=== PATIENT | male | born 1935 | race African-American/Black ===

== ENCOUNTER 2018-07-02 15:05 | Inpatient (IN) | payer OTHER ==
[2018-07-02 15:34] LABS: Absolute Lymphocytes (CBC) 0.9 K/uL (0.7-4.9); Absolute Monocytes 0.6 K/uL (0.1-1.3); Absolute Neutrophil 3.6 K/uL (1.8-8.0); Basophils % 1.1 % (0-1.3); Eosinophils % 3.8 % (0-4.4); Lymphocytes % 17.4 % (15.3-44.8); MPV 7.9 fL (7.6-11.3); Monocytes % 11.6 % (3.3-12.3); RBC Red Blood Cell Count 4.53 M/uL (4.33-5.43)
[2018-07-02 15:40] LABS: Protime INR 1.03
[2018-07-02 16:28] LABS: Potassium 4.8 mmol/L (3.5-5.1)
[2018-07-02 17:38] LABS: Urine Blood 1+ (NEG); Urine Glucose NEGATIVE (NEG); Urine Protein 2+ (NEG); Urine Specific Gravity 1.015 (1.005-1.030); Urine pH 5.5 (5.0-7.0)
--- NOTE | 2018-07-02 17:39 | ER ---
Nurse's Notes [facility] Name: Donal Ramirez Age: 82 yrs Sex: Male : 1935 Arrival Date: 07/02/2018 Time: 15:07 Bed 30 Private MD: Diagnosis: Fracture of unspecified part of neck of right femur Presentation: 07/02 15:14 Presenting complaint: Patient states: I slipped 3 weeks ago and injured my right knee. mg2 seen by Dr nam and advised to do xray of the right knee and right hip today. Now, xray done with right hip fracture. Care prior to arrival: None. Mechanism of Injury: Fall from standing position. Trauma event details: Injury occurred: at home. Injury occurred: June 12, 2018. 15:14 Acuity: ERICH 3 mg2 15:14 Method Of Arrival: Stretcher [facility] [place] 16:20 Transition of care: patient was not received from another setting of care. Onset of mg2 symptoms was June 12, 2018. Risk Assessment: Do you want to hurt yourself or someone else? Patient reports no desire to harm self or others. Initial Sepsis Screen: Does the patient meet any 2 criteria? No. Patient's initial sepsis screen is negative. Does the patient have a suspected source of infection? No. Patient's initial sepsis screen is negative. Historical: - Allergies: 15:19 No Known Allergies; mg2 - Home Meds: 15:19 aspirin 81 mg Oral TbEC once daily [Active]; carvedilol 6.25 mg Oral tab 2 times per mg2 day [Active]; clonidine HCl 0.2 mg Oral tab 3 times per day [Active]; folic acid 1 mg Oral tab once daily [Active]; hydralazine 50 mg Oral tab 1 tab 2 times per day [Active]; simvastatin 40 mg Oral tab once daily [Active]; tamsulosin 0.4 mg Oral cp24 once daily [Active]; - PMHx: 15:19 CVA; Hypertension; mg2 - PSHx: 15:19 None; mg2 - Immunization history:: Flu vaccine is not up to date. - Social history:: Smoking status: Patient/guardian denies using tobacco, Patient/guardian denies using alcohol, street drugs, IV drugs. - Ebola Screening: : No symptoms or risks identified at this time. - Family history:: not pertinent. - Hospitalizations: : No recent hospitalization is reported. Screenin:19 Abuse screen: Denies threats or abuse. Denies injuries from another. Nutritional mg2 screening: No deficits noted. Tuberculosis screening: No symptoms or risk factors identified. Fall Risk Fall in past 12 months (25 points). IV access (20 points). Gait- Weak (10 pts.). Assessment: 16:17 General: Appears in no apparent distress. comfortable, Behavior is calm, cooperative. mg2 Pain: Complains of pain in rigght upper leg Pain does not radiate. Pain currently is 2 out of 10 on a pain scale. Quality of pain is described as aching, Pain began gradually, Is intermittent, Aggravated by increased activity, repositioning, weight bearing. Neuro: Level of Consciousness is awake, alert, obeys commands, Oriented to person, place, time, situation. Cardiovascular: Capillary refill < 3 seconds Patient's skin is warm and dry. Respiratory: Airway is patent Respiratory effort is even, unlabored, Respiratory pattern is regular, symmetrical. GI: No signs and/or symptoms were reported involving the gastrointestinal system. : No signs and/or symptoms were reported regarding the genitourinary system. EENT: No signs and/or symptoms were reported regarding the EENT system. Derm: Skin is intact, is healthy with good turgor, Skin is pink, warm \T\ dry. normal. Musculoskeletal: Reports pain in right leg since 3 weeks only when he moves. 16:18 Injury Description: fractured right hip. mg2 18:17 Reassessment: patient has a room already and nurse Saleem will call back to receive the mg2 report. Vital Signs: 15:19 BP 184 / 114; Pulse 81; Resp 18; Temp 97.6; Pulse Ox 100% on R/A; Weight 78.47 kg; mg2 Height 5 ft. 11 in. (180.34 cm); Pain 0/10; 16:59 BP 183 / 94; Pulse 82; Resp 18; Pulse Ox 100% on R/A; Pain 0/10; mg2 17:45 BP 192 / 95; Pulse 84; Resp 18; Pulse Ox 99% on R/A; Pain 2/10; mg2 18:05 BP 169 / 92; Pulse 86; Resp 18; Temp 98; Pulse Ox 100% on R/A; Pain 0/10; mg2 18:38 BP 112 / 75; Pulse 85; Resp 18; Temp 98(O); Pulse Ox 100% on R/A; Pain 0/10; mg2 19:22 BP 150 / 90; Pulse 82; Resp 18; Pulse Ox 100% on R/A; Pain 0/10; mg2 15:19 Body Mass Index 24.13 (78.47 kg, 180.34 cm) mg2 ED Course: 15:07 Patient arrived in ED. iw 15:07 Hernan Razo MD is Attending Physician. rn 15:13 Dick Moulton, LASHONDA is Primary Nurse. mg2 15:17 Triage completed. mg2 15:20 Arm band placed on. mg2 15:30 Placed in gown. Bed in low position. Call light in reach. Side rails up X 1. Side rails jp3 up X2. Warm blanket given. Pillow given. 15:30 quality assurance monitor final on. Pulse ox on. NIBP on. jp3 15:40 EKG done, by instrumentation and controls technician. reviewed by Hernan Razo MD. 3 16:05 Lab(s) recollected, by me, sent to lab. jp3 16:12 Basic Metabolic Panel Sent. jp3 16:19 No provider procedures requiring assistance completed. Inserted saline lock: 20 gauge mg2 in right antecubital area, using aseptic technique. Blood collected. 17:38 Monalisa Byrne MD is Hospitalizing Provider. rn 17:59 Cleaned of incontinence. mg2 18:05 Patient admitted, IV remains in place. mg2 Administered Medications: 17:53 Drug: cloNIDine 0.2 mg Route: PO; mg2 18:39 Follow up: Response: No adverse reaction; Blood pressure is lowered mg2 Outcome: 17:38 Decision to Hospitalize by Provider. rn 19:25 Admitted to Med/surg accompanied by tech, via stretcher, room 206, with chart, Report mg2 called to LASHONDA Moralez 19:25 Condition: stable 19:25 Instructed on the need for admit, Demonstrated understanding of instructions. 19:56 Patient left the ED. mg2 Signatures: Luanne Loyd RN RN Hernan Razo MD MD rn Gardose, Michele, RN RN mg2 Kandy Khoury 3 Luisito Bosch jp3 Corrections: (The following items were deleted from the chart) 16:19 16:17 Musculoskeletal: No signs and/or symptoms reported regarding the musculoskeletal mg2 system. mg2
--- NOTE | 2018-07-02 17:39 | EDPHYS ---
Physician Documentation [facility] Name: Donal Ramirez Age: 82 yrs Sex: Male : 1935 Arrival Date: 07/02/2018 Time: 15:07 Bed 30 Private MD: ED Physician Hernan Razo HPI: 07/02 16:19 This 82 yrs old Black Male presents to ER via Stretcher with complaints of Hip Injury. rn 16:19 The patient or guardian reports an injury, pain. The complaints affect the right hip. rn Onset: The symptoms/episode began/occurred 3 week(s) ago. Severity of symptoms: At their worst the symptoms were mild, in the emergency department the symptoms are unchanged. The patient has not experienced similar symptoms in the past. Caregiver reports last known fall approx 3 weeks ago, has not been wanting to walk on right leg, touches and able to stand but not for long, doesn't want to walk. Sent here for outpt xrays, sent to ER after hip fracture identified. . Historical: - Allergies: 15:19 No Known Allergies; mg2 - Home Meds: 15:19 aspirin 81 mg Oral TbEC once daily [Active]; carvedilol 6.25 mg Oral tab 2 times per mg2 day [Active]; clonidine HCl 0.2 mg Oral tab 3 times per day [Active]; folic acid 1 mg Oral tab once daily [Active]; hydralazine 50 mg Oral tab 1 tab 2 times per day [Active]; simvastatin 40 mg Oral tab once daily [Active]; tamsulosin 0.4 mg Oral cp24 once daily [Active]; - PMHx: 15:19 CVA; Hypertension; mg2 - PSHx: 15:19 None; mg2 - Immunization history:: Flu vaccine is not up to date. - Social history:: Smoking status: Patient/guardian denies using tobacco, Patient/guardian denies using alcohol, street drugs, IV drugs. - Ebola Screening: : No symptoms or risks identified at this time. - Family history:: not pertinent. - Hospitalizations: : No recent hospitalization is reported. ROS: 16:19 Constitutional: Negative for fever, chills, and weight loss, Eyes: Negative for injury, rn pain, redness, and discharge, Neck: Negative for injury, pain, and swelling, Cardiovascular: Negative for chest pain, palpitations, and edema, Respiratory: Negative for shortness of breath, cough, wheezing, and pleuritic chest pain, Abdomen/GI: Negative for abdominal pain, nausea, vomiting, diarrhea, and constipation, MS/Extremity: + right leg pain Neuro: Negative for headache, weakness, numbness, tingling, and seizure. Exam: 16:19 Constitutional: Thin male, no acute distress Head/Face: Normocephalic, atraumatic. rn Neck: Trachea midline, no thyromegaly or masses palpated, and no cervical lymphadenopathy. Supple, full range of motion without nuchal rigidity, or vertebral point tenderness. No Meningismus. Cardiovascular: Regular rate and rhythm, No pulse deficits. Respiratory: Lungs have equal breath sounds bilaterally, clear to auscultation Abdomen/GI: soft, non-tender Back: no spinal tenderness MS/ Extremity: painful ROM right leg, locates pain to mid thigh, no swelling/ecchymosis Neuro: Awake and alert, mild slurred speech but moves all extremities with limited ROM RLE due to pain Vital Signs: 15:19 BP 184 / 114; Pulse 81; Resp 18; Temp 97.6; Pulse Ox 100% on R/A; Weight 78.47 kg; mg2 Height 5 ft. 11 in. (180.34 cm); Pain 0/10; 16:59 BP 183 / 94; Pulse 82; Resp 18; Pulse Ox 100% on R/A; Pain 0/10; mg2 17:45 BP 192 / 95; Pulse 84; Resp 18; Pulse Ox 99% on R/A; Pain 2/10; mg2 18:05 BP 169 / 92; Pulse 86; Resp 18; Temp 98; Pulse Ox 100% on R/A; Pain 0/10; mg2 18:38 BP 112 / 75; Pulse 85; Resp 18; Temp 98(O); Pulse Ox 100% on R/A; Pain 0/10; mg2 19:22 BP 150 / 90; Pulse 82; Resp 18; Pulse Ox 100% on R/A; Pain 0/10; mg2 15:19 Body Mass Index 24.13 (78.47 kg, 180.34 cm) mg2 MDM: 15:07 Patient medically screened. rn 17:04 Differential diagnosis: hip fracture, femoral neck fracture. Data reviewed: vital rn signs, nurses notes. ED course: Consulted with Dr. Garcia who recommends admission with surgical correction, but is out of town, waiting on daughter because son is under the impression she will not want surgery. Discussed with family and caregiver that if doesn't get surgery to correct, possibly wont be able to walk again, especially given that patient was ambulatory and independent prior to fall. Told again to wait until sister/daughter arrive.. 17:37 Counseling: I had a detailed discussion with the patient and/or guardian regarding: the rn historical points, exam findings, and any diagnostic results supporting the discharge/admit diagnosis, lab results, radiology results, the need for further work-up and treatment in the hospital. Response to treatment: the patient's symptoms have mildly improved after treatment, and as a result, I will admit patient. Admission orders: after a detailed discussion of the patient's condition and case, the admit orders are written by me. ED course: Daughter here, ok with admission for surgical correction, notified Dr Byrne, will admit with Dr. Hannon consult, non-emergent, given 3 week old fracture, and needs surgical clearance.. 07/02 15:14 Order name: CBC with Diff; Complete Time: 16:13 rn 07/02 15:14 Order name: Basic Metabolic Panel; Complete Time: 16:42 rn 07/02 15:14 Order name: PT-INR; Complete Time: 16:13 rn 07/02 15:14 Order name: Ptt, Activated; Complete Time: 16:13 rn 07/02 17:25 Order name: Urine Dipstick--Ancillary (enter results); Complete Time: 17:48 em1 07/02 15:14 Order name: IV Start; Complete Time: 16:12 rn 07/02 15:14 Order name: EKG; Complete Time: 15:15 rn 07/02 15:14 Order name: EKG - Nurse/Tech; Complete Time: 16:16 rn 07/02 17:25 Order name: Urine Dipstick-Ancillary (obtain specimen); Complete Time: 17:26 em1 Administered Medications: 17:53 Drug: cloNIDine 0.2 mg Route: PO; mg2 18:39 Follow up: Response: No adverse reaction; Blood pressure is lowered mg2 Disposition: 07/02/18 17:38 Hospitalization ordered by Monalisa Byrne for Inpatient Admission. Preliminary diagnosis is Fracture of unspecified part of neck of right femur. - Bed requested for Telemetry/MedSurg (Inpatient). - Status is Inpatient Admission. mg2 - Condition is Stable. - Problem is an ongoing problem. - Symptoms have improved. UTI on Admission? No Signatures: Dispatcher [employer] EDMS Hernan Razo MD MD rn Nhan Ramsey em1 Jane Sapp RN RN df Dick Moulton RN RN mg2 Corrections: (The following items were deleted from the chart) 18:01 17:38 Hospitalization Ordered by A Chavez BASILIO for Inpatient Admission. Preliminary df diagnosis is Fracture of unspecified part of neck of right femur. Bed requested for Telemetry/MedSurg (Inpatient). Status is Inpatient Admission. Condition is Stable. Problem is an ongoing problem. Symptoms have improved. UTI on Admission? No. rn 19:56 18:01 07/02/2018 17:38 Hospitalization Ordered by A Chavez BASILIO for Inpatient Admission. mg2 Preliminary diagnosis is Fracture of unspecified part of neck of right femur. Bed requested for Telemetry/MedSurg (Inpatient). Status is Inpatient Admission. Condition is Stable. Problem is an ongoing problem. Symptoms have improved. UTI on Admission? No. df
[2018-07-02] MEDS ORDERED: cloNIDine HCl 0.1 MG TAB ONE (17:58)
--- NOTE | 2018-07-02 19:46 | EKG ---
Test Date: 2018-07-02 Test Time: 15:25:52 Poultry Breeder: AG/S MEASUREMENT RESULTS: Intervals: Rate: 74 KS: 216 QRSD: 74 QT: 392 QTc: 435 [place]: P: 71 KS: 216 QRS: 19 T: 76 INTERPRETIVE STATEMENTS: Sinus rhythm with marked sinus arrhythmia with 1st degree AV block Minimal voltage criteria for LVH, may be normal variant Borderline ECG Compared to ECG 02/07/2016 12:58:23 First degree AV block now present Electronically Signed On 07-02-18 19:45:27 AUTOMOTIVE DETAILER by Mendel Noble
[2018-07-02 20:05] VITALS: BMI 21.4
[2018-07-02] MEDS ORDERED: NA CHLORIDE 0.9% 1,000 ML IV SCH (20:05)
[2018-07-02] MEDS ORDERED: ONDANSETRON 4 MG/2 ML VIAL IV PRN ×2 (20:05→21:50)
[2018-07-02] MEDS ORDERED: MORPHINE 2 MG/ML SYR IV PRN (21:50)
[2018-07-02] MEDS ORDERED: D5 0.9 NS 1,000 ML IV SCH (22:00)
[2018-07-02] MEDS ORDERED: CARVEDILOL 6.25 MG TAB PO SCH (22:30)
[2018-07-02] MEDS ORDERED: cloNIDine HCl 0.1 MG TAB PO SCH (22:30)
[2018-07-02] MEDS ORDERED: HYDRALAZINE HCL 25 MG TABLET PO SCH (22:30)
[2018-07-02] MEDS ORDERED: AMLODIPINE 5 MG TAB PO SCH (22:30)
--- NOTE | 2018-07-03 06:08 | HP ---
Date of Admission: 07/02/2018 Chief Complaint: Right knee pain. History Of Present Illness: This is an 82-year-old very pleasant male patient who came in to see me at my office on June 12, 2018, and at that time, he had complaints of some rectal bleeding problem. This was thought to be due to hemorrhoid problem and we prescribed him Anusol rectal suppository. Few days after his office visit, the patient's family member informed me that as he was getting out o f my office after the last visit, in the parking lot, he lost balance and fell down and was complaini ng of pain in his right knee, so we did order right knee x-ray, which came back negative for any frac ture. After that, he continued to have pain in his right knee, so it was decided to refer him to [facility] surgeon, and the patient had appointment to see Dr. Garcia today and he evaluated the omari ent and he requested for the patient to go get another repeat knee x-ray and he also ordered hip x-ra y. Hip x-ray showed evidence of fracture of the right hip, so [facility] and after he was evaluated, he was admitted to the hospital. When I saw him in emergency room, his family was with him at bedside. During this whole time ever since he fell down, he only c omplained of right knee pain, never had right hip pain, and his complaint of right knee pain was only with weightbearing, otherwise, never had any pain, but once again, never had right hip area pain. D enies any pain anywhere else. Allergies: NO KNOWN ALLERGIES. Medications: Amlodipine 5 mg 2 times a day, aspirin 81 mg daily, carvedilol 12.5 mg takes half a tab let 2 times a day, Claritin 10 mg daily as needed for allergy, clonidine 0.2 mg 3 times a day, Dulcol ax 5 mg once a week, tamsulosin 0.4 mg p.o. daily, fluticasone nasal spray 2 times a day, folic acid 1 mg daily, hydralazine 50 mg p.o. 2 times a day, Metamucil 2 capsules daily, minoxidil 2.5 mg 2 time s a day, simvastatin 40 mg p.o. daily in evening, and Kayexalate 60 mL p.o. 2 times a week, which is on Saturday and Saturday. Review of Systems: Musculoskeletal: As mentioned above. All other systems reviewed and negative. Past Surgical History: Negative. Past Medical History: Significant for stroke many years ago, hypertension, hyperkalemia, hyperlipide doug, anemia due to chronic kidney disease, pancreatic mass for which he has declined any further inte rvention, allergic rhinitis, chronic kidney disease stage 4, benign prostatic hypertrophy. Family History: Significant for hypertension and myocardial infarction. Social History: Negative for smoking and alcohol use. Physical Examination: Vital Signs: When he first came into emergency room, temperature 97.6, pulse 81, respiratory rate 18 , blood pressure 184/114, oxygen saturation 100%. Height 5 feet 11 inches, weight 154 pounds. General: Awake, alert, oriented, not in distress. HEENT: Head atraumatic, normocephalic. Conjunctivae nonerythematous. Sclerae white. Mouth, no thr ush or edema noted. Ears/Nose, no mass, lesion, discharge noted. Neck: Supple. No JVD, lymph nodes, bruit, thyromegaly noted. Lungs: Bilateral good equal air entry. Clear to auscultation. No rhonchi. No rales. Heart: Normal heart sounds, no murmur or gallop. Abdomen: Soft, bowel sounds normal. No guarding, rigidity, tenderness, mass, hepatosplenomegaly, di stention, or bruit noted. Extremities: No leg edema. No calf tenderness. Skin: No rash, ulcer, cellulitis. Lymphatics: No lymph node enlargement in neck, supraclavicular, infraclavicular region. Neuro: No focal neurological deficit. Chest: Unremarkable. External Genitalia: Deferred. Rectal: Deferred. Laboratory Data: White count 5.4, hemoglobin 11.6, platelets 305. Sodium 138, potassium 4.8, chlori de 107, bicarb 26, BUN 49, creatinine 2.80, glucose 90. INR 1.03. Urinalysis: 1+ blood, 2+ protein , otherwise negative. His hip x-ray done today on outpatient basis shows subcapital markedly displac ed fracture involving proximal right femur. CAT scan of the knee was negative for any fracture. Kne e x-ray was negative for fracture. EKG, sinus rhythm with sinus arrhythmia, first-degree AV block. Impression: 1.Right hip subcapital fracture. 2.Chronic kidney disease stage 4. 3.Anemia due to chronic kidney disease. 4.Hypertension. 5.Hyperlipidemia. 6.Benign prostatic hypertrophy. 7.Allergic rhinitis. 8.Pancreatic mass. Plan: We will go ahead and admit the patient to hospital for further evaluation and management of th is problem. The patient is appropriate for inpatient and [facility] Home medications will be continued per order. We will consult orthopedic surgeon on-call, Dr. Aroldo thurman, as well as we will consult Dr. Noble from Cardiology for preop cardiac clearance. The patien t is at acceptable risk from hip surgery. We will go ahead and keep him n.p.o. IV fluid will be giv en. Start him on pain medications per order. Tomorrow, we will get echocardiogram with Doppler. I did call and talk to test desk operator regarding details. He will evaluate the patient for cardiac cleara nce in the morning, and we will get the echocardiogram result from test desk operator tomorrow as well. De tails and plan of treatment discussed with the patient's family member that his daughter, son, and so n-in-law and all of their questions were answered. BRADY/PETEY Voice ID: [id number]
[2018-07-03 06:12] LABS: Absolute Lymphocytes (CBC) 0.9 K/uL (0.7-4.9); Absolute Monocytes 0.6 K/uL (0.1-1.3); Absolute Neutrophil 3.8 K/uL (1.8-8.0); Basophils % 0.6 % (0-1.3); Eosinophils % 4.6 % (0-4.4); Lymphocytes % 16.2 % (15.3-44.8); MPV 7.5 fL (7.6-11.3); Monocytes % 10.7 % (3.3-12.3); RBC Red Blood Cell Count 3.75 M/uL (4.33-5.43)
[2018-07-03 06:25] LABS: Potassium 4.8 mmol/L (3.5-5.1)
[2018-07-03] MEDS ORDERED: PNEUMOCOCCAL VACCINE 0.5 ML IMVAC ONE (08:00)
[2018-07-03] MEDS ORDERED: INFLUENZA VACCINE (for 3y+) 0.5 ML DOSE IMVAC ONE (08:00)
[2018-07-03] MEDS ORDERED: MORPHINE 4 MG/ML SYR IV PRN (08:34)
[2018-07-03] MEDS: D5 0.9 NS 1,000 ML IV SCH ×2 (08:57→17:41)
[2018-07-03] MEDS: cloNIDine HCl 0.1 MG TAB PO SCH ×3 (09:00→21:22)
[2018-07-03] MEDS ORDERED: MINOXIDIL 2.5 MG TAB PO SCH (09:00)
[2018-07-03] MEDS: CARVEDILOL 6.25 MG TAB PO SCH ×2 (09:00→21:23)
[2018-07-03] MEDS: AMLODIPINE 5 MG TAB PO SCH ×2 (09:00→21:22)
[2018-07-03] MEDS: HYDRALAZINE HCL 25 MG TABLET PO SCH ×2 (09:00→21:21)
[2018-07-03] MEDS: MINOXIDIL 2.5 MG TAB PO SCH ×2 (09:00→21:22)
[2018-07-03] MEDS: TAMSULOSIN 0.4 MG SR CAP PO SCH (09:00)
--- NOTE | 2018-07-03 11:34 | ECHO ---
HEIGHT: 5 ft 11 in WEIGHT: 154 lb 0 oz DATE OF STUDY: 07/03/[address]: Monster Byrne MD 2-DIMENSIONAL: YES M.MODE: YES DOPPLER: YES COLOR FLOW: YES TDS: NO PORTABLE: NO DEFINITY: NO BUBBLE STUDY: NO DIAGNOSIS: HYPERTENSION, PREOP CLEARANCE CARDIAC HISTORY: CATHERIZATION: NO SURGERY: NO PROSTHETIC VALVE: NO PACEMAKER: NO MEASUREMENTS (cm) DIASTOLIC (NORMALS) SYSTOLIC (NORMALS) IVSd 0.8 (0.6-1.2) LA Diam 2.8 (1.9-4.0) LVEF 83% LVIDd 4.8 (3.5-5.7) LVIDs 2.3 (2.0-3.5) %FS 52% LVPWd 1.0 (0.6-1.2) Ao Diam 3.2 (2.0-3.7) 2 DIMENSIONAL ASSESSMENT: RIGHT ATRIUM: NORMAL LEFT ATRIUM: NORMAL RIGHT VENTRICLE: NORMAL LEFT VENTRICLE: NORMAL TRICUSPID VALVE: NORMAL MITRAL VALVE: NORMAL PULMONIC VALVE: NORMAL AORTIC VALVE: NORMAL PERICARDIAL EFFUSION: NONE AORTIC ROOT: NORMAL LEFT VENTRICULAR WALL MOTION: NORMAL DOPPLER/COLOR FLOW: MILD TRICUSPID REGURGITATION. COMMENTS: MILD TRICUSPID REGURGITATION. AORTIC SCLEROSIS. NORMAL LEFT SIZE AND FUNCTION. TECHNOLOGIST: Mannie ALMANZA
[2018-07-03 14:10] LABS: Hematocrit 31.9 % (39.6-49.0)
[2018-07-03] MEDS ORDERED: TRANEXAMIC ACID 1,000 MG in NA CHLORIDE 0.9% 50 ML IV ONE (17:00)
--- NOTE | 2018-07-03 21:07 | CON ---
Date of Consultation: 07/03/2018 Reason For Consultation: Regarding right hip fracture. History Of Present Illness: This 82-year-old male had a fall in the first week of June, in which he tripped in a parking lot and had impact and was complaining of knee pain. The initial knee films were negative. The patient was referred for Orthopedic consultation and saw Dr. Oswald Garcia who asked for a repeat x-ray of the knee and the hip film. The hip films showed evidence of a displaced femoral neck fracture of the right hip and the patient was admitted to the hospital on 07/02/2018. The patient has been at bedrest and is awaiting surgery for his right hip fracture. Allergies: THERE ARE NO KNOWN ALLERGIES. Past Medical History: The patient has had no prior surgeries. His history is positive for stroke ma ny years ago. He is also treated for hypertension, hyperkalemia, hyperlipidemia, anemia due to chron ic kidney disease, pancreatic mass for which he declined any further intervention, allergic rhinitis, chronic kidney disease stage 4, and benign prostatic hypertrophy. Family History: Significant for hypertension and myocardial infarction. Social History: His history is negative for alcohol and tobacco use. Vital Signs: Stable with blood pressure 131/66, respiratory rate 19, pulse rate 16, temperature 98.3 , pain level is 0 while at bed rest. Laboratory Data: Laboratory has shown white blood cell count of 5.6 with normal differential except for slight elevation of the eosinophils. The hemoglobin upon admission was 11.6 and on the afternoon of 07/03/2018 is 10.2. Coagulation studies show pro-time of 12.2 and an INR of 1.03. Blood water chemist radha show chronic renal disease with BUN of 51, creatinine of 2.99 and estimated GFR 24. Urine shows 1+ blood and 2+ total protein as abnormalities. The patient has had electrocardiogram indicating si nus rhythm with arrhythmia and a first degree AV block, borderline ECG, followed up by echocardiogram showing mild tricuspid regurgitation, aortic sclerosis, normal left size and function. The patient has been cleared for surgery. Physical Examination: General: This is a well-nourished, well-developed 82-year-old black male, in no distress. He indica rossy he wants to proceed with whatever his family decides regarding the surgery. HEENT: Within normal limits. Neck: Supple. Lungs: Clear to auscultation with normal respiratory movements. Heart: Has a normal rate. Abdomen: Soft and nontender without distention. Genitalia: Deferred. Rectal: Deferred. Musculoskeletal: Exam reveals good action of dorsiflexion, plantar flexion of an kle and normal toe movements of flexion and extension. Sensation is intact. Capillary filling is br isk in the nail beds. Plan: X-ray has shown a closed displaced subcapital fracture of the right hip. Medical clearance villarreal s been given by doctors, Dr. Byrne and Dr. Noble. We have discussed risks and benefits with the pat porfirio and his son both in the room, and the patient's daughter who was on phone conference. All quest ions were answered and the family and the patient have elected to proceed with insertion of prostheti c right hip in treatment of a displaced right femoral neck fracture. SHIRA/PETEY Voice ID: [id number] Report ID: [id number]
[2018-07-03] MEDS: ATORVASTATIN 20 MG TAB PO SCH (21:22)
--- NOTE | 2018-07-04 00:37 | PN ---
Date of Progress Note: 07/03/2018 Subjective: The patient was seen this morning for followup. Denied any complaints this morning. Objective: Vital Signs: Reviewed. HEENT: Unremarkable. Lungs: Clear to auscultation. Heart: Sounds normal. Abdomen: Soft. Bowel sounds normal. No guarding, rigidity, tenderness, or distention. Extremities: No leg edema. Laboratory Data: White count 5.6, hemoglobin 9.7, platelets 236. Sodium 139, potassium 4.8, chlorid e 110, bicarb 24, BUN 51, creatinine 2.99, glucose 107. Impression: 1.Right hip fracture. 2.Chronic kidney disease stage 4. 3.Hypertension. 4.Anemia due to chronic kidney disease. Plan: We will continue IV fluid, rate was increased to 100 cc/hour. We will monitor patient's blood work including renal function, electrolytes. Continue to follow with orthopedic surgeon, Dr. Hannon , and I did talk to Dr. Noble from Cardiology. He evaluated the patient and informed me that echoc ardiogram was unremarkable with normal ejection fraction, and from cardiac point of view, he has diana red him for surgery. Medically, patient is at acceptable risk from planned surgery, and Dr. Hannon w ill decide when he is planning to do surgery, whether tomorrow or day after tomorrow as I understand. Order was written to hold antihypertensive medication with some holding parameter depending on the bl ood pressure readings. BRADY/MODL Voice ID: [id number] Report ID: [id number]
[2018-07-04] MEDS: D5 0.9 NS 1,000 ML IV SCH ×4 (02:48→21:46)
[2018-07-04 06:13] LABS: Absolute Lymphocytes (CBC) 0.8 K/uL (0.7-4.9); Absolute Monocytes 0.5 K/uL (0.1-1.3); Absolute Neutrophil 3.3 K/uL (1.8-8.0); Basophils % 0.7 % (0-1.3); Eosinophils % 6.2 % (0-4.4); Hematocrit 31.8 % (39.6-49.0); Lymphocytes % 16.9 % (15.3-44.8); MPV 7.5 fL (7.6-11.3); Monocytes % 9.8 % (3.3-12.3); RBC Red Blood Cell Count 3.98 M/uL (4.33-5.43)
[2018-07-04 06:27] LABS: Potassium 4.5 mmol/L (3.5-5.1)
[2018-07-04] MEDS ORDERED: PROPOFOL 200 MG/20 ML VIAL IV ONE (06:56)
[2018-07-04] MEDS ORDERED: FENTANYL CITR 250 MCG/5 ML ONE (06:57)
[2018-07-04] MEDS ORDERED: LIDOCAINE 2% MPF 5 ML VIAL ONE (06:57)
[2018-07-04] MEDS ORDERED: ROCURONIUM 50 MG/5 ML VIAL IV ONE (06:58)
[2018-07-04] MEDS ORDERED: ONDANSETRON 4 MG/2 ML VIAL ONE (06:59)
[2018-07-04] MEDS ORDERED: NEOSTIGMINE 1 MG/ML -5 ML SYRINGE ONE (06:59)
[2018-07-04] MEDS ORDERED: GLYCOPYRROLATE 0.2 MG/ML SYR ONE (06:59)
--- NOTE | 2018-07-04 07:06 | CON ---
Date of Consultation: 07/03/[address] Byrne's service on 07/02/2018. I saw the patient on 07/03/2018. Reason For Consultation: Cardiac clearance for right hip surgery. History Of Present Illness: Mr. Ramirez is an 82-year-old black male, has had a history of CVA in the p ast that has resolved. Has a history of hypertension, dyslipidemia, benign prostatic hypertrophy. H as not had any previous cardiac history. He had sustained a fall and was found to have a right hip f racture. Denies any chest pain, shortness of breath, PND, orthopnea, palpitations, or syncope. Past Medical History: As stated above. Allergies: NONE. Review of Systems: Negative. Social History: Negative. Family History: Noncontributory. Medications: At home include aspirin, Zocor, hydralazine, Coreg, clonidine, minoxidil, Flomax. Physical Examination: Vital Signs: Stable. He was afebrile. He was in sinus rhythm. HEENT: Negative. Neck: Supple. No bruit. Chest: Clear to auscultation and percussion. Cardiac: Revealed a regular rhythm and rate with an S4 gallops. No murmurs or rubs. Abdomen: Benign. Extremities: Revealed no clubbing, cyanosis, or edema. Diagnostic Data: His EKG showed left ventricular hypertrophy. Creatinine is 2.80. An echocardiogra m that was done before I saw him showed normal ejection fraction, no wall motion abnormalities and no effusion. Impression And Plan: Mr. Ramirez is a patient who has a history of cerebrovascular accident, hypertensi on, dyslipidemia, benign prostatic hypertrophy. No previous cardiac history. EKG showed LVH. Echoc ardiogram is normal. Mr. Ramirez's main risk factor is really his age and his renal insufficiency. I t hink he is at acceptable risk for surgery. I will follow him along with Dr. Byrne and Dr. Hannon. KAVITA/PETEY Voice ID: [id number] Report ID: [id number]
[2018-07-04] MEDS ORDERED: CEFAZOLIN 1GM (PREMIX IV) 1 GM/50 ML BAG ONE (07:08)
[2018-07-04] MEDS ORDERED: Ringers Lactate 1,000 ML IV ONE ×2 (07:18→10:58)
[2018-07-04] MEDS ORDERED: TRANEXAMIC ACID 1,000 MG in NA CHLORIDE 0.9% 50 ML IV ONE ×4 (07:30)
[2018-07-04] MEDS ORDERED: CEFAZOLIN 1GM (PREMIX IV) 1 GM/50 ML BAG IVPB SCH (07:30)
[2018-07-04] MEDS ORDERED: EPHEDRINE SULF 50 MG/ML VIAL ONE (08:08)
[2018-07-04] MEDS: BUPIVACA 0.25%/EPI 0.0005% MDV 50 ML VIAL ONE ×2 (08:57→11:10)
[2018-07-04] MEDS: AMLODIPINE 5 MG TAB PO SCH ×2 (09:00→20:16)
[2018-07-04] MEDS: MINOXIDIL 2.5 MG TAB PO SCH ×2 (09:00→20:14)
[2018-07-04] MEDS: TAMSULOSIN 0.4 MG SR CAP PO SCH (09:00)
[2018-07-04] MEDS: cloNIDine HCl 0.1 MG TAB PO SCH ×3 (09:00→20:16)
[2018-07-04] MEDS: CARVEDILOL 6.25 MG TAB PO SCH ×2 (09:00→20:15)
[2018-07-04] MEDS: HYDRALAZINE HCL 25 MG TABLET PO SCH ×2 (09:00→20:15)
--- NOTE | 2018-07-04 10:36 | RAD REPORT ---
EXAM DESCRIPTION: RAD - Pelvis - 07/04/2018 10:07 am CLINICAL HISTORY: Femoral fracture FINDINGS: Intraoperative x-ray demonstrates performance of a right hip arthroplasty. Prosthesis is in good position.
--- NOTE | 2018-07-04 11:40 | P.BOP ---
Preoperative diagnosis: RIGHT HIP FEMORAL NECK FRACTURE Postoperative diagnosis: SAME Primary procedure: INSERTION OF CEMENTED UNIPOLAR HIP PROSTHESIS RIGHT FEMORAL NECK FRACTURE Plasma Center Technician: Greg Hannon Estimated blood loss: 200 mL Specimen: FEM.HEAD&SHARDS CALCAR&SOFT TISSUES DEBRIDED Findings: WORN CALCAR,SUBCAPITAL FEM. NECK FRACTURE Anesthesia: General Complications: None Implants: SUMMIT FEM.STEMsz4;GIA NECK -3;HIP BALL 52mm; SIMPLEX HV CEMENTw/ GENT Fluids & blood products: INJ 30 ml 0.25%MARCAINE w/EPI Transferred to: Recovery Room Condition: Good
[2018-07-04] MEDS ORDERED: MAGNESIUM HYDROXIDE 8% 30 ML PO PRN (11:58)
[2018-07-04] MEDS: MEPERIDINE HCL 50 MG/ML AMP ONE ×2 (12:14→12:19)
--- NOTE | 2018-07-04 12:32 | RAD REPORT ---
EXAM DESCRIPTION: RAD - Pelvis - 07/04/2018 12:24 pm CLINICAL HISTORY: Right femoral surgery FINDINGS: Right hip arthroplasty has been performed. The prosthesis is in good position. No fracture or dislocation is seen
[2018-07-04] MEDS: CEFAZOLIN/SWI 1gm 1 GM/10 ML SYR IV SCH ×2 (13:58→17:56)
[2018-07-04] MEDS: ATORVASTATIN 20 MG TAB PO SCH (20:15)
[2018-07-04] MEDS: ACETAMINOPHEN 500 MG TAB PO PRN (20:20)
--- NOTE | 2018-07-04 22:45 | PN ---
Date of Progress Note: 07/04/2018 Subjective: The patient was seen this afternoon for followup as this morning when I went to his room , he was taken down for surgery. After he came to room from surgery, he has not had any problem. Wh en I saw him, his daughter was present with him at bedside. No nausea, vomiting, chest pain, or shor tness of breath. Objective: Vital Signs: Reviewed. HEENT: Unremarkable. Lungs: Clear to auscultation. Heart: Sounds normal. Abdomen: Soft. Bowel sounds normal. No guarding, rigidity, tenderness, or distention. Extremities: No leg edema. Laboratory Data: White count 4.9, hemoglobin 10.3, platelets 244. Sodium 141, potassium 4.5, chlori de 110, bicarb 24, BUN 37, creatinine 2.64, glucose 106. Impression: 1.Right hip subcapital fracture. 2.Chronic kidney disease stage 4. 3.Anemia due to chronic kidney disease. 4.Hypertension. 5.Hyperlipidemia. Plan: We will go ahead and continue current pain medications, antihypertensive medications, and we w ill see him for a followup. His renal function has improved. I did talk to the patient's daughter a nd advised her that it will be best if family can stay with him 24x7, so that way they can assist him with any help that if he needs and it will help probably reduce chances of confusion and agitation a s well. DVT prophylaxis should be started starting tomorrow using Lovenox 30 mg subcutaneous injection daily. We will see him tomorrow for followup. BRADY/MODL Voice ID: [id number] Report ID: [id number]
[2018-07-05 05:20] LABS: Hematocrit 30.9 % (39.6-49.0)
[2018-07-05] MEDS: D5 0.9 NS 1,000 ML IV SCH (09:00)
[2018-07-05] MEDS: CARVEDILOL 6.25 MG TAB PO SCH ×2 (09:50→20:03)
[2018-07-05] MEDS: HYDROCODONE/APAP 5/325 MG TAB PO PRN ×2 (09:50→14:11)
[2018-07-05] MEDS: TAMSULOSIN 0.4 MG SR CAP PO SCH (09:50)
[2018-07-05] MEDS: HYDRALAZINE HCL 25 MG TABLET PO SCH ×2 (09:50→20:02)
[2018-07-05] MEDS: cloNIDine HCl 0.1 MG TAB PO SCH ×3 (09:50→20:02)
[2018-07-05] MEDS: MINOXIDIL 2.5 MG TAB PO SCH ×2 (09:51→20:06)
[2018-07-05] MEDS: AMLODIPINE 5 MG TAB PO SCH ×2 (09:51→20:07)
[2018-07-05] MEDS: ENOXAPARIN 30 MG/0.3 ML SQ SCH (09:51)
--- NOTE | 2018-07-05 16:30 | P.PN ---
Date of Service: 07/05/18 (POD#1) S: THIS PATIENT IS RESTING IN BED THIS AFTERNOON AND PROVES TO BE ALERT AND ORIENTED AND COOPERATIVE. hIS SOONER IS PRESENT AND INDICATES HE PARTICIPATED FULLY WITH PHYSICAL THERAPY WITH TENDENCY FOR FULL WEIGHTBEARING ON THE RIGHT LOWER EXTREMITY FOR THE FIRST TIME SINCE HIS FALL 3 WEEKS AGO. O: VITAL SIGNS STABLE, PATIENT IS AFEBRILE, HEMOGLOBIN IS STABLE AT 10.1, BANDAGE IS CLEAN DRY AND INTACT. A: PATIENT IS MAKING GREAT PROGRESS IN HIS FIRST POSTOPERATIVE DAY. P: ENCOURAGED CONTINUED MOBILIZATION. INSTRUCTED PATIENT IN ANKLE FLAPS AND TOE WIGGLING TO INVOLVE VENOUS COMPRESSION IN REDUCING ACCUMULATION OF ANY EDEMA IN THE RIGHT LOWER EXTREMITY.
[2018-07-05] MEDS: ATORVASTATIN 20 MG TAB PO SCH (20:03)
[2018-07-05] MEDS: ACETAMINOPHEN 500 MG TAB PO PRN (20:03)
--- NOTE | 2018-07-05 22:19 | PN ---
Date of Progress Note: 07/05/2018 Subjective: Patient was seen this morning for followup. He was sitting in chair. Family member was with him at bedside. He denies any nausea or vomiting. Has a good appetite. Objective: Vital Signs: Reviewed. HEENT: Examination unremarkable. Lungs: Clear to auscultation. No rhonchi. No rales. Heart: Sounds normal. Abdomen: Soft, bowel sounds normal. No guarding, rigidity, tenderness, or distention. Extremities: No leg edema. Impression: 1.Right hip fracture. 2.Hypertension. 3.Chronic kidney disease stage 4. 4.Anemia due to chronic kidney disease. Plan: We will go ahead and continue current medication. Continue current antihypertensive medicatio n. We will start him on Lovenox 30 mg subcutaneous injection daily for DVT prophylaxis starting toda y. His hemoglobin this morning was 10.1, yesterday it was 10.3. We will go ahead and follow up on [employer] work tomorrow. Physical therapy to continue to work with the patient. We will remove Vidmind heter today. BRADY/MODL Voice ID: [id number] Report ID: [id number]
[2018-07-06] MEDS: HYDROCODONE/APAP 5/325 MG TAB PO PRN ×5 (03:10→22:34)
[2018-07-06 05:48] LABS: Absolute Lymphocytes (CBC) 0.8 K/uL (0.7-4.9); Absolute Monocytes 0.9 K/uL (0.1-1.3); Absolute Neutrophil 6.4 K/uL (1.8-8.0); Basophils % 0.5 % (0-1.3); Eosinophils % 3.6 % (0-4.4); Hematocrit 27.8 % (39.6-49.0); MPV 7.9 fL (7.6-11.3); Monocytes % 10.3 % (3.3-12.3)
[2018-07-06 06:08] LABS: Potassium 4.6 mmol/L (3.5-5.1)
--- NOTE | 2018-07-06 07:32 | PN ---
Date of Progress Note: 07/04/2018 I had cleared Mr. Ramirez for orthopedic surgery. He had a normal echocardiogram. Has a history of hyp ertension, dyslipidemia, and history of CVA. Postoperatively he has done well. There is no arrhythm ia. No clinical evidence of congestive heart failure. He is in mild pain from his hip, but otherwis e, has a fairly good appetite. His blood pressure is normal. We will continue to follow him as need ed. KAVITA/PETEY Voice ID: [id number] Report ID: [id number]
[2018-07-06] MEDS: HYDRALAZINE HCL 25 MG TABLET PO SCH ×2 (08:23→20:45)
[2018-07-06] MEDS: CARVEDILOL 6.25 MG TAB PO SCH ×2 (08:23→20:45)
[2018-07-06] MEDS: TAMSULOSIN 0.4 MG SR CAP PO SCH (08:23)
[2018-07-06] MEDS: cloNIDine HCl 0.1 MG TAB PO SCH ×3 (08:23→20:44)
[2018-07-06] MEDS: AMLODIPINE 5 MG TAB PO SCH ×2 (08:24→20:44)
[2018-07-06] MEDS: ENOXAPARIN 30 MG/0.3 ML SQ SCH (08:24)
[2018-07-06] MEDS: MINOXIDIL 2.5 MG TAB PO SCH ×2 (08:24→20:44)
[2018-07-06] MEDS ORDERED: BISACODYL 10 MG RECTAL SUPP PR ONE (10:27)
--- NOTE | 2018-07-06 15:26 | PN ---
Date of Progress Note: 07/06/2018 Subjective: Patient was seen this morning for followup. No new complaints, problems reported by justin monroy. Lying in bed, not in distress. Family was present with him at bedside. Objective: Vital Signs: Reviewed. HEENT Examination: Unremarkable. Lungs: Clear to auscultation. No rhonchi, rales. Heart: Sounds normal. Abdomen: Soft. Bowel sounds normal. No guarding, rigidity, tenderness. Bowel sounds normoactive. Abdomen appeared slightly distended. Extremities Exam: No leg edema. Laboratory Data: White count 8.5, hemoglobin 9.1, platelets 185. Sodium 136, potassium 4.6, chlorid e 105, bicarb 23, BUN 35, creatinine 2.95, glucose 100. Impression: 1.Right hip fracture. 2.Chronic kidney disease stage 4 to stage 5. 3.Anemia due to chronic kidney disease. 4.Constipation. 5.Benign prostatic hypertrophy with urinary retention. 6.Hypertension. Plan: Patient's blood pressure readings reviewed. We will continue current antihypertensive medicat ions. Continue current DVT prophylaxis. Physical Therapy to continue to work with the patient. The patient has not had a bowel movement. Senokot will be given on a daily basis per order, and we will give 1 dose of Dulcolax rectal suppository today. He is urinating after we removed the Mayfield cathet er, but we will continue to watch him for urinary retention. Today, after I examined him, I requeste d nurse to try to get the patient to the bedside commode to see if he can urinate and then check post void residual. The patient did not void after trying for almost 20 minutes and bladder scan had show n about 168 cc of urine. We will not put any catheter at this point and continue to encourage him to void, but if necessary, we will do straight cath p.r.n. Continue Flomax per order. BRADY/MODL Voice ID: [id number] Report ID: [id number]
[2018-07-06] MEDS: ATORVASTATIN 20 MG TAB PO SCH (20:45)
[2018-07-06] MEDS ORDERED: DOCUSATE NA/SENNA CONC 1 TAB PO SCH (21:00)
--- NOTE | 2018-07-06 21:46 | P.PN ---
Date of Service: 07/06/18 (POD 2) S: THIS PATIENT IS RESTING IN BED THIS AFTERNOON AND PROVES TO BE ALERT AND ORIENTED AND COOPERATIVE. HIS SITTER AND DAUGHTER ARE PRESENT AND INDICATE HE AGAIN DID WELL WITH PHYSICAL THERAPY. O: VITAL SIGNS STABLE, PATIENT IS AFEBRILE, HEMOGLOBIN IS STABLE AT 9.1 TODAY. BANDAGE IS CLEAN DRY AND INTACT. PATIENT WENT 20 with FWW. PATIENT DORSIFLEXES TOES AND ANKLE WITH GOOD STRENGTH. SLIGHT LEG LIFT ACCOMPLISED. HE IS ENCOURAGED TO LIFT THE LEFT LEG X5, THEN TRY LIFTING THE RIGHT LEG. ABD PILLOW STRAPS LOOSENED FOR BED EXERCISES. A: PATIENT IS MAKING PROGRESS IN HIS SECOND POSTOPERATIVE DAY. P: ENCOURAGED CONTINUED MOBILIZATION.
[2018-07-06 23:54] VITALS: O2SAT 98
[2018-07-07 06:52] LABS: Potassium 4.9 mmol/L (3.5-5.1)
[2018-07-07 06:54] LABS: Hematocrit 26.1 % (39.6-49.0)
[2018-07-07] MEDS: HYDROCODONE/APAP 5/325 MG TAB PO PRN ×2 (06:58→12:01)
[2018-07-07] MEDS: ENOXAPARIN 30 MG/0.3 ML SQ SCH (08:59)
[2018-07-07] MEDS: MINOXIDIL 2.5 MG TAB PO SCH ×2 (09:00→09:01)
[2018-07-07] MEDS: cloNIDine HCl 0.1 MG TAB PO SCH ×3 (09:00→14:09)
[2018-07-07] MEDS: TAMSULOSIN 0.4 MG SR CAP PO SCH (09:00)
[2018-07-07] MEDS: AMLODIPINE 5 MG TAB PO SCH (09:00)
[2018-07-07] MEDS: CARVEDILOL 6.25 MG TAB PO SCH (09:00)
[2018-07-07] MEDS: HYDRALAZINE HCL 25 MG TABLET PO SCH (09:01)
[2018-07-07] MEDS: ACETAMINOPHEN 500 MG TAB PO PRN (09:44)
[2018-07-07 16:10] VITALS: BP 140/56
[2018-07-07 17:42] VITALS: TEMP 98
--- NOTE | 2018-07-07 18:42 | P.PN ---
Date of Service: 07/07/18 (POD#3) S: THIS PATIENT IS IN BED IN HIS ROOM ON 5TH FLOOR REHAB THIS EVENING WITH ABD. PILLOW BETWEEN LEGS. PATIENT RESPONDS APPROPRIATELY TO QUESTIONS. HIS SITTER IS PRESENT AND INDICATES HE WENT 110' WITH PHYSICAL THERAPY. O: VITAL SIGNS STABLE, PATIENT IS AFEBRILE, HEMOGLOBIN IS STABLE AT 8.5 TODAY. BANDAGE IS CLEAN DRY AND INTACT. PATIENT DORSIFLEXES TOES AND ANKLE WITH GOOD STRENGTH. SLIGHT LEG LIFT ACCOMPLISHED. PATIENT GUARDS AGAINST ANY PASSIVE MOVEMENT OF RIGHT OR LEFT LEGS. HE IS AGAIN ENCOURAGED TO LIFT THE LEFT LEG X 5 , THEN TRY LIFTING THE RIGHT LEG. ABD PILLOW STRAPS LOOSENED FOR BED EXERCISES. A: PATIENT IS MAKING PROGRESS IN HIS SECOND POSTOPERATIVE DAY. P: ENCOURAGED CONTINUED MOBILIZATION.
--- NOTE | 2018-07-08 07:25 | DS ---
Date of Discharge: 07/07/2018 Disposition: Discharged to go to rehab floor. Physical Examination: HEENT: Unremarkable. Lungs: Clear to auscultation. Heart: Sounds normal. Abdomen: Soft. Bowel sounds normal. No guarding, rigidity, tenderness, or distention. Extremities: No leg edema. Discharge Medications: See copy of transfer MAR for details. Hospital Course: An 82-year-old male patient admitted to the hospital with right knee pain. Please see dictated H and P for more information. The patient had fallen down beginning of June which is around June 12, 2018, and he started complaining of pain in his right knee. Right knee x-ray was unremarkable, but he continued to have pain in the knee. He never complained of any pain in his [facility] t hip area. He was referred to see Dr. Garcia, who sent him into hospital for repeat knee x-ray a nd also did a hip x-ray and his hip x-ray came back positive for fractures. So, the patient was admi tted to the hospital. See dictated H and P for more information. After the patient was admitted to the hospital, Orthopedic consultation was obtained from Dr. Hannon and a Cardiology consultation was obtained from Dr. Noble. Cardiac clearance was obtained. Echocardiogram was unremarkable. His ho me medications were continued and the patient had surgery done by Dr. Hannon and postoperatively he d id very well. He did not require any blood transfusion. He had some constipation problem, which was corrected with laxative. DVT prophylaxis was started using Lovenox. He started participating well with the physical therapy. He is eating well and is medically stable for discharge to go to [facility] where he was accepted today. The patient had a Mayfield catheter placement after surgery, which was removed and has had some urinary retention, requiring intermittent catheterization. We will con tinue Flomax. This morning, nurse was advised not to do any intermittent catheterization unless his urinary retention is more than 250 cc. Final Diagnoses: 1.Right hip subcapital fracture, status post surgery. 2.Hypertension. 3.Chronic kidney disease stage 4. 4.Anemia due to chronic kidney disease. 5.Hypertension. 6.Hyperlipidemia. 7.Benign prostatic hypertrophy with urinary retention. 8.Allergic rhinitis. 9.Pancreatic mass. 10.Anemia due to acute blood loss. Laboratory Data: Last hemoglobin today was 8.5. Last chemistry today sodium 132, potassium 4.9, chl oride 102, bicarb 23, BUN 35, creatinine 2.73, glucose 93. BRADY/MODL Voice ID: [id number] Report ID: [id number]
--- NOTE | 2018-07-09 02:29 | OP ---
Date of Procedure: 07/04/2018 Surgeon: Greg Hannon MD Front End Java Developer: Greg Hannon M.D. Preoperative Diagnosis: Right hip femoral neck fracture. Postoperative Diagnosis: Right hip femoral neck fracture. Primary Procedures: Insertion of cemented unipolar hip prosthesis, right femoral neck fracture. Indications: This 82-year-old male had fallen at June 10 and suffered complaints of knee pain. He was seen and evaluated with x-rays of the knee that prove negative. He continued to have intense knee pain and was referred to orthopedic evaluation. X-ray there showed a fracture of the hip. The patient was advised to go to the hospital, but held out at home for more days before presenting on , at the [facility] emergency Department. He was admitted and is taken to surgery to manage the right hip fracture with hemiarthroplasty. Technique: The patient was taken to the operating room and given a general anesthesia. The patient was placed in the left lateral position and balanced with bolsters at the lumbar area and the abdomin al area and the pubic bone anteriorly. This made the pelvis transverse line vertical to the floor. The leg was suspended and prepping was carried out from the ribcage to the toes using a DuraPrep for the ankle and foot after Betadine scrub and solution for the hip area. After draping was accomplishe d, the incision was marked and Ioban sticky drape was placed over the operative site. The incision w as made in the proximal femoral line extending upwards to towards the lesser trochanter and angling i n a curve towards the posterior superior iliac spine. The incision was carried sharply through skin and subcutaneous tissue. Bovie coagulation was done constantly to create hemostasis. The cutting Edison vie was used to open the fascia eyad, that was divided proximally with a cutting Bovie into the glute us maureen muscle, which was split with a cutting Bovie and tearing of soft tissue with the finger. The self retainers were applied to allow continued exposure as the posterior aspect of the proximal f emur was dissected carefully using the cutting Bovie to remove the external rotators. They were tagg ed and the capsule was opened and followed down to the acetabular lip using Junior scissors to cut the capsule. Tags were applied as the piriformis insertion was released and the external rotators were u sed for posterior traction. The calcar was exposed. It was broken almost at the site expected for t he seating of the stem in the intramedullary canal. The corkscrew was used to remove the femoral hea d. It was measured at 52 mm in diameter. Then, attention was paid to the proximal femur using retra ctors to bring it upwards out of the depth of the wound. The initiator was followed by the canal fin akbar and the lateralizer. Then, sequential reaming was followed by broaching. The broaching was rodarte ied out to the size 4 and the size 4 proved to be a little prominent and added too much length and th ere was a great deal of difficulty in doing a trial reduction. So, the size 3 broach was placed and seated a little deeper and the calcar reamer was used to trim down the edges of the calcar approximat brennan 4 mm and the central intramedullary plug was placed in a proper position. The cement using Simpl ex HV cement with gentamicin 2 batches were placed in a cement gun and pressure technique was used to inject the cement into the proximal femur and the Miner femoral stem size 4 was pressed into positi on. The -3 Deborah neck was assembled with the 52-mm Deborah hip ball and both were tapped onto th e conical taper with a mallet and the impactor. Reduction was accomplished and the length seemed benson te appropriate. There was no pistoning with pull and push on the knee. Range of motion was good. E stimated blood loss was 200 mL. Specimen included femoral head, shards of calcar and soft tissues de brided. The wound then was irrigated profusely and closed with first repair of the posterior capsule using #1 Vicryl. Then, #1 Vicryl was used to repair the piriformis insertion and insertion of the e xternal rotator muscles. The vastus lateralis was repaired with #1 Vicryl interrupted sutures after another irrigation was accomplished. Once the vastus lateralis and gluteus maureen fascial layer wer e repaired, then deep subcu was also done with #1 Vicryl interrupted sutures. A 2-0 Vicryl interrupt ed suture was used for the subcutaneous closure and skin karina were used for skin closure. The ban dage chosen was an Aquacel adhesive bandage. It seals around the incision. The patient was then ret urned to the hospital bed and taken to recovery having tolerated this procedure well. A 30 mL of 0.25% Marcaine with epinephrine were injected into the incision befo re the bandage was applied. HANNAH Voice ID: [id number] Report ID: [id number]
== END 2018-07-07 16:52 | DRG 470 ==
LOC: ER 15:05 → ERHOLD 17:41 → 2ND 19:29
PROVIDERS: ADMIT Internal Medicine; ATTEND Internal Medicine
PROC: 0SRR0J9 Replacement of Right Hip Joint, Femoral Surface with Synthetic Substitute, Cemented, Open Approach (ICD-10-PCS; principal; 2018-07-04 07:30)
DX: S72.011A Unspecified intracapsular fracture of right femur, initial encounter for closed fracture (principal); N18.4 Chronic kidney disease, stage 4 (severe); D62 Acute posthemorrhagic anemia; W01.0XXA Fall on same level from slipping, tripping and stumbling without subsequent striking against object, initial encounter; Y93.89 Activity, other specified; Y92.019 Unspecified place in single-family (private) house as the place of occurrence of the external cause; Z86.73 Personal history of transient ischemic attack (TIA), and cerebral infarction without residual deficits; E87.5 Hyperkalemia; E78.5 Hyperlipidemia, unspecified; D63.1 Anemia in chronic kidney disease; I12.9 Hypertensive chronic kidney disease with stage 1 through stage 4 chronic kidney disease, or unspecified chronic kidney disease; J30.9 Allergic rhinitis, unspecified; K86.9 Disease of pancreas, unspecified; K59.00 Constipation, unspecified; N40.1 Benign prostatic hyperplasia with lower urinary tract symptoms; R33.8 Other retention of urine
CPT/HCPCS: 36415; 72170; 73700; 80048; 81003; 85014; 85018; 85025; 85610; 85730; 88304; 88305; 88311; 93005; 93306; 97116; 97163; 97166; 97530; 99285; J0690; J1650; J2175; J2405; J2704; J2710; J3010; J7030

== ENCOUNTER 2018-07-07 10:33 | Inpatient (IN) | payer OTHER ==
--- NOTE | 2018-07-07 11:53 | R.PREADM ---
SCREENING DATE AND TIME 07/07/2018 10:40 (NUCLEAR UNIT OPERATOR) ANTICIPATED REHAB ADMISSION DATE 07/09/2018 REFERRING FACILITY Formerly [facility] REFERRAL DATE AND TIME 07/07/2018 10:41 (NUCLEAR UNIT OPERATOR) REFERRAL OFFICE PHONE [phone] REFERRAL ROOM# [id number] ACUTE ADMIT DATE 07/02/2018 Previous Rehabilitation(s): No. REFERRING PHYSICIAN Greg Hannon REHAB FACILITY [facility] CLINICAL LIAISON Lupe Carranza PHYSICIAN REVIEWER Dr. Trino Pineda M.D. MR# [id number] NAME DONAL RAMIREZ AD[address]ESS [id number] [address] DATE OF 1935 AGE 82 SSN# [id number] GENDER male MARITAL STATUS RACE black ADMIT FROM 02 - [facility] PRE-HOSPITAL LIVING SETTING 01 - Home (private home/apt. board/care, assisted living, long-term, transitional living) HOME TYPE AND DETAILS Type of home: mobile home # of levels in the residence: 1 # of steps within the residence: 0 # of steps to enter the residence: 1 PRE-HOSPITAL LIVING WITH Alone FAMILY SUPPORT Yes PRIMARY FAMILY CONTACT NAME Keiko Lawton PRIMARY FAMILY CONTACT PHONE PRIMARY FAMILY CONTACT RELATIONSHIP Daughter PHONE PRIMARY FAMILY CONTACT ON ADM.? no IS PRIMARY FAMILY CONTACT AUTH. REP.? no 1ST EMERGENCY CONTACT Keiko Lawton 1ST CONTACT PHONE 1ST CONTACT RELATIONSHIP Daughter PHONE 1ST CONTACT ON ADM. no IS 1ST CONTACT AUTH. REP.? no PHONE 2ND CONTACT ON ADM.? no PATIENT EMPLOYMENT STATUS Retired (for age) PATIENT EMPLOYER No Employer PAYOR INFORMATION: 1ST PAYOR NAME MEDICARE 1ST PAYOR PHONE [phone] 1ST PAYOR INJURY/ILLNESS DUE TO ACCIDENT? No ANOTHER GREEN PARTY RESPONSIBLE? No PRIMARY REHAB/ACUTE DIAGNOSIS: RIGHT FEMORAL NECK FRACTURE ONSET DATE 07/02/2018 REHAB IMPAIRMENT CATEGORY (CIELO): 07 Fracture of LE (FracLE) MEETS 60% rule AFFECTED EXTREMITIES: RLE PRIMARY DIAGNOSIS-RELATED SURGERIES: RIGHT HIP- INSERTION OF UNIPOLAR PROSTHESIS FOR CLOSED DISPLACED FEMORAL NECK FRACTURE - performed by Greg Hannon on 07/04/2018 COMORBID REHAB/ACUTE DIAGNOSES: - N/A HYPETENSION HYPERKALEMIA HYPERLIPIDEMIA ANEMIA CHRONIC KIDNEY DISEASE STAGE 4 PANCREATIC MASS ALLERGIC RHINITIS BENIGN PROSTATIC HYPERTROPHY SUMMARY OF ACUTE HOSPITALIZATION: Pt. is a 82 yo Right-handed black male. His impairment category is Orthopaedic Disorders 08 - Unilateral Hip Fracture (08.11). Pre-morbidly, Pt. was independent/mod-I in Transfers Control, Communication, Social Cognition, Self-C are, Locomotion, and Sphincter Control; and he had good Sphincter Control. Currently, he has deficits of Transfers Control, Balance, Locomotion, Endurance, Safety Awareness, an d Self-Care. Pt. is now referred to [facility] for acute in-patient rehabilitation in order to maximize patient's functional independence in activities of daily living, strength, ROM, and mobi lity. Patient has realistic goal of being discharged at assistance level 6-Ayaan to reside at Home with Fam verónica/Relatives. Donal Ramirez is an 82 year old male that lives alone in a trailer with a ramp to enter. Patient has a careg iver that stays at daytime and ambulatory with a cane with ADLs. On 07/02/2017, he was in the carport when he slipped and fell and was admitted to [facility] and treated. He is now medically stable but in need of 24-hour nursing, doctor supervision and oversite while receiving The patient is reasonably expected to participate in 3hours of therapy a day/15 hours per week and receive care with an intensive interdisciplinary approach. PAST MEDICAL HISTORY ALLERGIC RHINITIS ANEMIA BENIGN PROSTATIC HYPERTROPHY CHRONIC KIDNEY DISEASE STAGE 4 HYPERKALEMIA HYPERLIPIDEMIA HYPETENSION PANCREATIC MASS PAST SURGICAL HISTORY: N/A MEDICATION ALLERGIES: No Known Drug Allergies (NKDA) ENVIRONMENTAL ALLERGIES: None Known - Substance Allergies None Known - Other Allergies None Known CODE STATUS: Full code WEIGHT/HEIGHT/BMI: WEIGHT 154 lbs HEIGHT 5' 11" BMI 21.5 DIET: - Diet Type Regular - Diet - Solid Texture Regular - Diet - Liquid Texture Regular - Tube Feed N/A SKIN DIAGRAM: Incision on Right hip; extent - small; stage - NS(Not Stageable). Treatment - Per Physician's Orders. REVIEW OF SYSTEMS: - Gen Alert and awake Lying in bed No apparent distress Oriented to: person, time, and place - Vital Signs Temperature: 98.6 F SBP/DBP: 118/55 Pulse: 86 Resp: 18 Vital signs stable, afebrile - CVS RRR VITAL SIGNS Temperature: 98.6 F SBP/DBP: 118/55 Pulse: 86 Resp: 18 Vital signs stable, afebrile CURRENT SPHINCTER CONTROL: Pre-hospital bladder status: continent # of bladder accidents in the last 7 days prior to screenin Pre-hospital bowel status: continent # of bowel accidents in the last 7 days prior to screenin Last Bowel Movement Date: 07/06/2018 DETAILED CURRENT FUNCTIONAL STATUS: - Bladder accident frequency: Ind - No accidents in the past 7 days - Bowel accident frequency: Ind - No accidents in the past 7 days - Walking score based on distance walked: 1(<=50ft) - Wheelchair score based on distance traveled: 0(N/A) FUNCTIONAL STATUS: - Self-Care A. Eating Ind Ayaan B. Grooming Ind Ayaan C. Bathing Ind maxA D. Dressing - Upper Ind sup E. Dressing - Lower Ind maxA F. Toileting Ind maxA - Sphincter Control G: Bladder control Ind Ind H: Bowel control Ind Ind - Transfers Control I. Bed/Chair/Wheelchair Ind modA J. Toilet Ind modA K. Tub/Shower Ind ADNO - Locomotion L. Walk/Wheelchair (C) Ind modA L. Walk/Wheelchair (W) Ind modA M. Stairs Ind ADNO - Communication N. Comprehension (B) Ind Ayaan O. Expression (B) Ind Ayaan - Social Cognition P. Social Interaction Ind Ayaan Q. Problem Solving Ind Ayaan R. Memory Ind Ayaan - Endurance Fair - Balance Fair - Safety Awareness Fair CURRENT FUNC. DEFICITS: Transfers Control, Balance, Locomotion, Endurance, Safety Awareness, and Self-Care THERAPY NOTES FROM ACUTE CARE: Attached. SPECIAL NEEDS: - Safety Concerns Skin breakdown precautions needed due to skin breakdown risk PRECAUTIONS: - Posterior Hip Precaution No adduction across midline No external rotation No hip flexion >90 degrees No internal rotation No wheel chair propulsion - Weight Bearing Precaution WBAT right LE PATIENT NEEDS ACTIVE AND ONGOING THERAPEUTIC INTERVENTION OF MULTIPLE THERAPY DISCIPLINES, INCLUDING: - Occupational Therapy Evaluate and Treat. - Physical Therapy Evaluate and Treat. PATIENT NEEDS CLOSE MEDICAL SUPERVISION BY A REHABILITATION PHYSICIAN FOR: Bowel and Bladder Management Coordination of Treatment Team Medical and Co-Morbidity Management Wound Care Pain Management DVT Management PATIENT REQUIRES 24X7 REHAB NURSING FOR MEDICAL AND FUNCTIONAL MGT. OF THE FOLLOWING DEFICITS: ADL's Ambulation Bowel and Bladder Management Cognition Communication Disease Management Medication Management Patient/Family Education Providing Safe Environment Skin Integrity Transfers Pain Management PATIENT REQUIRES INTENSIVE, COORDINATED INTERDISCIPLINARY APPROACH TO REHAB: Arranging Home Equipment/Services Discharge Planning Family Intervention/Training Runway Model/Case Management PATIENT REHAB POTENTIAL: Expected level of measurable improvement will be of a practical value to patient's functional capacit y or adaptations to impairments Has a viable Discharge Plan Medically appropriate; condition is sufficiently stable to participate in intensive rehab program Patient is able and expected to receive 3 hours of individualized therapy daily on at least 5 of ever y 7 days Patient's prognosis for significant practical improvement within a reasonable period of time appears Good DISCHARGE PLAN: - Estimated Length of Stay (days) 14. - Consensus on plan Discharge plan has been discussed with primary caregiver. Patient/Family is in agreement with the joan n. Primary caregiver is in agreement with the plan. - Patient/Family Goals Return home with assistance. - Planned Living Setting Upon Discharge Home, to live with Family/Relatives. RECOMMENDED CARE LEVEL: IRF RECOMMENDATION DETAILS: Recommended Admission to Comprehensive Rehabilitation Program to Increase Functional [place] SCREENER'S COMPLETENESS CONFIRMATION: - Screening Confirmation The patient data collection on this preadmission screening form is finished PHYSICIANS REVIEW AND ADMISSION DETERMINATION Admit - Based on my review of the Pre-Admission Screening results, in my medical judgment and experie nce, I concur with the findings and recommend admission to [facility], as this patient requires an IRF level of care. SIGNATURE PANEL: Clinical Liaison - [electronically] signed by Lupe Carranza on 07/07/2018 at 11:29 (NUCLEAR UNIT OPERATOR) Physician Reviewer - [electronically] signed by Dr. Trino Pineda M.D. on 07/07/2018 at 11:52 (NUCLEAR UNIT OPERATOR )
[2018-07-07] MEDS ORDERED: ENOXAPARIN 30 MG/0.3 ML SQ SCH (18:00)
[2018-07-07] MEDS: HYDROCODONE/APAP 5/325 MG TAB PO PRN (19:13)
[2018-07-07 19:25] LABS: Urine Appearance CLEAR; Urine Bilirubin NEGATIVE (NEG); Urine Blood NEGATIVE (NEG); Urine Color YELLOW; Urine Glucose NEGATIVE (NEG); Urine Protein 1+ (NEG); Urine pH 5.5 (5.0-7.0)
[2018-07-07] MEDS: HYDRALAZINE HCL 25 MG TABLET PO SCH (19:30)
[2018-07-07] MEDS: MINOXIDIL 2.5 MG TAB PO SCH (19:30)
[2018-07-07] MEDS: cloNIDine HCl 0.1 MG TAB PO SCH (19:31)
[2018-07-07 19:34] LABS: Urine Bacteria <20 /HPF (NONE SEEN); Urine Culture Reflex Order NOT NEEDED
[2018-07-07] MEDS ORDERED: HYDRALAZINE HCL 25 MG TABLET PO SCH (20:00)
[2018-07-07] MEDS: DOCUSATE NA/SENNA CONC 1 TAB PO SCH (20:21)
[2018-07-07] MEDS: ATORVASTATIN 20 MG TAB PO SCH (20:21)
[2018-07-07] MEDS: AMLODIPINE 5 MG TAB PO SCH (20:22)
[2018-07-07] MEDS: CARVEDILOL 6.25 MG TAB PO SCH (20:22)
[2018-07-07] MEDS ORDERED: cloNIDine HCl 0.1 MG TAB PO SCH (21:00)
[2018-07-08] MEDS: HYDROCODONE/APAP 5/325 MG TAB PO PRN ×2 (00:53→08:38)
[2018-07-08 02:03] VITALS: BMI 21.4
[2018-07-08 06:41] LABS: Absolute Lymphocytes (CBC) 0.2 K/uL (0.7-4.9); Absolute Monocytes 0.8 K/uL (0.1-1.3); Absolute Neutrophil 10.6 K/uL (1.8-8.0); Basophils % 0.1 % (0-1.3); Eosinophils % 0.5 % (0-4.4); Monocytes % 7.1 % (3.3-12.3); RBC Red Blood Cell Count 3.68 M/uL (4.33-5.43)
[2018-07-08 07:26] LABS: Albumin 2.4 g/dL (3.4-5.0); Magnesium 1.8 mg/dL (1.8-2.4); Potassium 4.5 mmol/L (3.5-5.1); Prealbumin 9.9 mg/dL (20-40)
[2018-07-08] MEDS ORDERED: PSYLLIUM 1 PKT PO SCH (08:00)
[2018-07-08] MEDS: AMLODIPINE 5 MG TAB PO SCH (08:00)
[2018-07-08] MEDS: CARVEDILOL 6.25 MG TAB PO SCH ×2 (08:00→20:21)
[2018-07-08] MEDS: HYDRALAZINE HCL 25 MG TABLET PO SCH ×2 (08:00→20:00)
[2018-07-08] MEDS: ENOXAPARIN 30 MG/0.3 ML SQ SCH (08:35)
[2018-07-08] MEDS: cloNIDine HCl 0.1 MG TAB PO SCH ×3 (08:36→20:22)
[2018-07-08] MEDS: TAMSULOSIN 0.4 MG SR CAP PO SCH (08:37)
[2018-07-08] MEDS: FOLIC ACID 1 MG TABLET PO SCH (08:38)
[2018-07-08 08:43] LABS: Platelet Estimate ADEQ; Urine White Blood Cell Casts OK
[2018-07-08 08:44] LABS: Blood Morphology Comment NOTED (NOT SEEN); Burr Cells FEW
[2018-07-08] MEDS: MINOXIDIL 2.5 MG TAB PO SCH ×2 (08:50→20:21)
[2018-07-08] MEDS ORDERED: PNEUMOCOCCAL VACCINE 0.5 ML IMVAC ONE (09:00)
[2018-07-08] MEDS ORDERED: INFLUENZA VACCINE (for 3y+) 0.5 ML DOSE IMVAC ONE (09:00)
[2018-07-08] MEDS: ACETAMINOPHEN 500 MG TAB PO PRN (12:16)
--- NOTE | 2018-07-08 13:26 | FAST ---
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 Trino Pineda M.D. ADMISSION DIAGNOSIS: - Orthopaedic Disorders 08 - Unilateral Hip Fracture (08.11) RIGHT FEMORAL NECK FRACTURE. EATING: EATING - STEP 1: Does the patient require the assistance of a person or device, or need extra time when eating? Yes. EATING - STEP 2: Does the patient require the assistance of a helper? Yes. EATING - STEP 3: Does the patient perform half or more of the eating tasks? Yes. EATING - STEP 4: Does the patient need only supervision, cuing, coaxing OR help to apply an orthosis OR help to cut fo od, open containers, pour liquids, or butter bread? Yes. EATING - SCORE: 5-SUP GROOMING: Activity did not occur on this shift GROOMING - SCORE: 0-UNK BATHING: Activity did not occur on this shift BATHING - SCORE: 0-UNK DRESSING - UPPER BODY: Activity did not occur on this shift ARTICLES SCORE Total number of steps: 0 DRESSING - UPPER BODY - SCORE: 0-UNK DRESSING - LOWER BODY: Activity did not occur on this shift ARTICLES SCORE Total number of steps: 0 DRESSING - LOWER BODY - SCORE: 0-UNK TOILETING: TOILETING - STEP 1: Does the patient require the assistance of a person or device, or need extra time with toileting? Yes . TOILETING - STEP 2: Does the patient require the assistance of a helper? Yes. TOILETING - STEP 3: How much assistance does the patient require from the helper? Hands-on assistance from the helper TOILETING - STEP 4: Of the 3 tasks: 1) Adjusting clothing prior to use, 2) Cleansing of perineal area, 3) Adjusting clot ashley after use; How many tasks does the patient perform WITHOUT assistance of the helper? Two tasks TOILETING - SCORE: 3-MOD BLADDER MANAGEMENT: BLADDER MANAGEMENT - STEP 1: Does the patient control the bladder completely and intentionally without equipment or devices or med ications, and is always continent? No. BLADDER MANAGEMENT - STEP 2: Does the patient require the assistance of a helper? No, patient requires and independently uses an a ssistive device, such as a urinal, bedpan, bedside commode, catheter, absorbent pad, or collecting de vice BLADDER MANAGEMENT - SCORE: 6-OTILIO BLADDER MANAGEMENT - FREQUENCY OF ACCIDENTS: BLADDER MANAGEMENT(FA) - STEP 1: How many accidents has the patient had during the current shift? 2 BOWEL MANAGEMENT: BOWEL MANAGEMENT - STEP 1: Does the patient control bowels completely and intentionally without equipment devices or medications AND is always continent? No. BOWEL MANAGEMENT - STEP 2: Does the patient require the assistance of a helper? No, patient requires and manages independently a n assistive device such as a bedpan, bedside commode, absorbent pad, incontinent device, or collectin g device BOWEL MANAGEMENT - SCORE: 6-OTILIO TRANSFERS: BED, CHAIR, WHEELCHAIR: TRANSFERS: BED, CHAIR, WHEELCHAIR - STEP 1: Does the patient require assistance of a person or device, or need extra time with bed, chair, or whe elchair transfers? Yes. TRANSFERS: BED, CHAIR, WHEELCHAIR - STEP 2: Does the patient require the assistance of a helper? Yes. TRANSFERS: BED, CHAIR, WHEELCHAIR - STEP 3: How much assistance does the patient require from the helper? Steadying/guiding assistance TRANSFERS: BED, CHAIR, WHEELCHAIR - SCORE: 4-MIN TRANSFERS: TOILET: TRANSFERS: TOILET - STEP 1: Does the patient require the assistance of a person or device, or need extra time with toilet transfe rs? Yes. TRANSFERS: TOILET - STEP 2: Does the patient require the assistance of a helper? Yes. TRANSFERS: TOILET - STEP 3: How much assistance does the patient require from the helper? Patient performs half or more of the tr ansferring tasks TRANSFERS: TOILET - STEP 4: Does the patient need only incidental help such as contact guard or steadying during toilet transfer? Yes. TRANSFERS: TOILET - SCORE: 4-MIN TRANSFERS: SHOWER: TRANSFERS: SHOWER - STEP 1: Does the patient require the assistance of a person or device, or need extra time with shower transfe rs? Yes. TRANSFERS: SHOWER - STEP 2: Does the patient require the assistance of a helper? Yes. TRANSFERS: SHOWER - STEP 3: How much assistance does the patient require from the helper? Only incidental help such as contact gu arding or steadying during shower transfers, or help to lift one leg into the shower TRANSFERS: SHOWER - SCORE: 4-MIN TRANSFERS: TUB: Activity did not occur on this shift TRANSFERS: TUB - SCORE: 0-UNK LOCOMOTION: WALK: Activity did not occur on this shift LOCOMOTION: WALK - SCORE: 0-UNK LOCOMOTION: WHEELCHAIR: Activity did not occur on this shift LOCOMOTION: WHEELCHAIR - SCORE: 0-UNK COMPREHENSION: COMPREHENSION: TYPE: Both COMPREHENSION - STEP 1: Does the patient require help from a person or device, or need extra time to understand complex and a bstract ideas (such as current events, finances, discharge planning, medical issues, relationships, e tc)? Yes. COMPREHENSION - STEP 2: Does the patient require help to understand questions or statements about basic needs or ideas (such as hunger, thirst, sleep, safety, daily schedule, room location, or discomfort) half or more of the t reji? No. COMPREHENSION - STEP 3: How often does the patient need help to understand directions and conversation about basic needs? Les s than 10% of the time COMPREHENSION - SCORE: 5-SUP EXPRESSION EXPRESSION: TYPE: Both EXPRESSION - STEP 1: Does the patient require help from a person or device, or need extra time expressing complex and abst ract ideas (such as current events, finances, discharge planning, medical issues, relationships, etc) ? Yes. EXPRESSION - STEP 2: Does the patient require help to express basic necessities or ideas (such as hunger, thirst, sleep, s afety, daily schedule, room location, or discomfort) half or more of the time? No. EXPRESSION - STEP 3: How often does the patient need help to express directions and conversation about basic needs? Less t obando 10% of the time EXPRESSION - SCORE: 5-SUP SOCIAL INTERACTION: SOCIAL INTERACTION - STEP 1: Does the patient require a helper to interact with others in social and therapeutic situations? Yes. SOCIAL INTERACTION - STEP 2: Does the patient interact appropriately half or more of the time? Yes. SOCIAL INTERACTION - STEP 3: How often does the patient need help to interact appropriately? Less than 10% of the time SOCIAL INTERACTION - SCORE: 5-SUP PROBLEM SOLVING: PROBLEM SOLVING - STEP 1: Does the patient need help from a person or device, or need extra time to solve complex problems such as managing a checking account or confronting interpersonal problems? Yes. PROBLEM SOLVING - STEP 2: Does the patient solve basic routine problems half or more of the time? Yes. PROBLEM SOLVING - STEP 3: How often does the patient need help to solve basic routine problems? Less than 10% of the time PROBLEM SOLVING - SCORE: 5-SUP MEMORY: MEMORY - STEP 1: Does the patient need help from a person or device, or need extra time to remember frequently encount ered people, daily routines, and executing requests? Yes. MEMORY - STEP 2: How often does the patient need help to remember frequently encountered people, daily routines, and e xecuting requests? Less than 10% of the time MEMORY - SCORE: 5-SUP SIGNATURE PANEL: The following modified sections: Eating - Score, Grooming - Score, Bathing - Score, Dressing - Upper Body - Score, Dressing - Lower Body - Score, Toileting - Score, Bladder Management - Score, Bowel Man agement - Score, Transfers: Bed, Chair, Wheelchair - Score, Transfers: Toilet - Score, Transfers: Stefania wer - Score, Transfers: Tub - Score, Locomotion: Walk - Score, Locomotion: Wheelchair - Score, Compre hension - Score, Expression - Score, Social Interaction - Score, Problem Solving - Score, Memory - Sc ore were [electronically] signed by Johnathan Ladd on SatJul 08 2018 13:26:11 GMT-0600 (Central Standard Time)
[2018-07-08] MEDS: MAGNESIUM OXIDE 400 MG TAB PO SCH ×2 (15:02→20:19)
[2018-07-08] MEDS: GABAPENTIN 100 MG CAP PO SCH ×2 (15:02→20:18)
--- NOTE | 2018-07-08 15:03 | FAST ---
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 Trino Pineda M.D. ADMISSION DIAGNOSIS: - Orthopaedic Disorders 08 - Unilateral Hip Fracture (08.11) RIGHT FEMORAL NECK FRACTURE. EATING: Activity did not occur on this shift EATING - SCORE: 0-UNK GROOMING: Activity did not occur on this shift GROOMING - SCORE: 0-UNK BATHING: Activity did not occur on this shift BATHING - SCORE: 0-UNK DRESSING - UPPER BODY: Activity did not occur on this shift Patient is not dressing in public clothing ARTICLES SCORE Total number of steps: 0 DRESSING - UPPER BODY - SCORE: 0-UNK DRESSING - LOWER BODY: Activity did not occur on this shift Patient is not dressing in public clothing ARTICLES SCORE Total number of steps: 0 DRESSING - LOWER BODY - SCORE: 0-UNK TOILETING: Activity did not occur on this shift TOILETING - SCORE: 0-UNK BLADDER MANAGEMENT: Activity did not occur on this shift BLADDER MANAGEMENT - SCORE: 7-IND BOWEL MANAGEMENT: Activity did not occur on this shift BOWEL MANAGEMENT - SCORE: 7-IND TRANSFERS: BED, CHAIR, WHEELCHAIR: TRANSFERS: BED, CHAIR, WHEELCHAIR - STEP 1: Does the patient require assistance of a person or device, or need extra time with bed, chair, or whe elchair transfers? Yes. TRANSFERS: BED, CHAIR, WHEELCHAIR - STEP 2: Does the patient require the assistance of a helper? Yes. TRANSFERS: BED, CHAIR, WHEELCHAIR - STEP 3: How much assistance does the patient require from the helper? Lifting of the patient TRANSFERS: BED, CHAIR, WHEELCHAIR - STEP 4: Does the helper lift the patient ONLY up? ONLY down? Up AND Down? ONLY up. TRANSFERS: BED, CHAIR, WHEELCHAIR - SCORE: 3-MOD TRANSFERS: TOILET: Activity did not occur on this shift TRANSFERS: TOILET - SCORE: 0-UNK TRANSFERS: SHOWER: Activity did not occur on this shift TRANSFERS: SHOWER - SCORE: 0-UNK TRANSFERS: TUB: Activity did not occur on this shift TRANSFERS: TUB - SCORE: 0-UNK LOCOMOTION: WALK: LOCOMOTION: WALK - STEP 1: Does the patient need help from a person or device, or need extra time to walk 150 feet? Yes. LOCOMOTION: WALK - STEP 2: How much assistance does the patient require to walk a minimum of 150 feet? Patient walks less than 1 50 feet - but more than 50 feet - with the assistance of only one helper LOCOMOTION: WALK - SCORE: 2-MAX LOCOMOTION: WHEELCHAIR: LOCOMOTION: WHEELCHAIR - STEP 1: Does the patient need help to go 150 feet in a wheelchair? Yes. LOCOMOTION: WHEELCHAIR - STEP 2: How much assistance does the patient need from the helper? Patient goes less than 150 feet - but more than 50 feet - with the assistance of only one helper LOCOMOTION: WHEELCHAIR - SCORE: 2-MAX LOCOMOTION: STAIRS: Activity did not occur on this shift LOCOMOTION: STAIRS - SCORE: 0-UNK COMPREHENSION: COMPREHENSION - SCORE: 0-UNK EXPRESSION EXPRESSION - SCORE: 0-UNK SOCIAL INTERACTION: SOCIAL INTERACTION - SCORE: 0-UNK PROBLEM SOLVING: PROBLEM SOLVING - SCORE: 0-UNK MEMORY: MEMORY - SCORE: 0-UNK SIGNATURE PANEL: The following modified sections: Transfers: Bed, Chair, Wheelchair - Score, Transfers: Toilet - Score , Locomotion: Walk - Score, Locomotion: Wheelchair - Score, Locomotion: Stairs - Score were [electron dana] signed by Aubrey Kruse PT on SatJul 08 2018 15:02:41 GMT-0600 (Central Standard Time)
--- NOTE | 2018-07-08 15:15 | FAST ---
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 Trino Pineda M.D. ADMISSION DIAGNOSIS: - Orthopaedic Disorders 08 - Unilateral Hip Fracture (08.11) RIGHT FEMORAL NECK FRACTURE. EATING: Activity did not occur on this shift EATING - SCORE: 0-UNK GROOMING: Oral care Patient shaved Wash, rinse, and dry face Wash, rinse, and dry hands GROOMING - STEP 1: Does the patient require the assistance of a person or device, or need extra time when grooming? Yes. GROOMING - STEP 2: Does the patient require the assistance of a helper? Yes. GROOMING - STEP 3: How much assistance does the patient require from the helper? More than incidental help GROOMING - STEP 4: How many grooming tasks does the patient perform WITHOUT the assistance of the helper? Half or more o f the grooming tasks GROOMING - SCORE: 3-MOD BATHING: Abdomen Buttocks Chest Left arm Left lower leg and foot Left upper leg Perineal area Right arm Right lower leg and foot Right upper leg BATHING - STEP 1: Does the patient require the assistance of a person or device, or need extra time when bathing? Yes. BATHING - STEP 2: Does the patient require the assistance of a helper? Yes. BATHING - STEP 3: How much assistance does the patient require from the helper? More than just incidental help BATHING - STEP 4: What percent of the body parts did the patient bathe WITHOUT the helper? Less than half of the body p arts BATHING - SCORE: 2-MAX DRESSING - UPPER BODY: Sweater (four steps) T-shirt/pullover shirt (four steps) ARTICLES SCORE Total number of steps: 8 DRESSING - UPPER BODY - STEP 1: Does the patient require help from a person or device, or need extra time when dressing above the [address]? Yes. DRESSING - UPPER BODY - STEP 2: Does the patient require the assistance of a helper? Yes. DRESSING - UPPER BODY - STEP 3: Does the helper touch the patient while dressing? Yes. DRESSING - UPPER BODY - STEP 4: How many of the total steps does the patient complete on his/her own? 1 DRESSING - UPPER BODY - STEP 5: Does Patient require total assistance for dressing above the waist such as the helper holding clothin g and performing basically all the activities? No. DRESSING - UPPER BODY - SCORE: 2-MAX DRESSING - LOWER BODY: Elastic waist pants (three steps) Slip-on shoe - Left foot (one step) Slip-on shoe - Right foot (one step) Sock - Left foot (one step) Sock - Right foot (one step) Underwear (three steps) ARTICLES SCORE Total number of steps: 10 DRESSING - LOWER BODY - STEP 1: Does the patient require help from a person or device, or need extra time when dressing below the [address]? Yes. DRESSING - LOWER BODY - STEP 2: Does the patient require the assistance of a helper? Yes. DRESSING - LOWER BODY - STEP 3: Does the helper touch the patient while dressing? Yes. DRESSING - LOWER BODY - STEP 4: How many of the total steps does the patient complete on his/her own? 0 DRESSING - LOWER BODY - STEP 5: Does patient require total assistance for dressing below the waist such as the helper holding clothin g and performing basically all the activities? Yes. DRESSING - LOWER BODY - SCORE: 1-DEP TOILETING: Activity did not occur on this shift TOILETING - SCORE: 0-UNK BLADDER MANAGEMENT: Activity did not occur on this shift BLADDER MANAGEMENT - SCORE: 7-IND BOWEL MANAGEMENT: Activity did not occur on this shift BOWEL MANAGEMENT - SCORE: 7-IND TRANSFERS: BED, CHAIR, WHEELCHAIR: Activity did not occur on this shift TRANSFERS: BED, CHAIR, WHEELCHAIR - SCORE: 0-UNK TRANSFERS: TOILET: Activity did not occur on this shift TRANSFERS: TOILET - SCORE: 0-UNK TRANSFERS: SHOWER: Activity did not occur on this shift TRANSFERS: SHOWER - SCORE: 0-UNK TRANSFERS: TUB: TRANSFERS: TUB - STEP 1: Does the patient require the assistance of a person or device, or need extra time with tub transfers? Yes. TRANSFERS: TUB - STEP 2: Does the patient require the assistance of a helper? Yes. TRANSFERS: TUB - STEP 3: How much assistance does the patient require from the helper? More than incidental help TRANSFERS: TUB - STEP 4: How much more help does the patient require from the helper? [place] lifts patient up out of the wheel chair AND down onto the tub bench TRANSFERS: TUB - SCORE: 2-MAX LOCOMOTION: WALK: Activity did not occur on this shift LOCOMOTION: WALK - SCORE: 0-UNK LOCOMOTION: WHEELCHAIR: Activity did not occur on this shift LOCOMOTION: WHEELCHAIR - SCORE: 0-UNK LOCOMOTION: STAIRS: Activity did not occur on this shift LOCOMOTION: STAIRS - SCORE: 0-UNK COMPREHENSION: COMPREHENSION: TYPE: Both COMPREHENSION - STEP 1: Does the patient require help from a person or device, or need extra time to understand complex and a bstract ideas (such as current events, finances, discharge planning, medical issues, relationships, e tc)? Yes. COMPREHENSION - STEP 2: Does the patient require help to understand questions or statements about basic needs or ideas (such as hunger, thirst, sleep, safety, daily schedule, room location, or discomfort) half or more of the t reji? No. COMPREHENSION - STEP 3: How often does the patient need help to understand directions and conversation about basic needs? 25% - 49% of the time COMPREHENSION - SCORE: 3-MOD EXPRESSION EXPRESSION: TYPE: Both EXPRESSION - STEP 1: Does the patient require help from a person or device, or need extra time expressing complex and abst ract ideas (such as current events, finances, discharge planning, medical issues, relationships, etc) ? Yes. EXPRESSION - STEP 2: Does the patient require help to express basic necessities or ideas (such as hunger, thirst, sleep, s afety, daily schedule, room location, or discomfort) half or more of the time? No. EXPRESSION - STEP 3: How often does the patient need help to express directions and conversation about basic needs? 25-49% of the time EXPRESSION - SCORE: 3-MOD SOCIAL INTERACTION: SOCIAL INTERACTION - STEP 1: Does the patient require a helper to interact with others in social and therapeutic situations? Yes. SOCIAL INTERACTION - STEP 2: Does the patient interact appropriately half or more of the time? Yes. SOCIAL INTERACTION - STEP 3: How often does the patient need help to interact appropriately? Less than 10% of the time SOCIAL INTERACTION - SCORE: 5-SUP PROBLEM SOLVING: PROBLEM SOLVING - STEP 1: Does the patient need help from a person or device, or need extra time to solve complex problems such as managing a checking account or confronting interpersonal problems? Yes. PROBLEM SOLVING - STEP 2: Does the patient solve basic routine problems half or more of the time? Yes. PROBLEM SOLVING - STEP 3: How often does the patient need help to solve basic routine problems? 25%-49% of the time PROBLEM SOLVING - SCORE: 3-MOD MEMORY: MEMORY - STEP 1: Does the patient need help from a person or device, or need extra time to remember frequently encount ered people, daily routines, and executing requests? Yes. MEMORY - STEP 2: How often does the patient need help to remember frequently encountered people, daily routines, and e xecuting requests? 25% - 49% of the time MEMORY - SCORE: 3-MOD SIGNATURE PANEL: The following modified sections: Eating - Score, Grooming - Score, Bathing - Score, Dressing - Upper Body - Score, Dressing - Lower Body - Score, Transfers: Bed, Chair, Wheelchair - Score, Transfers: To ilet - Score, Transfers: Shower - Score, Transfers: Tub - Score, Comprehension - Score, Expression - Score, Social Interaction - Score, Problem Solving - Score, Memory - Score, Toileting - Score were [e lectronically] signed by Melanie Jhaveri OT on SatJul 08 2018 15:15:20 GMT-0600 (Central Standard T reji)
--- NOTE | 2018-07-08 16:33 | R.HP ---
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 board/care, assisted living, custodial, transitional living) PRE-HOSPITAL LIVING WITH Alone ENCOUNTER PHYSICIAN: Dr. Trino Pineda M.D. 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) REFERRING FACILITY [facility] [place] HOME TYPE AND DETAILS: Type of home: mobile home # of levels in the residence: 1 # of steps within the residence: 0 # of steps to enter the residence: 1 ADMISSION DIAGNOSIS: RIGHT FEMORAL NECK FRACTURE ONSET DATE: 07/02/2018 PRIMARY DIAGNOSIS-RELATED SURGERIES: RIGHT HIP- INSERTION OF UNIPOLAR PROSTHESIS FOR CLOSED DISPLACED FEMORAL NECK FRACTURE - performed by Lindsay Hannon on 07/04/2018 SECONDARY/COMORBID DIAGNOSES (TIERED): - N/A HYPETENSION HYPERKALEMIA HYPERLIPIDEMIA ANEMIA CHRONIC KIDNEY DISEASE STAGE 4 PANCREATIC MASS ALLERGIC RHINITIS BENIGN PROSTATIC HYPERTROPHY HISTORY OF PRESENT ILLNESS (HPI): Pt. is a 82 yo Right-handed black male. His impairment category is Orthopaedic Disorders 08 - Unilateral Hip Fracture (08.11). Pre-morbidly, Pt. was independent/mod-I in Transfers Control, Communication, Social Cognition, Self-C are, Locomotion, and Sphincter Control; and he had good Sphincter Control. Currently, he has deficits of Transfers Control, Balance, Locomotion, Endurance, Safety Awareness, an d Self-Care. Pt. is now referred to [facility] for acute in-patient rehabilitation in order to maximize patient's functional independence in activities of daily living, strength, ROM, and mobi lity. Patient has realistic goal of being discharged at assistance level 6-Ayaan to reside at Home with Fam verónica/Relatives. Donal Sadler is an 82 year old male that lives alone in a trailer with a ramp to enter. Patient has a careg iver that stays at daytime and ambulatory with a cane with ADLs. On 07/02/2017, he was in the carport when he slipped and fell and was admitted to [facility] and treated. He is now medically stable but in need of 24-hour nursing, doctor supervision and oversite while receiving The patient is reasonably expected to participate in 3hours of therapy a day/15 hours per week and receive care with an intensive interdisciplinary approach. MEDICATION ALLERGIES: No Known Drug Allergies (NKDA) ENVIRONMENTAL ALLERGIES: None Known - Substance Allergies None Known - Other Allergies None Known PAST MEDICAL HISTORY: ALLERGIC RHINITIS ANEMIA BENIGN PROSTATIC HYPERTROPHY CHRONIC KIDNEY DISEASE STAGE 4 HYPERKALEMIA HYPERLIPIDEMIA HYPETENSION PANCREATIC MASS PAST SURGICAL HISTORY: N/A FAMILY HISTORY: Family history is not contributory. SOCIAL HISTORY: - Home Living Alone REVIEW OF SYSTEMS: - Gen No Chills Fatigue No Fever - Eyes No Double Vision No itchiness - ENMT No Difficulty Swallowing - CVS No Chest Discomfort No Chest Pain Fatigue No Weight Gain - Resp No Cough No Shortness of Breath - GI Continent No Abdominal Pain No Constipation No Diarrhea - Continent No Kidney Pain No Painful Urination No Urinary Urgency - MSK No Joint Pain Muscle Cramps Stiffness - Skin No Itching No Rash No Suspicious Lesions - Neuro Coordination Difficulty Difficulty with Concentration Memory Loss No Seizures Weakness - Psych No Anxiety No Depression No HIV Exposure No Persistent Infections No Seasonal Allergies - Endo No Cold/Heat Intolerance No Excessive Hunger No Excessive Thirst No Excessive Urination PHYSICAL EXAM - Gen Alert and awake Lying in bed No apparent distress Oriented to: person, time, and place - Skin No breakdown No abnormalities - Eyes No abnormalities - ENMT No abnormalities - Neck No abnormalities - CVS RRR - Chest No abnormalities - Abd +bowel sounds - GI Non distended Deferred - No abnormalities - Ext Mild postoperative edema in the right lower extremity - MSK 4+/5 weakness in both lower extremities. - Neuro 4/5 strength bilaterally lower extremities. - Psych No abnormalities VITAL SIGNS Temperature: 98.6 F SBP/DBP: 126/63 Pulse: 83 Resp: 16 NURSING: - Shower allowing shower - Skin care per protocol PRECAUTIONS: - Posterior Hip Precaution No adduction across midline No external rotation No hip flexion >90 degrees No internal rotation No wheel chair propulsion - Weight Bearing Precaution WBAT right LE ACTIVITIES OOB only with supervision FUNCTIONAL STATUS: - Self-Care A. Eating Ind Ayaan B. Grooming Ind Ayaan C. Bathing Ind maxA D. Dressing - Upper Ind sup E. Dressing - Lower Ind maxA F. Toileting Ind maxA - Sphincter Control G: Bladder control Ind Ind H: Bowel control Ind Ind - Transfers Control I. Bed/Chair/Wheelchair Ind modA J. Toilet Ind modA K. Tub/Shower Ind ADNO - Locomotion L. Walk/Wheelchair (C) Ind modA L. Walk/Wheelchair (W) Ind modA M. Stairs Ind ADNO - Communication N. Comprehension (B) Ind Ayaan O. Expression (B) Ind Ayaan - Social Cognition P. Social Interaction Ind Ayaan Q. Problem Solving Ind Ayaan R. Memory Ind Ayaan - Endurance Fair - Balance Fair - Safety Awareness Fair CURRENT FUNC. DEFICITS: Transfers Control, Balance, Locomotion, Endurance, Safety Awareness, and Self-Care ASSESSMENT: Pt. is a 82 yo Right-handed black male.His impairment category is Orthopaedic Disorders 08 - Unilate ral Hip Fracture (01.18).Pre-morbidly, Pt. was independent/mod-I in Transfers Control, Communication, Social Cognition, Self-Care, Locomotion, and Sphincter Control; and he had good Sphincter Control.Cu rrently, he has deficits of Transfers Control, Balance, Locomotion, Endurance, Safety Awareness, and Self-Care.Pt. is now referred to [facility] for acute in-patient rehabilitatio n in order to maximize patient's functional independence in activities of daily living, strength, ROM , and mobility.- Rehab Goal Patient has realistic goal of being discharged at assistance level 6-Ayaan to reside at Home with Fam verónica/Relatives. Donal Sadler is an 82 year old male that lives alone in a trailer with a ramp to enter. Patient has a careg iver that stays at daytime and ambulatory with a cane with ADLs. On 07/02/2017, he was in the carport when he slipped and fell and was admitted to [facility] and treated. He is now medically stable but in need of 24-hour nursing, doctor supervision and oversite while receiving The patient is reasonably expected to participate in 3hours of therapy a day/15 hours per week and receive care with an intensive interdisciplinary approach.REHAB PLAN: - Physical Therapy Decreased range of motion - to improve, our physical therapists will perform initial evaluation of pt 's status upon admission and devise an individualized program for increasing patient's Range of Motio n. Gait dysfunction - to improve, our physical therapists will perform initial evaluation of pt's status upon admission and devise an individualized program for Gait Training, and Wheel Chair mobility Inability to transfer - to improve, our physical therapists will perform initial evaluation of pt's s tatus upon admission and devise an individualized program for Bed mobility Need for home safety evaluation - to improve, our physical therapists will perform initial evaluation of pt's status upon admission and devise an individualized program for Home Evaluation Need in caregiver upon discharge - to improve, our physical therapists will perform initial evaluatio n of pt's status upon admission and devise an individualized program for Caregiver Training New precaution - to improve, our physical therapists will perform initial evaluation of pt's status u landen admission and devise an individualized program for Patient precaution education Edema - to improve, our physical therapists will perform initial evaluation of pt's status upon admi ssion and devise an individualized program for Elevation Training, and Lymphedema Therapy Poor balance - to improve, our physical therapists will perform initial evaluation of pt's status upo n admission and devise an individualized program for Balance Training Poor endurance - to improve, our physical therapists will perform initial evaluation of pt's status u landen admission and devise an individualized program for Endurance Training Weakness - to improve, our physical therapists will perform initial evaluation of pt's status upon ad mission and devise an individualized program for Aquatic Therapy, Neuromuscular Reeducation, and Stre ngthening Achieving independence - to improve, our physical therapists will perform initial evaluation of pt's status upon admission and devise an individualized program for Community Reintegration Activities - Occupational Therapy ADL deficits - to improve, our occupation therapists will perform initial evaluation of pt's status u landen admission and devise an individualized program for Bathing, Bed mobility, Community Reintegration , Cooking, Dressing, Eating, Fine Motor Skills, Grooming, Homemaking, Kitchen Mobility, Laundry, Katarina ent Education, Safety Awareness, Splinting - Positioning, Transfers(Toilet, Tub, Shower), and Wheel C hair Management Need for critical care specialist - to improve, our occupation therapists will perform initial evaluation of pt's s tatus upon admission and devise an individualized program for Caregiver Training Weakness - to improve, our occupation therapists will perform initial evaluation of pt's status upon admission and devise an individualized program for Aquatic Therapy, Balance, Endurance, UE ROM, and U E strengthening MEDICAL PLAN: - Anterior Hip Precaution No abduction No active extension No adduction across midline No external rotation No hip flexion >90 degrees No internal rotation - Diet - Liquid Texture Start Regular - Tube Feed Start N/A - Diet Type Start Regular - Posterior Hip Precaution No adduction across midline No external rotation No hip flexion >90 degrees No internal rotation No wheel chair propulsion - Weight Bearing Precaution WBAT right LE - Skin care per protocol - Diet - Solid Texture Regular - Shower shower DISCHARGE PLAN: - Estimated Length of Stay (days) 14. - Consensus on plan Discharge plan has been discussed with primary caregiver. Patient/Family is in agreement with the joan n. Primary caregiver is in agreement with the plan. - Patient/Family Goals Return home with assistance. - Planned Living Setting Upon Discharge Home, to live with Family/Relatives. 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
--- NOTE | 2018-07-08 16:34 | PAPE ---
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 Trino Pineda M.D. ADMISSION DIAGNOSIS: RIGHT FEMORAL NECK FRACTURE ONSET DATE 07/02/2018 SECONDARY/COMORBID DIAGNOSES TIERED: - N/A HYPETENSION HYPERKALEMIA HYPERLIPIDEMIA ANEMIA CHRONIC KIDNEY DISEASE STAGE 4 PANCREATIC MASS ALLERGIC RHINITIS BENIGN PROSTATIC HYPERTROPHY POST-ADMISSION FUNCTIONAL/MEDICAL STATUS: - Bladder Same accident frequency: Ind - No accidents in the past 7 days - Bowel Same accident frequency: Ind - No accidents in the past 7 days - Walking Same score based on distance walked: 1(<=50ft) - Wheelchair Same score based on distance traveled: 0(N/A) STATUS CHANGE EVALUATION: No change in Functional or Medical Status is identified compared with Pre-Admission screening. PATIENT NEEDS CLOSE MEDICAL SUPERVISION BY A REHABILITATION PHYSICIAN FOR: Bowel and Bladder Management Coordination of Treatment Team Medical and Co-Morbidity Management Wound Care Pain Management DVT Management PATIENT REQUIRES 24X7 REHAB NURSING FOR MEDICAL AND FUNCTIONAL MGT. OF THE FOLLOWING DEFICITS: ADL's Ambulation Bowel and Bladder Management Cognition Communication Disease Management Medication Management Patient/Family Education Providing Safe Environment Skin Integrity Transfers Pain Management PATIENT REQUIRES INTENSIVE, COORDINATED INTERDISCIPLINARY APPROACH TO REHAB: Arranging Home Equipment/Services Discharge Planning Family Intervention/Training Paper Reeler/Case Management LIST OF IDENTIFIED AND POTENTIAL PROBLEMS: Alteration in leisure activities Bladder, Incontinence Bowel, Incontinence Infection, Actual or Potential Mobility Impaired Pain, Alteration in Comfort Self Care Deficit Skin Integrity, Actual or Potential Urinary Tract Infection (UTI), Actual or Potential PATIENT COULD BE AT RISK FOR COMPLICATIONS FROM ADVERSE MEDICAL CONDITIONS DUE TO HIS/HER COMORBIDITI ES AND THE RIGORS OF THE INTENSIVE REHABILLITATION PROGRAM. METHODS OR INTERVENTIONS TO AVOID COMPLIC ATIONS INCLUDE: - Deep Vein Thrombosis (DVT) Prophylaxis therapy for prevention . Sequential Compression Device (SCD). TE D Hose. - Bleeding Assess lab values and manage abnormalities. Nursing to teach precautions for anti-coagulation therapy . Wound to be assessed every shift. - Infection Clinical staff to assess and manage the signs and symptoms of infection including fever, redness, war mth, etc. - Urinary Tract Infection - Falls Patient will be evaluated for Fall Precautions and will be placed on Fall Precautions as indicated pe r protocol. - Skin Breakdown Nursing will assess skin daily using assessment tool and will place on Skin Breakdown Precautions as indicated per protocol. - Pain Clinical staff may employ non-medication methods such as massage, distraction, decrease stimulus, etc . as needed. Clinical staff will assess patient's pain level every shift per protocol to assess and e nsure pain management effectiveness. Medications will be given and the pain level re-assessed. PRELIMINARY PLAN OF CARE: - Physical Therapy Patient needs Physical Therapy for a daily minimum of 1.5 hours at least 5 out of 7 days, to improve: Mobility, Strengthening, Transfers, Stretching, ROM, Endurance, Ability to manage stairs, Gait, and Balance. - Speech Therapy Patient needs Speech Therapy for a daily minimum of 0.5 hours at least 5 out of 7 days, to improve:. - Rehabilitation Nursing Patient requires 24x7 Rehabilitation Nursing for: Pain Issues, Identifying and preventing risk factor s, Monitoring and reporting current medical conditions, Assisting with ambulation and transfer, Vero ting with all ADL-s, Teaching patients about disease process and medications, Family teaching, Provid ing safe environment, Bowel and Bladder Issues, Skin Integrity, and Medication Management. Patient needs Paper Reeler and/or Case Management for: Discharge Planning, Arranging Home Equipmen t or Services, and Family Interventions. - Dietary and Nutrition Services Patient needs Dietary and Nutrition Services for: Adequate Nutrition, Nutritional Supplements, and Nu tritional Education. - Occupational Therapy Patient needs Occupational Therapy for a daily minimum of 1.5 hours at least 5 out of 7 days, to impr ove Activities of Daily Living, including: Eating, Grooming, Bathing, Dressing, Toileting, Toilet Tra nsfers, Community Reintegration, Higher functional activities, Adaptive Equipment, Splinting, Househo ld Tasks, and Other activities as determined. POTENTIAL FUNCTIONAL GOALS FOR PATIENT TO ACHIEVE BY DISCHARGE: - Safety Precaution Patient will remain free from falls or injury at time of discharge. - Bed Mobility Patient will perform bed mobility at 4-Octavia level of assistance. - Transfers Patient will complete transfers from bed to chair at 4-Octavia level of assistance. - Mobility Patient will ambulate 150 ft with 4-Octavia level of assistance with RW. PATIENT REHAB POTENTIAL Expected level of measurable improvement will be of a practical value to patient's functional capacit y or adaptations to impairments Has a viable Discharge Plan Medically appropriate; condition is sufficiently stable to participate in intensive rehab program Patient is able and expected to receive 3 hours of individualized therapy daily on at least 5 of ever y 7 days Patient's prognosis for significant practical improvement within a reasonable period of time appears Good DISCHARGE PLAN: - Estimated Length of Stay (days) 14. - Consensus on plan Discharge plan has been discussed with primary caregiver. Patient/Family is in agreement with the joan n. Primary caregiver is in agreement with the plan. - Patient/Family Goals Return home with assistance. - Planned Living Setting Upon Discharge Home, to live with Family/Relatives. CONCLUSION ON REHABILITATION NECESSITY: I have evaluated patient's pre-admission functional status and, comparing it to the patient's post-ad mission functional status now, I conclude that the pre-admission assessment was accurate. Patient's c ondition on admission supports the medical necessity of admission to IRF. It is safe to proceed with patient's therapy program. 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
[2018-07-08] MEDS: DOCUSATE NA/SENNA CONC 1 TAB PO SCH (20:18)
[2018-07-08] MEDS: ATORVASTATIN 20 MG TAB PO SCH (20:19)
[2018-07-08] MEDS: METAMUCIL PO SCH (20:19)
[2018-07-08] MEDS: PROMOD 30 ML DOSE PO SCH (20:20)
--- NOTE | 2018-07-09 00:59 | FAST ---
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 Trino Pineda M.D. ADMISSION DIAGNOSIS: - Orthopaedic Disorders 08 - Unilateral Hip Fracture (08.11) RIGHT FEMORAL NECK FRACTURE. EATING: Activity did not occur on this shift EATING - SCORE: 0-UNK GROOMING: Activity did not occur on this shift GROOMING - SCORE: 0-UNK BATHING: Activity did not occur on this shift BATHING - SCORE: 0-UNK DRESSING - UPPER BODY: Patient is not dressing in public clothing ARTICLES SCORE Total number of steps: 0 DRESSING - UPPER BODY - SCORE: 0-UNK DRESSING - LOWER BODY: Patient is not dressing in public clothing ARTICLES SCORE Total number of steps: 0 DRESSING - LOWER BODY - SCORE: 0-UNK TOILETING: TOILETING - STEP 1: Does the patient require the assistance of a person or device, or need extra time with toileting? Yes . TOILETING - STEP 2: Does the patient require the assistance of a helper? Yes. TOILETING - STEP 3: How much assistance does the patient require from the helper? Hands-on assistance from the helper TOILETING - STEP 4: Of the 3 tasks: 1) Adjusting clothing prior to use, 2) Cleansing of perineal area, 3) Adjusting clot ashley after use; How many tasks does the patient perform WITHOUT assistance of the helper? No tasks; h elper performs all three tasks TOILETING - SCORE: 1-DEP BLADDER MANAGEMENT: [place] removes incontinent device (Depends, pull ups, etc.); cleans the patient after accident / inco ntinent episode; and, applies new incontinent device. BLADDER MANAGEMENT - SCORE: 1-DEP BLADDER MANAGEMENT - FREQUENCY OF ACCIDENTS: BLADDER MANAGEMENT(FA) - STEP 1: How many accidents has the patient had during the current shift? 1 BOWEL MANAGEMENT: Activity did not occur on this shift BOWEL MANAGEMENT - SCORE: 7-IND TRANSFERS: BED, CHAIR, WHEELCHAIR: TRANSFERS: BED, CHAIR, WHEELCHAIR - STEP 1: Does the patient require assistance of a person or device, or need extra time with bed, chair, or whe elchair transfers? Yes. TRANSFERS: BED, CHAIR, WHEELCHAIR - STEP 2: Does the patient require the assistance of a helper? Yes. TRANSFERS: BED, CHAIR, WHEELCHAIR - STEP 3: How much assistance does the patient require from the helper? Lifting of the legs TRANSFERS: BED, CHAIR, WHEELCHAIR - STEP 4: How many legs does the patient require the helper to lift? both legs TRANSFERS: BED, CHAIR, WHEELCHAIR - SCORE: 3-MOD TRANSFERS: TOILET: Activity did not occur on this shift TRANSFERS: TOILET - SCORE: 0-UNK TRANSFERS: SHOWER: Activity did not occur on this shift TRANSFERS: SHOWER - SCORE: 0-UNK TRANSFERS: TUB: Activity did not occur on this shift TRANSFERS: TUB - SCORE: 0-UNK LOCOMOTION: WALK: Activity did not occur on this shift LOCOMOTION: WALK - SCORE: 0-UNK LOCOMOTION: WHEELCHAIR: Activity did not occur on this shift LOCOMOTION: WHEELCHAIR - SCORE: 0-UNK COMPREHENSION: COMPREHENSION: TYPE: Both COMPREHENSION - STEP 1: Does the patient require help from a person or device, or need extra time to understand complex and a bstract ideas (such as current events, finances, discharge planning, medical issues, relationships, e tc)? Yes. COMPREHENSION - STEP 2: Does the patient require help to understand questions or statements about basic needs or ideas (such as hunger, thirst, sleep, safety, daily schedule, room location, or discomfort) half or more of the t reji? No. COMPREHENSION - STEP 3: How often does the patient need help to understand directions and conversation about basic needs? 25% - 49% of the time COMPREHENSION - SCORE: 3-MOD EXPRESSION EXPRESSION: TYPE: Both EXPRESSION - STEP 1: Does the patient require help from a person or device, or need extra time expressing complex and abst ract ideas (such as current events, finances, discharge planning, medical issues, relationships, etc) ? Yes. EXPRESSION - STEP 2: Does the patient require help to express basic necessities or ideas (such as hunger, thirst, sleep, s afety, daily schedule, room location, or discomfort) half or more of the time? No. EXPRESSION - STEP 3: How often does the patient need help to express directions and conversation about basic needs? 10-24% of the time EXPRESSION - SCORE: 4-MIN SOCIAL INTERACTION: SOCIAL INTERACTION - STEP 1: Does the patient require a helper to interact with others in social and therapeutic situations? No. SOCIAL INTERACTION - STEP 2: Does the patient need extra time in social situations, OR does s/he interact with staff, other patien ts, and family members ONLY in structured environments, OR does s/he require medication for social in teraction? Yes, patient needs extra time SOCIAL INTERACTION - SCORE: 6-OTILIO PROBLEM SOLVING: PROBLEM SOLVING - STEP 1: Does the patient need help from a person or device, or need extra time to solve complex problems such as managing a checking account or confronting interpersonal problems? Yes. PROBLEM SOLVING - STEP 2: Does the patient solve basic routine problems half or more of the time? Yes. PROBLEM SOLVING - STEP 3: How often does the patient need help to solve basic routine problems? 25%-49% of the time PROBLEM SOLVING - SCORE: 3-MOD MEMORY: MEMORY - STEP 1: Does the patient need help from a person or device, or need extra time to remember frequently encount ered people, daily routines, and executing requests? Yes. MEMORY - STEP 2: How often does the patient need help to remember frequently encountered people, daily routines, and e xecuting requests? 25% - 49% of the time MEMORY - SCORE: 3-MOD SIGNATURE PANEL: The following modified sections: Eating - Score, Grooming - Score, Dressing - Upper Body - Score, Prashant ssing - Lower Body - Score, Toileting - Score, Bladder Management - Score, Bowel Management - Score, Transfers: Bed, Chair, Wheelchair - Score, Transfers: Toilet - Score, Transfers: Shower - Score, Simeon sfers: Tub - Score, Locomotion: Walk - Score, Locomotion: Wheelchair - Score, Comprehension - Score, Expression - Score, Social Interaction - Score, Problem Solving - Score, Memory - Score were [electro nically] signed by Gina Preston CNA on SatJul 09 2018 00:58:56 GMT-0600 (Central Standard Time)
--- NOTE | 2018-07-09 02:05 | PN ---
Date of Progress Note: 07/08/2018 Subjective: The patient was seen this morning for followup. No new complaints or problems reported by him. Objective: General: Lying in bed. Not in any distress. Vital signs: Reviewed. HEENT: Unremarkable. Lungs: Clear to auscultation. No rhonchi. No rales. Heart: Sounds normal. Abdomen: Soft. Bowel sounds normal. No guarding, rigidity, tenderness, or distention. Extremities: No leg edema. Laboratory Data: White count 11.7, hemoglobin 9.3, platelets 210. Urinalysis; less than 20 bacteria , wbc 5-10. Impression: 1.Right hip fracture. 2.Anemia due to acute blood loss. 3.Chronic kidney disease stage 4. 4.Hypertension. 5.Anemia due to chronic kidney disease. Plan: We will continue current medications. Continue current antihypertensive medication and DVT pr ophylaxis using Lovenox. Physical therapy will be provided under guidance of Dr. Pineda. The omari ent's family reports that he is urinating very well without any difficulties. BRADY/MODL Voice ID: [id number] Report ID: [id number]
[2018-07-09 06:42] LABS: Absolute Lymphocytes (CBC) 0.7 K/uL (0.7-4.9); Absolute Monocytes 1.1 K/uL (0.1-1.3); Absolute Neutrophil 13.7 K/uL (1.8-8.0); Basophils % 0.2 % (0-1.3); Eosinophils % 1.6 % (0-4.4); Hematocrit 27.4 % (39.6-49.0); Lymphocytes % 4.7 % (15.3-44.8); MPV 7.6 fL (7.6-11.3); Monocytes % 6.9 % (3.3-12.3); RBC Red Blood Cell Count 3.45 M/uL (4.33-5.43)
[2018-07-09 06:58] LABS: Albumin 2.4 g/dL (3.4-5.0); Potassium 5.1 mmol/L (3.5-5.1); Prealbumin 9.8 mg/dL (20-40)
[2018-07-09] MEDS: PROMOD 30 ML DOSE PO SCH ×2 (08:00→20:14)
[2018-07-09] MEDS: HYDRALAZINE HCL 25 MG TABLET PO SCH ×2 (08:00→20:00)
[2018-07-09] MEDS: METAMUCIL PO SCH ×2 (08:38→20:12)
[2018-07-09] MEDS: FERROUS SULFATE 325 MG TAB PO SCH (08:39)
[2018-07-09] MEDS: ENOXAPARIN 30 MG/0.3 ML SQ SCH (08:39)
[2018-07-09] MEDS: FE SULF/FA/VIT B COMP & C TAB PO SCH (08:40)
[2018-07-09] MEDS: cloNIDine HCl 0.1 MG TAB PO SCH ×3 (08:41→20:15)
[2018-07-09] MEDS: MAGNESIUM OXIDE 400 MG TAB PO SCH ×2 (08:44→20:12)
[2018-07-09] MEDS: MINOXIDIL 2.5 MG TAB PO SCH ×2 (08:44→20:14)
[2018-07-09] MEDS: GABAPENTIN 100 MG CAP PO SCH (08:45)
[2018-07-09] MEDS: AMLODIPINE 5 MG TAB PO SCH (08:45)
[2018-07-09] MEDS: TAMSULOSIN 0.4 MG SR CAP PO SCH (08:45)
[2018-07-09] MEDS: CARVEDILOL 6.25 MG TAB PO SCH ×2 (08:46→20:12)
[2018-07-09] MEDS: TRAMADOL HCL 50 MG TAB PO PRN (08:46)
[2018-07-09] MEDS: FOLIC ACID 1 MG TABLET PO SCH (08:46)
[2018-07-09 09:06] LABS: Blood Morphology Comment NOTED (NOT SEEN); Hypochromasia 1+; Platelet Estimate ADEQ; Target Cells 1+; Urine White Blood Cell Casts OK
[2018-07-09 09:07] LABS: Burr Cells 2+
--- NOTE | 2018-07-09 09:13 | RAD REPORT ---
EXAM DESCRIPTION: RAD - Chest Single View - 07/09/2018 9:08 am CLINICAL HISTORY: leukocytosis, rule out pneumonia Chest pain. COMPARISON: Chest Single View dated 02/07/2016; CHEST SINGLE VIEW dated 02/06/2015; CHEST PA AND LAT 2 VIEW dated 06/08/2012; CHEST SINGLE VIEW dated 10/21/2011 FINDINGS: Portable technique limits examination quality. The lungs are grossly clear. The heart is normal in size. No displaced fractures. IMPRESSION: No acute intrathoracic process suspected.
--- NOTE | 2018-07-09 10:32 | FAST ---
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 Trino Pnieda M.D. ADMISSION DIAGNOSIS: - Orthopaedic Disorders 08 - Unilateral Hip Fracture (08.11) RIGHT FEMORAL NECK FRACTURE. EATING: Activity did not occur on this shift EATING - SCORE: 0-UNK GROOMING: Activity did not occur on this shift GROOMING - SCORE: 0-UNK BATHING: Activity did not occur on this shift BATHING - SCORE: 0-UNK DRESSING - UPPER BODY: Activity did not occur on this shift Patient is not dressing in public clothing ARTICLES SCORE Total number of steps: 0 DRESSING - UPPER BODY - SCORE: 0-UNK DRESSING - LOWER BODY: Activity did not occur on this shift Patient is not dressing in public clothing ARTICLES SCORE Total number of steps: 0 DRESSING - LOWER BODY - SCORE: 0-UNK TOILETING: Activity did not occur on this shift TOILETING - SCORE: 0-UNK BLADDER MANAGEMENT: Activity did not occur on this shift BLADDER MANAGEMENT - SCORE: 7-IND BOWEL MANAGEMENT: Activity did not occur on this shift BOWEL MANAGEMENT - SCORE: 7-IND TRANSFERS: BED, CHAIR, WHEELCHAIR: TRANSFERS: BED, CHAIR, WHEELCHAIR - STEP 1: Does the patient require assistance of a person or device, or need extra time with bed, chair, or whe elchair transfers? Yes. TRANSFERS: BED, CHAIR, WHEELCHAIR - STEP 2: Does the patient require the assistance of a helper? Yes. TRANSFERS: BED, CHAIR, WHEELCHAIR - STEP 3: How much assistance does the patient require from the helper? Lifting of the patient TRANSFERS: BED, CHAIR, WHEELCHAIR - STEP 4: Does the helper lift the patient ONLY up? ONLY down? Up AND Down? ONLY up. TRANSFERS: BED, CHAIR, WHEELCHAIR - SCORE: 3-MOD TRANSFERS: TOILET: Activity did not occur on this shift TRANSFERS: TOILET - SCORE: 0-UNK TRANSFERS: SHOWER: Activity did not occur on this shift TRANSFERS: SHOWER - SCORE: 0-UNK TRANSFERS: TUB: Activity did not occur on this shift TRANSFERS: TUB - SCORE: 0-UNK LOCOMOTION: WALK: LOCOMOTION: WALK - STEP 1: Does the patient need help from a person or device, or need extra time to walk 150 feet? Yes. LOCOMOTION: WALK - STEP 2: How much assistance does the patient require to walk a minimum of 150 feet? Patient walks less than 1 50 feet - but more than 50 feet - with the assistance of only one helper LOCOMOTION: WALK - SCORE: 2-MAX LOCOMOTION: WHEELCHAIR: LOCOMOTION: WHEELCHAIR - STEP 1: Does the patient need help to go 150 feet in a wheelchair? Yes. LOCOMOTION: WHEELCHAIR - STEP 2: How much assistance does the patient need from the helper? Patient goes less than 150 feet - but more than 50 feet - with the assistance of only one helper LOCOMOTION: WHEELCHAIR - SCORE: 2-MAX LOCOMOTION: STAIRS: Activity did not occur on this shift LOCOMOTION: STAIRS - SCORE: 0-UNK COMPREHENSION: COMPREHENSION - SCORE: 0-UNK EXPRESSION EXPRESSION - SCORE: 0-UNK SOCIAL INTERACTION: SOCIAL INTERACTION - SCORE: 0-UNK PROBLEM SOLVING: PROBLEM SOLVING - SCORE: 0-UNK MEMORY: MEMORY - SCORE: 0-UNK SIGNATURE PANEL: The following modified sections: Transfers: Bed, Chair, Wheelchair - Score, Transfers: Toilet - Score , Locomotion: Walk - Score, Locomotion: Wheelchair - Score, Locomotion: Stairs - Score were [electron dana] signed by Aubrey Kruse PT on SatJul 09 2018 10:31:57 GMT-0600 (Central Standard Time)
[2018-07-09] MEDS: ACETAMINOPHEN 500 MG TAB PO PRN ×2 (10:39→20:11)
[2018-07-09] MEDS ORDERED: ONDANSETRON 4 MG/2 ML VIAL IV PRN (11:56)
[2018-07-09] MEDS ORDERED: NA CHLORIDE 0.9% 1,000 ML IV SCH (12:00)
[2018-07-09] MEDS ORDERED: CEFTRIAXONE/SWI 1gm 1 GM/10 ML SYR IV SCH (12:30)
[2018-07-09] MEDS: NA CHLORIDE 0.9% 1,000 ML IV SCH (12:37)
[2018-07-09] MEDS: CEFTRIAXONE/SWI 1gm 1 GM/10 ML SYR IV SCH ×2 (12:37→20:15)
--- NOTE | 2018-07-09 14:58 | FAST ---
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 Trino Pineda M.D. ADMISSION DIAGNOSIS: - Orthopaedic Disorders 08 - Unilateral Hip Fracture (08.11) RIGHT FEMORAL NECK FRACTURE. EATING: EATING - STEP 1: Does the patient require the assistance of a person or device, or need extra time when eating? Yes. EATING - STEP 2: Does the patient require the assistance of a helper? Yes. EATING - STEP 3: Does the patient perform half or more of the eating tasks? Yes. EATING - STEP 4: Does the patient need only supervision, cuing, coaxing OR help to apply an orthosis OR help to cut fo od, open containers, pour liquids, or butter bread? Yes. EATING - SCORE: 5-SUP GROOMING: Activity did not occur on this shift GROOMING - SCORE: 0-UNK BATHING: Activity did not occur on this shift BATHING - SCORE: 0-UNK DRESSING - UPPER BODY: T-shirt/pullover shirt (four steps) ARTICLES SCORE Total number of steps: 4 DRESSING - UPPER BODY - STEP 1: Does the patient require help from a person or device, or need extra time when dressing above the [address]? Yes. DRESSING - UPPER BODY - STEP 2: Does the patient require the assistance of a helper? Yes. DRESSING - UPPER BODY - STEP 3: Does the helper touch the patient while dressing? Yes. DRESSING - UPPER BODY - STEP 4: How many of the total steps does the patient complete on his/her own? 4 DRESSING - UPPER BODY - SCORE: 4-MIN DRESSING - LOWER BODY: ARTICLES SCORE Total number of steps: 5 DRESSING - LOWER BODY - STEP 1: Does the patient require help from a person or device, or need extra time when dressing below the [address]? Yes. DRESSING - LOWER BODY - STEP 2: Does the patient require the assistance of a helper? Yes. DRESSING - LOWER BODY - STEP 3: Does the helper touch the patient while dressing? Yes. DRESSING - LOWER BODY - STEP 4: How many of the total steps does the patient complete on his/her own? 3 DRESSING - LOWER BODY - SCORE: 3-MOD TOILETING: TOILETING - STEP 1: Does the patient require the assistance of a person or device, or need extra time with toileting? Yes . TOILETING - STEP 2: Does the patient require the assistance of a helper? Yes. TOILETING - STEP 3: How much assistance does the patient require from the helper? Hands-on assistance from the helper TOILETING - STEP 4: Of the 3 tasks: 1) Adjusting clothing prior to use, 2) Cleansing of perineal area, 3) Adjusting clot ashley after use; How many tasks does the patient perform WITHOUT assistance of the helper? Two tasks TOILETING - SCORE: 3-MOD BLADDER MANAGEMENT: Violet removes incontinent device (Depends, pull ups, etc.); cleans the patient after accident / inco ntinent episode; and, applies new incontinent device. BLADDER MANAGEMENT - SCORE: 1-DEP BLADDER MANAGEMENT - FREQUENCY OF ACCIDENTS: BLADDER MANAGEMENT(FA) - STEP 1: How many accidents has the patient had during the current shift? 2 BOWEL MANAGEMENT: Activity did not occur on this shift BOWEL MANAGEMENT - SCORE: 7-IND TRANSFERS: BED, CHAIR, WHEELCHAIR: TRANSFERS: BED, CHAIR, WHEELCHAIR - STEP 1: Does the patient require assistance of a person or device, or need extra time with bed, chair, or whe elchair transfers? Yes. TRANSFERS: BED, CHAIR, WHEELCHAIR - STEP 2: Does the patient require the assistance of a helper? Yes. TRANSFERS: BED, CHAIR, WHEELCHAIR - STEP 3: How much assistance does the patient require from the helper? Steadying/guiding assistance TRANSFERS: BED, CHAIR, WHEELCHAIR - SCORE: 4-MIN TRANSFERS: TOILET: TRANSFERS: TOILET - STEP 1: Does the patient require the assistance of a person or device, or need extra time with toilet transfe rs? Yes. TRANSFERS: TOILET - STEP 2: Does the patient require the assistance of a helper? Yes. TRANSFERS: TOILET - STEP 3: How much assistance does the patient require from the helper? Patient performs half or more of the tr ansferring tasks TRANSFERS: TOILET - STEP 4: Does the patient need only incidental help such as contact guard or steadying during toilet transfer? Yes. TRANSFERS: TOILET - SCORE: 4-MIN TRANSFERS: SHOWER: Activity did not occur on this shift TRANSFERS: SHOWER - SCORE: 0-UNK TRANSFERS: TUB: Activity did not occur on this shift TRANSFERS: TUB - SCORE: 0-UNK LOCOMOTION: WALK: Activity did not occur on this shift LOCOMOTION: WALK - SCORE: 0-UNK LOCOMOTION: WHEELCHAIR: Activity did not occur on this shift LOCOMOTION: WHEELCHAIR - SCORE: 0-UNK COMPREHENSION: COMPREHENSION: TYPE: Both COMPREHENSION - STEP 1: Does the patient require help from a person or device, or need extra time to understand complex and a bstract ideas (such as current events, finances, discharge planning, medical issues, relationships, e tc)? Yes. COMPREHENSION - STEP 2: Does the patient require help to understand questions or statements about basic needs or ideas (such as hunger, thirst, sleep, safety, daily schedule, room location, or discomfort) half or more of the t reji? No. COMPREHENSION - STEP 3: How often does the patient need help to understand directions and conversation about basic needs? 25% - 49% of the time COMPREHENSION - SCORE: 3-MOD EXPRESSION EXPRESSION: TYPE: Both EXPRESSION - STEP 1: Does the patient require help from a person or device, or need extra time expressing complex and abst ract ideas (such as current events, finances, discharge planning, medical issues, relationships, etc) ? Yes. EXPRESSION - STEP 2: Does the patient require help to express basic necessities or ideas (such as hunger, thirst, sleep, s afety, daily schedule, room location, or discomfort) half or more of the time? No. EXPRESSION - STEP 3: How often does the patient need help to express directions and conversation about basic needs? 25-49% of the time EXPRESSION - SCORE: 3-MOD SOCIAL INTERACTION: SOCIAL INTERACTION - STEP 1: Does the patient require a helper to interact with others in social and therapeutic situations? Yes. SOCIAL INTERACTION - STEP 2: Does the patient interact appropriately half or more of the time? Yes. SOCIAL INTERACTION - STEP 3: How often does the patient need help to interact appropriately? Less than 10% of the time SOCIAL INTERACTION - SCORE: 5-SUP PROBLEM SOLVING: PROBLEM SOLVING - STEP 1: Does the patient need help from a person or device, or need extra time to solve complex problems such as managing a checking account or confronting interpersonal problems? Yes. PROBLEM SOLVING - STEP 2: Does the patient solve basic routine problems half or more of the time? Yes. PROBLEM SOLVING - STEP 3: How often does the patient need help to solve basic routine problems? 25%-49% of the time PROBLEM SOLVING - SCORE: 3-MOD MEMORY: MEMORY - STEP 1: Does the patient need help from a person or device, or need extra time to remember frequently encount ered people, daily routines, and executing requests? Yes. MEMORY - STEP 2: How often does the patient need help to remember frequently encountered people, daily routines, and e xecuting requests? 25% - 49% of the time MEMORY - SCORE: 3-MOD SIGNATURE PANEL: The following modified sections: Eating - Score, Grooming - Score, Bathing - Score, Dressing - Upper Body - Score, Dressing - Lower Body - Score, Toileting - Score, Bladder Management - Score, Bowel Man agement - Score, Transfers: Bed, Chair, Wheelchair - Score, Transfers: Toilet - Score, Transfers: Stefania wer - Score, Transfers: Tub - Score, Locomotion: Walk - Score, Locomotion: Wheelchair - Score, Compre hension - Score, Expression - Score, Social Interaction - Score, Problem Solving - Score, Memory - Sc ore were [electronically] signed by Johnathan Ladd on SatJul 09 2018 14:57:24 GMT-0600 (Central Standard Time)
--- NOTE | 2018-07-09 15:31 | RAD REPORT ---
EXAM DESCRIPTION: RAD - Hip Right 2 View - 07/09/2018 3:25 pm CLINICAL HISTORY: Right hip pain FINDINGS: Postsurgical changes of a right hip arthroplasty are seen. The prosthesis is in good posit ion. No fracture or dislocation seen
[2018-07-09] MEDS ORDERED: PIPER/TAZO/NS 3.375gm 3.375 GM/100 ML BAG IVPB SCH (17:00)
--- NOTE | 2018-07-09 18:52 | R.PN ---
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 Pt denied any depression. Patient is lethargic with fever. Chest x-ray is negative. Right hip x-ray shows no abnormalities. WB Cs 15.9, 90% neutrophils, procalcitonin 22.49, Creatinine 2.83. UA is negative. Patient is now on amilcar ephin. Ambulated 360' with contact guard assistance using a rolling walker. VITAL SIGNS Temperature: 102 F SBP/DBP: 149/78 Pulse: 101 Resp: 16 MEDICATION ALLERGIES: No Known Drug Allergies (NKDA) ENVIRONMENTAL ALLERGIES: None Known - Substance Allergies None Known - Other Allergies None Known NURSING: - Shower allowing shower - Skin care per protocol PRECAUTIONS: - Posterior Hip Precaution No adduction across midline No external rotation No hip flexion >90 degrees No internal rotation No wheel chair propulsion - Weight Bearing Precaution WBAT right LE ACTIVITIES OOB only with supervision THERAPIES: - Occupational Therapy Evaluate and Treat. - Physical Therapy Evaluate and Treat. PHYSICAL EXAM - Gen Alert and awake Lying in bed No apparent distress Oriented to: person, time, and place - Skin No breakdown No abnormalities - Eyes No abnormalities - ENMT No abnormalities - Neck No abnormalities - CVS RRR - Chest No abnormalities - Abd +bowel sounds - GI Non distended Deferred - No abnormalities - Ext Mild postoperative edema in the right lower extremity - MSK 4+/5 weakness in both lower extremities. - Neuro 4/5 strength bilaterally lower extremities. - Psych No abnormalities ASSESSMENT: Pt. is a 82 yo Right-handed black male.His impairment category is Orthopaedic Disorders 08 - Unilate ral Hip Fracture (01.18).Pre-morbidly, Pt. was independent/mod-I in Transfers Control, Communication, Social Cognition, Self-Care, Locomotion, and Sphincter Control; and he had good Sphincter Control.Cu rrently, he has deficits of Transfers Control, Balance, Locomotion, Endurance, Safety Awareness, and Self-Care.Pt. is now referred to [facility] for acute in-patient rehabilitatio n in order to maximize patient's functional independence in activities of daily living, strength, ROM , and mobility.- Rehab Goal Patient has realistic goal of being discharged at assistance level 6-Ayaan to reside at Home with Fam verónica/Relatives. MDM/PLAN: - Physical Therapy Decreased range of motion - to improve, our physical therapists will perform initial evaluation of p t's status upon admission and devise an individualized program for increasing patient's Range of Steven on. Gait dysfunction - to improve, our physical therapists will perform initial evaluation of pt's statu s upon admission and devise an individualized program for Gait Training, and Wheel Chair mobility Inability to transfer - to improve, our physical therapists will perform initial evaluation of pt's status upon admission and devise an individualized program for Bed mobility Need for home safety evaluation - to improve, our physical therapists will perform initial evaluatio n of pt's status upon admission and devise an individualized program for Home Evaluation Need in caregiver upon discharge - to improve, our physical therapists will perform initial evaluati on of pt's status upon admission and devise an individualized program for Caregiver Training New precaution - to improve, our physical therapists will perform initial evaluation of pt's status upon admission and devise an individualized program for Patient precaution education Edema - to improve, our physical therapists will perform initial evaluation of pt's status upon admis karen and devise an individualized program for Elevation Training, and Lymphedema Therapy Poor balance - to improve, our physical therapists will perform initial evaluation of pt's status up on admission and devise an individualized program for Balance Training Poor endurance - to improve, our physical therapists will perform initial evaluation of pt's status upon admission and devise an individualized program for Endurance Training Weakness - to improve, our physical therapists will perform initial evaluation of pt's status upon a dmission and devise an individualized program for Aquatic Therapy, Neuromuscular Reeducation, and Str engthening Achieving independence - to improve, our physical therapists will perform initial evaluation of pt's status upon admission and devise an individualized program for Community Reintegration Activities - Occupational Therapy ADL deficits - to improve, our occupation therapists will perform initial evaluation of pt's status upon admission and devise an individualized program for Bathing, Bed mobility, Community Reintegratio n, Cooking, Dressing, Eating, Fine Motor Skills, Grooming, Homemaking, Kitchen Mobility, Laundry, Pat ient Education, Safety Awareness, Splinting - Positioning, Transfers(Toilet, Tub, Shower), and Wheel Chair Management Need for ambulatory care nurse - to improve, our occupation therapists will perform initial evaluation of pt's status upon admission and devise an individualized program for Caregiver Training Weakness - to improve, our occupation therapists will perform initial evaluation of pt's status upon admission and devise an individualized program for Aquatic Therapy, Balance, Endurance, UE ROM, and UE strengthening - Anterior Hip Precaution No abduction No active extension No adduction across midline No external rotation No hip flexion >90 degrees No internal rotation - Diet - Liquid Texture Continue Regular - Tube Feed Continue N/A - Diet Type Continue Regular - Posterior Hip Precaution No adduction across midline No external rotation No hip flexion >90 degrees No internal rotation No wheel chair propulsion - Weight Bearing Precaution WBAT right LE - Skin care per protocol - Diet - Solid Texture Continue Regular - Shower allowing shower FUNCTIONAL STATUS: UPDATED AT WEEKLY TEAM CONFERENCE - Bladder Same accident frequency: 7-Ind - No accidents in the past 7 days - Bowel Same accident frequency: 7-Ind - No accidents in the past 7 days - Walking Same score based on distance walked: 1(<=50ft) - Wheelchair Same score based on distance traveled: 0(N/A) FUNCTIONAL STATUS: - Self-Care A. Eating Ayaan B. Grooming Ayaan C. Bathing maxA D. Dressing - Upper sup E. Dressing - Lower maxA F. Toileting maxA - Sphincter Control G: Bladder control Ind H: Bowel control Ind - Transfers Control I. Bed/Chair/Wheelchair modA J. Toilet modA K. Tub/Shower ADNO - Locomotion L. Walk/Wheelchair (C) modA L. Walk/Wheelchair (W) modA M. Stairs ADNO - Communication N. Comprehension (B) Ayaan O. Expression (B) Ayaan - Social Cognition P. Social Interaction Ayaan Q. Problem Solving Ayaan R. Memory Ayaan - Endurance Fair - Balance Fair - Safety Awareness Fair CURRENT FUNC. DEFICITS: Transfers Control, Balance, Locomotion, Endurance, Safety Awareness, and Self-Care SIGNATURE PANEL: (COPY CENTER ASSOCIATE)
[2018-07-09] MEDS: ATORVASTATIN 20 MG TAB PO SCH (20:12)
[2018-07-09] MEDS: DOCUSATE NA/SENNA CONC 1 TAB PO SCH (20:12)
--- NOTE | 2018-07-09 22:22 | P.PN ---
Date of Service: 07/09/18 (POD#5) S: YESTERDAY THE PATIENT HAD AN ELEVATION IN WBC COUNT TO 11.7, AND A LEFT SHIFT OF NEUTROPHILS TO 90.3%. THIS MORNING THE PATIENT HAD A WBC COUNT OF 15.9 WITH NEUTROPHILS 87%, AND TEMPERATURE ELEVATIONS STARTED AT 99.9 AND WENT TO 102 X 10 A.M. PHYSICAL THERAPY DESCRIBED THE PATIENT DEMONSTRATING KYPHOTIC POSTURE AND BEING LETHARGIC AND WITHDRAWN, BUT CONTINUING TO PARTICIPATE IN PHYSICAL THERAPY. O: PULSE ELEVATED AND RESPIRATORY RATE INCREASED WITH INCREASED TEMPERATURE. HEMOGLOBIN 8.8, PRO- CALCITONIN 22.49 SUGGESTS BACTERIAL SEPSIS. LACTIC ACID IS PENDING. CHEST X-RAY IS GROSSLY CLEAR. uRINE SHOWED 5-10 RBCs AND 5-10 WBCs AND 20 BACTERIA WITH CULTURE SHOWING 2+ GRAM-NEGATIVE RODS. THE PATIENT HAD HIS BANDAGE CHANGED LAST NIGHT AND INSPECTION REVEALED NO ERYTHEMA OR DRAINAGE, NORMAL-LOOKING INCISION. THIS MORNING THE PATIENT WENT 50 FEET 2, 80 FEET, 60 FEET 3 WITH FRONT WHEELED WALKER WITHOUT INDICATING INCREASED DISCOMFORT WITH WEIGHTBEARING. ON EXAMINATION THE PATIENT ACTIVELY MOVES HIS RIGHT LOWER EXTREMITY PUMPING THE ANKLE AND TOES AND TOLERATING PASSIVE CIRCUMDUCTION RANGE OF MOTION. THE THIGH AROUND THE AQUACEL BANDAGE IS WITHOUT ERYTHEMA OR WARMTH TO PALPATION. A: THE PATIENT HAS HAD MULTIPLE STRAIGHT CATHETER INSERTIONS DUE TO RETAINED URINE OVER THE LAST FEW DAYS. HE HAS BEEN STARTED ON ROCEPHIN 1 G EVERY 12 HOURS FOR PROBABLE UTI. P: CONTINUE MOBILIZATION TOLERATED WITH CLOSE OBSERVATION OF RESPONSE TO ANTIBIOTIC THERAPY.
--- NOTE | 2018-07-10 00:53 | PN ---
Date of Progress Note: 07/09/2018 Subjective: Patient was seen this morning for followup. He was lying in bed, not in distress. This morning when I saw him, denied any complaints. The patient's family member who was at bedside repor jorge that he had one episode of nausea and vomiting last night after he had some chicken from outside restaurant that family brought and both family member as well as patient had the same taken and they both ended up having some vomiting last night. This morning, the patient was feeling fine. Denied a ny abdominal pain. No nausea or vomiting. Objective: Vital Signs: Reviewed. HEENT Examination: Unremarkable. Lungs: Clear to auscultation. Heart: Sounds normal. Abdomen: Soft. Bowel sounds normal. No guarding, rigidity, tenderness, or distention. Extremities: No leg edema. Laboratory Data: Labs reviewed. Urine culture growing Gram-negative rods. White count is elevated at 16,000. Chest x-ray was negative for pneumonia, which was done today. Impression: 1.Urinary tract infection. 2.Right hip fracture. 3.Anemia due to acute blood loss. 4.Hypertension. 5.Anemia due to chronic kidney disease. Plan: We will go ahead and continue current antihypertensive medication. IV fluid was started today as patient started to have fever this afternoon, and antibiotic ceftriaxone was started. Urine cult ure is growing Gram-negative rods. We will follow up on the final report and make decision regarding culture specific antibiotic. I did go back and evaluate the patient this evening. He was feeling f ine. He did not have any further nausea or vomiting during later part of the day today. He did tole rate his evening meal well. His examination was unremarkable again today. Depending on how he does overnight and tomorrow morning, we will decide if we need to make any further changes in antibiotics or not. Details were discussed with family member. BRADY/MODL Voice ID: [id number] Report ID: [id number]
[2018-07-10] MEDS: NA CHLORIDE 0.9% 1,000 ML IV SCH ×2 (01:13→13:58)
--- NOTE | 2018-07-10 01:26 | FAST ---
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 Trino Pineda M.D. ADMISSION DIAGNOSIS: - Orthopaedic Disorders 08 - Unilateral Hip Fracture (08.11) RIGHT FEMORAL NECK FRACTURE. EATING: Activity did not occur on this shift EATING - SCORE: 0-UNK GROOMING: Activity did not occur on this shift GROOMING - SCORE: 0-UNK BATHING: Activity did not occur on this shift BATHING - SCORE: 0-UNK DRESSING - UPPER BODY: Patient is not dressing in public clothing ARTICLES SCORE Total number of steps: 0 DRESSING - UPPER BODY - SCORE: 0-UNK DRESSING - LOWER BODY: Patient is not dressing in public clothing ARTICLES SCORE Total number of steps: 0 DRESSING - LOWER BODY - SCORE: 0-UNK TOILETING: Activity did not occur on this shift TOILETING - SCORE: 0-UNK BLADDER MANAGEMENT: [place] removes incontinent device (Depends, pull ups, etc.); cleans the patient after accident / inco ntinent episode; and, applies new incontinent device. BLADDER MANAGEMENT - SCORE: 1-DEP BLADDER MANAGEMENT - FREQUENCY OF ACCIDENTS: BLADDER MANAGEMENT(FA) - STEP 1: How many accidents has the patient had during the current shift? 1 BOWEL MANAGEMENT: Activity did not occur on this shift BOWEL MANAGEMENT - SCORE: 7-IND TRANSFERS: BED, CHAIR, WHEELCHAIR: Activity did not occur on this shift TRANSFERS: BED, CHAIR, WHEELCHAIR - SCORE: 0-UNK TRANSFERS: TOILET: Activity did not occur on this shift TRANSFERS: TOILET - SCORE: 0-UNK TRANSFERS: SHOWER: Activity did not occur on this shift TRANSFERS: SHOWER - SCORE: 0-UNK TRANSFERS: TUB: Activity did not occur on this shift TRANSFERS: TUB - SCORE: 0-UNK LOCOMOTION: WALK: Activity did not occur on this shift LOCOMOTION: WALK - SCORE: 0-UNK LOCOMOTION: WHEELCHAIR: Activity did not occur on this shift LOCOMOTION: WHEELCHAIR - SCORE: 0-UNK COMPREHENSION: COMPREHENSION: TYPE: Both COMPREHENSION - STEP 1: Does the patient require help from a person or device, or need extra time to understand complex and a bstract ideas (such as current events, finances, discharge planning, medical issues, relationships, e tc)? Yes. COMPREHENSION - STEP 2: Does the patient require help to understand questions or statements about basic needs or ideas (such as hunger, thirst, sleep, safety, daily schedule, room location, or discomfort) half or more of the t reji? No. COMPREHENSION - STEP 3: How often does the patient need help to understand directions and conversation about basic needs? 10% - 24% of the time COMPREHENSION - SCORE: 4-MIN EXPRESSION EXPRESSION: TYPE: Both EXPRESSION - STEP 1: Does the patient require help from a person or device, or need extra time expressing complex and abst ract ideas (such as current events, finances, discharge planning, medical issues, relationships, etc) ? No. EXPRESSION - STEP 2: Does the patient need extra time, require an assistive device (such as augmentive communication syste m or a communication board), OR does s/he have mild difficulty expressing complex and abstract ideas (including mild dysarthria or mild word-find problems)? Yes. EXPRESSION - SCORE: 6-OTILIO SOCIAL INTERACTION: SOCIAL INTERACTION - STEP 1: Does the patient require a helper to interact with others in social and therapeutic situations? No. SOCIAL INTERACTION - STEP 2: Does the patient need extra time in social situations, OR does s/he interact with staff, other patien ts, and family members ONLY in structured environments, OR does s/he require medication for social in teraction? Yes, patient needs extra time SOCIAL INTERACTION - SCORE: 6-OTILIO PROBLEM SOLVING: PROBLEM SOLVING - STEP 1: Does the patient need help from a person or device, or need extra time to solve complex problems such as managing a checking account or confronting interpersonal problems? Yes. PROBLEM SOLVING - STEP 2: Does the patient solve basic routine problems half or more of the time? Yes. PROBLEM SOLVING - STEP 3: How often does the patient need help to solve basic routine problems? 25%-49% of the time PROBLEM SOLVING - SCORE: 3-MOD MEMORY: MEMORY - STEP 1: Does the patient need help from a person or device, or need extra time to remember frequently encount ered people, daily routines, and executing requests? Yes. MEMORY - STEP 2: How often does the patient need help to remember frequently encountered people, daily routines, and e xecuting requests? 25% - 49% of the time MEMORY - SCORE: 3-MOD SIGNATURE PANEL: The following modified sections: Eating - Score, Grooming - Score, Dressing - Upper Body - Score, Prashant ssing - Lower Body - Score, Toileting - Score, Bladder Management - Score, Bowel Management - Score, Transfers: Bed, Chair, Wheelchair - Score, Transfers: Toilet - Score, Transfers: Shower - Score, Simeon sfers: Tub - Score, Locomotion: Walk - Score, Locomotion: Wheelchair - Score, Comprehension - Score, Expression - Score, Social Interaction - Score, Problem Solving - Score, Memory - Score were [electro nically] signed by Gina Preston CNA on SatJul 10 2018 01:25:16 GMT-0600 (Central Standard Time)
[2018-07-10 05:15] LABS: Absolute Lymphocytes (CBC) 0.7 K/uL (0.7-4.9); Absolute Neutrophil 17.2 K/uL (1.8-8.0); Basophils % 0.1 % (0-1.3); Eosinophils % 0.7 % (0-4.4); Hematocrit 25.3 % (39.6-49.0); Lymphocytes % 3.7 % (15.3-44.8); MPV 7.7 fL (7.6-11.3); Monocytes % 5.3 % (3.3-12.3)
[2018-07-10 05:26] LABS: Albumin 2.3 g/dL (3.4-5.0); Potassium 4.5 mmol/L (3.5-5.1); Prealbumin 9.2 mg/dL (20-40)
[2018-07-10] MEDS ORDERED: CEFTAZIDIME 1 GM VIAL IV SCH (08:00)
[2018-07-10] MEDS: HYDRALAZINE HCL 25 MG TABLET PO SCH ×2 (08:00→20:00)
[2018-07-10] MEDS: ENOXAPARIN 30 MG/0.3 ML SQ SCH (08:00)
[2018-07-10] MEDS: TAMSULOSIN 0.4 MG SR CAP PO SCH (08:10)
[2018-07-10] MEDS: METAMUCIL PO SCH ×2 (08:10→20:35)
[2018-07-10] MEDS: FERROUS SULFATE 325 MG TAB PO SCH (08:11)
[2018-07-10] MEDS: FE SULF/FA/VIT B COMP & C TAB PO SCH (08:11)
[2018-07-10] MEDS: MAGNESIUM OXIDE 400 MG TAB PO SCH ×2 (08:11→20:34)
[2018-07-10] MEDS: FOLIC ACID 1 MG TABLET PO SCH (08:12)
[2018-07-10] MEDS: MINOXIDIL 2.5 MG TAB PO SCH ×2 (08:12→20:36)
[2018-07-10] MEDS: CARVEDILOL 6.25 MG TAB PO SCH ×2 (08:12→20:36)
[2018-07-10] MEDS: ACETAMINOPHEN 500 MG TAB PO PRN ×2 (08:12→13:56)
[2018-07-10] MEDS: AMLODIPINE 5 MG TAB PO SCH (08:13)
[2018-07-10] MEDS: cloNIDine HCl 0.1 MG TAB PO SCH ×3 (08:13→20:35)
[2018-07-10] MEDS: PROMOD 30 ML DOSE PO SCH ×2 (08:15→20:32)
[2018-07-10] MEDS: CEFTAZIDIME 1 GM in NA CHLORIDE 0.9% 50 ML IV SCH ×2 (08:48→20:34)
--- NOTE | 2018-07-10 09:39 | P.RH.PN ---
Estimated Length of Stay: 14 Expected Discharge Date: 07/20/18 Discharge Disposition Plan: Home Family Support: Yes Mcfp Goal: Mobility, Transfers, Self Care Vital Signs: Last Vital Signs Temp 97.8 F 07/10/18 05:06 Pulse 83 07/10/18 08:12 Resp 18 07/09/18 19:42 BP 146/70 H 07/10/18 08:12 Pulse Ox 97 07/09/18 19:42 Laboratory: Laboratory Last Values WBC 19.0 K/uL (4.3-10.9) H D 07/10/18 04:43 RBC 3.20 M/uL (4.33-5.43) L 07/10/18 04:43 Hgb 8.1 g/dL (13.6-17.9) L 07/10/18 04:43 Hct 25.3 % (39.6-49.0) L 07/10/18 04:43 MCV 79.1 fL (80-100) L 07/10/18 04:43 MCH 25.3 pg (27.0-35.0) L 07/10/18 04:43 MCHC 31.9 g/dL (32.0-36.0) L 07/10/18 04:43 RDW 15.1 % (12.1-15.2) 07/10/18 04:43 Plt Count 196 K/uL (152-406) 07/10/18 04:43 MPV 7.7 fL (7.6-11.3) 07/10/18 04:43 Neutrophils % 90.2 % (41.7-73.7) H 07/10/18 04:43 Lymphocytes % 3.7 % (15.3-44.8) L 07/10/18 04:43 Monocytes % 5.3 % (3.3-12.3) 07/10/18 04:43 Eosinophils % 0.7 % (0-4.4) 07/10/18 04:43 Basophils % 0.1 % (0-1.3) 07/10/18 04:43 Absolute Neutrophils 17.2 K/uL (1.8-8.0) H 07/10/18 04:43 Absolute Lymphocytes 0.7 K/uL (0.7-4.9) 07/10/18 04:43 Absolute Monocytes 1.0 K/uL (0.1-1.3) 07/10/18 04:43 Absolute Eosinophils 0.1 K/uL (0-0.5) 07/10/18 04:43 Absolute Basophils 0.0 K/uL (0-0.5) 07/10/18 04:43 Hypochromasia 1+ 07/09/18 06:00 Microcytosis 1+ 07/09/18 06:00 Target Cells 1+ 07/09/18 06:00 [place] Cells 2+ 07/09/18 06:00 Schistocytes 1+ 07/09/18 06:00 Morphology Comment Noted (NOT SEEN) 07/09/18 06:00 Sodium 134 mmol/L (136-145) L 07/10/18 04:43 Potassium 4.5 mmol/L (3.5-5.1) 07/10/18 04:43 Chloride 101 mmol/L (98-107) 07/10/18 04:43 Carbon Dioxide 25 mmol/L (21-32) 07/10/18 04:43 BUN 44 mg/dL (7-18) H 07/10/18 04:43 Creatinine 2.73 mg/dL (0.55-1.3) H 07/10/18 04:43 Estimated GFR 27 mL/min (=/>90) L 07/10/18 04:43 Glucose 99 mg/dL (74-106) 07/10/18 04:43 Lactic Acid 0.9 mmol/L (0.4-2.0) 07/09/18 12:20 Calcium 7.9 mg/dL (8.5-10.1) L 07/10/18 04:43 Magnesium 1.8 mg/dL (1.8-2.4) 07/08/18 06:16 Lactate Dehydrogenase 214 U/L (87-241) 07/09/18 09:44 Albumin 2.3 g/dL (3.4-5.0) L 07/10/18 04:43 Prealbumin 9.2 mg/dL (20-40) L 07/10/18 04:43 Procalcitonin 19.49 ng/mL (<0.50) H 07/10/18 04:43 Urine Color Yellow 07/07/18 18:21 Urine Appearance Clear 07/07/18 18:21 Urine pH 5.5 (5.0-7.0) 07/07/18 18:21 Ur Specific [place] 1.010 (1.005-1.030) 07/07/18 18:21 Urine Ketones Negative (NEG) 07/07/18 18:21 Urine Blood Negative (NEG) 07/07/18 18:21 Urine Nitrite Negative (NEG) 07/07/18 18:21 Urine Bilirubin Negative (NEG) 07/07/18 18:21 Urine Urobilinogen 1.0 mg/dL (0.2-1.0) 07/07/18 18:21 Ur Leukocyte Esterase Negative (NEG) 07/07/18 18:21 Urine RBC 5-10 /HPF (NONE SEEN) H 07/07/18 18:21 Urine WBC 5-10 /HPF (<5) H 07/07/18 18:21 Ur Squamous Epith Cells <5 /HPF (NONE SEEN) 07/07/18 18:21 Urine Bacteria <20 /HPF (NONE SEEN) 07/07/18 18:21 Urine Culture Reflexed Not needed 07/07/18 18:21 Urine Glucose Negative (NEG) 07/07/18 18:21 Urine Total Protein 1+ (NEG) H 07/07/18 18:21 Weight: 154 lb Wound Present: No Closed Surgical Incision Present: Yes Negative Pressure Wound Therapy Present: No Physician Update: He has very elevated procalcitonin now 19 improved from 22. His WBCs increased to 19. Urine cultures showed pansensitive pseudomonas. He received rocephin and iv fluids. He did better with cogntion today while working with speech therapy. 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 He is doing ok overall with occupational therapy. He has difficulty retaining information. He walked 90' with contact guard assistance. He requires verbal ques for hand placement. Medical Issues: DVT Prophylaxis - Lovenox 30mg Daily SQ Pain Issues: Tramadol 50mg Q4H PRN PO Functional Improvement: pt is willing to participate in therapy; however, at this time, he is limited due to sepsis. 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 Please see the Rehabilitation Signature page for all necessary signatures.
--- NOTE | 2018-07-10 14:28 | FAST ---
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 Trino Pineda M.D. ADMISSION DIAGNOSIS: - Orthopaedic Disorders 08 - Unilateral Hip Fracture (08.11) RIGHT FEMORAL NECK FRACTURE. EATING: EATING - STEP 1: Does the patient require the assistance of a person or device, or need extra time when eating? Yes. EATING - STEP 2: Does the patient require the assistance of a helper? Yes. EATING - STEP 3: Does the patient perform half or more of the eating tasks? Yes. EATING - STEP 4: Does the patient need only supervision, cuing, coaxing OR help to apply an orthosis OR help to cut fo od, open containers, pour liquids, or butter bread? Yes. EATING - SCORE: 5-SUP GROOMING: Activity did not occur on this shift Comb/brush hair Oral care GROOMING - SCORE: 0-UNK BATHING: Activity did not occur on this shift BATHING - SCORE: 0-UNK DRESSING - UPPER BODY: Activity did not occur on this shift ARTICLES SCORE Total number of steps: 0 DRESSING - UPPER BODY - SCORE: 0-UNK DRESSING - LOWER BODY: Activity did not occur on this shift ARTICLES SCORE Total number of steps: 0 DRESSING - LOWER BODY - SCORE: 0-UNK TOILETING: TOILETING - STEP 1: Does the patient require the assistance of a person or device, or need extra time with toileting? Yes . TOILETING - STEP 2: Does the patient require the assistance of a helper? Yes. TOILETING - STEP 3: How much assistance does the patient require from the helper? Hands-on assistance from the helper TOILETING - STEP 4: Of the 3 tasks: 1) Adjusting clothing prior to use, 2) Cleansing of perineal area, 3) Adjusting clot ashley after use; How many tasks does the patient perform WITHOUT assistance of the helper? Two tasks TOILETING - SCORE: 3-MOD BLADDER MANAGEMENT: [place] removes incontinent device (Depends, pull ups, etc.); cleans the patient after accident / inco ntinent episode; and, applies new incontinent device. BLADDER MANAGEMENT - SCORE: 1-DEP BLADDER MANAGEMENT - FREQUENCY OF ACCIDENTS: BLADDER MANAGEMENT(FA) - STEP 1: How many accidents has the patient had during the current shift? 2 BOWEL MANAGEMENT: Activity did not occur on this shift BOWEL MANAGEMENT - SCORE: 7-IND TRANSFERS: BED, CHAIR, WHEELCHAIR: TRANSFERS: BED, CHAIR, WHEELCHAIR - STEP 1: Does the patient require assistance of a person or device, or need extra time with bed, chair, or whe elchair transfers? Yes. TRANSFERS: BED, CHAIR, WHEELCHAIR - STEP 2: Does the patient require the assistance of a helper? Yes. TRANSFERS: BED, CHAIR, WHEELCHAIR - STEP 3: How much assistance does the patient require from the helper? Steadying/guiding assistance TRANSFERS: BED, CHAIR, WHEELCHAIR - SCORE: 4-MIN TRANSFERS: TOILET: TRANSFERS: TOILET - STEP 1: Does the patient require the assistance of a person or device, or need extra time with toilet transfe rs? Yes. TRANSFERS: TOILET - STEP 2: Does the patient require the assistance of a helper? Yes. TRANSFERS: TOILET - STEP 3: How much assistance does the patient require from the helper? Patient performs half or more of the tr ansferring tasks TRANSFERS: TOILET - STEP 4: Does the patient need only incidental help such as contact guard or steadying during toilet transfer? Yes. TRANSFERS: TOILET - SCORE: 4-MIN TRANSFERS: SHOWER: Activity did not occur on this shift TRANSFERS: SHOWER - SCORE: 0-UNK TRANSFERS: TUB: Activity did not occur on this shift TRANSFERS: TUB - SCORE: 0-UNK LOCOMOTION: WALK: Activity did not occur on this shift LOCOMOTION: WALK - SCORE: 0-UNK LOCOMOTION: WHEELCHAIR: Activity did not occur on this shift LOCOMOTION: WHEELCHAIR - SCORE: 0-UNK COMPREHENSION: COMPREHENSION: TYPE: Both COMPREHENSION - STEP 1: Does the patient require help from a person or device, or need extra time to understand complex and a bstract ideas (such as current events, finances, discharge planning, medical issues, relationships, e tc)? Yes. COMPREHENSION - STEP 2: Does the patient require help to understand questions or statements about basic needs or ideas (such as hunger, thirst, sleep, safety, daily schedule, room location, or discomfort) half or more of the t reji? No. COMPREHENSION - STEP 3: How often does the patient need help to understand directions and conversation about basic needs? 10% - 24% of the time COMPREHENSION - SCORE: 4-MIN EXPRESSION EXPRESSION: TYPE: Both EXPRESSION - STEP 1: Does the patient require help from a person or device, or need extra time expressing complex and abst ract ideas (such as current events, finances, discharge planning, medical issues, relationships, etc) ? Yes. EXPRESSION - STEP 2: Does the patient require help to express basic necessities or ideas (such as hunger, thirst, sleep, s afety, daily schedule, room location, or discomfort) half or more of the time? No. EXPRESSION - STEP 3: How often does the patient need help to express directions and conversation about basic needs? Less t obando 10% of the time EXPRESSION - SCORE: 5-SUP SOCIAL INTERACTION: SOCIAL INTERACTION - STEP 1: Does the patient require a helper to interact with others in social and therapeutic situations? Yes. SOCIAL INTERACTION - STEP 2: Does the patient interact appropriately half or more of the time? Yes. SOCIAL INTERACTION - STEP 3: How often does the patient need help to interact appropriately? Less than 10% of the time SOCIAL INTERACTION - SCORE: 5-SUP PROBLEM SOLVING: PROBLEM SOLVING - STEP 1: Does the patient need help from a person or device, or need extra time to solve complex problems such as managing a checking account or confronting interpersonal problems? Yes. PROBLEM SOLVING - STEP 2: Does the patient solve basic routine problems half or more of the time? Yes. PROBLEM SOLVING - STEP 3: How often does the patient need help to solve basic routine problems? Less than 10% of the time PROBLEM SOLVING - SCORE: 5-SUP MEMORY: MEMORY - STEP 1: Does the patient need help from a person or device, or need extra time to remember frequently encount ered people, daily routines, and executing requests? Yes. MEMORY - STEP 2: How often does the patient need help to remember frequently encountered people, daily routines, and e xecuting requests? Less than 10% of the time MEMORY - SCORE: 5-SUP SIGNATURE PANEL: The following modified sections: Eating - Score, Grooming - Score, Bathing - Score, Dressing - Upper Body - Score, Dressing - Lower Body - Score, Toileting - Score, Bladder Management - Score, Bowel Man agement - Score, Transfers: Bed, Chair, Wheelchair - Score, Transfers: Toilet - Score, Transfers: Stefania wer - Score, Transfers: Tub - Score, Locomotion: Walk - Score, Locomotion: Wheelchair - Score, Compre hension - Score, Expression - Score, Social Interaction - Score, Problem Solving - Score, Memory - Sc ore were [electronically] signed by Johnathan Ladd on SatJul 10 2018 14:27:55 GMT-0600 (Central Standard Time)
--- NOTE | 2018-07-10 15:55 | FAST ---
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 Trino Pineda M.D. ADMISSION DIAGNOSIS: - Orthopaedic Disorders 08 - Unilateral Hip Fracture (08.11) RIGHT FEMORAL NECK FRACTURE. EATING: Activity did not occur on this shift EATING - SCORE: 0-UNK GROOMING: Activity did not occur on this shift GROOMING - SCORE: 0-UNK BATHING: Activity did not occur on this shift BATHING - SCORE: 0-UNK DRESSING - UPPER BODY: Activity did not occur on this shift Patient is not dressing in public clothing ARTICLES SCORE Total number of steps: 0 DRESSING - UPPER BODY - SCORE: 0-UNK DRESSING - LOWER BODY: Activity did not occur on this shift Patient is not dressing in public clothing ARTICLES SCORE Total number of steps: 0 DRESSING - LOWER BODY - SCORE: 0-UNK TOILETING: Activity did not occur on this shift TOILETING - SCORE: 0-UNK BLADDER MANAGEMENT: Activity did not occur on this shift BLADDER MANAGEMENT - SCORE: 7-IND BOWEL MANAGEMENT: Activity did not occur on this shift BOWEL MANAGEMENT - SCORE: 7-IND TRANSFERS: BED, CHAIR, WHEELCHAIR: TRANSFERS: BED, CHAIR, WHEELCHAIR - STEP 1: Does the patient require assistance of a person or device, or need extra time with bed, chair, or whe elchair transfers? Yes. TRANSFERS: BED, CHAIR, WHEELCHAIR - STEP 2: Does the patient require the assistance of a helper? Yes. TRANSFERS: BED, CHAIR, WHEELCHAIR - STEP 3: How much assistance does the patient require from the helper? Steadying/guiding assistance TRANSFERS: BED, CHAIR, WHEELCHAIR - SCORE: 4-MIN TRANSFERS: TOILET: Activity did not occur on this shift TRANSFERS: TOILET - SCORE: 0-UNK TRANSFERS: SHOWER: Activity did not occur on this shift TRANSFERS: SHOWER - SCORE: 0-UNK TRANSFERS: TUB: Activity did not occur on this shift TRANSFERS: TUB - SCORE: 0-UNK LOCOMOTION: WALK: LOCOMOTION: WALK - STEP 1: Does the patient need help from a person or device, or need extra time to walk 150 feet? Yes. LOCOMOTION: WALK - STEP 2: How much assistance does the patient require to walk a minimum of 150 feet? Only supervision, cuing, or coaxing LOCOMOTION: WALK - SCORE: 5-SUP LOCOMOTION: WHEELCHAIR: LOCOMOTION: WHEELCHAIR - STEP 1: Does the patient need help to go 150 feet in a wheelchair? Yes. LOCOMOTION: WHEELCHAIR - STEP 2: How much assistance does the patient need from the helper? Only supervision, cuing, or coaxing LOCOMOTION: WHEELCHAIR - SCORE: 5-SUP LOCOMOTION: STAIRS: Activity did not occur on this shift LOCOMOTION: STAIRS - SCORE: 0-UNK COMPREHENSION: COMPREHENSION - SCORE: 0-UNK EXPRESSION EXPRESSION - SCORE: 0-UNK SOCIAL INTERACTION: SOCIAL INTERACTION - SCORE: 0-UNK PROBLEM SOLVING: PROBLEM SOLVING - SCORE: 0-UNK MEMORY: MEMORY - SCORE: 0-UNK SIGNATURE PANEL: The following modified sections: Transfers: Bed, Chair, Wheelchair - Score, Transfers: Toilet - Score , Locomotion: Walk - Score, Locomotion: Wheelchair - Score, Locomotion: Stairs - Score were [dameon cortez] signed by Ezra Hurley PTA on SatJul 10 2018 15:54:49 GMT-0600 (Central Standard Time)
--- NOTE | 2018-07-10 18:17 | P.PN ---
Date of Service: 07/10/18 (POD#6) S: BESIDES THE BED FOR THE FIRST TIME APPEARING MORE ALERT AND RESPONSIVE THAN WITH PRIOR VISITS. HE INDICATES HE'S HAD A GOOD AFTERNOON WITH PHYSICAL THERAPY PARTICIPATION. O: THIS PATIENT HAS BEEN AFEBRILE SINCE MIDNIGHT TAKING ROCEPHIN FOR ESCHERICHIA COLI UTI. VITAL SIGNS ARE STABLE; HEMOGLOBIN 8.1, PROCALCITONIN 19.49 DOWN FROM 22.49. LACTIC ACID 0.9. THIS AFTERNOON THE PATIENT WILL 160 FEET AND 250 FEET WITH A ROLLING WALKER AND DID 250 FEET TWICE WITH THE WHEELCHAIR SELF PROPULSION. ON EXAMINATION THE PATIENT ACTIVELY MOVES HIS RIGHT LOWER EXTREMITY PUMPING THE ANKLE AND TOES AND TOLERATING PASSIVE CIRCUMDUCTION RANGE OF MOTION. THE PATIENT EXTENDS THE KNEE DEMONSTRATING RIGHT QUAD STRENGTH A: THE PATIENT CONTINUES ON ROCEPHIN 1 G EVERY 12 HOURS WITH ELIMINATION OF FEVER A POSITIVE RESPONSE. P: CONTINUE MOBILIZATION TOLERATED WITH CLOSE OBSERVATION OF RESPONSE TO ANTIBIOTIC THERAPY.
[2018-07-10] MEDS: ATORVASTATIN 20 MG TAB PO SCH (20:36)
[2018-07-10] MEDS: DOCUSATE NA/SENNA CONC 1 TAB PO SCH (20:36)
[2018-07-10] MEDS: CODEINE 30MG/APAP 300MG TAB PO PRN (23:13)
--- NOTE | 2018-07-11 01:10 | PN ---
Date of Progress Note: 07/10/2018 Subjective: The patient was seen this morning for followup. The patient was lying in bed, not in di stress. Family was at bedside. Slept very well last night. No more nausea, vomiting. Has a good a ppetite and feels a lot better today compared to yesterday as he reported. Objective: Vital Signs: Reviewed. HEENT: Examination unremarkable. Lungs: Clear to auscultation. No rhonchi or rales. Heart: Sounds normal. Abdomen: Soft. Bowel sounds normal. No guarding, rigidity, tenderness, or distention. Extremities: No leg edema. Laboratory Data: White count has gone up to 19,000 today, hemoglobin 8.1, platelets 196. Sodium 134 , potassium 4.5, chloride 101, bicarb 25, BUN 44, creatinine 2.73, glucose 99. Urine culture growing Pseudomonas. Impression: 1.Urinary tract infection. 2.Right hip fracture, status post surgery. 3.Anemia due to chronic kidney disease. 4.Acute blood loss anemia. 5.Hypertension. Plan: We will go ahead and discontinue ceftriaxone which was started yesterday, and we will start hi m on ceftazidime as per urine culture result. Continue IV fluid, and we will repeat blood work tomor row. The patient feels better today compared to yesterday, and I am hoping that once we start him on ceftazidime, he should continue to show improvement. BRADY/MODL Voice ID: [id number] Report ID: [id number]
--- NOTE | 2018-07-11 01:30 | FAST ---
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 Trino Pineda M.D. ADMISSION DIAGNOSIS: - Orthopaedic Disorders 08 - Unilateral Hip Fracture (08.11) RIGHT FEMORAL NECK FRACTURE. EATING: Activity did not occur on this shift EATING - SCORE: 0-UNK GROOMING: Activity did not occur on this shift GROOMING - SCORE: 0-UNK BATHING: Activity did not occur on this shift BATHING - SCORE: 0-UNK DRESSING - UPPER BODY: Patient is not dressing in public clothing ARTICLES SCORE Total number of steps: 0 DRESSING - UPPER BODY - SCORE: 0-UNK DRESSING - LOWER BODY: Patient is not dressing in public clothing ARTICLES SCORE Total number of steps: 0 DRESSING - LOWER BODY - SCORE: 0-UNK TOILETING: TOILETING - STEP 1: Does the patient require the assistance of a person or device, or need extra time with toileting? Yes . TOILETING - STEP 2: Does the patient require the assistance of a helper? Yes. TOILETING - STEP 3: How much assistance does the patient require from the helper? Hands-on assistance from the helper TOILETING - STEP 4: Of the 3 tasks: 1) Adjusting clothing prior to use, 2) Cleansing of perineal area, 3) Adjusting clot ashley after use; How many tasks does the patient perform WITHOUT assistance of the helper? No tasks; h elper performs all three tasks TOILETING - SCORE: 1-DEP BLADDER MANAGEMENT: [place] removes incontinent device (Depends, pull ups, etc.); cleans the patient after accident / inco ntinent episode; and, applies new incontinent device. BLADDER MANAGEMENT - SCORE: 1-DEP BLADDER MANAGEMENT - FREQUENCY OF ACCIDENTS: BLADDER MANAGEMENT(FA) - STEP 1: How many accidents has the patient had during the current shift? 1 BOWEL MANAGEMENT: Activity did not occur on this shift BOWEL MANAGEMENT - SCORE: 7-IND TRANSFERS: BED, CHAIR, WHEELCHAIR: TRANSFERS: BED, CHAIR, WHEELCHAIR - STEP 1: Does the patient require assistance of a person or device, or need extra time with bed, chair, or whe elchair transfers? Yes. TRANSFERS: BED, CHAIR, WHEELCHAIR - STEP 2: Does the patient require the assistance of a helper? Yes. TRANSFERS: BED, CHAIR, WHEELCHAIR - STEP 3: How much assistance does the patient require from the helper? Lifting of the legs TRANSFERS: BED, CHAIR, WHEELCHAIR - STEP 4: How many legs does the patient require the helper to lift? both legs TRANSFERS: BED, CHAIR, WHEELCHAIR - SCORE: 3-MOD TRANSFERS: TOILET: TRANSFERS: TOILET - STEP 1: Does the patient require the assistance of a person or device, or need extra time with toilet transfe rs? Yes. TRANSFERS: TOILET - STEP 2: Does the patient require the assistance of a helper? Yes. TRANSFERS: TOILET - STEP 3: How much assistance does the patient require from the helper? Patient performs half or more of the tr ansferring tasks TRANSFERS: TOILET - STEP 4: Does the patient need only incidental help such as contact guard or steadying during toilet transfer? No. Patient needs more than incidental help TRANSFERS: TOILET - SCORE: 3-MOD TRANSFERS: SHOWER: Activity did not occur on this shift TRANSFERS: SHOWER - SCORE: 0-UNK TRANSFERS: TUB: Activity did not occur on this shift TRANSFERS: TUB - SCORE: 0-UNK LOCOMOTION: WALK: Activity did not occur on this shift LOCOMOTION: WALK - SCORE: 0-UNK LOCOMOTION: WHEELCHAIR: Activity did not occur on this shift LOCOMOTION: WHEELCHAIR - SCORE: 0-UNK COMPREHENSION: COMPREHENSION: TYPE: Both COMPREHENSION - STEP 1: Does the patient require help from a person or device, or need extra time to understand complex and a bstract ideas (such as current events, finances, discharge planning, medical issues, relationships, e tc)? Yes. COMPREHENSION - STEP 2: Does the patient require help to understand questions or statements about basic needs or ideas (such as hunger, thirst, sleep, safety, daily schedule, room location, or discomfort) half or more of the t reji? No. COMPREHENSION - STEP 3: How often does the patient need help to understand directions and conversation about basic needs? 10% - 24% of the time COMPREHENSION - SCORE: 4-MIN EXPRESSION EXPRESSION: TYPE: Both EXPRESSION - STEP 1: Does the patient require help from a person or device, or need extra time expressing complex and abst ract ideas (such as current events, finances, discharge planning, medical issues, relationships, etc) ? No. EXPRESSION - STEP 2: Does the patient need extra time, require an assistive device (such as augmentive communication syste m or a communication board), OR does s/he have mild difficulty expressing complex and abstract ideas (including mild dysarthria or mild word-find problems)? Yes. EXPRESSION - SCORE: 6-OTILIO SOCIAL INTERACTION: SOCIAL INTERACTION - STEP 1: Does the patient require a helper to interact with others in social and therapeutic situations? No. SOCIAL INTERACTION - STEP 2: Does the patient need extra time in social situations, OR does s/he interact with staff, other patien ts, and family members ONLY in structured environments, OR does s/he require medication for social in teraction? Yes, patient needs extra time SOCIAL INTERACTION - SCORE: 6-OTILIO PROBLEM SOLVING: PROBLEM SOLVING - STEP 1: Does the patient need help from a person or device, or need extra time to solve complex problems such as managing a checking account or confronting interpersonal problems? Yes. PROBLEM SOLVING - STEP 2: Does the patient solve basic routine problems half or more of the time? Yes. PROBLEM SOLVING - STEP 3: How often does the patient need help to solve basic routine problems? 25%-49% of the time PROBLEM SOLVING - SCORE: 3-MOD MEMORY: MEMORY - STEP 1: Does the patient need help from a person or device, or need extra time to remember frequently encount ered people, daily routines, and executing requests? Yes. MEMORY - STEP 2: How often does the patient need help to remember frequently encountered people, daily routines, and e xecuting requests? 25% - 49% of the time MEMORY - SCORE: 3-MOD SIGNATURE PANEL: The following modified sections: Eating - Score, Grooming - Score, Dressing - Upper Body - Score, Prashant ssing - Lower Body - Score, Toileting - Score, Bladder Management - Score, Bowel Management - Score, Transfers: Bed, Chair, Wheelchair - Score, Transfers: Toilet - Score, Transfers: Shower - Score, Simeon sfers: Tub - Score, Locomotion: Walk - Score, Locomotion: Wheelchair - Score, Comprehension - Score, Expression - Score, Social Interaction - Score, Problem Solving - Score, Memory - Score were [electro nically] signed by Gina Preston CNA on SatJul 11 2018 01:30:25 GMT-0600 (Central Standard Time)
[2018-07-11] MEDS: NA CHLORIDE 0.9% 1,000 ML IV SCH ×2 (03:55→17:29)
[2018-07-11] MEDS: ENOXAPARIN 30 MG/0.3 ML SQ SCH (06:56)
[2018-07-11] MEDS: CEFTAZIDIME 1 GM in NA CHLORIDE 0.9% 50 ML IV SCH ×2 (06:56→19:54)
[2018-07-11] MEDS: HYDRALAZINE HCL 25 MG TABLET PO SCH ×2 (08:00→20:00)
[2018-07-11] MEDS: cloNIDine HCl 0.1 MG TAB PO SCH ×3 (08:22→20:14)
[2018-07-11] MEDS: CARVEDILOL 6.25 MG TAB PO SCH ×2 (08:22→19:54)
[2018-07-11] MEDS: FOLIC ACID 1 MG TABLET PO SCH (08:23)
[2018-07-11] MEDS: FERROUS SULFATE 325 MG TAB PO SCH (08:23)
[2018-07-11] MEDS: FE SULF/FA/VIT B COMP & C TAB PO SCH (08:23)
[2018-07-11] MEDS: MAGNESIUM OXIDE 400 MG TAB PO SCH ×2 (08:23→19:55)
[2018-07-11] MEDS: ACETAMINOPHEN 500 MG TAB PO PRN (08:28)
[2018-07-11] MEDS: METAMUCIL PO SCH ×2 (08:28→19:56)
[2018-07-11] MEDS: TAMSULOSIN 0.4 MG SR CAP PO SCH (08:28)
[2018-07-11 08:52] LABS: Absolute Monocytes 0.8 K/uL (0.1-1.3); Absolute Neutrophil 15.4 K/uL (1.8-8.0); Basophils % 0.4 % (0-1.3); Eosinophils % 1.7 % (0-4.4); Hematocrit 26.9 % (39.6-49.0); Lymphocytes % 5.8 % (15.3-44.8); MPV 7.8 fL (7.6-11.3); Monocytes % 4.7 % (3.3-12.3); RBC Red Blood Cell Count 3.38 M/uL (4.33-5.43)
[2018-07-11 09:10] LABS: Albumin 2.5 g/dL (3.4-5.0); Bilirubin Total 0.3 mg/dL (0.2-1.0); Potassium 4.6 mmol/L (3.5-5.1); Protein, Total 6.9 g/dL (6.4-8.2)
[2018-07-11 09:27] LABS: Blood Morphology Comment NOT SEEN (NOT SEEN); Hypersegmented Neutrophils 2+; Platelet Estimate ADEQ; Urine White Blood Cell Casts OK
[2018-07-11] MEDS: CODEINE 30MG/APAP 300MG TAB PO PRN ×3 (10:11→19:55)
--- NOTE | 2018-07-11 10:52 | FAST ---
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 Trino Pineda M.D. ADMISSION DIAGNOSIS: - Orthopaedic Disorders 08 - Unilateral Hip Fracture (08.11) RIGHT FEMORAL NECK FRACTURE. EATING: Activity did not occur on this shift EATING - SCORE: 0-UNK GROOMING: Activity did not occur on this shift GROOMING - SCORE: 0-UNK BATHING: Activity did not occur on this shift BATHING - SCORE: 0-UNK DRESSING - UPPER BODY: Activity did not occur on this shift Patient is not dressing in public clothing ARTICLES SCORE Total number of steps: 0 DRESSING - UPPER BODY - SCORE: 0-UNK DRESSING - LOWER BODY: Activity did not occur on this shift Patient is not dressing in public clothing ARTICLES SCORE Total number of steps: 0 DRESSING - LOWER BODY - SCORE: 0-UNK TOILETING: Activity did not occur on this shift TOILETING - SCORE: 0-UNK BLADDER MANAGEMENT: Activity did not occur on this shift BLADDER MANAGEMENT - SCORE: 7-IND BOWEL MANAGEMENT: Activity did not occur on this shift BOWEL MANAGEMENT - SCORE: 7-IND TRANSFERS: BED, CHAIR, WHEELCHAIR: TRANSFERS: BED, CHAIR, WHEELCHAIR - STEP 1: Does the patient require assistance of a person or device, or need extra time with bed, chair, or whe elchair transfers? Yes. TRANSFERS: BED, CHAIR, WHEELCHAIR - STEP 2: Does the patient require the assistance of a helper? Yes. TRANSFERS: BED, CHAIR, WHEELCHAIR - STEP 3: How much assistance does the patient require from the helper? Steadying/guiding assistance TRANSFERS: BED, CHAIR, WHEELCHAIR - SCORE: 4-MIN TRANSFERS: TOILET: Activity did not occur on this shift TRANSFERS: TOILET - SCORE: 0-UNK TRANSFERS: SHOWER: Activity did not occur on this shift TRANSFERS: SHOWER - SCORE: 0-UNK TRANSFERS: TUB: Activity did not occur on this shift TRANSFERS: TUB - SCORE: 0-UNK LOCOMOTION: WALK: LOCOMOTION: WALK - STEP 1: Does the patient need help from a person or device, or need extra time to walk 150 feet? Yes. LOCOMOTION: WALK - STEP 2: How much assistance does the patient require to walk a minimum of 150 feet? Only incidental help such as contact guarding or steadying LOCOMOTION: WALK - SCORE: 4-MIN LOCOMOTION: WHEELCHAIR: LOCOMOTION: WHEELCHAIR - STEP 1: Does the patient need help to go 150 feet in a wheelchair? Yes. LOCOMOTION: WHEELCHAIR - STEP 2: How much assistance does the patient need from the helper? Only supervision, cuing, or coaxing LOCOMOTION: WHEELCHAIR - SCORE: 5-SUP LOCOMOTION: STAIRS: Activity did not occur on this shift LOCOMOTION: STAIRS - SCORE: 0-UNK COMPREHENSION: COMPREHENSION - SCORE: 0-UNK EXPRESSION EXPRESSION - SCORE: 0-UNK SOCIAL INTERACTION: SOCIAL INTERACTION - SCORE: 0-UNK PROBLEM SOLVING: PROBLEM SOLVING - SCORE: 0-UNK MEMORY: MEMORY - SCORE: 0-UNK SIGNATURE PANEL: The following modified sections: Transfers: Bed, Chair, Wheelchair - Score, Transfers: Toilet - Score , Locomotion: Walk - Score, Locomotion: Wheelchair - Score, Locomotion: Stairs - Score were [dameon cortez] signed by Aubrey Kruse PT on SatJul 11 2018 10:51:50 GMT-0600 (Central Standard Time)
[2018-07-11] MEDS: PROMOD 30 ML DOSE PO SCH ×2 (12:22→19:56)
[2018-07-11] MEDS: AMLODIPINE 5 MG TAB PO SCH (12:22)
[2018-07-11] MEDS: MINOXIDIL 2.5 MG TAB PO SCH ×2 (12:22→20:00)
--- NOTE | 2018-07-11 14:45 | FAST ---
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 Trino Pineda M.D. ADMISSION DIAGNOSIS: - Orthopaedic Disorders 08 - Unilateral Hip Fracture (08.11) RIGHT FEMORAL NECK FRACTURE. EATING: Activity did not occur on this shift EATING - SCORE: 0-UNK GROOMING: Patient shaved Wash, rinse, and dry face Wash, rinse, and dry hands GROOMING - STEP 1: Does the patient require the assistance of a person or device, or need extra time when grooming? Yes. GROOMING - STEP 2: Does the patient require the assistance of a helper? Yes. GROOMING - STEP 3: How much assistance does the patient require from the helper? Incidental touching assistance from the helper while grooming GROOMING - SCORE: 4-MIN BATHING: Abdomen Buttocks Chest Left arm Left lower leg and foot Left upper leg Perineal area Right arm Right lower leg and foot Right upper leg BATHING - STEP 1: Does the patient require the assistance of a person or device, or need extra time when bathing? Yes. BATHING - STEP 2: Does the patient require the assistance of a helper? Yes. BATHING - STEP 3: How much assistance does the patient require from the helper? Only incidental help such as placement of a wash cloth in his/her hand a few times as s/he bathes OR help to bathe just one or two areas of the body BATHING - SCORE: 4-MIN DRESSING - UPPER BODY: T-shirt/pullover shirt (four steps) ARTICLES SCORE Total number of steps: 4 DRESSING - UPPER BODY - STEP 1: Does the patient require help from a person or device, or need extra time when dressing above the [address]? Yes. DRESSING - UPPER BODY - STEP 2: Does the patient require the assistance of a helper? Yes. DRESSING - UPPER BODY - STEP 3: Does the helper touch the patient while dressing? No. DRESSING - UPPER BODY - SCORE: 5-SUP DRESSING - LOWER BODY: Elastic waist pants (three steps) Slip-on shoe - Left foot (one step) Slip-on shoe - Right foot (one step) Sock - Left foot (one step) Sock - Right foot (one step) Underwear (three steps) ARTICLES SCORE Total number of steps: 10 DRESSING - LOWER BODY - STEP 1: Does the patient require help from a person or device, or need extra time when dressing below the [address]? Yes. DRESSING - LOWER BODY - STEP 2: Does the patient require the assistance of a helper? Yes. DRESSING - LOWER BODY - STEP 3: Does the helper touch the patient while dressing? Yes. DRESSING - LOWER BODY - STEP 4: How many of the total steps does the patient complete on his/her own? 2 DRESSING - LOWER BODY - STEP 5: Does patient require total assistance for dressing below the waist such as the helper holding clothin g and performing basically all the activities? No. DRESSING - LOWER BODY - SCORE: 2-MAX TOILETING: Activity did not occur on this shift TOILETING - SCORE: 0-UNK BLADDER MANAGEMENT: Activity did not occur on this shift BLADDER MANAGEMENT - SCORE: 7-IND BOWEL MANAGEMENT: Activity did not occur on this shift BOWEL MANAGEMENT - SCORE: 7-IND TRANSFERS: BED, CHAIR, WHEELCHAIR: Activity did not occur on this shift TRANSFERS: BED, CHAIR, WHEELCHAIR - SCORE: 0-UNK TRANSFERS: TOILET: Activity did not occur on this shift TRANSFERS: TOILET - SCORE: 0-UNK TRANSFERS: SHOWER: Activity did not occur on this shift TRANSFERS: SHOWER - SCORE: 0-UNK TRANSFERS: TUB: TRANSFERS: TUB - STEP 1: Does the patient require the assistance of a person or device, or need extra time with tub transfers? Yes. TRANSFERS: TUB - STEP 2: Does the patient require the assistance of a helper? Yes. TRANSFERS: TUB - STEP 3: How much assistance does the patient require from the helper? More than incidental help TRANSFERS: TUB - STEP 4: How much more help does the patient require from the helper? [place] lifts patient up out of the wheel chair AND down onto the tub bench TRANSFERS: TUB - SCORE: 2-MAX LOCOMOTION: WALK: Activity did not occur on this shift LOCOMOTION: WALK - SCORE: 0-UNK LOCOMOTION: WHEELCHAIR: Activity did not occur on this shift LOCOMOTION: WHEELCHAIR - SCORE: 0-UNK LOCOMOTION: STAIRS: Activity did not occur on this shift LOCOMOTION: STAIRS - SCORE: 0-UNK COMPREHENSION: COMPREHENSION - SCORE: 0-UNK EXPRESSION EXPRESSION - SCORE: 0-UNK SOCIAL INTERACTION: SOCIAL INTERACTION - SCORE: 0-UNK PROBLEM SOLVING: PROBLEM SOLVING - SCORE: 0-UNK MEMORY: MEMORY - SCORE: 0-UNK SIGNATURE PANEL: The following modified sections: Eating - Score, Grooming - Score, Bathing - Score, Dressing - Upper Body - Score, Dressing - Lower Body - Score, Toileting - Score, Transfers: Bed, Chair, Wheelchair - S core, Transfers: Toilet - Score, Transfers: Shower - Score, Transfers: Tub - Score, Comprehension - S core, Expression - Score, Social Interaction - Score, Problem Solving - Score, Memory - Score were [e lectronically] signed by JUDI Smith on SatJul 11 2018 14:43:55 T-0600 ([place] Time)
--- NOTE | 2018-07-11 16:43 | PN ---
Date of Progress Note: 07/11/2018 Subjective: The patient was seen this morning for followup. He was sitting in the wheelchair in din ing room. No new complaints or problems reported. No nausea. No vomiting. Has a good appetite. N o fever. Objective: Vital Signs: Reviewed. HEENT: Unremarkable. Lungs: Clear to auscultation. Heart: Sounds normal. Abdomen: Soft. Bowel sounds normal. No guarding, rigidity, tenderness, distention. Extremities: No leg edema. Laboratory Data: White count is better today at 17.7, hemoglobin 8.6, platelets 247. Procalcitonin level better today at 12.5. Sodium 136, potassium 3.6, BUN 45, creatinine 2.63. Impression: 1.Urinary tract infection, organism Pseudomonas. 2.Right hip fracture. 3.Chronic kidney disease stage 4. 4.Anemia due to chronic kidney disease. 5.Anemia due to acute blood loss. 6.Hypertension. Plan: We will continue current medications. Continue current IV antibiotics. The patient is respon ding very well to this antibiotic and we will continue to monitor his blood test. He is participatin g well with physical therapy and we will continue current antihypertensive medication and DVT prophylaxis. I will see him tomorrow for followup. BRADY/MODL Voice ID: [id number] Report ID: [id number]
--- NOTE | 2018-07-11 17:51 | FAST ---
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 Trino Pineda M.D. ADMISSION DIAGNOSIS: - Orthopaedic Disorders 08 - Unilateral Hip Fracture (08.11) RIGHT FEMORAL NECK FRACTURE. EATING: EATING - STEP 1: Does the patient require the assistance of a person or device, or need extra time when eating? Yes. EATING - STEP 2: Does the patient require the assistance of a helper? Yes. EATING - STEP 3: Does the patient perform half or more of the eating tasks? Yes. EATING - STEP 4: Does the patient need only supervision, cuing, coaxing OR help to apply an orthosis OR help to cut fo od, open containers, pour liquids, or butter bread? Yes. EATING - SCORE: 5-SUP GROOMING: Activity did not occur on this shift GROOMING - SCORE: 0-UNK BATHING: Activity did not occur on this shift BATHING - SCORE: 0-UNK DRESSING - UPPER BODY: Activity did not occur on this shift ARTICLES SCORE Total number of steps: 0 DRESSING - UPPER BODY - SCORE: 0-UNK DRESSING - LOWER BODY: Elastic waist pants (three steps) Underwear (three steps) ARTICLES SCORE Total number of steps: 6 DRESSING - LOWER BODY - STEP 1: Does the patient require help from a person or device, or need extra time when dressing below the [address]? Yes. DRESSING - LOWER BODY - STEP 2: Does the patient require the assistance of a helper? Yes. DRESSING - LOWER BODY - STEP 3: Does the helper touch the patient while dressing? Yes. DRESSING - LOWER BODY - STEP 4: How many of the total steps does the patient complete on his/her own? 2 DRESSING - LOWER BODY - STEP 5: Does patient require total assistance for dressing below the waist such as the helper holding clothin g and performing basically all the activities? Yes. DRESSING - LOWER BODY - SCORE: 1-DEP TOILETING: TOILETING - STEP 1: Does the patient require the assistance of a person or device, or need extra time with toileting? Yes . TOILETING - STEP 2: Does the patient require the assistance of a helper? Yes. TOILETING - STEP 3: How much assistance does the patient require from the helper? Hands-on assistance from the helper TOILETING - STEP 4: Of the 3 tasks: 1) Adjusting clothing prior to use, 2) Cleansing of perineal area, 3) Adjusting clot ashley after use; How many tasks does the patient perform WITHOUT assistance of the helper? No tasks; h elper performs all three tasks TOILETING - SCORE: 1-DEP BLADDER MANAGEMENT: [place] removes incontinent device (Depends, pull ups, etc.); cleans the patient after accident / inco ntinent episode; and, applies new incontinent device. BLADDER MANAGEMENT - SCORE: 1-DEP BLADDER MANAGEMENT - FREQUENCY OF ACCIDENTS: BLADDER MANAGEMENT(FA) - STEP 1: How many accidents has the patient had during the current shift? 2 BOWEL MANAGEMENT: BOWEL MANAGEMENT - STEP 1: Does the patient control bowels completely and intentionally without equipment devices or medications AND is always continent? Yes. BOWEL MANAGEMENT - SCORE: 7-IND BOWEL MANAGEMENT - FREQUENCY OF ACCIDENTS: BOWEL MANAGEMENT(FA) - STEP 1: How many accidents has the patient had during the current shift? 0 TRANSFERS: BED, CHAIR, WHEELCHAIR: TRANSFERS: BED, CHAIR, WHEELCHAIR - STEP 1: Does the patient require assistance of a person or device, or need extra time with bed, chair, or whe elchair transfers? Yes. TRANSFERS: BED, CHAIR, WHEELCHAIR - STEP 2: Does the patient require the assistance of a helper? Yes. TRANSFERS: BED, CHAIR, WHEELCHAIR - STEP 3: How much assistance does the patient require from the helper? Lifting of the patient TRANSFERS: BED, CHAIR, WHEELCHAIR - STEP 4: Does the helper lift the patient ONLY up? ONLY down? Up AND Down? ONLY up. TRANSFERS: BED, CHAIR, WHEELCHAIR - SCORE: 3-MOD TRANSFERS: TOILET: TRANSFERS: TOILET - STEP 1: Does the patient require the assistance of a person or device, or need extra time with toilet transfe rs? Yes. TRANSFERS: TOILET - STEP 2: Does the patient require the assistance of a helper? Yes. TRANSFERS: TOILET - STEP 3: How much assistance does the patient require from the helper? Patient performs half or more of the tr ansferring tasks TRANSFERS: TOILET - STEP 4: Does the patient need only incidental help such as contact guard or steadying during toilet transfer? No. Patient needs more than incidental help TRANSFERS: TOILET - SCORE: 3-MOD TRANSFERS: SHOWER: Activity did not occur on this shift TRANSFERS: SHOWER - SCORE: 0-UNK TRANSFERS: TUB: Activity did not occur on this shift TRANSFERS: TUB - SCORE: 0-UNK LOCOMOTION: WALK: Activity did not occur on this shift LOCOMOTION: WALK - SCORE: 0-UNK LOCOMOTION: WHEELCHAIR: Activity did not occur on this shift LOCOMOTION: WHEELCHAIR - SCORE: 0-UNK COMPREHENSION: COMPREHENSION - SCORE: 0-UNK EXPRESSION EXPRESSION - SCORE: 0-UNK SOCIAL INTERACTION: SOCIAL INTERACTION - SCORE: 0-UNK PROBLEM SOLVING: PROBLEM SOLVING - SCORE: 0-UNK MEMORY: MEMORY - SCORE: 0-UNK SIGNATURE PANEL: The following modified sections: Eating - Score, Grooming - Score, Bathing - Score, Dressing - Upper Body - Score, Dressing - Lower Body - Score, Toileting - Score, Bladder Management - Score, Bowel Man agement - Score, Transfers: Bed, Chair, Wheelchair - Score, Transfers: Toilet - Score, Transfers: Stefania wer - Score, Transfers: Tub - Score, Locomotion: Walk - Score, Locomotion: Wheelchair - Score, Compre hension - Score, Expression - Score, Social Interaction - Score, Problem Solving - Score, Memory - Sc ore were [electronically] signed by Jamila Gaston CNA on SatJul 11 2018 17:50:37 GMT-0600 ([facility] Time)
[2018-07-11] MEDS: DOCUSATE NA/SENNA CONC 1 TAB PO SCH (19:55)
[2018-07-11] MEDS: ATORVASTATIN 20 MG TAB PO SCH (20:13)
[2018-07-12] MEDS: CODEINE 30MG/APAP 300MG TAB PO PRN ×3 (02:45→12:58)
[2018-07-12] MEDS: NA CHLORIDE 0.9% 1,000 ML IV SCH (06:40)
[2018-07-12] MEDS: MINOXIDIL 2.5 MG TAB PO SCH ×2 (06:54→20:09)
[2018-07-12] MEDS: CARVEDILOL 6.25 MG TAB PO SCH ×2 (06:54→20:09)
[2018-07-12] MEDS: AMLODIPINE 5 MG TAB PO SCH ×2 (07:07→20:00)
[2018-07-12] MEDS: cloNIDine HCl 0.1 MG TAB PO SCH ×3 (07:58→20:12)
[2018-07-12] MEDS: FE SULF/FA/VIT B COMP & C TAB PO SCH (07:58)
[2018-07-12] MEDS: TAMSULOSIN 0.4 MG SR CAP PO SCH (07:59)
[2018-07-12] MEDS: MAGNESIUM OXIDE 400 MG TAB PO SCH ×2 (07:59→20:09)
[2018-07-12] MEDS: FOLIC ACID 1 MG TABLET PO SCH (07:59)
[2018-07-12] MEDS: FERROUS SULFATE 325 MG TAB PO SCH (07:59)
[2018-07-12] MEDS: METAMUCIL PO SCH ×2 (08:00→20:11)
[2018-07-12] MEDS: HYDRALAZINE HCL 25 MG TABLET PO SCH ×2 (08:00→20:00)
[2018-07-12] MEDS: ENOXAPARIN 30 MG/0.3 ML SQ SCH (08:02)
[2018-07-12] MEDS: CEFTAZIDIME 1 GM in NA CHLORIDE 0.9% 50 ML IV SCH ×2 (08:03→20:11)
[2018-07-12] MEDS: PROMOD 30 ML DOSE PO SCH ×2 (08:05→20:12)
--- NOTE | 2018-07-12 11:10 | FAST ---
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 Trino Pineda M.D. ADMISSION DIAGNOSIS: - Orthopaedic Disorders 08 - Unilateral Hip Fracture (08.11) RIGHT FEMORAL NECK FRACTURE. EATING: Activity did not occur on this shift EATING - SCORE: 0-UNK GROOMING: Wash, rinse, and dry hands GROOMING - STEP 1: Does the patient require the assistance of a person or device, or need extra time when grooming? Yes. GROOMING - STEP 2: Does the patient require the assistance of a helper? Yes. GROOMING - STEP 3: How much assistance does the patient require from the helper? Cuing, coaxing, instructions, or encour agement for completion of grooming GROOMING - SCORE: 5-SUP BATHING: Activity did not occur on this shift BATHING - SCORE: 0-UNK DRESSING - UPPER BODY: Activity did not occur on this shift ARTICLES SCORE Total number of steps: 0 DRESSING - UPPER BODY - SCORE: 0-UNK DRESSING - LOWER BODY: Slip-on shoe - Left foot (one step) Slip-on shoe - Right foot (one step) Sock - Left foot (one step) Sock - Right foot (one step) ARTICLES SCORE Total number of steps: 4 DRESSING - LOWER BODY - STEP 1: Does the patient require help from a person or device, or need extra time when dressing below the [address]? Yes. DRESSING - LOWER BODY - STEP 2: Does the patient require the assistance of a helper? Yes. DRESSING - LOWER BODY - STEP 3: Does the helper touch the patient while dressing? Yes. DRESSING - LOWER BODY - STEP 4: How many of the total steps does the patient complete on his/her own? 0 DRESSING - LOWER BODY - STEP 5: Does patient require total assistance for dressing below the waist such as the helper holding clothin g and performing basically all the activities? No. DRESSING - LOWER BODY - SCORE: 2-MAX TOILETING: TOILETING - STEP 1: Does the patient require the assistance of a person or device, or need extra time with toileting? Yes . TOILETING - STEP 2: Does the patient require the assistance of a helper? Yes. TOILETING - STEP 3: How much assistance does the patient require from the helper? Hands-on assistance from the helper TOILETING - STEP 4: Of the 3 tasks: 1) Adjusting clothing prior to use, 2) Cleansing of perineal area, 3) Adjusting clot ashley after use; How many tasks does the patient perform WITHOUT assistance of the helper? One task TOILETING - SCORE: 2-MAX BLADDER MANAGEMENT: Activity did not occur on this shift BLADDER MANAGEMENT - SCORE: 7-IND BOWEL MANAGEMENT: Activity did not occur on this shift BOWEL MANAGEMENT - SCORE: 7-IND TRANSFERS: BED, CHAIR, WHEELCHAIR: Activity did not occur on this shift TRANSFERS: BED, CHAIR, WHEELCHAIR - SCORE: 0-UNK TRANSFERS: TOILET: TRANSFERS: TOILET - STEP 1: Does the patient require the assistance of a person or device, or need extra time with toilet transfe rs? Yes. TRANSFERS: TOILET - STEP 2: Does the patient require the assistance of a helper? Yes. TRANSFERS: TOILET - STEP 3: How much assistance does the patient require from the helper? Patient performs less than half of the transferring tasks TRANSFERS: TOILET - STEP 4: Does the patient require total assistance for the toilet transfer such as the helper doing basically all the lifting? No. TRANSFERS: TOILET - SCORE: 2-MAX TRANSFERS: SHOWER: Activity did not occur on this shift TRANSFERS: SHOWER - SCORE: 0-UNK TRANSFERS: TUB: Activity did not occur on this shift TRANSFERS: TUB - SCORE: 0-UNK LOCOMOTION: WALK: Activity did not occur on this shift LOCOMOTION: WALK - SCORE: 0-UNK LOCOMOTION: WHEELCHAIR: Activity did not occur on this shift LOCOMOTION: WHEELCHAIR - SCORE: 0-UNK LOCOMOTION: STAIRS: Activity did not occur on this shift LOCOMOTION: STAIRS - SCORE: 0-UNK COMPREHENSION: COMPREHENSION: TYPE: Both COMPREHENSION - STEP 1: Does the patient require help from a person or device, or need extra time to understand complex and a bstract ideas (such as current events, finances, discharge planning, medical issues, relationships, e tc)? Yes. COMPREHENSION - STEP 2: Does the patient require help to understand questions or statements about basic needs or ideas (such as hunger, thirst, sleep, safety, daily schedule, room location, or discomfort) half or more of the t reji? No. COMPREHENSION - STEP 3: How often does the patient need help to understand directions and conversation about basic needs? 25% - 49% of the time COMPREHENSION - SCORE: 3-MOD EXPRESSION EXPRESSION: TYPE: Vocal EXPRESSION - STEP 1: Does the patient require help from a person or device, or need extra time expressing complex and abst ract ideas (such as current events, finances, discharge planning, medical issues, relationships, etc) ? Yes. EXPRESSION - STEP 2: Does the patient require help to express basic necessities or ideas (such as hunger, thirst, sleep, s afety, daily schedule, room location, or discomfort) half or more of the time? No. EXPRESSION - STEP 3: How often does the patient need help to express directions and conversation about basic needs? 25-49% of the time EXPRESSION - SCORE: 3-MOD SOCIAL INTERACTION: SOCIAL INTERACTION - STEP 1: Does the patient require a helper to interact with others in social and therapeutic situations? No. SOCIAL INTERACTION - STEP 2: Does the patient need extra time in social situations, OR does s/he interact with staff, other patien ts, and family members ONLY in structured environments, OR does s/he require medication for social in teraction? Yes, patient needs extra time SOCIAL INTERACTION - SCORE: 6-OTILIO PROBLEM SOLVING: PROBLEM SOLVING - STEP 1: Does the patient need help from a person or device, or need extra time to solve complex problems such as managing a checking account or confronting interpersonal problems? Yes. PROBLEM SOLVING - STEP 2: Does the patient solve basic routine problems half or more of the time? Yes. PROBLEM SOLVING - STEP 3: How often does the patient need help to solve basic routine problems? 25%-49% of the time PROBLEM SOLVING - SCORE: 3-MOD MEMORY: MEMORY - STEP 1: Does the patient need help from a person or device, or need extra time to remember frequently encount ered people, daily routines, and executing requests? Yes. MEMORY - STEP 2: How often does the patient need help to remember frequently encountered people, daily routines, and e xecuting requests? 25% - 49% of the time MEMORY - SCORE: 3-MOD SIGNATURE PANEL: The following modified sections: Eating - Score, Grooming - Score, Bathing - Score, Dressing - Upper Body - Score, Dressing - Lower Body - Score, Toileting - Score, Transfers: Bed, Chair, Wheelchair - S core, Transfers: Toilet - Score, Transfers: Shower - Score, Transfers: Tub - Score, Comprehension - S core, Expression - Score, Social Interaction - Score, Problem Solving - Score, Memory - Score were [e lectronically] signed by Fifi Franklin OT on Sat Jul 12 2018 11:09:38 GMT-0600 (Central Standard [place])
[2018-07-12] MEDS: MAGNESIUM HYDROXIDE 8% 30 ML PO PRN (12:58)
--- NOTE | 2018-07-12 14:36 | FAST ---
SHIFT START DATE/TIME: 07/12/2018 07:00 (EVENT ORGANIZER) SHIFT END DATE/TIME: 07/12/2018 19:00 (EVENT ORGANIZER) NAME MARIIA SADLER DATE OF : 1935 DATE OF ADMISSION: 07/07/2018 17:08 (EVENT ORGANIZER) PHONE: AGE: 82 N# [id number] GENDER: Male ENCOUNTER PHYSICIAN: Dr. Trino Pineda M.D. ADMISSION DIAGNOSIS: - Orthopaedic Disorders 08 - Unilateral Hip Fracture (08.11) RIGHT FEMORAL NECK FRACTURE. EATING: EATING - STEP 1: Does the patient require the assistance of a person or device, or need extra time when eating? Yes. EATING - STEP 2: Does the patient require the assistance of a helper? Yes. EATING - STEP 3: Does the patient perform half or more of the eating tasks? Yes. EATING - STEP 4: Does the patient need only supervision, cuing, coaxing OR help to apply an orthosis OR help to cut fo od, open containers, pour liquids, or butter bread? Yes. EATING - SCORE: 5-SUP GROOMING: Oral care Wash, rinse, and dry face Wash, rinse, and dry hands GROOMING - STEP 1: Does the patient require the assistance of a person or device, or need extra time when grooming? Yes. GROOMING - STEP 2: Does the patient require the assistance of a helper? Yes. GROOMING - STEP 3: How much assistance does the patient require from the helper? Only prior equipment preparation/set up from the helper GROOMING - SCORE: 5-SUP GROOMING - COMMENTS: [place] provides warm wash cloth to clean face and hands- helper provides pt dentures- pt places dentu res in his mouth BATHING: Activity did not occur on this shift BATHING - SCORE: 0-UNK DRESSING - UPPER BODY: T-shirt/pullover shirt (four steps) ARTICLES SCORE Total number of steps: 4 DRESSING - UPPER BODY - STEP 1: Does the patient require help from a person or device, or need extra time when dressing above the [address]? Yes. DRESSING - UPPER BODY - STEP 2: Does the patient require the assistance of a helper? Yes. DRESSING - UPPER BODY - STEP 3: Does the helper touch the patient while dressing? Yes. DRESSING - UPPER BODY - STEP 4: How many of the total steps does the patient complete on his/her own? 1 DRESSING - UPPER BODY - STEP 5: Does Patient require total assistance for dressing above the waist such as the helper holding clothin g and performing basically all the activities? Yes. DRESSING - UPPER BODY - SCORE: 1-DEP DRESSING - UPPER BODY - COMMENTS: [place] holds shirt and helps pt thread his hand with IV into shirt- pt threads left hand into shirt-h elper helps pt pull shirt up over his head and down his trunk DRESSING - LOWER BODY: Elastic waist pants (three steps) Slip-on shoe - Left foot (one step) Slip-on shoe - Right foot (one step) Sock - Left foot (one step) Sock - Right foot (one step) Underwear (three steps) ARTICLES SCORE Total number of steps: 10 DRESSING - LOWER BODY - STEP 1: Does the patient require help from a person or device, or need extra time when dressing below the [address]? Yes. DRESSING - LOWER BODY - STEP 2: Does the patient require the assistance of a helper? Yes. DRESSING - LOWER BODY - STEP 3: Does the helper touch the patient while dressing? Yes. DRESSING - LOWER BODY - STEP 4: How many of the total steps does the patient complete on his/her own? 4 DRESSING - LOWER BODY - STEP 5: Does patient require total assistance for dressing below the waist such as the helper holding clothin g and performing basically all the activities? Yes. DRESSING - LOWER BODY - SCORE: 1-DEP DRESSING - LOWER BODY - COMMENTS: [place] holds garment and pt threads his feet into his underware and his pants- helper pulls clothes u p over pt hips TOILETING: TOILETING - STEP 1: Does the patient require the assistance of a person or device, or need extra time with toileting? Yes . TOILETING - STEP 2: Does the patient require the assistance of a helper? Yes. TOILETING - STEP 3: How much assistance does the patient require from the helper? Hands-on assistance from the helper TOILETING - STEP 4: Of the 3 tasks: 1) Adjusting clothing prior to use, 2) Cleansing of perineal area, 3) Adjusting clot ashley after use; How many tasks does the patient perform WITHOUT assistance of the helper? No tasks; h elper performs all three tasks TOILETING - SCORE: 1-DEP BLADDER MANAGEMENT: [place] removes incontinent device (Depends, pull ups, etc.); cleans the patient after accident / inco ntinent episode; and, applies new incontinent device. BLADDER MANAGEMENT - SCORE: 1-DEP BLADDER MANAGEMENT - FREQUENCY OF ACCIDENTS: BLADDER MANAGEMENT(FA) - STEP 1: How many accidents has the patient had during the current shift? 5 BOWEL MANAGEMENT: Activity did not occur on this shift BOWEL MANAGEMENT - SCORE: 7-IND BOWEL MANAGEMENT - FREQUENCY OF ACCIDENTS: BOWEL MANAGEMENT(FA) - STEP 1: How many accidents has the patient had during the current shift? 0 TRANSFERS: BED, CHAIR, WHEELCHAIR: TRANSFERS: BED, CHAIR, WHEELCHAIR - STEP 1: Does the patient require assistance of a person or device, or need extra time with bed, chair, or whe elchair transfers? Yes. TRANSFERS: BED, CHAIR, WHEELCHAIR - STEP 2: Does the patient require the assistance of a helper? Yes. TRANSFERS: BED, CHAIR, WHEELCHAIR - STEP 3: How much assistance does the patient require from the helper? Lifting of the legs TRANSFERS: BED, CHAIR, WHEELCHAIR - STEP 4: How many legs does the patient require the helper to lift? one leg TRANSFERS: BED, CHAIR, WHEELCHAIR - SCORE: 4-MIN TRANSFERS: TOILET: TRANSFERS: TOILET - STEP 1: Does the patient require the assistance of a person or device, or need extra time with toilet transfe rs? Yes. TRANSFERS: TOILET - STEP 2: Does the patient require the assistance of a helper? Yes. TRANSFERS: TOILET - STEP 3: How much assistance does the patient require from the helper? Patient performs half or more of the tr ansferring tasks TRANSFERS: TOILET - STEP 4: Does the patient need only incidental help such as contact guard or steadying during toilet transfer? No. Patient needs more than incidental help TRANSFERS: TOILET - SCORE: 3-MOD TRANSFERS: SHOWER: Activity did not occur on this shift TRANSFERS: SHOWER - SCORE: 0-UNK TRANSFERS: TUB: Activity did not occur on this shift TRANSFERS: TUB - SCORE: 0-UNK LOCOMOTION: WALK: Activity did not occur on this shift LOCOMOTION: WALK - SCORE: 0-UNK LOCOMOTION: WHEELCHAIR: Activity did not occur on this shift LOCOMOTION: WHEELCHAIR - SCORE: 0-UNK COMPREHENSION: COMPREHENSION: TYPE: Both COMPREHENSION - STEP 1: Does the patient require help from a person or device, or need extra time to understand complex and a bstract ideas (such as current events, finances, discharge planning, medical issues, relationships, e tc)? Yes. COMPREHENSION - STEP 2: Does the patient require help to understand questions or statements about basic needs or ideas (such as hunger, thirst, sleep, safety, daily schedule, room location, or discomfort) half or more of the t reji? No. COMPREHENSION - STEP 3: How often does the patient need help to understand directions and conversation about basic needs? 10% - 24% of the time COMPREHENSION - SCORE: 4-MIN EXPRESSION EXPRESSION: TYPE: Both EXPRESSION - STEP 1: Does the patient require help from a person or device, or need extra time expressing complex and abst ract ideas (such as current events, finances, discharge planning, medical issues, relationships, etc) ? Yes. EXPRESSION - STEP 2: Does the patient require help to express basic necessities or ideas (such as hunger, thirst, sleep, s afety, daily schedule, room location, or discomfort) half or more of the time? No. EXPRESSION - STEP 3: How often does the patient need help to express directions and conversation about basic needs? 10-24% of the time EXPRESSION - SCORE: 4-MIN SOCIAL INTERACTION: SOCIAL INTERACTION - STEP 1: Does the patient require a helper to interact with others in social and therapeutic situations? No. SOCIAL INTERACTION - STEP 2: Does the patient need extra time in social situations, OR does s/he interact with staff, other patien ts, and family members ONLY in structured environments, OR does s/he require medication for social in teraction? Yes, patient needs extra time SOCIAL INTERACTION - SCORE: 6-OTILIO PROBLEM SOLVING: PROBLEM SOLVING - STEP 1: Does the patient need help from a person or device, or need extra time to solve complex problems such as managing a checking account or confronting interpersonal problems? Yes. PROBLEM SOLVING - STEP 2: Does the patient solve basic routine problems half or more of the time? Yes. PROBLEM SOLVING - STEP 3: How often does the patient need help to solve basic routine problems? Less than 10% of the time PROBLEM SOLVING - SCORE: 5-SUP MEMORY: MEMORY - STEP 1: Does the patient need help from a person or device, or need extra time to remember frequently encount ered people, daily routines, and executing requests? Yes. MEMORY - STEP 2: How often does the patient need help to remember frequently encountered people, daily routines, and e xecuting requests? Less than 10% of the time MEMORY - SCORE: 5-SUP SIGNATURE PANEL: The following modified sections: Eating - Score, Grooming - Score, Grooming - Comments:, Bathing - Sc ore, Dressing - Upper Body - Score, Dressing - Upper Body - Comments:, Dressing - Lower Body - Score, Dressing - Lower Body - Comments:, Toileting - Score, Bladder Management - Score, Bowel Management - Score, Transfers: Bed, Chair, Wheelchair - Score, Transfers: Toilet - Score, Transfers: Shower - Sco re, Transfers: Tub - Score, Locomotion: Walk - Score, Locomotion: Wheelchair - Score, Comprehension - Score, Expression - Score, Social Interaction - Score, Problem Solving - Score, Memory - Score were [electronically] signed by Geeta Hill C.N.A. on Sat Jul 12 2018 14:36:07 T-0600 ([facility])
[2018-07-12] MEDS: DOCUSATE NA/SENNA CONC 1 TAB PO SCH (20:09)
[2018-07-12] MEDS: ATORVASTATIN 20 MG TAB PO SCH (20:09)
--- NOTE | 2018-07-13 02:13 | FAST ---
SHIFT START DATE/TIME: 07/12/2018 19:00 (SHAMPOOER) SHIFT END DATE/TIME: 07/13/2018 07:00 (SHAMPOOER) NAME MARIIA SADLER DATE OF : 1935 DATE OF ADMISSION: 07/07/2018 17:08 (SHAMPOOER) PHONE: AGE: 82 SSN# [id number] GENDER: Male ENCOUNTER PHYSICIAN: Dr. Trino Pineda M.D. ADMISSION DIAGNOSIS: - Orthopaedic Disorders 08 - Unilateral Hip Fracture (08.11) RIGHT FEMORAL NECK FRACTURE. EATING: Activity did not occur on this shift EATING - SCORE: 0-UNK GROOMING: Activity did not occur on this shift GROOMING - SCORE: 0-UNK BATHING: Activity did not occur on this shift BATHING - SCORE: 0-UNK DRESSING - UPPER BODY: Activity did not occur on this shift ARTICLES SCORE Total number of steps: 0 DRESSING - UPPER BODY - SCORE: 0-UNK DRESSING - LOWER BODY: Activity did not occur on this shift ARTICLES SCORE Total number of steps: 0 DRESSING - LOWER BODY - SCORE: 0-UNK TOILETING: Activity did not occur on this shift TOILETING - SCORE: 0-UNK BLADDER MANAGEMENT: [place] removes incontinent device (Depends, pull ups, etc.); cleans the patient after accident / inco ntinent episode; and, applies new incontinent device. BLADDER MANAGEMENT - SCORE: 1-DEP BOWEL MANAGEMENT: Activity did not occur on this shift BOWEL MANAGEMENT - SCORE: 7-IND TRANSFERS: BED, CHAIR, WHEELCHAIR: Activity did not occur on this shift TRANSFERS: BED, CHAIR, WHEELCHAIR - SCORE: 0-UNK TRANSFERS: TOILET: Activity did not occur on this shift TRANSFERS: TOILET - SCORE: 0-UNK TRANSFERS: SHOWER: Activity did not occur on this shift TRANSFERS: SHOWER - SCORE: 0-UNK TRANSFERS: TUB: Activity did not occur on this shift TRANSFERS: TUB - SCORE: 0-UNK LOCOMOTION: WALK: Activity did not occur on this shift LOCOMOTION: WALK - SCORE: 0-UNK LOCOMOTION: WHEELCHAIR: Activity did not occur on this shift LOCOMOTION: WHEELCHAIR - SCORE: 0-UNK COMPREHENSION: COMPREHENSION: TYPE: Both COMPREHENSION - STEP 1: Does the patient require help from a person or device, or need extra time to understand complex and a bstract ideas (such as current events, finances, discharge planning, medical issues, relationships, e tc)? Yes. COMPREHENSION - STEP 2: Does the patient require help to understand questions or statements about basic needs or ideas (such as hunger, thirst, sleep, safety, daily schedule, room location, or discomfort) half or more of the t reji? Yes. COMPREHENSION - STEP 3: Is the patient basically able to understand and respond appropriately and consistently? Yes. COMPREHENSION - SCORE: 2-MAX EXPRESSION EXPRESSION: TYPE: Both EXPRESSION - STEP 1: Does the patient require help from a person or device, or need extra time expressing complex and abst ract ideas (such as current events, finances, discharge planning, medical issues, relationships, etc) ? Yes. EXPRESSION - STEP 2: Does the patient require help to express basic necessities or ideas (such as hunger, thirst, sleep, s afety, daily schedule, room location, or discomfort) half or more of the time? Yes. EXPRESSION - STEP 3: Is the patient basically unable to express or does s/he express inappropriately or inconsistently melany pite prompting? No. EXPRESSION - SCORE: 2-MAX SOCIAL INTERACTION: SOCIAL INTERACTION - STEP 1: Does the patient require a helper to interact with others in social and therapeutic situations? No. SOCIAL INTERACTION - STEP 2: Does the patient need extra time in social situations, OR does s/he interact with staff, other patien ts, and family members ONLY in structured environments, OR does s/he require medication for social in teraction? Yes, patient needs extra time SOCIAL INTERACTION - SCORE: 6-OTILIO PROBLEM SOLVING: PROBLEM SOLVING - STEP 1: Does the patient need help from a person or device, or need extra time to solve complex problems such as managing a checking account or confronting interpersonal problems? Yes. PROBLEM SOLVING - STEP 2: Does the patient solve basic routine problems half or more of the time? No. PROBLEM SOLVING - STEP 3: Does the patient need help to solve problems all the time or is s/he unable to solve problems? Yes. P atient needs help to solve problems all the time or is unable to solve problems PROBLEM SOLVING - SCORE: 1-DEP MEMORY: MEMORY - STEP 1: Does the patient need help from a person or device, or need extra time to remember frequently encount ered people, daily routines, and executing requests? Yes. MEMORY - STEP 2: How often does the patient need help to remember frequently encountered people, daily routines, and e xecuting requests? 10% - 24% of the time MEMORY - SCORE: 4-MIN SIGNATURE PANEL: The following modified sections: Eating - Score, Grooming - Score, Bathing - Score, Dressing - Upper Body - Score, Dressing - Lower Body - Score, Toileting - Score, Bladder Management - Score, Bowel Man agement - Score, Transfers: Bed, Chair, Wheelchair - Score, Transfers: Toilet - Score, Transfers: Stefania wer - Score, Transfers: Tub - Score, Locomotion: Walk - Score, Locomotion: Wheelchair - Score, Compre hension - Score, Expression - Score, Social Interaction - Score, Problem Solving - Score, Memory - Sc ore were [electronically] signed by Rocío Angulo CNA on SatJul 13 2018 02:12:55 T-0600 ([facility])
[2018-07-13] MEDS: BISACODYL 10 MG RECTAL SUPP PR PRN (05:22)
[2018-07-13 06:49] LABS: Absolute Lymphocytes (CBC) 0.8 K/uL (0.7-4.9); Absolute Monocytes 0.8 K/uL (0.1-1.3); Absolute Neutrophil 5.9 K/uL (1.8-8.0); Basophils % 0.7 % (0-1.3); Eosinophils % 2.8 % (0-4.4); Hematocrit 22.4 % (39.6-49.0); Lymphocytes % 10.7 % (15.3-44.8); MPV 7.1 fL (7.6-11.3); Monocytes % 9.9 % (3.3-12.3); RBC Red Blood Cell Count 2.84 M/uL (4.33-5.43)
[2018-07-13 06:59] LABS: Magnesium 2.2 mg/dL (1.8-2.4); Potassium 4.7 mmol/L (3.5-5.1)
[2018-07-13] MEDS: ENOXAPARIN 30 MG/0.3 ML SQ SCH (07:03)
[2018-07-13] MEDS: CEFTAZIDIME 1 GM in NA CHLORIDE 0.9% 50 ML IV SCH ×2 (07:05→19:14)
[2018-07-13] MEDS: HYDRALAZINE HCL 25 MG TABLET PO SCH ×2 (08:00→19:16)
[2018-07-13] MEDS: MAGNESIUM OXIDE 400 MG TAB PO SCH ×2 (08:20→19:15)
[2018-07-13] MEDS: CARVEDILOL 6.25 MG TAB PO SCH ×2 (08:20→19:15)
[2018-07-13] MEDS: FE SULF/FA/VIT B COMP & C TAB PO SCH (08:20)
[2018-07-13] MEDS: FERROUS SULFATE 325 MG TAB PO SCH (08:20)
[2018-07-13] MEDS: TAMSULOSIN 0.4 MG SR CAP PO SCH (08:20)
[2018-07-13] MEDS: FOLIC ACID 1 MG TABLET PO SCH (08:21)
[2018-07-13] MEDS: MINOXIDIL 2.5 MG TAB PO SCH ×2 (08:21→19:15)
[2018-07-13] MEDS: METAMUCIL PO SCH ×2 (08:21→19:15)
[2018-07-13] MEDS: PROMOD 30 ML DOSE PO SCH ×2 (08:25→19:16)
[2018-07-13] MEDS: CODEINE 30MG/APAP 300MG TAB PO PRN ×2 (10:07→20:09)
[2018-07-13] MEDS: cloNIDine HCl 0.1 MG TAB PO SCH ×4 (10:08→20:15)
[2018-07-13] MEDS ORDERED: NA CHLORIDE 0.9% 250 ML IV SCH (11:00)
[2018-07-13] MEDS: MAGNESIUM HYDROXIDE 8% 30 ML PO PRN (11:32)
[2018-07-13] MEDS: AMLODIPINE 5 MG TAB PO SCH ×2 (11:34→19:16)
[2018-07-13] MEDS: FLEET ENEMA ADULT PR PRN (16:48)
--- NOTE | 2018-07-13 17:11 | PN ---
Date of Progress Note: 07/13/2018 Subjective: The patient was seen this morning for followup. No new complaints or problems reported by patient except complaining of some pain in his left hand , middle finger, that he keeps it flexed. No obvious injury reported. Objective: Vital Signs: Reviewed. HEENT: Unremarkable. Lungs: Clear to auscultation. Heart: Sounds normal. Abdomen: Soft. Bowel sounds normal. No guarding, rigidity, tenderness, distention. Extremities: No leg edema. Laboratory Data: White count 7.8, hemoglobin 7.3, platelets 258. Procalcitonin 4.59. Sodium 138, potassium 4.7, chloride 107, bicarb 27, BUN 39 , creatinine 2.37, glucose 95, and his procalcitonin on July 10 was 19.49. Impression: 1. Urinary tract infection, organism Pseudomonas. 2. Anemia due to acute blood loss. 3. 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 4. Hypertension. 5. Osteoarthritis, multiple sites. Plan: We will go ahead and continue current antibiotics. The patient is responding very well to this current antibiotics. Continue current antihypertensive medication. Transfuse one unit of PRBC today for anemia. We will get x-ray of the left hand and I will see him tomorrow for followup. BRADY/MODL Voice ID: [id number] Report ID: [id number] SILVIA
[2018-07-13 18:39] LABS: Hematocrit 25.7 % (39.6-49.0)
[2018-07-13] MEDS: ATORVASTATIN 20 MG TAB PO SCH (20:06)
[2018-07-13] MEDS: DOCUSATE NA/SENNA CONC 1 TAB PO SCH (20:06)
[2018-07-13] MEDS: TRAMADOL HCL 50 MG TAB PO PRN (22:02)
--- NOTE | 2018-07-14 01:15 | FAST ---
SHIFT START DATE/TIME: 07/13/2018 19:00 (FLOWER CUTTER) SHIFT END DATE/TIME: 07/14/2018 07:00 (FLOWER CUTTER) NAME MARIIA SADLER DATE OF : 1935 DATE OF ADMISSION: 07/07/2018 17:08 (FLOWER CUTTER) PHONE: AGE: 82 SSN# [id number] GENDER: Male ENCOUNTER PHYSICIAN: Dr. Trino Pineda M.D. ADMISSION DIAGNOSIS: - Orthopaedic Disorders 08 - Unilateral Hip Fracture (08.11) RIGHT FEMORAL NECK FRACTURE. EATING: Activity did not occur on this shift EATING - SCORE: 0-UNK GROOMING: Activity did not occur on this shift GROOMING - SCORE: 0-UNK BATHING: Activity did not occur on this shift BATHING - SCORE: 0-UNK DRESSING - UPPER BODY: Patient is not dressing in public clothing ARTICLES SCORE Total number of steps: 0 DRESSING - UPPER BODY - SCORE: 0-UNK DRESSING - LOWER BODY: Patient is not dressing in public clothing ARTICLES SCORE Total number of steps: 0 DRESSING - LOWER BODY - SCORE: 0-UNK TOILETING: Activity did not occur on this shift TOILETING - SCORE: 0-UNK BLADDER MANAGEMENT: [place] removes incontinent device (Depends, pull ups, etc.); cleans the patient after accident / inco ntinent episode; and, applies new incontinent device. BLADDER MANAGEMENT - SCORE: 1-DEP BOWEL MANAGEMENT: Activity did not occur on this shift BOWEL MANAGEMENT - SCORE: 7-IND TRANSFERS: BED, CHAIR, WHEELCHAIR: Activity did not occur on this shift TRANSFERS: BED, CHAIR, WHEELCHAIR - SCORE: 0-UNK TRANSFERS: TOILET: Activity did not occur on this shift TRANSFERS: TOILET - SCORE: 0-UNK TRANSFERS: SHOWER: Activity did not occur on this shift TRANSFERS: SHOWER - SCORE: 0-UNK TRANSFERS: TUB: Activity did not occur on this shift TRANSFERS: TUB - SCORE: 0-UNK LOCOMOTION: WALK: Activity did not occur on this shift LOCOMOTION: WALK - SCORE: 0-UNK LOCOMOTION: WHEELCHAIR: Activity did not occur on this shift LOCOMOTION: WHEELCHAIR - SCORE: 0-UNK COMPREHENSION: COMPREHENSION: TYPE: Both COMPREHENSION - STEP 1: Does the patient require help from a person or device, or need extra time to understand complex and a bstract ideas (such as current events, finances, discharge planning, medical issues, relationships, e tc)? Yes. COMPREHENSION - STEP 2: Does the patient require help to understand questions or statements about basic needs or ideas (such as hunger, thirst, sleep, safety, daily schedule, room location, or discomfort) half or more of the t reji? No. COMPREHENSION - STEP 3: How often does the patient need help to understand directions and conversation about basic needs? 25% - 49% of the time COMPREHENSION - SCORE: 3-MOD EXPRESSION EXPRESSION: TYPE: Both EXPRESSION - STEP 1: Does the patient require help from a person or device, or need extra time expressing complex and abst ract ideas (such as current events, finances, discharge planning, medical issues, relationships, etc) ? Yes. EXPRESSION - STEP 2: Does the patient require help to express basic necessities or ideas (such as hunger, thirst, sleep, s afety, daily schedule, room location, or discomfort) half or more of the time? No. EXPRESSION - STEP 3: How often does the patient need help to express directions and conversation about basic needs? 10-24% of the time EXPRESSION - SCORE: 4-MIN SOCIAL INTERACTION: SOCIAL INTERACTION - STEP 1: Does the patient require a helper to interact with others in social and therapeutic situations? No. SOCIAL INTERACTION - STEP 2: Does the patient need extra time in social situations, OR does s/he interact with staff, other patien ts, and family members ONLY in structured environments, OR does s/he require medication for social in teraction? Yes, patient needs extra time SOCIAL INTERACTION - SCORE: 6-OTILIO PROBLEM SOLVING: PROBLEM SOLVING - STEP 1: Does the patient need help from a person or device, or need extra time to solve complex problems such as managing a checking account or confronting interpersonal problems? Yes. PROBLEM SOLVING - STEP 2: Does the patient solve basic routine problems half or more of the time? Yes. PROBLEM SOLVING - STEP 3: How often does the patient need help to solve basic routine problems? 10%-24% of the time PROBLEM SOLVING - SCORE: 4-MIN MEMORY: MEMORY - STEP 1: Does the patient need help from a person or device, or need extra time to remember frequently encount ered people, daily routines, and executing requests? Yes. MEMORY - STEP 2: How often does the patient need help to remember frequently encountered people, daily routines, and e xecuting requests? 25% - 49% of the time MEMORY - SCORE: 3-MOD SIGNATURE PANEL: The following modified sections: Eating - Score, Grooming - Score, Dressing - Upper Body - Score, Prashant ssing - Lower Body - Score, Toileting - Score, Bladder Management - Score, Bowel Management - Score, Transfers: Bed, Chair, Wheelchair - Score, Transfers: Toilet - Score, Transfers: Shower - Score, Simeon sfers: Tub - Score, Locomotion: Walk - Score, Locomotion: Wheelchair - Score, Comprehension - Score, Expression - Score, Social Interaction - Score, Problem Solving - Score, Memory - Score were [electro nically] signed by Gina Preston CNA on SatJul 14 2018 01:15:08 GMT-0600 (Central Standard Time)
[2018-07-14] MEDS: MINOXIDIL 2.5 MG TAB PO SCH ×2 (07:57→19:06)
[2018-07-14] MEDS: ENOXAPARIN 30 MG/0.3 ML SQ SCH (07:57)
[2018-07-14] MEDS: METAMUCIL PO SCH ×2 (07:57→19:14)
[2018-07-14] MEDS: FE SULF/FA/VIT B COMP & C TAB PO SCH (07:58)
[2018-07-14] MEDS: CARVEDILOL 6.25 MG TAB PO SCH ×2 (07:58→19:15)
[2018-07-14] MEDS: FERROUS SULFATE 325 MG TAB PO SCH (07:58)
[2018-07-14] MEDS: cloNIDine HCl 0.1 MG TAB PO SCH ×3 (07:58→20:36)
[2018-07-14] MEDS: HYDRALAZINE HCL 25 MG TABLET PO SCH ×2 (07:58→19:06)
[2018-07-14] MEDS: TAMSULOSIN 0.4 MG SR CAP PO SCH (07:58)
[2018-07-14] MEDS: FOLIC ACID 1 MG TABLET PO SCH (07:58)
[2018-07-14] MEDS: AMLODIPINE 5 MG TAB PO SCH ×2 (07:59→19:16)
[2018-07-14] MEDS: MAGNESIUM OXIDE 400 MG TAB PO SCH ×2 (07:59→19:15)
[2018-07-14] MEDS: PROMOD 30 ML DOSE PO SCH ×2 (07:59→19:14)
[2018-07-14] MEDS: CEFTAZIDIME 1 GM in NA CHLORIDE 0.9% 50 ML IV SCH ×2 (08:00→19:14)
[2018-07-14] MEDS: CODEINE 30MG/APAP 300MG TAB PO PRN ×2 (08:02→14:15)
[2018-07-14 08:07] LABS: Hematocrit 26.6 % (39.6-49.0)
--- NOTE | 2018-07-14 10:19 | RAD REPORT ---
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 Bones are osteoporotic. No gross fracture or dislocation seen
--- NOTE | 2018-07-14 10:39 | FAST ---
ENCOUNTER DATE AND TIME: 07/14/2018 08:00 (BEADER) NAME MARIIA SADLER DATE OF : 1935 DATE OF ADMISSION: 07/07/2018 17:08 (BEADER) PHONE: AGE: 82 SSN# [id number] GENDER: Male ENCOUNTER PHYSICIAN: Dr. Trino Pineda M.D. ADMISSION DIAGNOSIS: - Orthopaedic Disorders 08 - Unilateral Hip Fracture (08.11) RIGHT FEMORAL NECK FRACTURE. EATING: Activity did not occur on this shift EATING - SCORE: 0-UNK GROOMING: Activity did not occur on this shift GROOMING - SCORE: 0-UNK BATHING: Activity did not occur on this shift BATHING - SCORE: 0-UNK DRESSING - UPPER BODY: Activity did not occur on this shift Patient is not dressing in public clothing ARTICLES SCORE Total number of steps: 0 DRESSING - UPPER BODY - SCORE: 0-UNK DRESSING - LOWER BODY: Activity did not occur on this shift Patient is not dressing in public clothing ARTICLES SCORE Total number of steps: 0 DRESSING - LOWER BODY - SCORE: 0-UNK TOILETING: Activity did not occur on this shift TOILETING - SCORE: 0-UNK BLADDER MANAGEMENT: Activity did not occur on this shift BLADDER MANAGEMENT - SCORE: 7-IND BOWEL MANAGEMENT: Activity did not occur on this shift BOWEL MANAGEMENT - SCORE: 7-IND TRANSFERS: BED, CHAIR, WHEELCHAIR: TRANSFERS: BED, CHAIR, WHEELCHAIR - STEP 1: Does the patient require assistance of a person or device, or need extra time with bed, chair, or whe elchair transfers? Yes. TRANSFERS: BED, CHAIR, WHEELCHAIR - STEP 2: Does the patient require the assistance of a helper? Yes. TRANSFERS: BED, CHAIR, WHEELCHAIR - STEP 3: How much assistance does the patient require from the helper? Steadying/guiding assistance TRANSFERS: BED, CHAIR, WHEELCHAIR - SCORE: 4-MIN TRANSFERS: TOILET: Activity did not occur on this shift TRANSFERS: TOILET - SCORE: 0-UNK TRANSFERS: SHOWER: Activity did not occur on this shift TRANSFERS: SHOWER - SCORE: 0-UNK TRANSFERS: TUB: Activity did not occur on this shift TRANSFERS: TUB - SCORE: 0-UNK LOCOMOTION: WALK: LOCOMOTION: WALK - STEP 1: Does the patient need help from a person or device, or need extra time to walk 150 feet? Yes. LOCOMOTION: WALK - STEP 2: How much assistance does the patient require to walk a minimum of 150 feet? Only incidental help such as contact guarding or steadying LOCOMOTION: WALK - SCORE: 4-MIN LOCOMOTION: WHEELCHAIR: LOCOMOTION: WHEELCHAIR - STEP 1: Does the patient need help to go 150 feet in a wheelchair? Yes. LOCOMOTION: WHEELCHAIR - STEP 2: How much assistance does the patient need from the helper? Only supervision, cuing, or coaxing LOCOMOTION: WHEELCHAIR - SCORE: 5-SUP LOCOMOTION: STAIRS: LOCOMOTION: STAIRS - STEP 1: Does the patient need help to go up and down 12 to 14 stairs? Yes. LOCOMOTION: STAIRS - STEP 2: How much assistance does the patient need from the helper to go a minimum of 12 to 14 stairs? The pat ient goes less than 12 stairs, but at least 4 stairs LOCOMOTION: STAIRS - SCORE: 2-MAX COMPREHENSION: COMPREHENSION - SCORE: 0-UNK EXPRESSION EXPRESSION - SCORE: 0-UNK SOCIAL INTERACTION: SOCIAL INTERACTION - SCORE: 0-UNK PROBLEM SOLVING: PROBLEM SOLVING - SCORE: 0-UNK MEMORY: MEMORY - SCORE: 0-UNK SIGNATURE PANEL: The following modified sections: Transfers: Bed, Chair, Wheelchair - Score, Transfers: Toilet - Score , Locomotion: Walk - Score, Locomotion: Wheelchair - Score, Locomotion: Stairs - Score were [dameon cortez] signed by Ezra Hurley PTA on SatJul 14 2018 10:37:56 GMT-0600 (Central Standard Time)
--- NOTE | 2018-07-14 11:34 | FAST ---
ENCOUNTER DATE AND TIME: 07/14/2018 08:00 (CRYSTAL FLAT GRINDER) NAME MARIIA SADLER DATE OF : 1935 DATE OF ADMISSION: 07/07/2018 17:08 (CRYSTAL FLAT GRINDER) PHONE: AGE: 82 N# [id number] GENDER: Male ENCOUNTER PHYSICIAN: Dr. Trino Pineda M.D. ADMISSION DIAGNOSIS: - Orthopaedic Disorders 08 - Unilateral Hip Fracture (08.11) RIGHT FEMORAL NECK FRACTURE. EATING: Activity did not occur on this shift EATING - SCORE: 0-UNK GROOMING: Wash, rinse, and dry face Wash, rinse, and dry hands GROOMING - STEP 1: Does the patient require the assistance of a person or device, or need extra time when grooming? Yes. GROOMING - STEP 2: Does the patient require the assistance of a helper? Yes. GROOMING - STEP 3: How much assistance does the patient require from the helper? Cuing, coaxing, instructions, or encour agement for completion of grooming GROOMING - SCORE: 5-SUP BATHING: Abdomen Buttocks Chest Left arm Left lower leg and foot Left upper leg Perineal area Right arm Right lower leg and foot Right upper leg BATHING - STEP 1: Does the patient require the assistance of a person or device, or need extra time when bathing? Yes. BATHING - STEP 2: Does the patient require the assistance of a helper? Yes. BATHING - STEP 3: How much assistance does the patient require from the helper? More than just incidental help BATHING - STEP 4: What percent of the body parts did the patient bathe WITHOUT the helper? Half or more of the body par ts BATHING - SCORE: 3-MOD DRESSING - UPPER BODY: Sweater (four steps) T-shirt/pullover shirt (four steps) ARTICLES SCORE Total number of steps: 8 DRESSING - UPPER BODY - STEP 1: Does the patient require help from a person or device, or need extra time when dressing above the [address]? Yes. DRESSING - UPPER BODY - STEP 2: Does the patient require the assistance of a helper? Yes. DRESSING - UPPER BODY - STEP 3: Does the helper touch the patient while dressing? Yes. DRESSING - UPPER BODY - STEP 4: How many of the total steps does the patient complete on his/her own? 7 DRESSING - UPPER BODY - SCORE: 4-MIN DRESSING - LOWER BODY: Elastic waist pants (three steps) Slip-on shoe - Left foot (one step) Slip-on shoe - Right foot (one step) Sock - Left foot (one step) Sock - Right foot (one step) Underwear (three steps) ARTICLES SCORE Total number of steps: 10 DRESSING - LOWER BODY - STEP 1: Does the patient require help from a person or device, or need extra time when dressing below the [address]? Yes. DRESSING - LOWER BODY - STEP 2: Does the patient require the assistance of a helper? Yes. DRESSING - LOWER BODY - STEP 3: Does the helper touch the patient while dressing? Yes. DRESSING - LOWER BODY - STEP 4: How many of the total steps does the patient complete on his/her own? 2 DRESSING - LOWER BODY - STEP 5: Does patient require total assistance for dressing below the waist such as the helper holding clothin g and performing basically all the activities? No. DRESSING - LOWER BODY - SCORE: 2-MAX TOILETING: Activity did not occur on this shift TOILETING - SCORE: 0-UNK BLADDER MANAGEMENT: Activity did not occur on this shift BLADDER MANAGEMENT - SCORE: 7-IND BOWEL MANAGEMENT: Activity did not occur on this shift BOWEL MANAGEMENT - SCORE: 7-IND TRANSFERS: BED, CHAIR, WHEELCHAIR: Activity did not occur on this shift TRANSFERS: BED, CHAIR, WHEELCHAIR - SCORE: 0-UNK TRANSFERS: TOILET: Activity did not occur on this shift TRANSFERS: TOILET - SCORE: 0-UNK TRANSFERS: SHOWER: Activity did not occur on this shift TRANSFERS: SHOWER - SCORE: 0-UNK TRANSFERS: TUB: TRANSFERS: TUB - STEP 1: Does the patient require the assistance of a person or device, or need extra time with tub transfers? Yes. TRANSFERS: TUB - STEP 2: Does the patient require the assistance of a helper? Yes. TRANSFERS: TUB - STEP 3: How much assistance does the patient require from the helper? More than incidental help TRANSFERS: TUB - STEP 4: How much more help does the patient require from the helper? [place] lifts BOTH legs into or out of th e tub TRANSFERS: TUB - SCORE: 3-MOD LOCOMOTION: WALK: Activity did not occur on this shift LOCOMOTION: WALK - SCORE: 0-UNK LOCOMOTION: WHEELCHAIR: Activity did not occur on this shift LOCOMOTION: WHEELCHAIR - SCORE: 0-UNK LOCOMOTION: STAIRS: Activity did not occur on this shift LOCOMOTION: STAIRS - SCORE: 0-UNK COMPREHENSION: COMPREHENSION - SCORE: 0-UNK EXPRESSION EXPRESSION - SCORE: 0-UNK SOCIAL INTERACTION: SOCIAL INTERACTION - SCORE: 0-UNK PROBLEM SOLVING: PROBLEM SOLVING - SCORE: 0-UNK MEMORY: MEMORY - SCORE: 0-UNK SIGNATURE PANEL: The following modified sections: Eating - Score, Grooming - Score, Bathing - Score, Dressing - Upper Body - Score, Dressing - Lower Body - Score, Toileting - Score, Transfers: Bed, Chair, Wheelchair - S core, Transfers: Toilet - Score, Transfers: Shower - Score, Transfers: Tub - Score, Comprehension - S core, Expression - Score, Social Interaction - Score, Problem Solving - Score, Memory - Score were [e lectronically] signed by JUDI Smith on SatJul 14 2018 11:33:11 T-0600 ([place] Time)
--- NOTE | 2018-07-14 16:56 | FAST ---
SHIFT START DATE/TIME: 07/14/2018 07:00 (FIELD AGENT) SHIFT END DATE/TIME: 07/14/2018 19:00 (FIELD AGENT) NAME MARIIA SADLRE DATE OF : 1935 DATE OF ADMISSION: 07/07/2018 17:08 (FIELD AGENT) PHONE: AGE: 82 N# [id number] GENDER: Male ENCOUNTER PHYSICIAN: Dr. Trino Pineda M.D. ADMISSION DIAGNOSIS: - Orthopaedic Disorders 08 - Unilateral Hip Fracture (08.11) RIGHT FEMORAL NECK FRACTURE. EATING: EATING - STEP 1: Does the patient require the assistance of a person or device, or need extra time when eating? Yes. EATING - STEP 2: Does the patient require the assistance of a helper? Yes. EATING - STEP 3: Does the patient perform half or more of the eating tasks? Yes. EATING - STEP 4: Does the patient need only supervision, cuing, coaxing OR help to apply an orthosis OR help to cut fo od, open containers, pour liquids, or butter bread? Yes. EATING - SCORE: 5-SUP GROOMING: Comb/brush hair Oral care Wash, rinse, and dry hands GROOMING - STEP 1: Does the patient require the assistance of a person or device, or need extra time when grooming? Yes. GROOMING - STEP 2: Does the patient require the assistance of a helper? Yes. GROOMING - STEP 3: How much assistance does the patient require from the helper? Only prior equipment preparation/set up from the helper GROOMING - SCORE: 5-SUP GROOMING - COMMENTS: Patient BATHING: Activity did not occur on this shift BATHING - SCORE: 0-UNK DRESSING - UPPER BODY: Activity did not occur on this shift ARTICLES SCORE Total number of steps: 0 DRESSING - UPPER BODY - SCORE: 0-UNK DRESSING - LOWER BODY: Activity did not occur on this shift ARTICLES SCORE Total number of steps: 0 DRESSING - LOWER BODY - SCORE: 0-UNK TOILETING: TOILETING - STEP 1: Does the patient require the assistance of a person or device, or need extra time with toileting? Yes . TOILETING - STEP 2: Does the patient require the assistance of a helper? Yes. TOILETING - STEP 3: How much assistance does the patient require from the helper? Hands-on assistance from the helper TOILETING - STEP 4: Of the 3 tasks: 1) Adjusting clothing prior to use, 2) Cleansing of perineal area, 3) Adjusting clot ashley after use; How many tasks does the patient perform WITHOUT assistance of the helper? No tasks; h elper performs all three tasks TOILETING - SCORE: 1-DEP BLADDER MANAGEMENT: [place] removes incontinent device (Depends, pull ups, etc.); cleans the patient after accident / inco ntinent episode; and, applies new incontinent device. BLADDER MANAGEMENT - SCORE: 1-DEP BLADDER MANAGEMENT - FREQUENCY OF ACCIDENTS: BLADDER MANAGEMENT(FA) - STEP 1: How many accidents has the patient had during the current shift? 2 BOWEL MANAGEMENT: Activity did not occur on this shift BOWEL MANAGEMENT - SCORE: 7-IND BOWEL MANAGEMENT - FREQUENCY OF ACCIDENTS: BOWEL MANAGEMENT(FA) - STEP 1: How many accidents has the patient had during the current shift? 0 TRANSFERS: BED, CHAIR, WHEELCHAIR: TRANSFERS: BED, CHAIR, WHEELCHAIR - STEP 1: Does the patient require assistance of a person or device, or need extra time with bed, chair, or whe elchair transfers? Yes. TRANSFERS: BED, CHAIR, WHEELCHAIR - STEP 2: Does the patient require the assistance of a helper? Yes. TRANSFERS: BED, CHAIR, WHEELCHAIR - STEP 3: How much assistance does the patient require from the helper? Lifting of the legs TRANSFERS: BED, CHAIR, WHEELCHAIR - STEP 4: How many legs does the patient require the helper to lift? both legs TRANSFERS: BED, CHAIR, WHEELCHAIR - SCORE: 3-MOD TRANSFERS: TOILET: TRANSFERS: TOILET - STEP 1: Does the patient require the assistance of a person or device, or need extra time with toilet transfe rs? Yes. TRANSFERS: TOILET - STEP 2: Does the patient require the assistance of a helper? Yes. TRANSFERS: TOILET - STEP 3: How much assistance does the patient require from the helper? Patient performs half or more of the tr ansferring tasks TRANSFERS: TOILET - STEP 4: Does the patient need only incidental help such as contact guard or steadying during toilet transfer? Yes. TRANSFERS: TOILET - SCORE: 4-MIN TRANSFERS: SHOWER: Activity did not occur on this shift TRANSFERS: SHOWER - SCORE: 0-UNK TRANSFERS: TUB: Activity did not occur on this shift TRANSFERS: TUB - SCORE: 0-UNK LOCOMOTION: WALK: LOCOMOTION: WALK - STEP 1: Does the patient need help from a person or device, or need extra time to walk 150 feet? Yes. LOCOMOTION: WALK - STEP 2: How much assistance does the patient require to walk a minimum of 150 feet? Only incidental help such as contact guarding or steadying LOCOMOTION: WALK - SCORE: 4-MIN LOCOMOTION: WHEELCHAIR: LOCOMOTION: WHEELCHAIR - STEP 1: Does the patient need help to go 150 feet in a wheelchair? Yes. LOCOMOTION: WHEELCHAIR - STEP 2: How much assistance does the patient need from the helper? Only incidental help such as around corner s or over thresholds LOCOMOTION: WHEELCHAIR - SCORE: 4-MIN COMPREHENSION: COMPREHENSION: TYPE: Both COMPREHENSION - STEP 1: Does the patient require help from a person or device, or need extra time to understand complex and a bstract ideas (such as current events, finances, discharge planning, medical issues, relationships, e tc)? Yes. COMPREHENSION - STEP 2: Does the patient require help to understand questions or statements about basic needs or ideas (such as hunger, thirst, sleep, safety, daily schedule, room location, or discomfort) half or more of the t reji? No. COMPREHENSION - STEP 3: How often does the patient need help to understand directions and conversation about basic needs? 25% - 49% of the time COMPREHENSION - SCORE: 3-MOD EXPRESSION EXPRESSION: TYPE: Both EXPRESSION - STEP 1: Does the patient require help from a person or device, or need extra time expressing complex and abst ract ideas (such as current events, finances, discharge planning, medical issues, relationships, etc) ? Yes. EXPRESSION - STEP 2: Does the patient require help to express basic necessities or ideas (such as hunger, thirst, sleep, s afety, daily schedule, room location, or discomfort) half or more of the time? Yes. EXPRESSION - STEP 3: Is the patient basically unable to express or does s/he express inappropriately or inconsistently melany pite prompting? No. EXPRESSION - SCORE: 2-MAX SOCIAL INTERACTION: SOCIAL INTERACTION - STEP 1: Does the patient require a helper to interact with others in social and therapeutic situations? Yes. SOCIAL INTERACTION - STEP 2: Does the patient interact appropriately half or more of the time? No. SOCIAL INTERACTION - STEP 3: How often does the patient interact appropriately? More than 25% of the time SOCIAL INTERACTION - SCORE: 2-MAX PROBLEM SOLVING: PROBLEM SOLVING - STEP 1: Does the patient need help from a person or device, or need extra time to solve complex problems such as managing a checking account or confronting interpersonal problems? Yes. PROBLEM SOLVING - STEP 2: Does the patient solve basic routine problems half or more of the time? No. PROBLEM SOLVING - STEP 3: Does the patient need help to solve problems all the time or is s/he unable to solve problems? No. Deep yates can sometimes solve problems PROBLEM SOLVING - SCORE: 2-MAX MEMORY: MEMORY - STEP 1: Does the patient need help from a person or device, or need extra time to remember frequently encount ered people, daily routines, and executing requests? Yes. MEMORY - STEP 2: How often does the patient need help to remember frequently encountered people, daily routines, and e xecuting requests? 25% - 49% of the time MEMORY - SCORE: 3-MOD SIGNATURE PANEL: The following modified sections: Eating - Score, Grooming - Score, Grooming - Comments:, Bathing - Sc ore, Dressing - Upper Body - Score, Dressing - Lower Body - Score, Dressing - Upper Body - Comments:, Dressing - Lower Body - Comments:, Toileting - Score, Bladder Management - Score, Bowel Management - Score, Transfers: Bed, Chair, Wheelchair - Score, Transfers: Toilet - Score, Transfers: Shower - Sco re, Transfers: Tub - Score, Locomotion: Walk - Score, Locomotion: Wheelchair - Score, Comprehension - Score, Expression - Score, Social Interaction - Score, Problem Solving - Score, Memory - Score were [electronically] signed by Lupe Carranza on SatJul 14 2018 16:55:03 GMT-0600 (Central Standard Time )
--- NOTE | 2018-07-14 17:27 | R.PN ---
ENCOUNTER DATE AND TIME: 07/14/2018 17:11 (AIR LIAISON AND SPECIAL STAFF) NAME MARIIA SADLER DATE OF : 1935 DATE OF ADMISSION: 07/07/2018 17:08 (AIR LIAISON AND SPECIAL STAFF) RIGHT FEMORAL NECK FRACTURECHIEF COMPLAINT: Right hip fracture SUBJECTIVE: Pt denied any Shortness of Breath. Pt denied any depression. Patient is lethargic with fever. Chest x-ray is negative. Right hip x-ray shows no abnormalities. WB Cs 7.3, 75.9% neutrophils, Hgb 8.8, procalcitonin down to 4.59 from 22.49, Creatinine 2.37. UA is neg ative. Patient finished rocephin. Ambulated 340' with contact guard assistance using a rolling walker. Self-propelled wheelchair 250' w ith standby assistance. Up and down 5 steps with bilateral hand rails and standby assistance. Require s maximum assistance for speech expression. VITAL SIGNS Temperature: 79.4 F SBP/DBP: 141/79 Pulse: 61 Resp: 16 MEDICATION ALLERGIES: No Known Drug Allergies (NKDA) ENVIRONMENTAL ALLERGIES: None Known - Substance Allergies None Known - Other Allergies None Known NURSING: - Shower allowing shower - Skin care per protocol PRECAUTIONS: - Posterior Hip Precaution No adduction across midline No external rotation No hip flexion >90 degrees No internal rotation No wheel chair propulsion - Weight Bearing Precaution WBAT right LE ACTIVITIES OOB only with supervision THERAPIES: - Occupational Therapy Evaluate and Treat. - Physical Therapy Evaluate and Treat. PHYSICAL EXAM - Gen Alert and awake Lying in bed No apparent distress Oriented to: person, time, and place - Skin No breakdown No abnormalities - Eyes No abnormalities - ENMT No abnormalities - Neck No abnormalities - CVS RRR - Chest No abnormalities - Abd +bowel sounds - GI Non distended Deferred - No abnormalities - Ext Mild postoperative edema in the right lower extremity - MSK 4+/5 weakness in both lower extremities. - Neuro 4/5 strength bilaterally lower extremities. - Psych No abnormalities ASSESSMENT: Pt. is a 82 yo Right-handed black male.His impairment category is Orthopaedic Disorders 08 - Unilate ral Hip Fracture (01.18).Pre-morbidly, Pt. was independent/mod-I in Transfers Control, Communication, Social Cognition, Self-Care, Locomotion, and Sphincter Control; and he had good Sphincter Control.Cu rrently, he has deficits of Transfers Control, Balance, Locomotion, Endurance, Safety Awareness, and Self-Care.Pt. is now referred to [facility] for acute in-patient rehabilitatio n in order to maximize patient's functional independence in activities of daily living, strength, ROM , and mobility.- Rehab Goal Patient has realistic goal of being discharged at assistance level 6-Ayaan to reside at Home with Fam verónica/Relatives. MDM/PLAN: - Physical Therapy Decreased range of motion - to improve, our physical therapists will perform initial evaluation of p t's status upon admission and devise an individualized program for increasing patient's Range of Steven on. Gait dysfunction - to improve, our physical therapists will perform initial evaluation of pt's statu s upon admission and devise an individualized program for Gait Training, and Wheel Chair mobility Inability to transfer - to improve, our physical therapists will perform initial evaluation of pt's status upon admission and devise an individualized program for Bed mobility Need for home safety evaluation - to improve, our physical therapists will perform initial evaluatio n of pt's status upon admission and devise an individualized program for Home Evaluation Need in caregiver upon discharge - to improve, our physical therapists will perform initial evaluati on of pt's status upon admission and devise an individualized program for Caregiver Training New precaution - to improve, our physical therapists will perform initial evaluation of pt's status upon admission and devise an individualized program for Patient precaution education Edema - to improve, our physical therapists will perform initial evaluation of pt's status upon admi ssion and devise an individualized program for Elevation Training, and Lymphedema Therapy Poor balance - to improve, our physical therapists will perform initial evaluation of pt's status up on admission and devise an individualized program for Balance Training Poor endurance - to improve, our physical therapists will perform initial evaluation of pt's status upon admission and devise an individualized program for Endurance Training Weakness - to improve, our physical therapists will perform initial evaluation of pt's status upon a dmission and devise an individualized program for Aquatic Therapy, Neuromuscular Reeducation, and Str engthening Achieving independence - to improve, our physical therapists will perform initial evaluation of pt's status upon admission and devise an individualized program for Community Reintegration Activities - Occupational Therapy ADL deficits - to improve, our occupation therapists will perform initial evaluation of pt's status upon admission and devise an individualized program for Bathing, Bed mobility, Community Reintegratio n, Cooking, Dressing, Eating, Fine Motor Skills, Grooming, Homemaking, Kitchen Mobility, Laundry, Pat ient Education, Safety Awareness, Splinting - Positioning, Transfers(Toilet, Tub, Shower), and Wheel Chair Management Need for memory care program resident - to improve, our occupation therapists will perform initial evaluation of pt's status upon admission and devise an individualized program for Caregiver Training Weakness - to improve, our occupation therapists will perform initial evaluation of pt's status upon admission and devise an individualized program for Aquatic Therapy, Balance, Endurance, UE ROM, and UE strengthening - Anterior Hip Precaution No abduction No active extension No adduction across midline No external rotation No hip flexion >90 degrees No internal rotation - Diet - Liquid Texture Continue Regular - Tube Feed Continue N/A - Diet Type Continue Regular - Posterior Hip Precaution No adduction across midline No external rotation No hip flexion >90 degrees No internal rotation No wheel chair propulsion - Weight Bearing Precaution WBAT right LE - Skin care per protocol - Diet - Solid Texture Continue Regular - Shower allowing shower FUNCTIONAL STATUS: UPDATED AT WEEKLY TEAM CONFERENCE - Bladder Same accident frequency: 7-Ind - No accidents in the past 7 days - Bowel Same accident frequency: 7-Ind - No accidents in the past 7 days - Walking Same score based on distance walked: 1(<=50ft) - Wheelchair Same score based on distance traveled: 0(N/A) FUNCTIONAL STATUS: - Self-Care A. Eating Ayaan B. Grooming Ayaan C. Bathing maxA D. Dressing - Upper sup E. Dressing - Lower maxA F. Toileting maxA - Sphincter Control G: Bladder control Ind H: Bowel control Ind - Transfers Control I. Bed/Chair/Wheelchair modA J. Toilet modA K. Tub/Shower ADNO - Locomotion L. Walk/Wheelchair (C) modA L. Walk/Wheelchair (W) modA M. Stairs ADNO - Communication N. Comprehension (B) Ayaan O. Expression (B) Ayaan - Social Cognition P. Social Interaction Ayaan Q. Problem Solving Ayaan R. Memory Ayaan - Endurance Fair - Balance Fair - Safety Awareness Fair CURRENT FUNC. DEFICITS: Transfers Control, Balance, Locomotion, Endurance, Safety Awareness, and Self-Care SIGNATURE PANEL: (AIR LIAISON AND SPECIAL STAFF)
[2018-07-14] MEDS: DOCUSATE NA/SENNA CONC 1 TAB PO SCH (20:36)
[2018-07-14] MEDS: ATORVASTATIN 20 MG TAB PO SCH (20:36)
--- NOTE | 2018-07-15 00:24 | PN ---
Date of Progress Note: 07/14/2018 Subjective: The patient was seen this morning for followup. No new complaints or problems reported, except continues to have pain in his left hand and keeps his left hand middle finger flexed. Does n ot allow for me to move it at all. Denies any injury. Yesterday, he did have bowel movement after F leet enema. Objective: Vital Signs: Reviewed. HEENT: Examination unremarkable. Lungs: Clear to auscultation. Heart: Sounds normal. Abdomen: Soft. Bowel sounds normal. No guarding, rigidity, tenderness, or distention. Extremities: No leg edema. Laboratory Data: X-ray of the left hand done today. No evidence of any fracture. Uric acid level d one today, which was normal. Hemoglobin today 8.8. Impression: 1.Right hip fracture. 2.Anemia due to acute blood loss. 3.Anemia due to chronic kidney disease. 4.Osteoarthritis, multiple sites. 5.Urinary tract infection. 6.Hypertension. Plan: We will continue current antibiotics, which is ceftazidime. Continue current antihypertensive medication. I was concerned about possibility of gout in view of the patient's chronic kidney disea se problem, but uric acid is normal. Occupational therapy should try to work with the patient regarding his contracture of the left hand and pain. I will see him tomorrow f or followup. BRADY/MODL Voice ID: [id number] Report ID: [id number]
--- NOTE | 2018-07-15 01:01 | FAST ---
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 Trino Pineda M.D. ADMISSION DIAGNOSIS: - Orthopaedic Disorders 08 - Unilateral Hip Fracture (08.11) RIGHT FEMORAL NECK FRACTURE. EATING: Activity did not occur on this shift EATING - SCORE: 0-UNK GROOMING: Activity did not occur on this shift GROOMING - SCORE: 0-UNK BATHING: Activity did not occur on this shift BATHING - SCORE: 0-UNK DRESSING - UPPER BODY: Activity did not occur on this shift ARTICLES SCORE Total number of steps: 0 DRESSING - UPPER BODY - SCORE: 0-UNK DRESSING - LOWER BODY: Activity did not occur on this shift ARTICLES SCORE Total number of steps: 0 DRESSING - LOWER BODY - SCORE: 0-UNK TOILETING: Activity did not occur on this shift TOILETING - SCORE: 0-UNK BLADDER MANAGEMENT: [place] removes incontinent device (Depends, pull ups, etc.); cleans the patient after accident / inco ntinent episode; and, applies new incontinent device. BLADDER MANAGEMENT - SCORE: 1-DEP BOWEL MANAGEMENT: Activity did not occur on this shift BOWEL MANAGEMENT - SCORE: 7-IND TRANSFERS: BED, CHAIR, WHEELCHAIR: Activity did not occur on this shift TRANSFERS: BED, CHAIR, WHEELCHAIR - SCORE: 0-UNK TRANSFERS: TOILET: Activity did not occur on this shift TRANSFERS: TOILET - SCORE: 0-UNK TRANSFERS: SHOWER: Activity did not occur on this shift TRANSFERS: SHOWER - SCORE: 0-UNK TRANSFERS: TUB: Activity did not occur on this shift TRANSFERS: TUB - SCORE: 0-UNK LOCOMOTION: WALK: Activity did not occur on this shift LOCOMOTION: WALK - SCORE: 0-UNK LOCOMOTION: WHEELCHAIR: Activity did not occur on this shift LOCOMOTION: WHEELCHAIR - SCORE: 0-UNK COMPREHENSION: COMPREHENSION: TYPE: Both COMPREHENSION - STEP 1: Does the patient require help from a person or device, or need extra time to understand complex and a bstract ideas (such as current events, finances, discharge planning, medical issues, relationships, e tc)? Yes. COMPREHENSION - STEP 2: Does the patient require help to understand questions or statements about basic needs or ideas (such as hunger, thirst, sleep, safety, daily schedule, room location, or discomfort) half or more of the t reji? Yes. COMPREHENSION - STEP 3: Is the patient basically able to understand and respond appropriately and consistently? Yes. COMPREHENSION - SCORE: 2-MAX EXPRESSION EXPRESSION: TYPE: Both EXPRESSION - STEP 1: Does the patient require help from a person or device, or need extra time expressing complex and abst ract ideas (such as current events, finances, discharge planning, medical issues, relationships, etc) ? Yes. EXPRESSION - STEP 2: Does the patient require help to express basic necessities or ideas (such as hunger, thirst, sleep, s afety, daily schedule, room location, or discomfort) half or more of the time? Yes. EXPRESSION - STEP 3: Is the patient basically unable to express or does s/he express inappropriately or inconsistently melany pite prompting? No. EXPRESSION - SCORE: 2-MAX SOCIAL INTERACTION: SOCIAL INTERACTION - STEP 1: Does the patient require a helper to interact with others in social and therapeutic situations? No. SOCIAL INTERACTION - STEP 2: Does the patient need extra time in social situations, OR does s/he interact with staff, other patien ts, and family members ONLY in structured environments, OR does s/he require medication for social in teraction? Yes, patient needs extra time SOCIAL INTERACTION - SCORE: 6-OTILIO PROBLEM SOLVING: PROBLEM SOLVING - STEP 1: Does the patient need help from a person or device, or need extra time to solve complex problems such as managing a checking account or confronting interpersonal problems? Yes. PROBLEM SOLVING - STEP 2: Does the patient solve basic routine problems half or more of the time? No. PROBLEM SOLVING - STEP 3: Does the patient need help to solve problems all the time or is s/he unable to solve problems? Yes. P atient needs help to solve problems all the time or is unable to solve problems PROBLEM SOLVING - SCORE: 1-DEP MEMORY: MEMORY - STEP 1: Does the patient need help from a person or device, or need extra time to remember frequently encount ered people, daily routines, and executing requests? Yes. MEMORY - STEP 2: How often does the patient need help to remember frequently encountered people, daily routines, and e xecuting requests? 25% - 49% of the time MEMORY - SCORE: 3-MOD SIGNATURE PANEL: The following modified sections: Eating - Score, Grooming - Score, Bathing - Score, Dressing - Upper Body - Score, Dressing - Lower Body - Score, Toileting - Score, Bladder Management - Score, Bowel Man agement - Score, Transfers: Bed, Chair, Wheelchair - Score, Transfers: Toilet - Score, Transfers: Stefania wer - Score, Transfers: Tub - Score, Locomotion: Walk - Score, Locomotion: Wheelchair - Score, Compre hension - Score, Expression - Score, Social Interaction - Score, Problem Solving - Score, Memory - Sc ore were [electronically] signed by Rocío Angulo CNA on SatJul 15 2018 01:00:07 T-0600 ([facility])
[2018-07-15] MEDS: ENOXAPARIN 30 MG/0.3 ML SQ SCH (07:22)
[2018-07-15] MEDS: CEFTAZIDIME 1 GM in NA CHLORIDE 0.9% 50 ML IV SCH ×2 (07:44→19:22)
[2018-07-15] MEDS: FOLIC ACID 1 MG TABLET PO SCH (07:45)
[2018-07-15] MEDS: FERROUS SULFATE 325 MG TAB PO SCH (07:45)
[2018-07-15] MEDS: FE SULF/FA/VIT B COMP & C TAB PO SCH (07:45)
[2018-07-15] MEDS: TAMSULOSIN 0.4 MG SR CAP PO SCH (07:45)
[2018-07-15] MEDS: MINOXIDIL 2.5 MG TAB PO SCH ×2 (07:48→19:15)
[2018-07-15] MEDS: CARVEDILOL 6.25 MG TAB PO SCH ×2 (07:48→19:21)
[2018-07-15] MEDS: MAGNESIUM OXIDE 400 MG TAB PO SCH ×2 (07:48→19:21)
[2018-07-15] MEDS: METAMUCIL PO SCH ×2 (07:48→19:21)
[2018-07-15] MEDS: HYDRALAZINE HCL 25 MG TABLET PO SCH ×2 (07:49→19:15)
[2018-07-15] MEDS: AMLODIPINE 5 MG TAB PO SCH ×2 (07:49→19:22)
[2018-07-15] MEDS: PROMOD 30 ML DOSE PO SCH ×2 (07:50→19:22)
[2018-07-15] MEDS: cloNIDine HCl 0.1 MG TAB PO SCH ×3 (07:59→20:35)
[2018-07-15] MEDS: CODEINE 30MG/APAP 300MG TAB PO PRN (08:00)
--- NOTE | 2018-07-15 15:18 | FAST ---
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 Trino Pineda M.D. ADMISSION DIAGNOSIS: - Orthopaedic Disorders 08 - Unilateral Hip Fracture (08.11) RIGHT FEMORAL NECK FRACTURE. EATING: EATING - STEP 1: Does the patient require the assistance of a person or device, or need extra time when eating? Yes. EATING - STEP 2: Does the patient require the assistance of a helper? Yes. EATING - STEP 3: Does the patient perform half or more of the eating tasks? Yes. EATING - STEP 4: Does the patient need only supervision, cuing, coaxing OR help to apply an orthosis OR help to cut fo od, open containers, pour liquids, or butter bread? Yes. EATING - SCORE: 5-SUP GROOMING: Comb/brush hair Oral care GROOMING - STEP 1: Does the patient require the assistance of a person or device, or need extra time when grooming? Yes. GROOMING - STEP 2: Does the patient require the assistance of a helper? No. The patient only requires an assistive devic e, OR takes more than reasonable time to groom, OR there is a concern for safety as the patient groom s GROOMING - SCORE: 6-OTILIO BATHING: Activity did not occur on this shift BATHING - SCORE: 0-UNK DRESSING - UPPER BODY: Activity did not occur on this shift ARTICLES SCORE Total number of steps: 0 DRESSING - UPPER BODY - SCORE: 0-UNK DRESSING - LOWER BODY: Activity did not occur on this shift ARTICLES SCORE Total number of steps: 0 DRESSING - LOWER BODY - SCORE: 0-UNK TOILETING: TOILETING - STEP 1: Does the patient require the assistance of a person or device, or need extra time with toileting? Yes . TOILETING - STEP 2: Does the patient require the assistance of a helper? Yes. TOILETING - STEP 3: How much assistance does the patient require from the helper? Hands-on assistance from the helper TOILETING - STEP 4: Of the 3 tasks: 1) Adjusting clothing prior to use, 2) Cleansing of perineal area, 3) Adjusting clot ashley after use; How many tasks does the patient perform WITHOUT assistance of the helper? Two tasks TOILETING - SCORE: 3-MOD BLADDER MANAGEMENT: [place] removes incontinent device (Depends, pull ups, etc.); cleans the patient after accident / inco ntinent episode; and, applies new incontinent device. BLADDER MANAGEMENT - SCORE: 1-DEP BLADDER MANAGEMENT - FREQUENCY OF ACCIDENTS: BLADDER MANAGEMENT(FA) - STEP 1: How many accidents has the patient had during the current shift? 3 BOWEL MANAGEMENT: BOWEL MANAGEMENT - STEP 1: Does the patient control bowels completely and intentionally without equipment devices or medications AND is always continent? Yes. BOWEL MANAGEMENT - SCORE: 7-IND TRANSFERS: BED, CHAIR, WHEELCHAIR: TRANSFERS: BED, CHAIR, WHEELCHAIR - STEP 1: Does the patient require assistance of a person or device, or need extra time with bed, chair, or whe elchair transfers? Yes. TRANSFERS: BED, CHAIR, WHEELCHAIR - STEP 2: Does the patient require the assistance of a helper? Yes. TRANSFERS: BED, CHAIR, WHEELCHAIR - STEP 3: How much assistance does the patient require from the helper? Steadying/guiding assistance TRANSFERS: BED, CHAIR, WHEELCHAIR - SCORE: 4-MIN TRANSFERS: TOILET: TRANSFERS: TOILET - STEP 1: Does the patient require the assistance of a person or device, or need extra time with toilet transfe rs? Yes. TRANSFERS: TOILET - STEP 2: Does the patient require the assistance of a helper? Yes. TRANSFERS: TOILET - STEP 3: How much assistance does the patient require from the helper? Patient performs half or more of the tr ansferring tasks TRANSFERS: TOILET - STEP 4: Does the patient need only incidental help such as contact guard or steadying during toilet transfer? Yes. TRANSFERS: TOILET - SCORE: 4-MIN TRANSFERS: SHOWER: Activity did not occur on this shift TRANSFERS: SHOWER - SCORE: 0-UNK TRANSFERS: TUB: Activity did not occur on this shift TRANSFERS: TUB - SCORE: 0-UNK LOCOMOTION: WALK: Activity did not occur on this shift LOCOMOTION: WALK - SCORE: 0-UNK LOCOMOTION: WHEELCHAIR: Activity did not occur on this shift LOCOMOTION: WHEELCHAIR - SCORE: 0-UNK COMPREHENSION: COMPREHENSION: TYPE: Both COMPREHENSION - STEP 1: Does the patient require help from a person or device, or need extra time to understand complex and a bstract ideas (such as current events, finances, discharge planning, medical issues, relationships, e tc)? No. COMPREHENSION - STEP 2: Does the patient need extra time, require an assistive device (such as glasses for visual comprehensi on or a hearing aid for auditory comprehension) or does s/he have mild difficulty understanding compl ex and abstract information? Yes. COMPREHENSION - SCORE: 6-OTILIO EXPRESSION EXPRESSION: TYPE: Both EXPRESSION - STEP 1: Does the patient require help from a person or device, or need extra time expressing complex and abst ract ideas (such as current events, finances, discharge planning, medical issues, relationships, etc) ? No. EXPRESSION - STEP 2: Does the patient need extra time, require an assistive device (such as augmentive communication syste m or a communication board), OR does s/he have mild difficulty expressing complex and abstract ideas (including mild dysarthria or mild word-find problems)? Yes. EXPRESSION - SCORE: 6-OTILIO SOCIAL INTERACTION: SOCIAL INTERACTION - STEP 1: Does the patient require a helper to interact with others in social and therapeutic situations? No. SOCIAL INTERACTION - STEP 2: Does the patient need extra time in social situations, OR does s/he interact with staff, other patien ts, and family members ONLY in structured environments, OR does s/he require medication for social in teraction? Yes, patient needs extra time SOCIAL INTERACTION - SCORE: 6-OTILIO PROBLEM SOLVING: PROBLEM SOLVING - STEP 1: Does the patient need help from a person or device, or need extra time to solve complex problems such as managing a checking account or confronting interpersonal problems? No. PROBLEM SOLVING - STEP 2: Does the patient require extra time to make decisions or solve problems, OR does s/he have slight dif ficulty reading, initiating, or self-correcting in unfamiliar situations? Yes, patient needs extra ti me. PROBLEM SOLVING - SCORE: 6-OTILIO MEMORY: MEMORY - STEP 1: Does the patient need help from a person or device, or need extra time to remember frequently encount ered people, daily routines, and executing requests? No. MEMORY - STEP 2: Does the patient have slight difficulty recognizing frequently encountered people, daily routines, or executing requests without the need for repetition or using self-initiated or environmental cues to remember? Yes. MEMORY - SCORE: 6-OTILIO SIGNATURE PANEL: The following modified sections: Eating - Score, Grooming - Score, Bathing - Score, Dressing - Upper Body - Score, Dressing - Lower Body - Score, Toileting - Score, Bladder Management - Score, Bowel Man agement - Score, Transfers: Bed, Chair, Wheelchair - Score, Transfers: Toilet - Score, Transfers: Stefania wer - Score, Transfers: Tub - Score, Locomotion: Walk - Score, Locomotion: Wheelchair - Score, Compre hension - Score, Expression - Score, Social Interaction - Score, Problem Solving - Score, Memory - Sc ore were [electronically] signed by Johnathan Ladd on SatJul 15 2018 15:17:14 GMT-0600 (Central Standard Time)
[2018-07-15] MEDS: ATORVASTATIN 20 MG TAB PO SCH (20:38)
[2018-07-15] MEDS: DOCUSATE NA/SENNA CONC 1 TAB PO SCH (20:38)
--- NOTE | 2018-07-16 01:02 | FAST ---
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 Trino Pineda M.D. ADMISSION DIAGNOSIS: - Orthopaedic Disorders 08 - Unilateral Hip Fracture (08.11) RIGHT FEMORAL NECK FRACTURE. EATING: Activity did not occur on this shift EATING - SCORE: 0-UNK GROOMING: Activity did not occur on this shift GROOMING - SCORE: 0-UNK BATHING: Activity did not occur on this shift BATHING - SCORE: 0-UNK DRESSING - UPPER BODY: Patient is not dressing in public clothing ARTICLES SCORE Total number of steps: 0 DRESSING - UPPER BODY - SCORE: 0-UNK DRESSING - LOWER BODY: Patient is not dressing in public clothing ARTICLES SCORE Total number of steps: 0 DRESSING - LOWER BODY - SCORE: 0-UNK TOILETING: Activity did not occur on this shift TOILETING - SCORE: 0-UNK BLADDER MANAGEMENT: [place] removes incontinent device (Depends, pull ups, etc.); cleans the patient after accident / inco ntinent episode; and, applies new incontinent device. BLADDER MANAGEMENT - SCORE: 1-DEP BLADDER MANAGEMENT - FREQUENCY OF ACCIDENTS: BLADDER MANAGEMENT(FA) - STEP 1: How many accidents has the patient had during the current shift? 1 BOWEL MANAGEMENT: Activity did not occur on this shift BOWEL MANAGEMENT - SCORE: 7-IND TRANSFERS: BED, CHAIR, WHEELCHAIR: Activity did not occur on this shift TRANSFERS: BED, CHAIR, WHEELCHAIR - SCORE: 0-UNK TRANSFERS: TOILET: Activity did not occur on this shift TRANSFERS: TOILET - SCORE: 0-UNK TRANSFERS: SHOWER: Activity did not occur on this shift TRANSFERS: SHOWER - SCORE: 0-UNK TRANSFERS: TUB: Activity did not occur on this shift TRANSFERS: TUB - SCORE: 0-UNK LOCOMOTION: WALK: Activity did not occur on this shift LOCOMOTION: WALK - SCORE: 0-UNK LOCOMOTION: WHEELCHAIR: Activity did not occur on this shift LOCOMOTION: WHEELCHAIR - SCORE: 0-UNK COMPREHENSION: COMPREHENSION: TYPE: Both COMPREHENSION - STEP 1: Does the patient require help from a person or device, or need extra time to understand complex and a bstract ideas (such as current events, finances, discharge planning, medical issues, relationships, e tc)? Yes. COMPREHENSION - STEP 2: Does the patient require help to understand questions or statements about basic needs or ideas (such as hunger, thirst, sleep, safety, daily schedule, room location, or discomfort) half or more of the t reji? No. COMPREHENSION - STEP 3: How often does the patient need help to understand directions and conversation about basic needs? 10% - 24% of the time COMPREHENSION - SCORE: 4-MIN EXPRESSION EXPRESSION: TYPE: Both EXPRESSION - STEP 1: Does the patient require help from a person or device, or need extra time expressing complex and abst ract ideas (such as current events, finances, discharge planning, medical issues, relationships, etc) ? Yes. EXPRESSION - STEP 2: Does the patient require help to express basic necessities or ideas (such as hunger, thirst, sleep, s afety, daily schedule, room location, or discomfort) half or more of the time? No. EXPRESSION - STEP 3: How often does the patient need help to express directions and conversation about basic needs? 10-24% of the time EXPRESSION - SCORE: 4-MIN SOCIAL INTERACTION: SOCIAL INTERACTION - STEP 1: Does the patient require a helper to interact with others in social and therapeutic situations? No. SOCIAL INTERACTION - STEP 2: Does the patient need extra time in social situations, OR does s/he interact with staff, other patien ts, and family members ONLY in structured environments, OR does s/he require medication for social in teraction? Yes, patient needs extra time SOCIAL INTERACTION - SCORE: 6-OTILIO PROBLEM SOLVING: PROBLEM SOLVING - STEP 1: Does the patient need help from a person or device, or need extra time to solve complex problems such as managing a checking account or confronting interpersonal problems? Yes. PROBLEM SOLVING - STEP 2: Does the patient solve basic routine problems half or more of the time? No. PROBLEM SOLVING - STEP 3: Does the patient need help to solve problems all the time or is s/he unable to solve problems? No. Pa tient can sometimes solve problems PROBLEM SOLVING - SCORE: 2-MAX MEMORY: MEMORY - STEP 1: Does the patient need help from a person or device, or need extra time to remember frequently encount ered people, daily routines, and executing requests? Yes. MEMORY - STEP 2: How often does the patient need help to remember frequently encountered people, daily routines, and e xecuting requests? 10% - 24% of the time MEMORY - SCORE: 4-MIN SIGNATURE PANEL: The following modified sections: Eating - Score, Grooming - Score, Bathing - Score, Dressing - Upper Body - Score, Dressing - Lower Body - Score, Toileting - Score, Bladder Management - Score, Bowel Man agement - Score, Transfers: Bed, Chair, Wheelchair - Score, Transfers: Toilet - Score, Transfers: Stefania wer - Score, Transfers: Tub - Score, Locomotion: Walk - Score, Locomotion: Wheelchair - Score, Compre hension - Score, Expression - Score, Social Interaction - Score, Problem Solving - Score, Memory - Sc ore were [electronically] signed by Rocío Angulo CNA on SatJul 16 2018 01:01:55 T-0600 ([facility])
--- NOTE | 2018-07-16 01:06 | PN ---
Date of Progress Note: 07/15/2018 Subjective: Patient was seen this morning for followup. No new complaints or problems reported by garth phlilips. Physical Examination: General: Lying in bed, not in any distress. Vital Signs: Reviewed. HEENT Examination: Unremarkable. Lungs: Clear to auscultation. Heart: Sounds normal. Abdomen: Soft. Bowel sounds normal. No guarding, rigidity, tenderness, distention. Extremities: No leg edema. Impression: 1.Urinary tract infection. 2.Right hip fracture. 3.Anemia due to acute blood loss. 4.Anemia due to chronic kidney disease. 5.Hypertension. 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 Plan: 1.Continue current medications, antibiotics per order. 2.Continue current antihypertensive medication and DVT prophylaxis. 3.I will see him tomorrow for followup. BRADY/PETEY Voice ID: [id number] Report ID: [id number]
[2018-07-16 06:59] LABS: Absolute Monocytes 0.7 K/uL (0.1-1.3); Absolute Neutrophil 4.9 K/uL (1.8-8.0); Basophils % 0.3 % (0-1.3); Eosinophils % 3.2 % (0-4.4); Hematocrit 26.9 % (39.6-49.0); Lymphocytes % 15.1 % (15.3-44.8); MPV 7.2 fL (7.6-11.3); Monocytes % 10.2 % (3.3-12.3); RBC Red Blood Cell Count 3.37 M/uL (4.33-5.43)
[2018-07-16] MEDS: ENOXAPARIN 30 MG/0.3 ML SQ SCH (07:01)
[2018-07-16 07:23] LABS: Potassium 4.7 mmol/L (3.5-5.1)
[2018-07-16] MEDS: MINOXIDIL 2.5 MG TAB PO SCH ×2 (08:00→20:18)
[2018-07-16] MEDS: HYDRALAZINE HCL 25 MG TABLET PO SCH ×2 (08:00→20:00)
[2018-07-16] MEDS: CEFTAZIDIME 1 GM in NA CHLORIDE 0.9% 50 ML IV SCH ×2 (08:06→20:19)
[2018-07-16] MEDS: FERROUS SULFATE 325 MG TAB PO SCH (08:07)
[2018-07-16] MEDS: AMLODIPINE 5 MG TAB PO SCH ×2 (08:07→20:17)
[2018-07-16] MEDS: FE SULF/FA/VIT B COMP & C TAB PO SCH (08:07)
[2018-07-16] MEDS: CARVEDILOL 6.25 MG TAB PO SCH ×2 (08:08→20:18)
[2018-07-16] MEDS: TAMSULOSIN 0.4 MG SR CAP PO SCH (08:09)
[2018-07-16] MEDS: FOLIC ACID 1 MG TABLET PO SCH (08:09)
[2018-07-16] MEDS: MAGNESIUM OXIDE 400 MG TAB PO SCH ×2 (08:09→20:17)
[2018-07-16] MEDS: METAMUCIL PO SCH ×2 (08:12→20:20)
[2018-07-16] MEDS: cloNIDine HCl 0.1 MG TAB PO SCH ×3 (08:13→20:18)
[2018-07-16] MEDS: PROMOD 30 ML DOSE PO SCH ×2 (08:15→20:19)
[2018-07-16 08:20] LABS: Blood Morphology Comment NOT SEEN (NOT SEEN); Platelet Estimate ADEQ; Urine White Blood Cell Casts OK
[2018-07-16] MEDS: CODEINE 30MG/APAP 300MG TAB PO PRN ×2 (08:53→12:30)
[2018-07-16] MEDS: LIDOCAINE 5% PATCH TOP SCH (12:17)
--- NOTE | 2018-07-16 16:58 | R.PN ---
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 Pt denied any depression. Patient is lethargic with fever. Chest x-ray is negative. Right hip x-ray shows no abnormalities. WB Cs 6.9. Hgb 8.7, procalcitonin down to 0.99 from 22.49, Creatinine 2.52. UA is negative. Patient fini shed rocephin. Ambulated 450' with contact guard assistance using a rolling walker. Self-propelled wheelchair 250' w ith standby assistance. Up and down 5 steps with bilateral hand rails and contact guard assistance. R equires moderate assistance for speech expression. VITAL SIGNS Temperature: 79.4 F SBP/DBP: 153/75 Pulse: 56 Resp: 16 MEDICATION ALLERGIES: No Known Drug Allergies (NKDA) ENVIRONMENTAL ALLERGIES: None Known - Substance Allergies None Known - Other Allergies None Known NURSING: - Shower allowing shower - Skin care per protocol PRECAUTIONS: - Posterior Hip Precaution No adduction across midline No external rotation No hip flexion >90 degrees No internal rotation No wheel chair propulsion - Weight Bearing Precaution WBAT right LE ACTIVITIES OOB only with supervision THERAPIES: - Occupational Therapy Evaluate and Treat. - Physical Therapy Evaluate and Treat. PHYSICAL EXAM - Gen Alert and awake Lying in bed No apparent distress Oriented to: person, time, and place - Skin No breakdown No abnormalities - Eyes No abnormalities - ENMT No abnormalities - Neck No abnormalities - CVS RRR - Chest No abnormalities - Abd +bowel sounds - GI Non distended Deferred - No abnormalities - Ext Mild postoperative edema in the right lower extremity - MSK 4+/5 weakness in both lower extremities. - Neuro 4/5 strength bilaterally lower extremities. - Psych No abnormalities ASSESSMENT: Pt. is a 82 yo Right-handed black male.His impairment category is Orthopaedic Disorders 08 - Unilate ral Hip Fracture (01.18).Pre-morbidly, Pt. was independent/mod-I in Transfers Control, Communication, Social Cognition, Self-Care, Locomotion, and Sphincter Control; and he had good Sphincter Control.Cu rrently, he has deficits of Transfers Control, Balance, Locomotion, Endurance, Safety Awareness, and Self-Care.Pt. is now referred to [facility] for acute in-patient rehabilitatio n in order to maximize patient's functional independence in activities of daily living, strength, ROM , and mobility.- Rehab Goal Patient has realistic goal of being discharged at assistance level 6-Ayaan to reside at Home with Fam verónica/Relatives. MDM/PLAN: - Physical Therapy Decreased range of motion - to improve, our physical therapists will perform initial evaluation of p t's status upon admission and devise an individualized program for increasing patient's Range of Steven on. Gait dysfunction - to improve, our physical therapists will perform initial evaluation of pt's statu s upon admission and devise an individualized program for Gait Training, and Wheel Chair mobility Inability to transfer - to improve, our physical therapists will perform initial evaluation of pt's status upon admission and devise an individualized program for Bed mobility Need for home safety evaluation - to improve, our physical therapists will perform initial evaluatio n of pt's status upon admission and devise an individualized program for Home Evaluation Need in caregiver upon discharge - to improve, our physical therapists will perform initial evaluati on of pt's status upon admission and devise an individualized program for Caregiver Training New precaution - to improve, our physical therapists will perform initial evaluation of pt's status upon admission and devise an individualized program for Patient precaution education Edema - to improve, our physical therapists will perform initial evaluation of pt's status upon admi ssion and devise an individualized program for Elevation Training, and Lymphedema Therapy Poor balance - to improve, our physical therapists will perform initial evaluation of pt's status up on admission and devise an individualized program for Balance Training Poor endurance - to improve, our physical therapists will perform initial evaluation of pt's status upon admission and devise an individualized program for Endurance Training Weakness - to improve, our physical therapists will perform initial evaluation of pt's status upon a dmission and devise an individualized program for Aquatic Therapy, Neuromuscular Reeducation, and Str engthening Achieving independence - to improve, our physical therapists will perform initial evaluation of pt's status upon admission and devise an individualized program for Community Reintegration Activities - Occupational Therapy ADL deficits - to improve, our occupation therapists will perform initial evaluation of pt's status upon admission and devise an individualized program for Bathing, Bed mobility, Community Reintegratio n, Cooking, Dressing, Eating, Fine Motor Skills, Grooming, Homemaking, Kitchen Mobility, Laundry, Pat ient Education, Safety Awareness, Splinting - Positioning, Transfers(Toilet, Tub, Shower), and Wheel Chair Management Need for pharmacist critical care - to improve, our occupation therapists will perform initial evaluation of pt's status upon admission and devise an individualized program for Caregiver Training Weakness - to improve, our occupation therapists will perform initial evaluation of pt's status upon admission and devise an individualized program for Aquatic Therapy, Balance, Endurance, UE ROM, and UE strengthening - Anterior Hip Precaution No abduction No active extension No adduction across midline No external rotation No hip flexion >90 degrees No internal rotation - Diet - Liquid Texture Continue Regular - Tube Feed Continue N/A - Diet Type Continue Regular - Posterior Hip Precaution No adduction across midline No external rotation No hip flexion >90 degrees No internal rotation No wheel chair propulsion - Weight Bearing Precaution WBAT right LE - Skin care per protocol - Diet - Solid Texture Continue Regular - Shower allowing shower FUNCTIONAL STATUS: UPDATED AT WEEKLY TEAM CONFERENCE - Bladder Same accident frequency: 7-Ind - No accidents in the past 7 days - Bowel Same accident frequency: 7-Ind - No accidents in the past 7 days - Walking Same score based on distance walked: 1(<=50ft) - Wheelchair Same score based on distance traveled: 0(N/A) FUNCTIONAL STATUS: - Self-Care A. Eating Ayaan B. Grooming Ayaan C. Bathing maxA D. Dressing - Upper sup E. Dressing - Lower maxA F. Toileting maxA - Sphincter Control G: Bladder control Ind H: Bowel control Ind - Transfers Control I. Bed/Chair/Wheelchair modA J. Toilet modA K. Tub/Shower ADNO - Locomotion L. Walk/Wheelchair (C) modA L. Walk/Wheelchair (W) modA M. Stairs ADNO - Communication N. Comprehension (B) Ayaan O. Expression (B) Ayaan - Social Cognition P. Social Interaction Ayaan Q. Problem Solving Ayaan R. Memory Ayaan - Endurance Fair - Balance Fair - Safety Awareness Fair CURRENT FUNC. 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
[2018-07-16] MEDS: DOCUSATE NA/SENNA CONC 1 TAB PO SCH (20:17)
[2018-07-16] MEDS: ATORVASTATIN 20 MG TAB PO SCH (20:18)
--- NOTE | 2018-07-17 00:45 | PN ---
Date of Progress Note: 07/16/2018 Subjective: The patient was seen this morning for a followup. No new complaints or problems reporte d by patient. Objective: General: Lying in bed, not in any distress. Vital Signs: Reviewed. HEENT Examination: Unremarkable. Lungs: Clear to auscultation. Heart: Sounds normal. Abdomen: Soft. Bowel sounds normal. No guarding, rigidity, tenderness or distention. Extremities: No leg edema. Laboratory Data: White count 6.9, hemoglobin 8.7, platelets 302. Sodium 136, potassium 4.7, chlorid e 102, bicarb 28, BUN 45, creatinine 2.52, glucose 87. Impression: 1.Urinary tract infection. 2.Hypertension. 3.Chronic kidney disease stage 4. 4.Anemia due to chronic kidney disease. 5.Anemia due to acute blood loss. 6.Right hip fracture. Plan: We will continue current medications, continue current IV antibiotics. Plan is to give total 10 days of IV antibiotics. Continue current antihypertensive medication and DVT prophylaxis. Kamla mcdaniel is stable after blood transfusion. I will see him tomorrow for a followup. BRADY/MODL Voice ID: [id number] Report ID: [id number]
[2018-07-17 06:48] LABS: Absolute Lymphocytes (CBC) 0.9 K/uL (0.7-4.9); Absolute Monocytes 0.6 K/uL (0.1-1.3); Absolute Neutrophil 4.6 K/uL (1.8-8.0); Basophils % 0.5 % (0-1.3); Eosinophils % 3.2 % (0-4.4); Hematocrit 28.6 % (39.6-49.0); Lymphocytes % 13.8 % (15.3-44.8); MPV 6.7 fL (7.6-11.3); Monocytes % 9.6 % (3.3-12.3); RBC Red Blood Cell Count 3.59 M/uL (4.33-5.43)
[2018-07-17 07:00] LABS: Albumin 2.5 g/dL (3.4-5.0); Potassium 4.8 mmol/L (3.5-5.1); Prealbumin 20.9 mg/dL (20-40)
[2018-07-17] MEDS: LIDOCAINE 5% PATCH TOP SCH (07:37)
[2018-07-17] MEDS: ENOXAPARIN 30 MG/0.3 ML SQ SCH (07:37)
[2018-07-17 07:43] LABS: Urine White Blood Cell Casts OK
[2018-07-17 07:44] LABS: Anisocytosis SLIGHT; Blood Morphology Comment NOTED (NOT SEEN); Platelet Estimate ADEQ
[2018-07-17] MEDS: HYDRALAZINE HCL 25 MG TABLET PO SCH ×2 (08:00→20:00)
[2018-07-17] MEDS: PROMOD 30 ML DOSE PO SCH ×2 (08:16→20:14)
[2018-07-17] MEDS: CEFTAZIDIME 1 GM in NA CHLORIDE 0.9% 50 ML IV SCH ×2 (08:16→20:16)
[2018-07-17] MEDS: CODEINE 30MG/APAP 300MG TAB PO PRN ×2 (08:17→12:23)
[2018-07-17] MEDS: CARVEDILOL 6.25 MG TAB PO SCH ×2 (08:18→20:14)
[2018-07-17] MEDS: MAGNESIUM OXIDE 400 MG TAB PO SCH ×2 (08:19→20:13)
[2018-07-17] MEDS: METAMUCIL PO SCH ×2 (08:19→20:16)
[2018-07-17] MEDS: FOLIC ACID 1 MG TABLET PO SCH (08:19)
[2018-07-17] MEDS: TAMSULOSIN 0.4 MG SR CAP PO SCH (08:20)
[2018-07-17] MEDS: AMLODIPINE 5 MG TAB PO SCH ×2 (08:20→20:13)
[2018-07-17] MEDS: cloNIDine HCl 0.1 MG TAB PO SCH ×3 (08:21→20:15)
[2018-07-17] MEDS: FE SULF/FA/VIT B COMP & C TAB PO SCH (08:21)
[2018-07-17] MEDS: FERROUS SULFATE 325 MG TAB PO SCH (08:21)
[2018-07-17] MEDS: MINOXIDIL 2.5 MG TAB PO SCH ×2 (08:26→20:14)
--- NOTE | 2018-07-17 14:30 | FAST ---
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 Trino Pineda M.D. ADMISSION DIAGNOSIS: - Orthopaedic Disorders 08 - Unilateral Hip Fracture (08.11) RIGHT FEMORAL NECK FRACTURE. EATING: EATING - STEP 1: Does the patient require the assistance of a person or device, or need extra time when eating? Yes. EATING - STEP 2: Does the patient require the assistance of a helper? Yes. EATING - STEP 3: Does the patient perform half or more of the eating tasks? Yes. EATING - STEP 4: Does the patient need only supervision, cuing, coaxing OR help to apply an orthosis OR help to cut fo od, open containers, pour liquids, or butter bread? Yes. EATING - SCORE: 5-SUP GROOMING: Oral care Wash, rinse, and dry face Wash, rinse, and dry hands GROOMING - STEP 1: Does the patient require the assistance of a person or device, or need extra time when grooming? Yes. GROOMING - STEP 2: Does the patient require the assistance of a helper? Yes. GROOMING - STEP 3: How much assistance does the patient require from the helper? Cuing, coaxing, instructions, or encour agement for completion of grooming GROOMING - SCORE: 5-SUP BATHING: Activity did not occur on this shift BATHING - SCORE: 0-UNK DRESSING - UPPER BODY: T-shirt/pullover shirt (four steps) ARTICLES SCORE Total number of steps: 4 DRESSING - UPPER BODY - STEP 1: Does the patient require help from a person or device, or need extra time when dressing above the jul[address]? Yes. DRESSING - UPPER BODY - STEP 2: Does the patient require the assistance of a helper? Yes. DRESSING - UPPER BODY - STEP 3: Does the helper touch the patient while dressing? Yes. DRESSING - UPPER BODY - STEP 4: How many of the total steps does the patient complete on his/her own? 2 DRESSING - UPPER BODY - SCORE: 3-MOD DRESSING - LOWER BODY: Elastic waist pants (three steps) Slip-on shoe - Left foot (one step) Slip-on shoe - Right foot (one step) Sock - Left foot (one step) Sock - Right foot (one step) Underwear (three steps) ARTICLES SCORE Total number of steps: 10 DRESSING - LOWER BODY - STEP 1: Does the patient require help from a person or device, or need extra time when dressing below the jul[address] st? Yes. DRESSING - LOWER BODY - STEP 2: Does the patient require the assistance of a helper? Yes. DRESSING - LOWER BODY - STEP 3: Does the helper touch the patient while dressing? Yes. DRESSING - LOWER BODY - STEP 4: How many of the total steps does the patient complete on his/her own? 0 DRESSING - LOWER BODY - STEP 5: Does patient require total assistance for dressing below the waist such as the helper holding clothin g and performing basically all the activities? Yes. DRESSING - LOWER BODY - SCORE: 1-DEP TOILETING: TOILETING - STEP 1: Does the patient require the assistance of a person or device, or need extra time with toileting? Yes . TOILETING - STEP 2: Does the patient require the assistance of a helper? Yes. TOILETING - STEP 3: How much assistance does the patient require from the helper? Hands-on assistance from the helper TOILETING - STEP 4: Of the 3 tasks: 1) Adjusting clothing prior to use, 2) Cleansing of perineal area, 3) Adjusting clot ashley after use; How many tasks does the patient perform WITHOUT assistance of the helper? No tasks; h elper performs all three tasks TOILETING - SCORE: 1-DEP BLADDER MANAGEMENT: [place] removes incontinent device (Depends, pull ups, etc.); cleans the patient after accident / inco ntinent episode; and, applies new incontinent device. BLADDER MANAGEMENT - SCORE: 1-DEP BLADDER MANAGEMENT - FREQUENCY OF ACCIDENTS: BLADDER MANAGEMENT(FA) - STEP 1: How many accidents has the patient had during the current shift? 3 BOWEL MANAGEMENT: Activity did not occur on this shift BOWEL MANAGEMENT - SCORE: 7-IND BOWEL MANAGEMENT - FREQUENCY OF ACCIDENTS: BOWEL MANAGEMENT(FA) - STEP 1: How many accidents has the patient had during the current shift? 0 TRANSFERS: BED, CHAIR, WHEELCHAIR: TRANSFERS: BED, CHAIR, WHEELCHAIR - STEP 1: Does the patient require assistance of a person or device, or need extra time with bed, chair, or whe elchair transfers? Yes. TRANSFERS: BED, CHAIR, WHEELCHAIR - STEP 2: Does the patient require the assistance of a helper? Yes. TRANSFERS: BED, CHAIR, WHEELCHAIR - STEP 3: How much assistance does the patient require from the helper? Lifting of the legs TRANSFERS: BED, CHAIR, WHEELCHAIR - STEP 4: How many legs does the patient require the helper to lift? both legs TRANSFERS: BED, CHAIR, WHEELCHAIR - SCORE: 3-MOD TRANSFERS: TOILET: TRANSFERS: TOILET - STEP 1: Does the patient require the assistance of a person or device, or need extra time with toilet transfe rs? Yes. TRANSFERS: TOILET - STEP 2: Does the patient require the assistance of a helper? Yes. TRANSFERS: TOILET - STEP 3: How much assistance does the patient require from the helper? Patient performs half or more of the tr ansferring tasks TRANSFERS: TOILET - STEP 4: Does the patient need only incidental help such as contact guard or steadying during toilet transfer? Yes. TRANSFERS: TOILET - SCORE: 4-MIN TRANSFERS: SHOWER: Activity did not occur on this shift TRANSFERS: SHOWER - SCORE: 0-UNK TRANSFERS: TUB: Activity did not occur on this shift TRANSFERS: TUB - SCORE: 0-UNK LOCOMOTION: WALK: Activity did not occur on this shift LOCOMOTION: WALK - SCORE: 0-UNK LOCOMOTION: WHEELCHAIR: LOCOMOTION: WHEELCHAIR - STEP 1: Does the patient need help to go 150 feet in a wheelchair? Yes. LOCOMOTION: WHEELCHAIR - STEP 2: How much assistance does the patient need from the helper? Only incidental help such as around corner s or over thresholds LOCOMOTION: WHEELCHAIR - SCORE: 4-MIN COMPREHENSION: COMPREHENSION: TYPE: Both COMPREHENSION - STEP 1: Does the patient require help from a person or device, or need extra time to understand complex and a bstract ideas (such as current events, finances, discharge planning, medical issues, relationships, e tc)? Yes. COMPREHENSION - STEP 2: Does the patient require help to understand questions or statements about basic needs or ideas (such as hunger, thirst, sleep, safety, daily schedule, room location, or discomfort) half or more of the t reji? No. COMPREHENSION - STEP 3: How often does the patient need help to understand directions and conversation about basic needs? Les s than 10% of the time COMPREHENSION - SCORE: 5-SUP EXPRESSION EXPRESSION: TYPE: Both EXPRESSION - STEP 1: Does the patient require help from a person or device, or need extra time expressing complex and abst ract ideas (such as current events, finances, discharge planning, medical issues, relationships, etc) ? Yes. EXPRESSION - STEP 2: Does the patient require help to express basic necessities or ideas (such as hunger, thirst, sleep, s afety, daily schedule, room location, or discomfort) half or more of the time? No. EXPRESSION - STEP 3: How often does the patient need help to express directions and conversation about basic needs? 10-24% of the time EXPRESSION - SCORE: 4-MIN SOCIAL INTERACTION: SOCIAL INTERACTION - STEP 1: Does the patient require a helper to interact with others in social and therapeutic situations? Yes. SOCIAL INTERACTION - STEP 2: Does the patient interact appropriately half or more of the time? Yes. SOCIAL INTERACTION - STEP 3: How often does the patient need help to interact appropriately? 25-49% of the time SOCIAL INTERACTION - SCORE: 3-MOD PROBLEM SOLVING: PROBLEM SOLVING - STEP 1: Does the patient need help from a person or device, or need extra time to solve complex problems such as managing a checking account or confronting interpersonal problems? Yes. PROBLEM SOLVING - STEP 2: Does the patient solve basic routine problems half or more of the time? Yes. PROBLEM SOLVING - STEP 3: How often does the patient need help to solve basic routine problems? 25%-49% of the time PROBLEM SOLVING - SCORE: 3-MOD MEMORY: MEMORY - STEP 1: Does the patient need help from a person or device, or need extra time to remember frequently encount ered people, daily routines, and executing requests? Yes. MEMORY - STEP 2: How often does the patient need help to remember frequently encountered people, daily routines, and e xecuting requests? 10% - 24% of the time MEMORY - SCORE: 4-MIN SIGNATURE PANEL: The following modified sections: Eating - Score, Grooming - Score, Bathing - Score, Dressing - Upper Body - Score, Dressing - Lower Body - Score, Toileting - Score, Bladder Management - Score, Bowel Man agement - Score, Transfers: Bed, Chair, Wheelchair - Score, Transfers: Toilet - Score, Transfers: Stefania wer - Score, Transfers: Tub - Score, Locomotion: Walk - Score, Locomotion: Wheelchair - Score, Compre hension - Score, Expression - Score, Social Interaction - Score, Problem Solving - Score, Memory - Sc ore were [electronically] signed by Geeta Hill C.N.A. on SatJul 17 2018 14:29:36 GMT-0600 ([facility])
--- NOTE | 2018-07-17 14:55 | FAST ---
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 Trino Pineda M.D. ADMISSION DIAGNOSIS: - Orthopaedic Disorders 08 - Unilateral Hip Fracture (08.11) RIGHT FEMORAL NECK FRACTURE. EATING: Activity did not occur on this shift EATING - SCORE: 0-UNK GROOMING: Activity did not occur on this shift GROOMING - SCORE: 0-UNK BATHING: Activity did not occur on this shift BATHING - SCORE: 0-UNK DRESSING - UPPER BODY: Activity did not occur on this shift Patient is not dressing in public clothing ARTICLES SCORE Total number of steps: 0 DRESSING - UPPER BODY - SCORE: 0-UNK DRESSING - LOWER BODY: Activity did not occur on this shift Patient is not dressing in public clothing ARTICLES SCORE Total number of steps: 0 DRESSING - LOWER BODY - SCORE: 0-UNK TOILETING: Activity did not occur on this shift TOILETING - SCORE: 0-UNK BLADDER MANAGEMENT: Activity did not occur on this shift BLADDER MANAGEMENT - SCORE: 7-IND BOWEL MANAGEMENT: Activity did not occur on this shift BOWEL MANAGEMENT - SCORE: 7-IND TRANSFERS: BED, CHAIR, WHEELCHAIR: TRANSFERS: BED, CHAIR, WHEELCHAIR - STEP 1: Does the patient require assistance of a person or device, or need extra time with bed, chair, or whe elchair transfers? Yes. TRANSFERS: BED, CHAIR, WHEELCHAIR - STEP 2: Does the patient require the assistance of a helper? Yes. TRANSFERS: BED, CHAIR, WHEELCHAIR - STEP 3: How much assistance does the patient require from the helper? Steadying/guiding assistance TRANSFERS: BED, CHAIR, WHEELCHAIR - SCORE: 4-MIN TRANSFERS: TOILET: Activity did not occur on this shift TRANSFERS: TOILET - SCORE: 0-UNK TRANSFERS: SHOWER: Activity did not occur on this shift TRANSFERS: SHOWER - SCORE: 0-UNK TRANSFERS: TUB: Activity did not occur on this shift TRANSFERS: TUB - SCORE: 0-UNK LOCOMOTION: WALK: LOCOMOTION: WALK - STEP 1: Does the patient need help from a person or device, or need extra time to walk 150 feet? Yes. LOCOMOTION: WALK - STEP 2: How much assistance does the patient require to walk a minimum of 150 feet? Only supervision, cuing, or coaxing LOCOMOTION: WALK - SCORE: 5-SUP LOCOMOTION: WHEELCHAIR: Activity did not occur on this shift LOCOMOTION: WHEELCHAIR - SCORE: 0-UNK LOCOMOTION: STAIRS: LOCOMOTION: STAIRS - STEP 1: Does the patient need help to go up and down 12 to 14 stairs? Yes. LOCOMOTION: STAIRS - STEP 2: How much assistance does the patient need from the helper to go a minimum of 12 to 14 stairs? The pat ient goes less than 12 stairs, but at least 4 stairs LOCOMOTION: STAIRS - SCORE: 2-MAX COMPREHENSION: COMPREHENSION - SCORE: 0-UNK EXPRESSION EXPRESSION - SCORE: 0-UNK SOCIAL INTERACTION: SOCIAL INTERACTION - SCORE: 0-UNK PROBLEM SOLVING: PROBLEM SOLVING - SCORE: 0-UNK MEMORY: MEMORY - SCORE: 0-UNK SIGNATURE PANEL: The following modified sections: Transfers: Bed, Chair, Wheelchair - Score, Transfers: Toilet - Score , Locomotion: Walk - Score, Locomotion: Wheelchair - Score, Locomotion: Stairs - Score were [electron ically] signed by Aubrey Kruse PT on SatJul 17 2018 14:54:52 GMT-0600 (Central Standard Time)
--- NOTE | 2018-07-17 14:59 | FAST ---
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 Trino Pineda M.D. ADMISSION DIAGNOSIS: - Orthopaedic Disorders 08 - Unilateral Hip Fracture (08.11) RIGHT FEMORAL NECK FRACTURE. EATING: Activity did not occur on this shift EATING - SCORE: 0-UNK GROOMING: Activity did not occur on this shift GROOMING - SCORE: 0-UNK BATHING: Activity did not occur on this shift BATHING - SCORE: 0-UNK DRESSING - UPPER BODY: Activity did not occur on this shift Patient is not dressing in public clothing ARTICLES SCORE Total number of steps: 0 DRESSING - UPPER BODY - SCORE: 0-UNK DRESSING - LOWER BODY: Activity did not occur on this shift Patient is not dressing in public clothing ARTICLES SCORE Total number of steps: 0 DRESSING - LOWER BODY - SCORE: 0-UNK TOILETING: Activity did not occur on this shift TOILETING - SCORE: 0-UNK BLADDER MANAGEMENT: Activity did not occur on this shift BLADDER MANAGEMENT - SCORE: 7-IND BOWEL MANAGEMENT: Activity did not occur on this shift BOWEL MANAGEMENT - SCORE: 7-IND TRANSFERS: BED, CHAIR, WHEELCHAIR: TRANSFERS: BED, CHAIR, WHEELCHAIR - STEP 1: Does the patient require assistance of a person or device, or need extra time with bed, chair, or whe elchair transfers? Yes. TRANSFERS: BED, CHAIR, WHEELCHAIR - STEP 2: Does the patient require the assistance of a helper? Yes. TRANSFERS: BED, CHAIR, WHEELCHAIR - STEP 3: How much assistance does the patient require from the helper? Only supervision TRANSFERS: BED, CHAIR, WHEELCHAIR - SCORE: 5-SUP TRANSFERS: TOILET: Activity did not occur on this shift TRANSFERS: TOILET - SCORE: 0-UNK TRANSFERS: SHOWER: Activity did not occur on this shift TRANSFERS: SHOWER - SCORE: 0-UNK TRANSFERS: TUB: Activity did not occur on this shift TRANSFERS: TUB - SCORE: 0-UNK LOCOMOTION: WALK: LOCOMOTION: WALK - STEP 1: Does the patient need help from a person or device, or need extra time to walk 150 feet? Yes. LOCOMOTION: WALK - STEP 2: How much assistance does the patient require to walk a minimum of 150 feet? Only supervision, cuing, or coaxing LOCOMOTION: WALK - SCORE: 5-SUP LOCOMOTION: WHEELCHAIR: Activity did not occur on this shift LOCOMOTION: WHEELCHAIR - SCORE: 0-UNK LOCOMOTION: STAIRS: Activity did not occur on this shift LOCOMOTION: STAIRS - SCORE: 0-UNK COMPREHENSION: COMPREHENSION - SCORE: 0-UNK EXPRESSION EXPRESSION - SCORE: 0-UNK SOCIAL INTERACTION: SOCIAL INTERACTION - SCORE: 0-UNK PROBLEM SOLVING: PROBLEM SOLVING - SCORE: 0-UNK MEMORY: MEMORY - SCORE: 0-UNK SIGNATURE PANEL: The following modified sections: Transfers: Bed, Chair, Wheelchair - Score, Transfers: Toilet - Score , Locomotion: Walk - Score, Locomotion: Wheelchair - Score, Locomotion: Stairs - Score were [electron dana] signed by Aubrey Kruse PT on SatJul 17 2018 14:57:48 GMT-0600 (Central Standard Time)
[2018-07-17] MEDS: MAGNESIUM HYDROXIDE 8% 30 ML PO PRN (15:04)
--- NOTE | 2018-07-17 17:50 | R.PN ---
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 Pt denied any depression. Patient is lethargic with fever. Chest x-ray is negative. Right hip x-ray shows no abnormalities. WB Cs 6.9. Hgb 8.7, procalcitonin down to 0.99 from 22.49, Creatinine 2.52. UA is negative. Patient fini shed rocephin. Ambulated 550' with standby assistance using a rolling walker. Self-propelled wheelchair 250' with st andby assistance. Up and down 5 steps with bilateral hand rails and contact guard assistance. Require s moderate assistance for speech expression. VITAL SIGNS Temperature: 97.8 F SBP/DBP: 145/66 Pulse: 53 Resp: 16 MEDICATION ALLERGIES: No Known Drug Allergies (NKDA) ENVIRONMENTAL ALLERGIES: None Known - Substance Allergies None Known - Other Allergies None Known NURSING: - Shower allowing shower - Skin care per protocol PRECAUTIONS: - Posterior Hip Precaution No adduction across midline No external rotation No hip flexion >90 degrees No internal rotation No wheel chair propulsion - Weight Bearing Precaution WBAT right LE ACTIVITIES OOB only with supervision THERAPIES: - Occupational Therapy Evaluate and Treat. - Physical Therapy Evaluate and Treat. PHYSICAL EXAM - Gen Alert and awake Lying in bed No apparent distress Oriented to: person, time, and place - Skin No breakdown No abnormalities - Eyes No abnormalities - ENMT No abnormalities - Neck No abnormalities - CVS RRR - Chest No abnormalities - Abd +bowel sounds - GI Non distended Deferred - No abnormalities - Ext Mild postoperative edema in the right lower extremity - MSK 4+/5 weakness in both lower extremities. - Neuro 4/5 strength bilaterally lower extremities. - Psych No abnormalities ASSESSMENT: Pt. is a 82 yo Right-handed black male.His impairment category is Orthopaedic Disorders 08 - Unilate ral Hip Fracture (01.18).Pre-morbidly, Pt. was independent/mod-I in Transfers Control, Communication, Social Cognition, Self-Care, Locomotion, and Sphincter Control; and he had good Sphincter Control.Cu rrently, he has deficits of Transfers Control, Balance, Locomotion, Endurance, Safety Awareness, and Self-Care.Pt. is now referred to [facility] for acute in-patient rehabilitatio n in order to maximize patient's functional independence in activities of daily living, strength, ROM , and mobility.- Rehab Goal Patient has realistic goal of being discharged at assistance level 6-Ayaan to reside at Home with Fam verónica/Relatives. MDM/PLAN: - Physical Therapy Decreased range of motion - to improve, our physical therapists will perform initial evaluation of p t's status upon admission and devise an individualized program for increasing patient's Range of Steven on. Gait dysfunction - to improve, our physical therapists will perform initial evaluation of pt's statu s upon admission and devise an individualized program for Gait Training, and Wheel Chair mobility Inability to transfer - to improve, our physical therapists will perform initial evaluation of pt's status upon admission and devise an individualized program for Bed mobility Need for home safety evaluation - to improve, our physical therapists will perform initial evaluatio n of pt's status upon admission and devise an individualized program for Home Evaluation Need in caregiver upon discharge - to improve, our physical therapists will perform initial evaluati on of pt's status upon admission and devise an individualized program for Caregiver Training New precaution - to improve, our physical therapists will perform initial evaluation of pt's status upon admission and devise an individualized program for Patient precaution education Edema - to improve, our physical therapists will perform initial evaluation of pt's status upon admi ssion and devise an individualized program for Elevation Training, and Lymphedema Therapy Poor balance - to improve, our physical therapists will perform initial evaluation of pt's status up on admission and devise an individualized program for Balance Training Poor endurance - to improve, our physical therapists will perform initial evaluation of pt's status upon admission and devise an individualized program for Endurance Training Weakness - to improve, our physical therapists will perform initial evaluation of pt's status upon a dmission and devise an individualized program for Aquatic Therapy, Neuromuscular Reeducation, and Str engthening Achieving independence - to improve, our physical therapists will perform initial evaluation of pt's status upon admission and devise an individualized program for Community Reintegration Activities - Occupational Therapy ADL deficits - to improve, our occupation therapists will perform initial evaluation of pt's status upon admission and devise an individualized program for Bathing, Bed mobility, Community Reintegratio n, Cooking, Dressing, Eating, Fine Motor Skills, Grooming, Homemaking, Kitchen Mobility, Laundry, Pat ient Education, Safety Awareness, Splinting - Positioning, Transfers(Toilet, Tub, Shower), and Wheel Chair Management Need for home health caregiver - to improve, our occupation therapists will perform initial evaluation of pt's status upon admission and devise an individualized program for Caregiver Training Weakness - to improve, our occupation therapists will perform initial evaluation of pt's status upon admission and devise an individualized program for Aquatic Therapy, Balance, Endurance, UE ROM, and UE strengthening - Anterior Hip Precaution No abduction No active extension No adduction across midline No external rotation No hip flexion >90 degrees No internal rotation - Diet - Liquid Texture Continue Regular - Tube Feed Continue N/A - Diet Type Continue Regular - Posterior Hip Precaution No adduction across midline No external rotation No hip flexion >90 degrees No internal rotation No wheel chair propulsion - Weight Bearing Precaution WBAT right LE - Skin care per protocol - Diet - Solid Texture Continue Regular - Shower allowing shower FUNCTIONAL STATUS: UPDATED AT WEEKLY TEAM CONFERENCE - Bladder Same accident frequency: 7-Ind - No accidents in the past 7 days - Bowel Same accident frequency: 7-Ind - No accidents in the past 7 days - Walking Same score based on distance walked: 1(<=50ft) - Wheelchair Same score based on distance traveled: 0(N/A) FUNCTIONAL STATUS: - Self-Care A. Eating Ayaan B. Grooming Ayaan C. Bathing maxA D. Dressing - Upper sup E. Dressing - Lower maxA F. Toileting maxA - Sphincter Control G: Bladder control Ind H: Bowel control Ind - Transfers Control I. Bed/Chair/Wheelchair modA J. Toilet modA K. Tub/Shower ADNO - Locomotion L. Walk/Wheelchair (C) modA L. Walk/Wheelchair (W) modA M. Stairs ADNO - Communication N. Comprehension (B) Ayaan O. Expression (B) Ayaan - Social Cognition P. Social Interaction Ayaan Q. Problem Solving Ayaan R. Memory Ayaan - Endurance Fair - Balance Fair - Safety Awareness Fair CURRENT FUNC. DEFICITS: Transfers Control, Balance, Locomotion, Endurance, Safety Awareness, and Self-Care SIGNATURE PANEL: (PROMOTIONS MANAGER)
[2018-07-17] MEDS: ATORVASTATIN 20 MG TAB PO SCH (20:14)
[2018-07-17] MEDS: DOCUSATE NA/SENNA CONC 1 TAB PO SCH (20:15)
--- NOTE | 2018-07-18 01:43 | FAST ---
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 Trino Pineda M.D. ADMISSION DIAGNOSIS: - Orthopaedic Disorders 08 - Unilateral Hip Fracture (08.11) RIGHT FEMORAL NECK FRACTURE. EATING: Activity did not occur on this shift EATING - SCORE: 0-UNK GROOMING: Activity did not occur on this shift GROOMING - SCORE: 0-UNK BATHING: Activity did not occur on this shift BATHING - SCORE: 0-UNK DRESSING - UPPER BODY: Patient is not dressing in public clothing ARTICLES SCORE Total number of steps: 0 DRESSING - UPPER BODY - SCORE: 0-UNK DRESSING - LOWER BODY: Patient is not dressing in public clothing ARTICLES SCORE Total number of steps: 0 DRESSING - LOWER BODY - SCORE: 0-UNK TOILETING: Activity did not occur on this shift TOILETING - SCORE: 0-UNK BLADDER MANAGEMENT: [place] removes incontinent device (Depends, pull ups, etc.); cleans the patient after accident / inco ntinent episode; and, applies new incontinent device. BLADDER MANAGEMENT - SCORE: 1-DEP BLADDER MANAGEMENT - FREQUENCY OF ACCIDENTS: BLADDER MANAGEMENT(FA) - STEP 1: How many accidents has the patient had during the current shift? 1 BOWEL MANAGEMENT: Activity did not occur on this shift BOWEL MANAGEMENT - SCORE: 7-IND TRANSFERS: BED, CHAIR, WHEELCHAIR: Activity did not occur on this shift TRANSFERS: BED, CHAIR, WHEELCHAIR - SCORE: 0-UNK TRANSFERS: TOILET: Activity did not occur on this shift TRANSFERS: TOILET - SCORE: 0-UNK TRANSFERS: SHOWER: Activity did not occur on this shift TRANSFERS: SHOWER - SCORE: 0-UNK TRANSFERS: TUB: Activity did not occur on this shift TRANSFERS: TUB - SCORE: 0-UNK LOCOMOTION: WALK: Activity did not occur on this shift LOCOMOTION: WALK - SCORE: 0-UNK LOCOMOTION: WHEELCHAIR: Activity did not occur on this shift LOCOMOTION: WHEELCHAIR - SCORE: 0-UNK COMPREHENSION: COMPREHENSION: TYPE: Both COMPREHENSION - STEP 1: Does the patient require help from a person or device, or need extra time to understand complex and a bstract ideas (such as current events, finances, discharge planning, medical issues, relationships, e tc)? Yes. COMPREHENSION - STEP 2: Does the patient require help to understand questions or statements about basic needs or ideas (such as hunger, thirst, sleep, safety, daily schedule, room location, or discomfort) half or more of the t reji? No. COMPREHENSION - STEP 3: How often does the patient need help to understand directions and conversation about basic needs? 10% - 24% of the time COMPREHENSION - SCORE: 4-MIN EXPRESSION EXPRESSION: TYPE: Both EXPRESSION - STEP 1: Does the patient require help from a person or device, or need extra time expressing complex and abst ract ideas (such as current events, finances, discharge planning, medical issues, relationships, etc) ? Yes. EXPRESSION - STEP 2: Does the patient require help to express basic necessities or ideas (such as hunger, thirst, sleep, s afety, daily schedule, room location, or discomfort) half or more of the time? No. EXPRESSION - STEP 3: How often does the patient need help to express directions and conversation about basic needs? 10-24% of the time EXPRESSION - SCORE: 4-MIN SOCIAL INTERACTION: SOCIAL INTERACTION - STEP 1: Does the patient require a helper to interact with others in social and therapeutic situations? No. SOCIAL INTERACTION - STEP 2: Does the patient need extra time in social situations, OR does s/he interact with staff, other patien ts, and family members ONLY in structured environments, OR does s/he require medication for social in teraction? Yes, patient needs extra time SOCIAL INTERACTION - SCORE: 6-OTILIO PROBLEM SOLVING: PROBLEM SOLVING - STEP 1: Does the patient need help from a person or device, or need extra time to solve complex problems such as managing a checking account or confronting interpersonal problems? Yes. PROBLEM SOLVING - STEP 2: Does the patient solve basic routine problems half or more of the time? Yes. PROBLEM SOLVING - STEP 3: How often does the patient need help to solve basic routine problems? 10%-24% of the time PROBLEM SOLVING - SCORE: 4-MIN MEMORY: MEMORY - STEP 1: Does the patient need help from a person or device, or need extra time to remember frequently encount ered people, daily routines, and executing requests? Yes. MEMORY - STEP 2: How often does the patient need help to remember frequently encountered people, daily routines, and e xecuting requests? 25% - 49% of the time MEMORY - SCORE: 3-MOD SIGNATURE PANEL: The following modified sections: Eating - Score, Grooming - Score, Dressing - Upper Body - Score, Prashant ssing - Lower Body - Score, Toileting - Score, Bladder Management - Score, Bowel Management - Score, Transfers: Bed, Chair, Wheelchair - Score, Transfers: Toilet - Score, Transfers: Shower - Score, Simeon sfers: Tub - Score, Locomotion: Walk - Score, Locomotion: Wheelchair - Score, Comprehension - Score, Expression - Score, Social Interaction - Score, Problem Solving - Score, Memory - Score were [electro nically] signed by Gina Preston CNA on SatJul 18 2018 01:42:29 GMT-0600 (Central Standard Time)
[2018-07-18] MEDS: PROMOD 30 ML DOSE PO SCH ×2 (08:00→19:40)
[2018-07-18] MEDS: HYDRALAZINE HCL 25 MG TABLET PO SCH ×2 (08:00→19:40)
[2018-07-18] MEDS: METAMUCIL PO SCH ×2 (08:10→19:37)
[2018-07-18] MEDS: ENOXAPARIN 30 MG/0.3 ML SQ SCH (08:11)
[2018-07-18] MEDS: TAMSULOSIN 0.4 MG SR CAP PO SCH (08:11)
[2018-07-18] MEDS: FERROUS SULFATE 325 MG TAB PO SCH (08:11)
[2018-07-18] MEDS: LIDOCAINE 5% PATCH TOP SCH (08:11)
[2018-07-18] MEDS: MAGNESIUM OXIDE 400 MG TAB PO SCH ×2 (08:11→19:39)
[2018-07-18] MEDS: FOLIC ACID 1 MG TABLET PO SCH (08:12)
[2018-07-18] MEDS: cloNIDine HCl 0.1 MG TAB PO SCH ×3 (08:12→20:23)
[2018-07-18] MEDS: CARVEDILOL 6.25 MG TAB PO SCH ×2 (08:12→19:39)
[2018-07-18] MEDS: FE SULF/FA/VIT B COMP & C TAB PO SCH (08:12)
[2018-07-18] MEDS: AMLODIPINE 5 MG TAB PO SCH ×2 (08:12→19:38)
[2018-07-18] MEDS: MINOXIDIL 2.5 MG TAB PO SCH ×2 (08:13→19:40)
[2018-07-18] MEDS: CODEINE 30MG/APAP 300MG TAB PO PRN ×3 (08:13→19:39)
[2018-07-18] MEDS: CEFTAZIDIME 1 GM in NA CHLORIDE 0.9% 50 ML IV SCH ×2 (08:40→19:37)
--- NOTE | 2018-07-18 09:26 | FAST ---
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 Trino Pineda M.D. ADMISSION DIAGNOSIS: - Orthopaedic Disorders 08 - Unilateral Hip Fracture (08.11) RIGHT FEMORAL NECK FRACTURE. EATING: EATING - STEP 1: Does the patient require the assistance of a person or device, or need extra time when eating? Yes. EATING - STEP 2: Does the patient require the assistance of a helper? No, patient only requires an assistive device, O R s/he takes more than reasonable time to eat, OR there is a safety concern, OR s/he requires modifie d food consistency EATING - SCORE: 6-OTILIO GROOMING: Wash, rinse, and dry face GROOMING - STEP 1: Does the patient require the assistance of a person or device, or need extra time when grooming? Yes. GROOMING - STEP 2: Does the patient require the assistance of a helper? Yes. GROOMING - STEP 3: How much assistance does the patient require from the helper? Cuing, coaxing, instructions, or encour agement for completion of grooming GROOMING - SCORE: 5-SUP BATHING: Activity did not occur on this shift BATHING - SCORE: 0-UNK DRESSING - UPPER BODY: Activity did not occur on this shift ARTICLES SCORE Total number of steps: 0 DRESSING - UPPER BODY - SCORE: 0-UNK DRESSING - LOWER BODY: Elastic waist pants (three steps) Slip-on shoe - Left foot (one step) Slip-on shoe - Right foot (one step) ARTICLES SCORE Total number of steps: 5 DRESSING - LOWER BODY - STEP 1: Does the patient require help from a person or device, or need extra time when dressing below the [address]? Yes. DRESSING - LOWER BODY - STEP 2: Does the patient require the assistance of a helper? Yes. DRESSING - LOWER BODY - STEP 3: Does the helper touch the patient while dressing? Yes. DRESSING - LOWER BODY - STEP 4: How many of the total steps does the patient complete on his/her own? 1 DRESSING - LOWER BODY - STEP 5: Does patient require total assistance for dressing below the waist such as the helper holding clothin g and performing basically all the activities? Yes. DRESSING - LOWER BODY - SCORE: 1-DEP TOILETING: TOILETING - STEP 1: Does the patient require the assistance of a person or device, or need extra time with toileting? Yes . TOILETING - STEP 2: Does the patient require the assistance of a helper? Yes. TOILETING - STEP 3: How much assistance does the patient require from the helper? Hands-on assistance from the helper TOILETING - STEP 4: Of the 3 tasks: 1) Adjusting clothing prior to use, 2) Cleansing of perineal area, 3) Adjusting clot ashley after use; How many tasks does the patient perform WITHOUT assistance of the helper? One task TOILETING - SCORE: 2-MAX BLADDER MANAGEMENT: BLADDER MANAGEMENT - STEP 1: Does the patient control the bladder completely and intentionally without equipment or devices or med ications, and is always continent? No. BLADDER MANAGEMENT - STEP 2: Does the patient require the assistance of a helper? Yes. BLADDER MANAGEMENT - STEP 3: How much assistance does the patient require from the helper? Patient requires contact assistance fro m the helper BLADDER MANAGEMENT - STEP 4: How much contact assistance does the patient require from the helper? Patient requires moderate jan tance, and performs 50% to 75% of bladder management tasks - [place] positions AND holds urinal or bed henry BLADDER MANAGEMENT - SCORE: 3-MOD BLADDER MANAGEMENT - FREQUENCY OF ACCIDENTS: BLADDER MANAGEMENT(FA) - STEP 1: How many accidents has the patient had during the current shift? 0 BOWEL MANAGEMENT: BOWEL MANAGEMENT - STEP 1: Does the patient control bowels completely and intentionally without equipment devices or medications AND is always continent? Yes. BOWEL MANAGEMENT - SCORE: 7-IND BOWEL MANAGEMENT - FREQUENCY OF ACCIDENTS: BOWEL MANAGEMENT(FA) - STEP 1: How many accidents has the patient had during the current shift? 0 TRANSFERS: BED, CHAIR, WHEELCHAIR: TRANSFERS: BED, CHAIR, WHEELCHAIR - STEP 1: Does the patient require assistance of a person or device, or need extra time with bed, chair, or whe elchair transfers? Yes. TRANSFERS: BED, CHAIR, WHEELCHAIR - STEP 2: Does the patient require the assistance of a helper? Yes. TRANSFERS: BED, CHAIR, WHEELCHAIR - STEP 3: How much assistance does the patient require from the helper? Steadying/guiding assistance TRANSFERS: BED, CHAIR, WHEELCHAIR - SCORE: 4-MIN TRANSFERS: TOILET: TRANSFERS: TOILET - STEP 1: Does the patient require the assistance of a person or device, or need extra time with toilet transfe rs? Yes. TRANSFERS: TOILET - STEP 2: Does the patient require the assistance of a helper? Yes. TRANSFERS: TOILET - STEP 3: How much assistance does the patient require from the helper? Patient performs half or more of the tr ansferring tasks TRANSFERS: TOILET - STEP 4: Does the patient need only incidental help such as contact guard or steadying during toilet transfer? Yes. TRANSFERS: TOILET - SCORE: 4-MIN TRANSFERS: SHOWER: Activity did not occur on this shift TRANSFERS: SHOWER - SCORE: 0-UNK TRANSFERS: TUB: Activity did not occur on this shift TRANSFERS: TUB - SCORE: 0-UNK LOCOMOTION: WALK: Activity did not occur on this shift LOCOMOTION: WALK - SCORE: 0-UNK LOCOMOTION: WHEELCHAIR: Activity did not occur on this shift LOCOMOTION: WHEELCHAIR - SCORE: 0-UNK COMPREHENSION: COMPREHENSION - SCORE: 0-UNK EXPRESSION EXPRESSION - SCORE: 0-UNK SOCIAL INTERACTION: SOCIAL INTERACTION - SCORE: 0-UNK PROBLEM SOLVING: PROBLEM SOLVING - SCORE: 0-UNK MEMORY: MEMORY - SCORE: 0-UNK SIGNATURE PANEL: The following modified sections: Eating - Score, Grooming - Score, Bathing - Score, Dressing - Upper Body - Score, Dressing - Lower Body - Score, Toileting - Score, Bladder Management - Score, Bowel Man agement - Score, Transfers: Bed, Chair, Wheelchair - Score, Transfers: Toilet - Score, Transfers: Stefania wer - Score, Transfers: Tub - Score, Locomotion: Walk - Score, Locomotion: Wheelchair - Score, Compre hension - Score, Expression - Score, Social Interaction - Score, Problem Solving - Score, Memory - Sc ore were [electronically] signed by Jamila Gaston CNA on SatJul 18 2018 09:25:06 GMT-0600 (Cent[place] Standard Time)
--- NOTE | 2018-07-18 09:47 | P.RH.PN ---
Estimated Length of Stay: 16 Expected Discharge Date: 07/22/18 Discharge Disposition Plan: Home Family Support: Yes [facility] Goal: Mobility, Transfers, Self Care Vital Signs: Last Vital Signs Temp 97.6 F 07/18/18 06:45 Pulse 56 07/18/18 08:12 Resp 18 07/18/18 06:45 BP 145/56 H 07/18/18 08:12 Pulse Ox 97 07/18/18 06:45 Laboratory: Laboratory Last Values WBC 6.3 K/uL (4.3-10.9) 07/17/18 06:27 RBC 3.59 M/uL (4.33-5.43) L 07/17/18 06:27 Hgb 9.5 g/dL (13.6-17.9) L 07/17/18 06:27 Hct 28.6 % (39.6-49.0) L 07/17/18 06:27 MCV 79.6 fL (80-100) L 07/17/18 06:27 MCH 26.4 pg (27.0-35.0) L 07/17/18 06:27 MCHC 33.2 g/dL (32.0-36.0) 07/17/18 06:27 RDW 16.0 % (12.1-15.2) H 07/17/18 06:27 Plt Count 315 K/uL (152-406) 07/17/18 06:27 MPV 6.7 fL (7.6-11.3) L 07/17/18 06:27 Neutrophils % 72.9 % (41.7-73.7) 07/17/18 06:27 Lymphocytes % 13.8 % (15.3-44.8) L 07/17/18 06:27 Monocytes % 9.6 % (3.3-12.3) 07/17/18 06:27 Eosinophils % 3.2 % (0-4.4) 07/17/18 06:27 Basophils % 0.5 % (0-1.3) 07/17/18 06:27 Absolute Neutrophils 4.6 K/uL (1.8-8.0) 07/17/18 06:27 Absolute Lymphocytes 0.9 K/uL (0.7-4.9) 07/17/18 06:27 Absolute Monocytes 0.6 K/uL (0.1-1.3) 07/17/18 06:27 Absolute Eosinophils 0.2 K/uL (0-0.5) 07/17/18 06:27 Absolute Basophils 0.0 K/uL (0-0.5) 07/17/18 06:27 Hypersegmented Neuts 2+ 07/11/18 08:30 Hypochromasia 1+ 07/09/18 06:00 Anisocytosis Slight 07/17/18 06:27 Microcytosis Slight 07/17/18 06:27 Target Cells 1+ 07/09/18 06:00 Rolla Cells 2+ 07/09/18 06:00 Schistocytes 1+ 07/09/18 06:00 Morphology Comment Noted (NOT SEEN) 07/17/18 06:27 Sodium 136 mmol/L (136-145) 07/17/18 06:27 Potassium 4.8 mmol/L (3.5-5.1) 07/17/18 06:27 Chloride 102 mmol/L (98-107) 07/17/18 06:27 Carbon Dioxide 28 mmol/L (21-32) 07/17/18 06:27 BUN 44 mg/dL (7-18) H 07/17/18 06:27 Creatinine 2.44 mg/dL (0.55-1.3) H 07/17/18 06:27 Estimated GFR 31 mL/min (=/>90) L 07/17/18 06:27 Glucose 89 mg/dL (74-106) 07/17/18 06:27 Lactic Acid 0.9 mmol/L (0.4-2.0) 07/09/18 12:20 Uric Acid 6.4 mg/dL (3.5-7.2) 07/14/18 07:37 Calcium 8.5 mg/dL (8.5-10.1) 07/17/18 06:27 Magnesium 2.2 mg/dL (1.8-2.4) 07/13/18 06:17 Total Bilirubin 0.3 mg/dL (0.2-1.0) 07/11/18 08:33 AST 10 U/L (15-37) L 07/11/18 08:33 ALT 11 U/L (12-78) L 07/11/18 08:33 Alkaline Phosphatase 64 U/L (45-117) 07/11/18 08:33 Lactate Dehydrogenase 214 U/L (87-241) 07/09/18 09:44 Serum Total Protein 6.9 g/dL (6.4-8.2) 07/11/18 08:33 Albumin 2.5 g/dL (3.4-5.0) L 07/17/18 06:27 Globulin 4.4 g/dL (2.3-3.5) H 07/11/18 08:33 Albumin/Globulin Ratio 0.6 (1.1-1.8) L 07/11/18 08:33 Prealbumin 20.9 mg/dL (20-40) 07/17/18 06:27 Procalcitonin 0.99 ng/mL (<0.50) H 07/16/18 06:05 Urine Color Yellow 07/07/18 18:21 Urine Appearance Clear 07/07/18 18:21 Urine pH 5.5 (5.0-7.0) 07/07/18 18:21 Ur Specific [place] 1.010 (1.005-1.030) 07/07/18 18:21 Urine Ketones Negative (NEG) 07/07/18 18:21 Urine Blood Negative (NEG) 07/07/18 18:21 Urine Nitrite Negative (NEG) 07/07/18 18:21 Urine Bilirubin Negative (NEG) 07/07/18 18:21 Urine Urobilinogen 1.0 mg/dL (0.2-1.0) 07/07/18 18:21 Ur Leukocyte Esterase Negative (NEG) 07/07/18 18:21 Urine RBC 5-10 /HPF (NONE SEEN) H 07/07/18 18:21 Urine WBC 5-10 /HPF (<5) H 07/07/18 18:21 Ur Squamous Epith Cells <5 /HPF (NONE SEEN) 07/07/18 18:21 Urine Bacteria <20 /HPF (NONE SEEN) 07/07/18 18:21 Urine Culture Reflexed Not needed 07/07/18 18:21 Urine Glucose Negative (NEG) 07/07/18 18:21 Urine Total Protein 1+ (NEG) H 07/07/18 18:21 ABO/Rh O POSITIVE 07/13/18 10:49 Antibody Screen Negative 07/13/18 10:49 Crossmatch See Detail 07/13/18 10:49 Weight: 168 lb 8 oz Wound Present: No Closed Surgical Incision Present: Yes Negative Pressure Wound Therapy Present: No Physician Update: Labs have been reviewed and his creatinine is elevated to 2.44. More water will be encouraged, 8 glasses daily. He is making fair with speech, occupational and physical therapy. He should be ready for discharge home next Saturday with 24 hour care and home health for PT, OT and speech. Medical Issues: DVT Prophylaxis - Lovenox 30mg Daily SQ. Ceftazidime 1gm Q12H IVPB Pain Issues: Tramadol 50mg Q4H PRN PO Functional Improvement: pt has demonstrated good progress throughout the week. He has improved his functional mobility and stability during ambulation and transfers. pt does continue to be limited by R hip pain at times. Skilled PT services continue to be necesasry to enhance functional performance and safety. Functional Improvement Occupational Therapy: Continues to require max assist with BADL tasks, due to poor initiation, and recall of adaptive equipment use and recall of hip precautions. Speech Therapy Update: Patient requires MOD A for auditory comprehension during functional tasks completion. Patient requires MIN A for verbal expression of basic wants/needs. Patient utilizes a combination of speech and gestures to communicate with caregivers. Patient is at MOD I for social interaction. He participates well in individual and group tx. Patient requires MOD A for problem solving and memory as he exhibits difficulties initiating and generating solutions to problems. He requires extra response time and in order for new learning to occur he requires multiple repetitions. At this time patient requires 24 hour supervision for safety. Summary: Patient's care plan and alf goals have been reviewed and revised as necessary. Please see the Rehabilitation Signature page for all necessary signatures.
--- NOTE | 2018-07-18 10:44 | PN ---
Date of Progress Note: 07/17/2018 Subjective: The patient was seen this morning for followup. No new complaints or problems reported by the patient. Lying in bed, not in any distress. His family member was with him at bedside. Objective: Vital Signs: Reviewed. HEENT: Unremarkable. Lungs: Clear to auscultation. Heart: Sounds normal. Abdomen: Soft. Bowel sounds normal. No guarding, rigidity, tenderness, distention. Extremities: No leg edema. Laboratory Data: White count 6.3, hemoglobin 9.5, platelets 315. Sodium 136, potassium 4.8, chlorid e 102, bicarb 28, BUN 44, creatinine 2.44. Yesterday, procalcitonin level 0.99. Impression: 1.Urinary tract infection, organism Pseudomonas. 2.Right hip fracture. 3.Anemia due to chronic kidney disease. 4.Anemia due to acute blood loss. 5.Hypertension. 6.Chronic kidney disease, stage 4. Plan: We will continue current medication, IV antibiotic, antihypertensive medication. DVT prophyla xis and physical therapy per Dr. Pineda. I will see him tomorrow for followup. BRADY/MODL Voice ID: [id number] Report ID: [id number]
--- NOTE | 2018-07-18 12:27 | FAST ---
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 Trino Pineda M.D. ADMISSION DIAGNOSIS: - Orthopaedic Disorders 08 - Unilateral Hip Fracture (08.11) RIGHT FEMORAL NECK FRACTURE. EATING: Activity did not occur on this shift EATING - SCORE: 0-UNK GROOMING: Wash, rinse, and dry face Wash, rinse, and dry hands GROOMING - STEP 1: Does the patient require the assistance of a person or device, or need extra time when grooming? Yes. GROOMING - STEP 2: Does the patient require the assistance of a helper? Yes. GROOMING - STEP 3: How much assistance does the patient require from the helper? Cuing, coaxing, instructions, or encour agement for completion of grooming GROOMING - SCORE: 5-SUP BATHING: Abdomen Buttocks Chest Left arm Left lower leg and foot Left upper leg Perineal area Right arm Right lower leg and foot Right upper leg BATHING - STEP 1: Does the patient require the assistance of a person or device, or need extra time when bathing? Yes. BATHING - STEP 2: Does the patient require the assistance of a helper? Yes. BATHING - STEP 3: How much assistance does the patient require from the helper? Only prior preparation such as putting bathing equipment within reach, turning on water, checking water temperature BATHING - SCORE: 5-SUP DRESSING - UPPER BODY: Sweater (four steps) T-shirt/pullover shirt (four steps) ARTICLES SCORE Total number of steps: 8 DRESSING - UPPER BODY - STEP 1: Does the patient require help from a person or device, or need extra time when dressing above the [address]? Yes. DRESSING - UPPER BODY - STEP 2: Does the patient require the assistance of a helper? Yes. DRESSING - UPPER BODY - STEP 3: Does the helper touch the patient while dressing? No. DRESSING - UPPER BODY - SCORE: 5-SUP DRESSING - LOWER BODY: Elastic waist pants (three steps) Slip-on shoe - Left foot (one step) Slip-on shoe - Right foot (one step) Sock - Left foot (one step) Sock - Right foot (one step) Underwear (three steps) ARTICLES SCORE Total number of steps: 10 DRESSING - LOWER BODY - STEP 1: Does the patient require help from a person or device, or need extra time when dressing below the [address]? Yes. DRESSING - LOWER BODY - STEP 2: Does the patient require the assistance of a helper? Yes. DRESSING - LOWER BODY - STEP 3: Does the helper touch the patient while dressing? Yes. DRESSING - LOWER BODY - STEP 4: How many of the total steps does the patient complete on his/her own? 8 DRESSING - LOWER BODY - SCORE: 4-MIN TOILETING: Activity did not occur on this shift TOILETING - SCORE: 0-UNK BLADDER MANAGEMENT: Activity did not occur on this shift BLADDER MANAGEMENT - SCORE: 7-IND BOWEL MANAGEMENT: Activity did not occur on this shift BOWEL MANAGEMENT - SCORE: 7-IND TRANSFERS: BED, CHAIR, WHEELCHAIR: Activity did not occur on this shift TRANSFERS: BED, CHAIR, WHEELCHAIR - SCORE: 0-UNK TRANSFERS: TOILET: Activity did not occur on this shift TRANSFERS: TOILET - SCORE: 0-UNK TRANSFERS: SHOWER: Activity did not occur on this shift TRANSFERS: SHOWER - SCORE: 0-UNK TRANSFERS: TUB: TRANSFERS: TUB - STEP 1: Does the patient require the assistance of a person or device, or need extra time with tub transfers? Yes. TRANSFERS: TUB - STEP 2: Does the patient require the assistance of a helper? Yes. TRANSFERS: TUB - STEP 3: How much assistance does the patient require from the helper? Incidental help such as contact guardin g or steadying, OR help to lift one leg into the tub TRANSFERS: TUB - SCORE: 4-MIN LOCOMOTION: WALK: Activity did not occur on this shift LOCOMOTION: WALK - SCORE: 0-UNK LOCOMOTION: WHEELCHAIR: Activity did not occur on this shift LOCOMOTION: WHEELCHAIR - SCORE: 0-UNK LOCOMOTION: STAIRS: Activity did not occur on this shift LOCOMOTION: STAIRS - SCORE: 0-UNK COMPREHENSION: COMPREHENSION - SCORE: 0-UNK EXPRESSION EXPRESSION - SCORE: 0-UNK SOCIAL INTERACTION: SOCIAL INTERACTION - SCORE: 0-UNK PROBLEM SOLVING: PROBLEM SOLVING - SCORE: 0-UNK MEMORY: MEMORY - SCORE: 0-UNK SIGNATURE PANEL: The following modified sections: Eating - Score, Grooming - Score, Bathing - Score, Dressing - Upper Body - Score, Dressing - Lower Body - Score, Toileting - Score, Transfers: Bed, Chair, Wheelchair - S core, Transfers: Toilet - Score, Transfers: Shower - Score, Transfers: Tub - Score, Comprehension - S core, Expression - Score, Social Interaction - Score, Problem Solving - Score, Memory - Score were [e lectronically] signed by JUDI Smith on SatJul 18 2018 12:26:08 [facility]-0600 ([place] [address] [address] Time)
--- NOTE | 2018-07-18 14:03 | FAST ---
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 Trino Pineda M.D. ADMISSION DIAGNOSIS: - Orthopaedic Disorders 08 - Unilateral Hip Fracture (08.11) RIGHT FEMORAL NECK FRACTURE. EATING: Activity did not occur on this shift EATING - SCORE: 0-UNK GROOMING: Activity did not occur on this shift GROOMING - SCORE: 0-UNK BATHING: Activity did not occur on this shift BATHING - SCORE: 0-UNK DRESSING - UPPER BODY: Activity did not occur on this shift Patient is not dressing in public clothing ARTICLES SCORE Total number of steps: 0 DRESSING - UPPER BODY - SCORE: 0-UNK DRESSING - LOWER BODY: Activity did not occur on this shift Patient is not dressing in public clothing ARTICLES SCORE Total number of steps: 0 DRESSING - LOWER BODY - SCORE: 0-UNK TOILETING: Activity did not occur on this shift TOILETING - SCORE: 0-UNK BLADDER MANAGEMENT: Activity did not occur on this shift BLADDER MANAGEMENT - SCORE: 7-IND BOWEL MANAGEMENT: Activity did not occur on this shift BOWEL MANAGEMENT - SCORE: 7-IND TRANSFERS: BED, CHAIR, WHEELCHAIR: TRANSFERS: BED, CHAIR, WHEELCHAIR - STEP 1: Does the patient require assistance of a person or device, or need extra time with bed, chair, or whe elchair transfers? Yes. TRANSFERS: BED, CHAIR, WHEELCHAIR - STEP 2: Does the patient require the assistance of a helper? Yes. TRANSFERS: BED, CHAIR, WHEELCHAIR - STEP 3: How much assistance does the patient require from the helper? Only supervision TRANSFERS: BED, CHAIR, WHEELCHAIR - SCORE: 5-SUP TRANSFERS: TOILET: Activity did not occur on this shift TRANSFERS: TOILET - SCORE: 0-UNK TRANSFERS: SHOWER: Activity did not occur on this shift TRANSFERS: SHOWER - SCORE: 0-UNK TRANSFERS: TUB: Activity did not occur on this shift TRANSFERS: TUB - SCORE: 0-UNK LOCOMOTION: WALK: LOCOMOTION: WALK - STEP 1: Does the patient need help from a person or device, or need extra time to walk 150 feet? Yes. LOCOMOTION: WALK - STEP 2: How much assistance does the patient require to walk a minimum of 150 feet? Only supervision, cuing, or coaxing LOCOMOTION: WALK - SCORE: 5-SUP LOCOMOTION: WHEELCHAIR: LOCOMOTION: WHEELCHAIR - STEP 1: Does the patient need help to go 150 feet in a wheelchair? Yes. LOCOMOTION: WHEELCHAIR - STEP 2: How much assistance does the patient need from the helper? Only supervision, cuing, or coaxing LOCOMOTION: WHEELCHAIR - SCORE: 5-SUP LOCOMOTION: STAIRS: LOCOMOTION: STAIRS - STEP 1: Does the patient need help to go up and down 12 to 14 stairs? Yes. LOCOMOTION: STAIRS - STEP 2: How much assistance does the patient need from the helper to go a minimum of 12 to 14 stairs? The pat ient goes less than 12 stairs, but at least 4 stairs LOCOMOTION: STAIRS - SCORE: 2-MAX COMPREHENSION: COMPREHENSION - SCORE: 0-UNK EXPRESSION EXPRESSION - SCORE: 0-UNK SOCIAL INTERACTION: SOCIAL INTERACTION - SCORE: 0-UNK PROBLEM SOLVING: PROBLEM SOLVING - SCORE: 0-UNK MEMORY: MEMORY - SCORE: 0-UNK SIGNATURE PANEL: The following modified sections: Transfers: Bed, Chair, Wheelchair - Score, Transfers: Toilet - Score , Locomotion: Walk - Score, Locomotion: Wheelchair - Score, Locomotion: Stairs - Score were [dameon cortez] signed by Ezra Hurley PTA on SatJul 18 2018 14:02:29 GMT-0600 (Central Standard Time)
[2018-07-18] MEDS: DOCUSATE NA/SENNA CONC 1 TAB PO SCH (20:22)
[2018-07-18] MEDS: ATORVASTATIN 20 MG TAB PO SCH (20:22)
--- NOTE | 2018-07-18 23:44 | PN ---
Date of Progress Note: 07/18/2018 Subjective: The patient was seen this morning for followup. No new complaints or problems reported by him. He was sitting in wheelchair. Denies any specific complaints. Objective: Vital Signs: Reviewed. HEENT: Examination unremarkable. Lungs: Clear to auscultation. Heart: Sounds normal. Abdomen: Soft. Bowel sounds normal. No guarding, rigidity, tenderness, or distention. Extremities: No leg edema. Impression: 1.Right hip fracture. 2.Anemia due to acute blood loss. 3.Anemia due to chronic kidney disease. 4.Hypertension. 5.Chronic kidney disease stage 4. Plan: We will continue current medications. Continue current antibiotic for urinary tract infection . Physical therapy to be provided under guidance of Dr. Pineda. I will see him tomorrow for chaitanya medina. BRADY/MODL Voice ID: [id number] Report ID: [id number]
--- NOTE | 2018-07-19 02:23 | FAST ---
SHIFT START DATE/TIME: 07/18/2018 19:00 (CARDIOPULMONARY TECHNICIAN) SHIFT END DATE/TIME: 07/19/2018 07:00 (CARDIOPULMONARY TECHNICIAN) NAME MARIIA SADLER DATE OF : 1935 DATE OF ADMISSION: 07/07/2018 17:08 (CARDIOPULMONARY TECHNICIAN) PHONE: AGE: 82 SSN# [id number] GENDER: Male ENCOUNTER PHYSICIAN: Dr. Trino Pineda M.D. ADMISSION DIAGNOSIS: - Orthopaedic Disorders 08 - Unilateral Hip Fracture (08.11) RIGHT FEMORAL NECK FRACTURE. EATING: Activity did not occur on this shift EATING - SCORE: 0-UNK GROOMING: Activity did not occur on this shift GROOMING - SCORE: 0-UNK BATHING: Activity did not occur on this shift BATHING - SCORE: 0-UNK DRESSING - UPPER BODY: Patient is not dressing in public clothing ARTICLES SCORE Total number of steps: 0 DRESSING - UPPER BODY - SCORE: 0-UNK DRESSING - LOWER BODY: Patient is not dressing in public clothing ARTICLES SCORE Total number of steps: 0 DRESSING - LOWER BODY - SCORE: 0-UNK TOILETING: Activity did not occur on this shift TOILETING - SCORE: 0-UNK BLADDER MANAGEMENT: [place] removes incontinent device (Depends, pull ups, etc.); cleans the patient after accident / inco ntinent episode; and, applies new incontinent device. BLADDER MANAGEMENT - SCORE: 1-DEP BLADDER MANAGEMENT - FREQUENCY OF ACCIDENTS: BLADDER MANAGEMENT(FA) - STEP 1: How many accidents has the patient had during the current shift? 2 BOWEL MANAGEMENT: Activity did not occur on this shift BOWEL MANAGEMENT - SCORE: 7-IND TRANSFERS: BED, CHAIR, WHEELCHAIR: Activity did not occur on this shift TRANSFERS: BED, CHAIR, WHEELCHAIR - SCORE: 0-UNK TRANSFERS: TOILET: Activity did not occur on this shift TRANSFERS: TOILET - SCORE: 0-UNK TRANSFERS: SHOWER: Activity did not occur on this shift TRANSFERS: SHOWER - SCORE: 0-UNK TRANSFERS: TUB: Activity did not occur on this shift TRANSFERS: TUB - SCORE: 0-UNK LOCOMOTION: WALK: Activity did not occur on this shift LOCOMOTION: WALK - SCORE: 0-UNK LOCOMOTION: WHEELCHAIR: Activity did not occur on this shift LOCOMOTION: WHEELCHAIR - SCORE: 0-UNK COMPREHENSION: COMPREHENSION: TYPE: Both COMPREHENSION - STEP 1: Does the patient require help from a person or device, or need extra time to understand complex and a bstract ideas (such as current events, finances, discharge planning, medical issues, relationships, e tc)? Yes. COMPREHENSION - STEP 2: Does the patient require help to understand questions or statements about basic needs or ideas (such as hunger, thirst, sleep, safety, daily schedule, room location, or discomfort) half or more of the t reji? No. COMPREHENSION - STEP 3: How often does the patient need help to understand directions and conversation about basic needs? 10% - 24% of the time COMPREHENSION - SCORE: 4-MIN EXPRESSION EXPRESSION: TYPE: Both EXPRESSION - STEP 1: Does the patient require help from a person or device, or need extra time expressing complex and abst ract ideas (such as current events, finances, discharge planning, medical issues, relationships, etc) ? Yes. EXPRESSION - STEP 2: Does the patient require help to express basic necessities or ideas (such as hunger, thirst, sleep, s afety, daily schedule, room location, or discomfort) half or more of the time? No. EXPRESSION - STEP 3: How often does the patient need help to express directions and conversation about basic needs? 10-24% of the time EXPRESSION - SCORE: 4-MIN SOCIAL INTERACTION: SOCIAL INTERACTION - STEP 1: Does the patient require a helper to interact with others in social and therapeutic situations? No. SOCIAL INTERACTION - STEP 2: Does the patient need extra time in social situations, OR does s/he interact with staff, other patien ts, and family members ONLY in structured environments, OR does s/he require medication for social in teraction? Yes, patient needs extra time SOCIAL INTERACTION - SCORE: 6-OTILIO PROBLEM SOLVING: PROBLEM SOLVING - STEP 1: Does the patient need help from a person or device, or need extra time to solve complex problems such as managing a checking account or confronting interpersonal problems? Yes. PROBLEM SOLVING - STEP 2: Does the patient solve basic routine problems half or more of the time? Yes. PROBLEM SOLVING - STEP 3: How often does the patient need help to solve basic routine problems? 10%-24% of the time PROBLEM SOLVING - SCORE: 4-MIN MEMORY: MEMORY - STEP 1: Does the patient need help from a person or device, or need extra time to remember frequently encount ered people, daily routines, and executing requests? Yes. MEMORY - STEP 2: How often does the patient need help to remember frequently encountered people, daily routines, and e xecuting requests? 10% - 24% of the time MEMORY - SCORE: 4-MIN
[2018-07-19] MEDS: ENOXAPARIN 30 MG/0.3 ML SQ SCH (07:54)
[2018-07-19] MEDS: LIDOCAINE 5% PATCH TOP SCH (07:54)
[2018-07-19] MEDS: CEFTAZIDIME 1 GM in NA CHLORIDE 0.9% 50 ML IV SCH ×2 (07:54→19:30)
[2018-07-19] MEDS: HYDRALAZINE HCL 25 MG TABLET PO SCH ×2 (08:00→19:26)
[2018-07-19] MEDS: FOLIC ACID 1 MG TABLET PO SCH (08:29)
[2018-07-19] MEDS: MINOXIDIL 2.5 MG TAB PO SCH ×2 (08:29→19:26)
[2018-07-19] MEDS: FE SULF/FA/VIT B COMP & C TAB PO SCH (08:30)
[2018-07-19] MEDS: AMLODIPINE 5 MG TAB PO SCH ×2 (08:30→19:31)
[2018-07-19] MEDS: CARVEDILOL 6.25 MG TAB PO SCH ×2 (08:30→19:31)
[2018-07-19] MEDS: CODEINE 30MG/APAP 300MG TAB PO PRN ×2 (08:30→14:20)
[2018-07-19] MEDS: cloNIDine HCl 0.1 MG TAB PO SCH ×3 (08:30→20:20)
[2018-07-19] MEDS: MAGNESIUM OXIDE 400 MG TAB PO SCH ×2 (08:30→19:30)
[2018-07-19] MEDS: FERROUS SULFATE 325 MG TAB PO SCH (08:31)
[2018-07-19] MEDS: METAMUCIL PO SCH ×2 (08:31→19:31)
[2018-07-19] MEDS: PROMOD 30 ML DOSE PO SCH ×2 (08:31→19:31)
[2018-07-19] MEDS: TAMSULOSIN 0.4 MG SR CAP PO SCH (08:31)
--- NOTE | 2018-07-19 15:02 | PN ---
Date of Progress Note: 07/19/2018 Subjective: Patient was seen this morning for followup. No new complaints or problems reported by h im. Patient is lying in bed, not in distress. Objective: Vital Signs: Reviewed. HEENT: Examination unremarkable. Lungs: Clear to auscultation. Heart: Sounds normal. Abdomen: Soft. Bowel sounds normal. No guarding, rigidity, tenderness, or distention. Extremities: No leg edema. Impression: 1.Urinary tract infection, organism pseudomonas. 2.Right hip fracture. 3.Hypertension. 4.Chronic kidney disease, stage 4. 5.Anemia due to chronic kidney disease. 6.Anemia due to acute blood loss. Plan: We will continue current medication, antibiotic, current antihypertensive medication, and cont inue physical therapy under guidance of Dr. Pineda. BRADY/MODL Voice ID: [id number] Report ID: [id number]
--- NOTE | 2018-07-19 16:27 | FAST ---
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 Trino Pineda M.D. ADMISSION DIAGNOSIS: - Orthopaedic Disorders 08 - Unilateral Hip Fracture (08.11) RIGHT FEMORAL NECK FRACTURE. EATING: EATING - STEP 1: Does the patient require the assistance of a person or device, or need extra time when eating? Yes. EATING - STEP 2: Does the patient require the assistance of a helper? Yes. EATING - STEP 3: Does the patient perform half or more of the eating tasks? Yes. EATING - STEP 4: Does the patient need only supervision, cuing, coaxing OR help to apply an orthosis OR help to cut fo od, open containers, pour liquids, or butter bread? No. EATING - SCORE: 4-MIN GROOMING: Oral care GROOMING - STEP 1: Does the patient require the assistance of a person or device, or need extra time when grooming? Yes. GROOMING - STEP 2: Does the patient require the assistance of a helper? Yes. GROOMING - STEP 3: How much assistance does the patient require from the helper? Cuing, coaxing, instructions, or encour agement for completion of grooming GROOMING - SCORE: 5-SUP BATHING: Activity did not occur on this shift BATHING - SCORE: 0-UNK DRESSING - UPPER BODY: Sweater (four steps) T-shirt/pullover shirt (four steps) ARTICLES SCORE Total number of steps: 8 DRESSING - UPPER BODY - STEP 1: Does the patient require help from a person or device, or need extra time when dressing above the [address]? Yes. DRESSING - UPPER BODY - STEP 2: Does the patient require the assistance of a helper? Yes. DRESSING - UPPER BODY - STEP 3: Does the helper touch the patient while dressing? Yes. DRESSING - UPPER BODY - STEP 4: How many of the total steps does the patient complete on his/her own? 4 DRESSING - UPPER BODY - STEP 5: Does Patient require total assistance for dressing above the waist such as the helper holding clothin g and performing basically all the activities? No. DRESSING - UPPER BODY - SCORE: 3-MOD DRESSING - LOWER BODY: ARTICLES SCORE Total number of steps: 8 DRESSING - LOWER BODY - STEP 1: Does the patient require help from a person or device, or need extra time when dressing below the [address]? Yes. DRESSING - LOWER BODY - STEP 2: Does the patient require the assistance of a helper? Yes. DRESSING - LOWER BODY - STEP 3: Does the helper touch the patient while dressing? Yes. DRESSING - LOWER BODY - STEP 4: How many of the total steps does the patient complete on his/her own? 4 DRESSING - LOWER BODY - SCORE: 3-MOD TOILETING: TOILETING - STEP 1: Does the patient require the assistance of a person or device, or need extra time with toileting? Yes . TOILETING - STEP 2: Does the patient require the assistance of a helper? Yes. TOILETING - STEP 3: How much assistance does the patient require from the helper? Hands-on assistance from the helper TOILETING - STEP 4: Of the 3 tasks: 1) Adjusting clothing prior to use, 2) Cleansing of perineal area, 3) Adjusting clot ashley after use; How many tasks does the patient perform WITHOUT assistance of the helper? Two tasks TOILETING - SCORE: 3-MOD BLADDER MANAGEMENT: [place] removes incontinent device (Depends, pull ups, etc.); cleans the patient after accident / inco ntinent episode; and, applies new incontinent device. BLADDER MANAGEMENT - SCORE: 1-DEP BLADDER MANAGEMENT - FREQUENCY OF ACCIDENTS: BLADDER MANAGEMENT(FA) - STEP 1: How many accidents has the patient had during the current shift? 2 BOWEL MANAGEMENT: Activity did not occur on this shift BOWEL MANAGEMENT - SCORE: 7-IND TRANSFERS: BED, CHAIR, WHEELCHAIR: TRANSFERS: BED, CHAIR, WHEELCHAIR - STEP 1: Does the patient require assistance of a person or device, or need extra time with bed, chair, or whe elchair transfers? Yes. TRANSFERS: BED, CHAIR, WHEELCHAIR - STEP 2: Does the patient require the assistance of a helper? Yes. TRANSFERS: BED, CHAIR, WHEELCHAIR - STEP 3: How much assistance does the patient require from the helper? Steadying/guiding assistance TRANSFERS: BED, CHAIR, WHEELCHAIR - SCORE: 4-MIN TRANSFERS: TOILET: TRANSFERS: TOILET - STEP 1: Does the patient require the assistance of a person or device, or need extra time with toilet transfe rs? Yes. TRANSFERS: TOILET - STEP 2: Does the patient require the assistance of a helper? Yes. TRANSFERS: TOILET - STEP 3: How much assistance does the patient require from the helper? Patient performs half or more of the tr ansferring tasks TRANSFERS: TOILET - STEP 4: Does the patient need only incidental help such as contact guard or steadying during toilet transfer? Yes. TRANSFERS: TOILET - SCORE: 4-MIN TRANSFERS: SHOWER: Activity did not occur on this shift TRANSFERS: SHOWER - SCORE: 0-UNK TRANSFERS: TUB: Activity did not occur on this shift TRANSFERS: TUB - SCORE: 0-UNK LOCOMOTION: WALK: Activity did not occur on this shift LOCOMOTION: WALK - SCORE: 0-UNK LOCOMOTION: WHEELCHAIR: Activity did not occur on this shift LOCOMOTION: WHEELCHAIR - SCORE: 0-UNK COMPREHENSION: COMPREHENSION: TYPE: Both COMPREHENSION - STEP 1: Does the patient require help from a person or device, or need extra time to understand complex and a bstract ideas (such as current events, finances, discharge planning, medical issues, relationships, e tc)? Yes. COMPREHENSION - STEP 2: Does the patient require help to understand questions or statements about basic needs or ideas (such as hunger, thirst, sleep, safety, daily schedule, room location, or discomfort) half or more of the t reji? No. COMPREHENSION - STEP 3: How often does the patient need help to understand directions and conversation about basic needs? 10% - 24% of the time COMPREHENSION - SCORE: 4-MIN EXPRESSION EXPRESSION: TYPE: Both EXPRESSION - STEP 1: Does the patient require help from a person or device, or need extra time expressing complex and abst ract ideas (such as current events, finances, discharge planning, medical issues, relationships, etc) ? Yes. EXPRESSION - STEP 2: Does the patient require help to express basic necessities or ideas (such as hunger, thirst, sleep, s afety, daily schedule, room location, or discomfort) half or more of the time? No. EXPRESSION - STEP 3: How often does the patient need help to express directions and conversation about basic needs? 10-24% of the time EXPRESSION - SCORE: 4-MIN SOCIAL INTERACTION: SOCIAL INTERACTION - STEP 1: Does the patient require a helper to interact with others in social and therapeutic situations? Yes. SOCIAL INTERACTION - STEP 2: Does the patient interact appropriately half or more of the time? Yes. SOCIAL INTERACTION - STEP 3: How often does the patient need help to interact appropriately? 10-24% of the time SOCIAL INTERACTION - SCORE: 4-MIN PROBLEM SOLVING: PROBLEM SOLVING - STEP 1: Does the patient need help from a person or device, or need extra time to solve complex problems such as managing a checking account or confronting interpersonal problems? Yes. PROBLEM SOLVING - STEP 2: Does the patient solve basic routine problems half or more of the time? Yes. PROBLEM SOLVING - STEP 3: How often does the patient need help to solve basic routine problems? 10%-24% of the time PROBLEM SOLVING - SCORE: 4-MIN MEMORY: MEMORY - STEP 1: Does the patient need help from a person or device, or need extra time to remember frequently encount ered people, daily routines, and executing requests? Yes. MEMORY - STEP 2: How often does the patient need help to remember frequently encountered people, daily routines, and e xecuting requests? 10% - 24% of the time MEMORY - SCORE: 4-MIN SIGNATURE PANEL: The following modified sections: Eating - Score, Grooming - Score, Bathing - Score, Dressing - Upper Body - Score, Dressing - Lower Body - Score, Toileting - Score, Bladder Management - Score, Bowel Man agement - Score, Transfers: Bed, Chair, Wheelchair - Score, Transfers: Toilet - Score, Transfers: Stefania wer - Score, Transfers: Tub - Score, Locomotion: Walk - Score, Locomotion: Wheelchair - Score, Compre hension - Score, Expression - Score, Social Interaction - Score, Problem Solving - Score, Memory - Sc ore were [electronically] signed by Johnathan Ladd on Sat Jul 19 2018 16:26:21 GMT-0600 (Central Standard Time)
[2018-07-19] MEDS: ATORVASTATIN 20 MG TAB PO SCH (20:22)
[2018-07-19] MEDS: DOCUSATE NA/SENNA CONC 1 TAB PO SCH (20:22)
--- NOTE | 2018-07-20 01:44 | FAST ---
SHIFT START DATE/TIME: 07/19/2018 19:00 (HEDIS SPECIALIST) SHIFT END DATE/TIME: 07/20/2018 07:00 (HEDIS SPECIALIST) NAME MARIIA SADLER DATE OF : 1935 DATE OF ADMISSION: 07/07/2018 17:08 (HEDIS SPECIALIST) PHONE: AGE: 82 SSN# [id number] GENDER: Male ENCOUNTER PHYSICIAN: Dr. Trino Pineda M.D. ADMISSION DIAGNOSIS: - Orthopaedic Disorders 08 - Unilateral Hip Fracture (08.11) RIGHT FEMORAL NECK FRACTURE. EATING: Activity did not occur on this shift EATING - SCORE: 0-UNK GROOMING: Activity did not occur on this shift GROOMING - SCORE: 0-UNK BATHING: Activity did not occur on this shift BATHING - SCORE: 0-UNK DRESSING - UPPER BODY: Activity did not occur on this shift ARTICLES SCORE Total number of steps: 0 DRESSING - UPPER BODY - SCORE: 0-UNK DRESSING - LOWER BODY: Activity did not occur on this shift ARTICLES SCORE Total number of steps: 0 DRESSING - LOWER BODY - SCORE: 0-UNK TOILETING: Activity did not occur on this shift TOILETING - SCORE: 0-UNK BLADDER MANAGEMENT: [place] removes incontinent device (Depends, pull ups, etc.); cleans the patient after accident / inco ntinent episode; and, applies new incontinent device. BLADDER MANAGEMENT - SCORE: 1-DEP BLADDER MANAGEMENT - FREQUENCY OF ACCIDENTS: BLADDER MANAGEMENT(FA) - STEP 1: How many accidents has the patient had during the current shift? 1 BOWEL MANAGEMENT: Activity did not occur on this shift BOWEL MANAGEMENT - SCORE: 7-IND TRANSFERS: BED, CHAIR, WHEELCHAIR: Activity did not occur on this shift TRANSFERS: BED, CHAIR, WHEELCHAIR - SCORE: 0-UNK TRANSFERS: TOILET: Activity did not occur on this shift TRANSFERS: TOILET - SCORE: 0-UNK TRANSFERS: SHOWER: Activity did not occur on this shift TRANSFERS: SHOWER - SCORE: 0-UNK TRANSFERS: TUB: Activity did not occur on this shift TRANSFERS: TUB - SCORE: 0-UNK LOCOMOTION: WALK: Activity did not occur on this shift LOCOMOTION: WALK - SCORE: 0-UNK LOCOMOTION: WHEELCHAIR: Activity did not occur on this shift LOCOMOTION: WHEELCHAIR - SCORE: 0-UNK COMPREHENSION: COMPREHENSION: TYPE: Both COMPREHENSION - STEP 1: Does the patient require help from a person or device, or need extra time to understand complex and a bstract ideas (such as current events, finances, discharge planning, medical issues, relationships, e tc)? Yes. COMPREHENSION - STEP 2: Does the patient require help to understand questions or statements about basic needs or ideas (such as hunger, thirst, sleep, safety, daily schedule, room location, or discomfort) half or more of the t reji? No. COMPREHENSION - STEP 3: How often does the patient need help to understand directions and conversation about basic needs? 10% - 24% of the time COMPREHENSION - SCORE: 4-MIN EXPRESSION EXPRESSION: TYPE: Both EXPRESSION - STEP 1: Does the patient require help from a person or device, or need extra time expressing complex and abst ract ideas (such as current events, finances, discharge planning, medical issues, relationships, etc) ? Yes. EXPRESSION - STEP 2: Does the patient require help to express basic necessities or ideas (such as hunger, thirst, sleep, s afety, daily schedule, room location, or discomfort) half or more of the time? No. EXPRESSION - STEP 3: How often does the patient need help to express directions and conversation about basic needs? 10-24% of the time EXPRESSION - SCORE: 4-MIN SOCIAL INTERACTION: SOCIAL INTERACTION - STEP 1: Does the patient require a helper to interact with others in social and therapeutic situations? No. SOCIAL INTERACTION - STEP 2: Does the patient need extra time in social situations, OR does s/he interact with staff, other patien ts, and family members ONLY in structured environments, OR does s/he require medication for social in teraction? Yes, patient needs extra time SOCIAL INTERACTION - SCORE: 6-OTILIO PROBLEM SOLVING: PROBLEM SOLVING - STEP 1: Does the patient need help from a person or device, or need extra time to solve complex problems such as managing a checking account or confronting interpersonal problems? Yes. PROBLEM SOLVING - STEP 2: Does the patient solve basic routine problems half or more of the time? Yes. PROBLEM SOLVING - STEP 3: How often does the patient need help to solve basic routine problems? 10%-24% of the time PROBLEM SOLVING - SCORE: 4-MIN MEMORY: MEMORY - STEP 1: Does the patient need help from a person or device, or need extra time to remember frequently encount ered people, daily routines, and executing requests? Yes. MEMORY - STEP 2: How often does the patient need help to remember frequently encountered people, daily routines, and e xecuting requests? 10% - 24% of the time MEMORY - SCORE: 4-MIN SIGNATURE PANEL: The following modified sections: Eating - Score, Grooming - Score, Bathing - Score, Dressing - Upper Body - Score, Dressing - Lower Body - Score, Toileting - Score, Bladder Management - Score, Bowel Man agement - Score, Transfers: Bed, Chair, Wheelchair - Score, Transfers: Toilet - Score, Transfers: Stefania wer - Score, Transfers: Tub - Score, Locomotion: Walk - Score, Locomotion: Wheelchair - Score, Compre hension - Score, Expression - Score, Social Interaction - Score, Problem Solving - Score, Memory - Sc ore were [electronically] signed by Rocío Angulo CNA on SatJul 20 2018 01:43:01 [email or web address] ([facility])
[2018-07-20] MEDS: LIDOCAINE 5% PATCH TOP SCH (07:33)
[2018-07-20] MEDS: ENOXAPARIN 30 MG/0.3 ML SQ SCH (07:33)
[2018-07-20] MEDS: HYDRALAZINE HCL 25 MG TABLET PO SCH ×2 (08:00→19:10)
[2018-07-20] MEDS: FE SULF/FA/VIT B COMP & C TAB PO SCH (08:30)
[2018-07-20] MEDS: TAMSULOSIN 0.4 MG SR CAP PO SCH (08:30)
[2018-07-20] MEDS: CARVEDILOL 6.25 MG TAB PO SCH ×2 (08:30→19:37)
[2018-07-20] MEDS: FOLIC ACID 1 MG TABLET PO SCH (08:30)
[2018-07-20] MEDS: FERROUS SULFATE 325 MG TAB PO SCH (08:30)
[2018-07-20] MEDS: MAGNESIUM OXIDE 400 MG TAB PO SCH ×2 (08:31→19:36)
[2018-07-20] MEDS: AMLODIPINE 5 MG TAB PO SCH ×2 (08:31→19:36)
[2018-07-20] MEDS: cloNIDine HCl 0.1 MG TAB PO SCH ×3 (08:32→20:34)
[2018-07-20] MEDS: PROMOD 30 ML DOSE PO SCH ×2 (08:32→19:36)
[2018-07-20] MEDS: METAMUCIL PO SCH ×2 (08:33→19:36)
[2018-07-20] MEDS: MINOXIDIL 2.5 MG TAB PO SCH ×2 (08:37→19:37)
[2018-07-20] MEDS: MAGNESIUM HYDROXIDE 8% 30 ML PO PRN (09:03)
[2018-07-20] MEDS: BISACODYL 10 MG RECTAL SUPP PR PRN (09:04)
[2018-07-20] MEDS: CEFTAZIDIME 1 GM in NA CHLORIDE 0.9% 50 ML IV SCH ×2 (09:23→19:36)
--- NOTE | 2018-07-20 13:20 | FAST ---
SHIFT START DATE/TIME: 07/20/2018 07:00 (REPRESENTATIVE PERSONAL SERVICE) SHIFT END DATE/TIME: 07/20/2018 19:00 (REPRESENTATIVE PERSONAL SERVICE) NAME MARIIA SADLER DATE OF : 1935 DATE OF ADMISSION: 07/07/2018 17:08 (REPRESENTATIVE PERSONAL SERVICE) PHONE: AGE: 82 N# [id number] GENDER: Male ENCOUNTER PHYSICIAN: Dr. Trino Pineda M.D. ADMISSION DIAGNOSIS: - Orthopaedic Disorders 08 - Unilateral Hip Fracture (08.11) RIGHT FEMORAL NECK FRACTURE. EATING: EATING - STEP 1: Does the patient require the assistance of a person or device, or need extra time when eating? Yes. EATING - STEP 2: Does the patient require the assistance of a helper? Yes. EATING - STEP 3: Does the patient perform half or more of the eating tasks? Yes. EATING - STEP 4: Does the patient need only supervision, cuing, coaxing OR help to apply an orthosis OR help to cut fo od, open containers, pour liquids, or butter bread? No. EATING - SCORE: 3-MOD GROOMING: Oral care GROOMING - STEP 1: Does the patient require the assistance of a person or device, or need extra time when grooming? Yes. GROOMING - STEP 2: Does the patient require the assistance of a helper? Yes. GROOMING - STEP 3: How much assistance does the patient require from the helper? Cuing, coaxing, instructions, or encour agement for completion of grooming GROOMING - SCORE: 5-SUP BATHING: Activity did not occur on this shift BATHING - SCORE: 0-UNK DRESSING - UPPER BODY: T-shirt/pullover shirt (four steps) ARTICLES SCORE Total number of steps: 4 DRESSING - UPPER BODY - STEP 1: Does the patient require help from a person or device, or need extra time when dressing above the [address]? Yes. DRESSING - UPPER BODY - STEP 2: Does the patient require the assistance of a helper? Yes. DRESSING - UPPER BODY - STEP 3: Does the helper touch the patient while dressing? Yes. DRESSING - UPPER BODY - STEP 4: How many of the total steps does the patient complete on his/her own? 2 DRESSING - UPPER BODY - SCORE: 3-MOD DRESSING - LOWER BODY: ARTICLES SCORE Total number of steps: 8 DRESSING - LOWER BODY - STEP 1: Does the patient require help from a person or device, or need extra time when dressing below the [address]? Yes. DRESSING - LOWER BODY - STEP 2: Does the patient require the assistance of a helper? Yes. DRESSING - LOWER BODY - STEP 3: Does the helper touch the patient while dressing? Yes. DRESSING - LOWER BODY - STEP 4: How many of the total steps does the patient complete on his/her own? 4 DRESSING - LOWER BODY - SCORE: 3-MOD TOILETING: TOILETING - STEP 1: Does the patient require the assistance of a person or device, or need extra time with toileting? Yes . TOILETING - STEP 2: Does the patient require the assistance of a helper? Yes. TOILETING - STEP 3: How much assistance does the patient require from the helper? Hands-on assistance from the helper TOILETING - STEP 4: Of the 3 tasks: 1) Adjusting clothing prior to use, 2) Cleansing of perineal area, 3) Adjusting clot ashley after use; How many tasks does the patient perform WITHOUT assistance of the helper? Two tasks TOILETING - SCORE: 3-MOD BLADDER MANAGEMENT: [place] removes incontinent device (Depends, pull ups, etc.); cleans the patient after accident / inco ntinent episode; and, applies new incontinent device. BLADDER MANAGEMENT - SCORE: 1-DEP BLADDER MANAGEMENT - FREQUENCY OF ACCIDENTS: BLADDER MANAGEMENT(FA) - STEP 1: How many accidents has the patient had during the current shift? 2 BOWEL MANAGEMENT: BOWEL MANAGEMENT - STEP 1: Does the patient control bowels completely and intentionally without equipment devices or medications AND is always continent? No. BOWEL MANAGEMENT - STEP 2: Does the patient require the assistance of a helper? No, patient requires medication for control such as stool softeners, suppositories, laxatives, enemas, or OTC medications BOWEL MANAGEMENT - SCORE: 6-OTILIO TRANSFERS: BED, CHAIR, WHEELCHAIR: TRANSFERS: BED, CHAIR, WHEELCHAIR - STEP 1: Does the patient require assistance of a person or device, or need extra time with bed, chair, or whe elchair transfers? Yes. TRANSFERS: BED, CHAIR, WHEELCHAIR - STEP 2: Does the patient require the assistance of a helper? Yes. TRANSFERS: BED, CHAIR, WHEELCHAIR - STEP 3: How much assistance does the patient require from the helper? Lifting of the legs TRANSFERS: BED, CHAIR, WHEELCHAIR - STEP 4: How many legs does the patient require the helper to lift? one leg TRANSFERS: BED, CHAIR, WHEELCHAIR - SCORE: 4-MIN TRANSFERS: TOILET: TRANSFERS: TOILET - STEP 1: Does the patient require the assistance of a person or device, or need extra time with toilet transfe rs? Yes. TRANSFERS: TOILET - STEP 2: Does the patient require the assistance of a helper? Yes. TRANSFERS: TOILET - STEP 3: How much assistance does the patient require from the helper? Patient performs half or more of the tr ansferring tasks TRANSFERS: TOILET - STEP 4: Does the patient need only incidental help such as contact guard or steadying during toilet transfer? No. Patient needs more than incidental help TRANSFERS: TOILET - SCORE: 3-MOD TRANSFERS: SHOWER: Activity did not occur on this shift TRANSFERS: SHOWER - SCORE: 0-UNK TRANSFERS: TUB: Activity did not occur on this shift TRANSFERS: TUB - SCORE: 0-UNK LOCOMOTION: WALK: Activity did not occur on this shift LOCOMOTION: WALK - SCORE: 0-UNK LOCOMOTION: WHEELCHAIR: Activity did not occur on this shift LOCOMOTION: WHEELCHAIR - SCORE: 0-UNK COMPREHENSION: COMPREHENSION: TYPE: Both COMPREHENSION - STEP 1: Does the patient require help from a person or device, or need extra time to understand complex and a bstract ideas (such as current events, finances, discharge planning, medical issues, relationships, e tc)? Yes. COMPREHENSION - STEP 2: Does the patient require help to understand questions or statements about basic needs or ideas (such as hunger, thirst, sleep, safety, daily schedule, room location, or discomfort) half or more of the t reji? No. COMPREHENSION - STEP 3: How often does the patient need help to understand directions and conversation about basic needs? 25% - 49% of the time COMPREHENSION - SCORE: 3-MOD EXPRESSION EXPRESSION: TYPE: Both EXPRESSION - STEP 1: Does the patient require help from a person or device, or need extra time expressing complex and abst ract ideas (such as current events, finances, discharge planning, medical issues, relationships, etc) ? Yes. EXPRESSION - STEP 2: Does the patient require help to express basic necessities or ideas (such as hunger, thirst, sleep, s afety, daily schedule, room location, or discomfort) half or more of the time? No. EXPRESSION - STEP 3: How often does the patient need help to express directions and conversation about basic needs? 25-49% of the time EXPRESSION - SCORE: 3-MOD SOCIAL INTERACTION: SOCIAL INTERACTION - STEP 1: Does the patient require a helper to interact with others in social and therapeutic situations? Yes. SOCIAL INTERACTION - STEP 2: Does the patient interact appropriately half or more of the time? Yes. SOCIAL INTERACTION - STEP 3: How often does the patient need help to interact appropriately? Less than 10% of the time SOCIAL INTERACTION - SCORE: 5-SUP PROBLEM SOLVING: PROBLEM SOLVING - STEP 1: Does the patient need help from a person or device, or need extra time to solve complex problems such as managing a checking account or confronting interpersonal problems? Yes. PROBLEM SOLVING - STEP 2: Does the patient solve basic routine problems half or more of the time? Yes. PROBLEM SOLVING - STEP 3: How often does the patient need help to solve basic routine problems? 25%-49% of the time PROBLEM SOLVING - SCORE: 3-MOD MEMORY: MEMORY - STEP 1: Does the patient need help from a person or device, or need extra time to remember frequently encount ered people, daily routines, and executing requests? Yes. MEMORY - STEP 2: How often does the patient need help to remember frequently encountered people, daily routines, and e xecuting requests? 25% - 49% of the time MEMORY - SCORE: 3-MOD SIGNATURE PANEL: The following modified sections: Eating - Score, Grooming - Score, Bathing - Score, Dressing - Upper Body - Score, Dressing - Lower Body - Score, Toileting - Score, Bladder Management - Score, Bowel Man agement - Score, Transfers: Bed, Chair, Wheelchair - Score, Transfers: Toilet - Score, Transfers: Stefania wer - Score, Transfers: Tub - Score, Locomotion: Walk - Score, Locomotion: Wheelchair - Score, Compre hension - Score, Expression - Score, Social Interaction - Score, Problem Solving - Score, Memory - Sc ore were [electronically] signed by Johnathan Ladd on SatJul 20 2018 13:19:40 GMT-0600 (Central Standard Time)
[2018-07-20] MEDS: FLEET ENEMA ADULT PR PRN (15:30)
[2018-07-20] MEDS ORDERED: CEFTAZIDIME 1 GM in NA CHLORIDE 0.9% 50 ML IV SCH (20:00)
[2018-07-20] MEDS: ATORVASTATIN 20 MG TAB PO SCH (20:33)
[2018-07-20] MEDS: DOCUSATE NA/SENNA CONC 1 TAB PO SCH (20:33)
--- NOTE | 2018-07-21 00:40 | PN ---
Date of Progress Note: 07/20/2018 Subjective: The patient was seen this morning for followup, lying in bed, not in any distress. No new complaints or problems reported. Objective: Vital Signs: Reviewed. HEENT: Unremarkable. Lungs: Clear to auscultation. Heart: Sounds normal. Abdomen: Soft. Bowel sounds normal. No guarding, rigidity, tenderness, or distention. Extremities: No leg edema. Impression: 1. Hip fracture. 2. Anemia, due to acute blood loss. 3. Hypertension. 4. Anemia, due to chronic kidney disease. 5. Urinary tract infection. Plan: We will go ahead and continue current medications. Continue current antihypertensive medication and DVT prophylaxis. The patient has received 10 days of IV antibiotics for urinary tract infection and we will discontinue that after today's last dose. We will see him tomorrow for followup. BRADY/PETEY Voice ID: [id number] Report ID: [id number] MTDD
--- NOTE | 2018-07-21 01:43 | FAST ---
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 Trino Pineda M.D. ADMISSION DIAGNOSIS: - Orthopaedic Disorders 08 - Unilateral Hip Fracture (08.11) RIGHT FEMORAL NECK FRACTURE. EATING: Activity did not occur on this shift EATING - SCORE: 0-UNK GROOMING: Activity did not occur on this shift GROOMING - SCORE: 0-UNK BATHING: Activity did not occur on this shift BATHING - SCORE: 0-UNK DRESSING - UPPER BODY: Activity did not occur on this shift ARTICLES SCORE Total number of steps: 0 DRESSING - UPPER BODY - SCORE: 0-UNK DRESSING - LOWER BODY: Activity did not occur on this shift ARTICLES SCORE Total number of steps: 0 DRESSING - LOWER BODY - SCORE: 0-UNK TOILETING: Activity did not occur on this shift TOILETING - SCORE: 0-UNK BLADDER MANAGEMENT: [place] removes incontinent device (Depends, pull ups, etc.); cleans the patient after accident / inco ntinent episode; and, applies new incontinent device. BLADDER MANAGEMENT - SCORE: 1-DEP BLADDER MANAGEMENT - FREQUENCY OF ACCIDENTS: BLADDER MANAGEMENT(FA) - STEP 1: How many accidents has the patient had during the current shift? 1 BOWEL MANAGEMENT: [place] removes incontinent device (depends, pull ups, etc.); cleans the patient after accident / inco ntinent episode; and, applies new device (depends, pull-ups, padding, etc.). BOWEL MANAGEMENT - SCORE: 1-DEP BOWEL MANAGEMENT - FREQUENCY OF ACCIDENTS: BOWEL MANAGEMENT(FA) - STEP 1: How many accidents has the patient had during the current shift? 1 TRANSFERS: BED, CHAIR, WHEELCHAIR: Activity did not occur on this shift TRANSFERS: BED, CHAIR, WHEELCHAIR - SCORE: 0-UNK TRANSFERS: TOILET: Activity did not occur on this shift TRANSFERS: TOILET - SCORE: 0-UNK TRANSFERS: SHOWER: Activity did not occur on this shift TRANSFERS: SHOWER - SCORE: 0-UNK TRANSFERS: TUB: Activity did not occur on this shift TRANSFERS: TUB - SCORE: 0-UNK LOCOMOTION: WALK: Activity did not occur on this shift LOCOMOTION: WALK - SCORE: 0-UNK LOCOMOTION: WHEELCHAIR: Activity did not occur on this shift LOCOMOTION: WHEELCHAIR - SCORE: 0-UNK COMPREHENSION: COMPREHENSION: TYPE: Both COMPREHENSION - STEP 1: Does the patient require help from a person or device, or need extra time to understand complex and a bstract ideas (such as current events, finances, discharge planning, medical issues, relationships, e tc)? Yes. COMPREHENSION - STEP 2: Does the patient require help to understand questions or statements about basic needs or ideas (such as hunger, thirst, sleep, safety, daily schedule, room location, or discomfort) half or more of the t reji? No. COMPREHENSION - STEP 3: How often does the patient need help to understand directions and conversation about basic needs? 10% - 24% of the time COMPREHENSION - SCORE: 4-MIN EXPRESSION EXPRESSION: TYPE: Both EXPRESSION - STEP 1: Does the patient require help from a person or device, or need extra time expressing complex and abst ract ideas (such as current events, finances, discharge planning, medical issues, relationships, etc) ? Yes. EXPRESSION - STEP 2: Does the patient require help to express basic necessities or ideas (such as hunger, thirst, sleep, s afety, daily schedule, room location, or discomfort) half or more of the time? No. EXPRESSION - STEP 3: How often does the patient need help to express directions and conversation about basic needs? 10-24% of the time EXPRESSION - SCORE: 4-MIN SOCIAL INTERACTION: SOCIAL INTERACTION - STEP 1: Does the patient require a helper to interact with others in social and therapeutic situations? No. SOCIAL INTERACTION - STEP 2: Does the patient need extra time in social situations, OR does s/he interact with staff, other patien ts, and family members ONLY in structured environments, OR does s/he require medication for social in teraction? Yes, patient needs extra time SOCIAL INTERACTION - SCORE: 6-OTILIO PROBLEM SOLVING: PROBLEM SOLVING - STEP 1: Does the patient need help from a person or device, or need extra time to solve complex problems such as managing a checking account or confronting interpersonal problems? Yes. PROBLEM SOLVING - STEP 2: Does the patient solve basic routine problems half or more of the time? No. PROBLEM SOLVING - STEP 3: Does the patient need help to solve problems all the time or is s/he unable to solve problems? No. [place] can sometimes solve problems PROBLEM SOLVING - SCORE: 2-MAX MEMORY: MEMORY - STEP 1: Does the patient need help from a person or device, or need extra time to remember frequently encount ered people, daily routines, and executing requests? Yes. MEMORY - STEP 2: How often does the patient need help to remember frequently encountered people, daily routines, and e xecuting requests? 10% - 24% of the time MEMORY - SCORE: 4-MIN SIGNATURE PANEL: The following modified sections: Eating - Score, Grooming - Score, Bathing - Score, Dressing - Upper Body - Score, Dressing - Lower Body - Score, Toileting - Score, Bladder Management - Score, Bowel Man agement - Score, Transfers: Bed, Chair, Wheelchair - Score, Transfers: Toilet - Score, Transfers: Stefania wer - Score, Transfers: Tub - Score, Locomotion: Walk - Score, Locomotion: Wheelchair - Score, Compre hension - Score, Expression - Score, Social Interaction - Score, Problem Solving - Score, Memory - Sc ore were [electronically] signed by Rocío Angulo CNA on SatJul 21 2018 01:42:23 T-0600 ([facility])
[2018-07-21 06:43] LABS: Potassium 5.3 mmol/L (3.5-5.1)
[2018-07-21] MEDS: ENOXAPARIN 30 MG/0.3 ML SQ SCH (07:33)
[2018-07-21] MEDS: CEFTAZIDIME 1 GM in NA CHLORIDE 0.9% 50 ML IV SCH (08:00)
[2018-07-21] MEDS: MINOXIDIL 2.5 MG TAB PO SCH ×2 (08:00→20:23)
[2018-07-21] MEDS: METAMUCIL PO SCH ×2 (08:00→20:24)
[2018-07-21] MEDS: HYDRALAZINE HCL 25 MG TABLET PO SCH ×2 (08:00→20:00)
[2018-07-21] MEDS ORDERED: SOD POLYSTYREN SUL 15 GM/60 ML UCUP PO ONE (08:03)
[2018-07-21] MEDS: LIDOCAINE 5% PATCH TOP SCH (08:17)
[2018-07-21] MEDS: FE SULF/FA/VIT B COMP & C TAB PO SCH (08:18)
[2018-07-21] MEDS: FERROUS SULFATE 325 MG TAB PO SCH (08:19)
[2018-07-21] MEDS: MAGNESIUM OXIDE 400 MG TAB PO SCH ×2 (08:19→20:22)
[2018-07-21] MEDS: CARVEDILOL 6.25 MG TAB PO SCH ×2 (08:19→20:23)
[2018-07-21] MEDS: FOLIC ACID 1 MG TABLET PO SCH (08:20)
[2018-07-21] MEDS: TAMSULOSIN 0.4 MG SR CAP PO SCH (08:20)
[2018-07-21] MEDS: PROMOD 30 ML DOSE PO SCH ×2 (08:21→20:22)
[2018-07-21] MEDS: CODEINE 30MG/APAP 300MG TAB PO PRN ×2 (08:21→13:57)
[2018-07-21] MEDS: AMLODIPINE 5 MG TAB PO SCH ×2 (08:25→20:23)
[2018-07-21] MEDS: cloNIDine HCl 0.1 MG TAB PO SCH ×3 (08:35→20:24)
--- NOTE | 2018-07-21 14:14 | FAST ---
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 Trino Pineda M.D. ADMISSION DIAGNOSIS: - Orthopaedic Disorders 08 - Unilateral Hip Fracture (08.11) RIGHT FEMORAL NECK FRACTURE. EATING: EATING - STEP 1: Does the patient require the assistance of a person or device, or need extra time when eating? Yes. EATING - STEP 2: Does the patient require the assistance of a helper? Yes. EATING - STEP 3: Does the patient perform half or more of the eating tasks? Yes. EATING - STEP 4: Does the patient need only supervision, cuing, coaxing OR help to apply an orthosis OR help to cut fo od, open containers, pour liquids, or butter bread? Yes. EATING - SCORE: 5-SUP GROOMING: Oral care Wash, rinse, and dry face Wash, rinse, and dry hands GROOMING - STEP 1: Does the patient require the assistance of a person or device, or need extra time when grooming? Yes. GROOMING - STEP 2: Does the patient require the assistance of a helper? Yes. GROOMING - STEP 3: How much assistance does the patient require from the helper? Cuing, coaxing, instructions, or encour agement for completion of grooming GROOMING - SCORE: 5-SUP BATHING: Activity did not occur on this shift BATHING - SCORE: 0-UNK DRESSING - UPPER BODY: Activity did not occur on this shift ARTICLES SCORE Total number of steps: 0 DRESSING - UPPER BODY - SCORE: 0-UNK DRESSING - LOWER BODY: Activity did not occur on this shift ARTICLES SCORE Total number of steps: 0 DRESSING - LOWER BODY - SCORE: 0-UNK TOILETING: TOILETING - STEP 1: Does the patient require the assistance of a person or device, or need extra time with toileting? Yes . TOILETING - STEP 2: Does the patient require the assistance of a helper? Yes. TOILETING - STEP 3: How much assistance does the patient require from the helper? Hands-on assistance from the helper TOILETING - STEP 4: Of the 3 tasks: 1) Adjusting clothing prior to use, 2) Cleansing of perineal area, 3) Adjusting clot ashley after use; How many tasks does the patient perform WITHOUT assistance of the helper? No tasks; h elper performs all three tasks TOILETING - SCORE: 1-DEP BLADDER MANAGEMENT: [place] removes incontinent device (Depends, pull ups, etc.); cleans the patient after accident / inco ntinent episode; and, applies new incontinent device. BLADDER MANAGEMENT - SCORE: 1-DEP BLADDER MANAGEMENT - FREQUENCY OF ACCIDENTS: BLADDER MANAGEMENT(FA) - STEP 1: How many accidents has the patient had during the current shift? 0 BOWEL MANAGEMENT: [place] removes incontinent device (depends, pull ups, etc.); cleans the patient after accident / inco ntinent episode; and, applies new device (depends, pull-ups, padding, etc.). BOWEL MANAGEMENT - SCORE: 1-DEP BOWEL MANAGEMENT - FREQUENCY OF ACCIDENTS: BOWEL MANAGEMENT(FA) - STEP 1: How many accidents has the patient had during the current shift? 1 TRANSFERS: BED, CHAIR, WHEELCHAIR: TRANSFERS: BED, CHAIR, WHEELCHAIR - STEP 1: Does the patient require assistance of a person or device, or need extra time with bed, chair, or whe elchair transfers? Yes. TRANSFERS: BED, CHAIR, WHEELCHAIR - STEP 2: Does the patient require the assistance of a helper? Yes. TRANSFERS: BED, CHAIR, WHEELCHAIR - STEP 3: How much assistance does the patient require from the helper? Lifting of the legs TRANSFERS: BED, CHAIR, WHEELCHAIR - STEP 4: How many legs does the patient require the helper to lift? both legs TRANSFERS: BED, CHAIR, WHEELCHAIR - SCORE: 3-MOD TRANSFERS: TOILET: TRANSFERS: TOILET - STEP 1: Does the patient require the assistance of a person or device, or need extra time with toilet transfe rs? Yes. TRANSFERS: TOILET - STEP 2: Does the patient require the assistance of a helper? Yes. TRANSFERS: TOILET - STEP 3: How much assistance does the patient require from the helper? Patient performs half or more of the tr ansferring tasks TRANSFERS: TOILET - STEP 4: Does the patient need only incidental help such as contact guard or steadying during toilet transfer? Yes. TRANSFERS: TOILET - SCORE: 4-MIN TRANSFERS: SHOWER: Activity did not occur on this shift TRANSFERS: SHOWER - SCORE: 0-UNK TRANSFERS: TUB: Activity did not occur on this shift TRANSFERS: TUB - SCORE: 0-UNK LOCOMOTION: WALK: Activity did not occur on this shift LOCOMOTION: WALK - SCORE: 0-UNK LOCOMOTION: WHEELCHAIR: LOCOMOTION: WHEELCHAIR - STEP 1: Does the patient need help to go 150 feet in a wheelchair? Yes. LOCOMOTION: WHEELCHAIR - STEP 2: How much assistance does the patient need from the helper? Only incidental help such as around corner s or over thresholds LOCOMOTION: WHEELCHAIR - SCORE: 4-MIN COMPREHENSION: COMPREHENSION: TYPE: Both COMPREHENSION - STEP 1: Does the patient require help from a person or device, or need extra time to understand complex and a bstract ideas (such as current events, finances, discharge planning, medical issues, relationships, e tc)? Yes. COMPREHENSION - STEP 2: Does the patient require help to understand questions or statements about basic needs or ideas (such as hunger, thirst, sleep, safety, daily schedule, room location, or discomfort) half or more of the t reji? No. COMPREHENSION - STEP 3: How often does the patient need help to understand directions and conversation about basic needs? Les s than 10% of the time COMPREHENSION - SCORE: 5-SUP EXPRESSION EXPRESSION: TYPE: Both EXPRESSION - STEP 1: Does the patient require help from a person or device, or need extra time expressing complex and abst ract ideas (such as current events, finances, discharge planning, medical issues, relationships, etc) ? Yes. EXPRESSION - STEP 2: Does the patient require help to express basic necessities or ideas (such as hunger, thirst, sleep, s afety, daily schedule, room location, or discomfort) half or more of the time? No. EXPRESSION - STEP 3: How often does the patient need help to express directions and conversation about basic needs? 10-24% of the time EXPRESSION - SCORE: 4-MIN SOCIAL INTERACTION: SOCIAL INTERACTION - STEP 1: Does the patient require a helper to interact with others in social and therapeutic situations? Yes. SOCIAL INTERACTION - STEP 2: Does the patient interact appropriately half or more of the time? Yes. SOCIAL INTERACTION - STEP 3: How often does the patient need help to interact appropriately? 25-49% of the time SOCIAL INTERACTION - SCORE: 3-MOD PROBLEM SOLVING: PROBLEM SOLVING - STEP 1: Does the patient need help from a person or device, or need extra time to solve complex problems such as managing a checking account or confronting interpersonal problems? Yes. PROBLEM SOLVING - STEP 2: Does the patient solve basic routine problems half or more of the time? Yes. PROBLEM SOLVING - STEP 3: How often does the patient need help to solve basic routine problems? 25%-49% of the time PROBLEM SOLVING - SCORE: 3-MOD MEMORY: MEMORY - STEP 1: Does the patient need help from a person or device, or need extra time to remember frequently encount ered people, daily routines, and executing requests? Yes. MEMORY - STEP 2: How often does the patient need help to remember frequently encountered people, daily routines, and e xecuting requests? 10% - 24% of the time MEMORY - SCORE: 4-MIN SIGNATURE PANEL: The following modified sections: Eating - Score, Grooming - Score, Bathing - Score, Dressing - Upper Body - Score, Dressing - Lower Body - Score, Toileting - Score, Bladder Management - Score, Bowel Man agement - Score, Transfers: Bed, Chair, Wheelchair - Score, Transfers: Toilet - Score, Transfers: Stefania wer - Score, Transfers: Tub - Score, Locomotion: Walk - Score, Locomotion: Wheelchair - Score, Compre hension - Score, Expression - Score, Social Interaction - Score, Problem Solving - Score, Memory - Sc ore were [electronically] signed by Geeta Hill C.N.A. on SatJul 21 2018 14:13:45 GMT-0600 ([facility] [place])
--- NOTE | 2018-07-21 16:17 | FAST ---
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 Trino Pineda M.D. ADMISSION DIAGNOSIS: - Orthopaedic Disorders 08 - Unilateral Hip Fracture (08.11) RIGHT FEMORAL NECK FRACTURE. EATING: Activity did not occur on this shift EATING - SCORE: 0-UNK GROOMING: Activity did not occur on this shift GROOMING - SCORE: 0-UNK BATHING: Activity did not occur on this shift BATHING - SCORE: 0-UNK DRESSING - UPPER BODY: Activity did not occur on this shift Patient is not dressing in public clothing ARTICLES SCORE Total number of steps: 0 DRESSING - UPPER BODY - SCORE: 0-UNK DRESSING - LOWER BODY: Activity did not occur on this shift Patient is not dressing in public clothing ARTICLES SCORE Total number of steps: 0 DRESSING - LOWER BODY - SCORE: 0-UNK TOILETING: Activity did not occur on this shift TOILETING - SCORE: 0-UNK BLADDER MANAGEMENT: Activity did not occur on this shift BLADDER MANAGEMENT - SCORE: 7-IND BOWEL MANAGEMENT: Activity did not occur on this shift BOWEL MANAGEMENT - SCORE: 7-IND TRANSFERS: BED, CHAIR, WHEELCHAIR: TRANSFERS: BED, CHAIR, WHEELCHAIR - STEP 1: Does the patient require assistance of a person or device, or need extra time with bed, chair, or whe elchair transfers? Yes. TRANSFERS: BED, CHAIR, WHEELCHAIR - STEP 2: Does the patient require the assistance of a helper? No. Patient only requires an assistive device fo r bed, chair, wheelchair transfers such as a sliding board, grab bar, or brace, OR s/he takes more th an reasonable time, OR there is a safety concern when s/he performs the transfers TRANSFERS: BED, CHAIR, WHEELCHAIR - SCORE: 6-OTILIO TRANSFERS: TOILET: Activity did not occur on this shift TRANSFERS: TOILET - SCORE: 0-UNK TRANSFERS: SHOWER: Activity did not occur on this shift TRANSFERS: SHOWER - SCORE: 0-UNK TRANSFERS: TUB: Activity did not occur on this shift TRANSFERS: TUB - SCORE: 0-UNK LOCOMOTION: WALK: LOCOMOTION: WALK - STEP 1: Does the patient need help from a person or device, or need extra time to walk 150 feet? No. LOCOMOTION: WALK - STEP 2: Does the patient need an assistive device (such as an orthosis, prosthesis, crutches, or walker) to g o 150 feet, OR does s/he take more than reasonable time, OR is there a concern for safety? Yes, the p atient needs an assistive device LOCOMOTION: WALK - SCORE: 6-OTILIO LOCOMOTION: WHEELCHAIR: LOCOMOTION: WHEELCHAIR - STEP 1: Does the patient need help to go 150 feet in a wheelchair? No. LOCOMOTION: WHEELCHAIR - SCORE: 6-OTILIO LOCOMOTION: STAIRS: LOCOMOTION: STAIRS - STEP 1: Does the patient need help to go up and down 12 to 14 stairs? Yes. LOCOMOTION: STAIRS - STEP 2: How much assistance does the patient need from the helper to go a minimum of 12 to 14 stairs? Only brock pervision, cuing, or coaxing LOCOMOTION: STAIRS - SCORE: 5-SUP COMPREHENSION: COMPREHENSION - SCORE: 0-UNK EXPRESSION EXPRESSION - SCORE: 0-UNK SOCIAL INTERACTION: SOCIAL INTERACTION - SCORE: 0-UNK PROBLEM SOLVING: PROBLEM SOLVING - SCORE: 0-UNK MEMORY: MEMORY - SCORE: 0-UNK SIGNATURE PANEL: The following modified sections: Transfers: Bed, Chair, Wheelchair - Score, Transfers: Toilet - Score , Locomotion: Walk - Score, Locomotion: Wheelchair - Score, Locomotion: Stairs - Score were [electron ically] signed by Aubrey Kruse PT on SatJul 21 2018 16:16:32 GMT-0600 (Central Standard Time)
--- NOTE | 2018-07-21 17:59 | R.PN ---
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 Pt denied any depression. Patient is lethargic with fever. Chest x-ray is negative. Right hip x-ray shows no abnormalities. Cre atinine 2.95. Potassium 5.3, received katexakate. Ambulated 550' with modified independence using rolling walker. Self-propelled wheelchair 250' with s tandby assistance. Up and down 15 steps with bilateral hand rails and standby assistance. Requires mo derate assistance for speech expression. VITAL SIGNS Temperature: 98 F SBP/DBP: 124/60 Pulse: 60 Resp: 16 MEDICATION ALLERGIES: No Known Drug Allergies (NKDA) ENVIRONMENTAL ALLERGIES: None Known - Substance Allergies None Known - Other Allergies None Known NURSING: - Shower allowing shower - Skin care per protocol PRECAUTIONS: - Posterior Hip Precaution No adduction across midline No external rotation No hip flexion >90 degrees No internal rotation No wheel chair propulsion - Weight Bearing Precaution WBAT right LE ACTIVITIES OOB only with supervision THERAPIES: - Occupational Therapy Evaluate and Treat. - Physical Therapy Evaluate and Treat. PHYSICAL EXAM - Gen Alert and awake Lying in bed No apparent distress Oriented to: person, time, and place - Skin No breakdown No abnormalities - Eyes No abnormalities - ENMT No abnormalities - Neck No abnormalities - CVS RRR - Chest No abnormalities - Abd +bowel sounds - GI Non distended Deferred - No abnormalities - Ext Mild postoperative edema in the right lower extremity - MSK 4+/5 weakness in both lower extremities. - Neuro 4/5 strength bilaterally lower extremities. - Psych No abnormalities ASSESSMENT: Pt. is a 82 yo Right-handed black male.His impairment category is Orthopaedic Disorders 08 - Unilate ral Hip Fracture (01.18).Pre-morbidly, Pt. was independent/mod-I in Transfers Control, Communication, Social Cognition, Self-Care, Locomotion, and Sphincter Control; and he had good Sphincter Control.Cu rrently, he has deficits of Transfers Control, Balance, Locomotion, Endurance, Safety Awareness, and Self-Care.Pt. is now referred to [facility] for acute in-patient rehabilitatio n in order to maximize patient's functional independence in activities of daily living, strength, ROM , and mobility.- Rehab Goal Patient has realistic goal of being discharged at assistance level 6-Ayaan to reside at Home with Fam verónica/Relatives. MDM/PLAN: - Physical Therapy Decreased range of motion - to improve, our physical therapists will perform initial evaluation of p t's status upon admission and devise an individualized program for increasing patient's Range of Steven on. Gait dysfunction - to improve, our physical therapists will perform initial evaluation of pt's statu s upon admission and devise an individualized program for Gait Training, and Wheel Chair mobility Inability to transfer - to improve, our physical therapists will perform initial evaluation of pt's status upon admission and devise an individualized program for Bed mobility Need for home safety evaluation - to improve, our physical therapists will perform initial evaluatio n of pt's status upon admission and devise an individualized program for Home Evaluation Need in caregiver upon discharge - to improve, our physical therapists will perform initial evaluati on of pt's status upon admission and devise an individualized program for Caregiver Training New precaution - to improve, our physical therapists will perform initial evaluation of pt's status upon admission and devise an individualized program for Patient precaution education Edema - to improve, our physical therapists will perform initial evaluation of pt's status upon admi ssion and devise an individualized program for Elevation Training, and Lymphedema Therapy Poor balance - to improve, our physical therapists will perform initial evaluation of pt's status up on admission and devise an individualized program for Balance Training Poor endurance - to improve, our physical therapists will perform initial evaluation of pt's status upon admission and devise an individualized program for Endurance Training Weakness - to improve, our physical therapists will perform initial evaluation of pt's status upon a dmission and devise an individualized program for Aquatic Therapy, Neuromuscular Reeducation, and Str engthening Achieving independence - to improve, our physical therapists will perform initial evaluation of pt's status upon admission and devise an individualized program for Community Reintegration Activities - Occupational Therapy ADL deficits - to improve, our occupation therapists will perform initial evaluation of pt's status upon admission and devise an individualized program for Bathing, Bed mobility, Community Reintegratio n, Cooking, Dressing, Eating, Fine Motor Skills, Grooming, Homemaking, Kitchen Mobility, Laundry, Pat ient Education, Safety Awareness, Splinting - Positioning, Transfers(Toilet, Tub, Shower), and Wheel Chair Management Need for palliative care physician - to improve, our occupation therapists will perform initial evaluation of pt's status upon admission and devise an individualized program for Caregiver Training Weakness - to improve, our occupation therapists will perform initial evaluation of pt's status upon admission and devise an individualized program for Aquatic Therapy, Balance, Endurance, UE ROM, and UE strengthening - Anterior Hip Precaution No abduction No active extension No adduction across midline No external rotation No hip flexion >90 degrees No internal rotation - Diet - Liquid Texture Continue Regular - Tube Feed Continue N/A - Diet Type Continue Regular - Posterior Hip Precaution No adduction across midline No external rotation No hip flexion >90 degrees No internal rotation No wheel chair propulsion - Weight Bearing Precaution WBAT right LE - Skin care per protocol - Diet - Solid Texture Continue Regular - Shower allowing shower FUNCTIONAL STATUS: UPDATED AT WEEKLY TEAM CONFERENCE - Bladder Same accident frequency: 7-Ind - No accidents in the past 7 days - Bowel Same accident frequency: 7-Ind - No accidents in the past 7 days - Walking Same score based on distance walked: 1(<=50ft) - Wheelchair Same score based on distance traveled: 0(N/A) FUNCTIONAL STATUS: - Self-Care A. Eating Ayaan B. Grooming Ayaan C. Bathing maxA D. Dressing - Upper sup E. Dressing - Lower maxA F. Toileting maxA - Sphincter Control G: Bladder control Ind H: Bowel control Ind - Transfers Control I. Bed/Chair/Wheelchair modA J. Toilet modA K. Tub/Shower ADNO - Locomotion L. Walk/Wheelchair (C) modA L. Walk/Wheelchair (W) modA M. Stairs ADNO - Communication N. Comprehension (B) Ayaan O. Expression (B) Ayaan - Social Cognition P. Social Interaction Ayaan Q. Problem Solving Ayaan R. Memory Ayaan - Endurance Fair - Balance Fair - Safety Awareness Fair CURRENT FUNC. DEFICITS: Transfers Control, Balance, Locomotion, Endurance, Safety Awareness, and Self-Care SIGNATURE PANEL: ([facility])
[2018-07-21] MEDS: ATORVASTATIN 20 MG TAB PO SCH (20:23)
[2018-07-21] MEDS: DOCUSATE NA/SENNA CONC 1 TAB PO SCH (20:23)
[2018-07-21 20:27] VITALS: TEMP 98.2
--- NOTE | 2018-07-21 21:53 | PN ---
Date of Progress Note: 07/21/2018 Subjective: The patient was seen this morning for followup. No new complaints , problems reported by the patient. Objective: General: Lying in bed, not in any distress. Vital Signs: Reviewed. HEENT: Examination unremarkable. Lungs: Clear to auscultation. Heart: Sounds normal. Abdomen: Soft. Bowel sounds normal. No guarding, rigidity, tenderness or distention. Extremities: No leg edema. Impression: 1. Right hip fracture. 2. Hypertension. 3. Chronic kidney disease stage 4. 4. Urinary tract infection, resolved. 5. Benign prostatic hypertrophy with urinary retention, resolved. Plan: The patient is urinating very well. He had trouble with urination before he came to the rehab floor but his urination problem has resolved now. Continue current antihypertensive and Ceftazidime for urinary tract infection over the weekend. He is clinically stable right now and we will continue physical therapy under guidance of Dr. Pineda, possible discharge to go home tomorrow from Rehab point of view. Medically he is stable. BRADY/MODL Voice ID: [id number] Report ID: [id number] MTDD
--- NOTE | 2018-07-22 00:46 | FAST ---
SHIFT START DATE/TIME: 07/21/2018 19:00 (INTERNAL CORROSION SPECIALIST) SHIFT END DATE/TIME: 07/22/2018 07:00 (INTERNAL CORROSION SPECIALIST) NAME MARIIA SADLER DATE OF : 1935 DATE OF ADMISSION: 07/07/2018 17:08 (INTERNAL CORROSION SPECIALIST) PHONE: AGE: 82 SSN# [id number] GENDER: Male ENCOUNTER PHYSICIAN: Dr. Trino Pineda M.D. ADMISSION DIAGNOSIS: - Orthopaedic Disorders 08 - Unilateral Hip Fracture (08.11) RIGHT FEMORAL NECK FRACTURE. EATING: Activity did not occur on this shift EATING - SCORE: 0-UNK GROOMING: Activity did not occur on this shift GROOMING - SCORE: 0-UNK BATHING: Activity did not occur on this shift BATHING - SCORE: 0-UNK DRESSING - UPPER BODY: Patient is not dressing in public clothing ARTICLES SCORE Total number of steps: 0 DRESSING - UPPER BODY - SCORE: 0-UNK DRESSING - LOWER BODY: Patient is not dressing in public clothing ARTICLES SCORE Total number of steps: 0 DRESSING - LOWER BODY - SCORE: 0-UNK TOILETING: TOILETING - STEP 1: Does the patient require the assistance of a person or device, or need extra time with toileting? Yes . TOILETING - STEP 2: Does the patient require the assistance of a helper? Yes. TOILETING - STEP 3: How much assistance does the patient require from the helper? Hands-on assistance from the helper TOILETING - STEP 4: Of the 3 tasks: 1) Adjusting clothing prior to use, 2) Cleansing of perineal area, 3) Adjusting clot ashley after use; How many tasks does the patient perform WITHOUT assistance of the helper? No tasks; h elper performs all three tasks TOILETING - SCORE: 1-DEP BLADDER MANAGEMENT: [place] removes incontinent device (Depends, pull ups, etc.); cleans the patient after accident / inco ntinent episode; and, applies new incontinent device. BLADDER MANAGEMENT - SCORE: 1-DEP BLADDER MANAGEMENT - FREQUENCY OF ACCIDENTS: BLADDER MANAGEMENT(FA) - STEP 1: How many accidents has the patient had during the current shift? 1 BOWEL MANAGEMENT: Activity did not occur on this shift BOWEL MANAGEMENT - SCORE: 7-IND TRANSFERS: BED, CHAIR, WHEELCHAIR: TRANSFERS: BED, CHAIR, WHEELCHAIR - STEP 1: Does the patient require assistance of a person or device, or need extra time with bed, chair, or whe elchair transfers? Yes. TRANSFERS: BED, CHAIR, WHEELCHAIR - STEP 2: Does the patient require the assistance of a helper? Yes. TRANSFERS: BED, CHAIR, WHEELCHAIR - STEP 3: How much assistance does the patient require from the helper? Lifting of the legs TRANSFERS: BED, CHAIR, WHEELCHAIR - STEP 4: How many legs does the patient require the helper to lift? both legs TRANSFERS: BED, CHAIR, WHEELCHAIR - SCORE: 3-MOD TRANSFERS: TOILET: Activity did not occur on this shift TRANSFERS: TOILET - SCORE: 0-UNK TRANSFERS: SHOWER: Activity did not occur on this shift TRANSFERS: SHOWER - SCORE: 0-UNK TRANSFERS: TUB: Activity did not occur on this shift TRANSFERS: TUB - SCORE: 0-UNK LOCOMOTION: WALK: Activity did not occur on this shift LOCOMOTION: WALK - SCORE: 0-UNK LOCOMOTION: WHEELCHAIR: Activity did not occur on this shift LOCOMOTION: WHEELCHAIR - SCORE: 0-UNK COMPREHENSION: COMPREHENSION: TYPE: Both COMPREHENSION - STEP 1: Does the patient require help from a person or device, or need extra time to understand complex and a bstract ideas (such as current events, finances, discharge planning, medical issues, relationships, e tc)? Yes. COMPREHENSION - STEP 2: Does the patient require help to understand questions or statements about basic needs or ideas (such as hunger, thirst, sleep, safety, daily schedule, room location, or discomfort) half or more of the t reji? No. COMPREHENSION - STEP 3: How often does the patient need help to understand directions and conversation about basic needs? 10% - 24% of the time COMPREHENSION - SCORE: 4-MIN EXPRESSION EXPRESSION: TYPE: Both EXPRESSION - STEP 1: Does the patient require help from a person or device, or need extra time expressing complex and abst ract ideas (such as current events, finances, discharge planning, medical issues, relationships, etc) ? Yes. EXPRESSION - STEP 2: Does the patient require help to express basic necessities or ideas (such as hunger, thirst, sleep, s afety, daily schedule, room location, or discomfort) half or more of the time? No. EXPRESSION - STEP 3: How often does the patient need help to express directions and conversation about basic needs? 10-24% of the time EXPRESSION - SCORE: 4-MIN SOCIAL INTERACTION: SOCIAL INTERACTION - STEP 1: Does the patient require a helper to interact with others in social and therapeutic situations? No. SOCIAL INTERACTION - STEP 2: Does the patient need extra time in social situations, OR does s/he interact with staff, other patien ts, and family members ONLY in structured environments, OR does s/he require medication for social in teraction? Yes, patient needs extra time SOCIAL INTERACTION - SCORE: 6-OTILIO PROBLEM SOLVING: PROBLEM SOLVING - STEP 1: Does the patient need help from a person or device, or need extra time to solve complex problems such as managing a checking account or confronting interpersonal problems? Yes. PROBLEM SOLVING - STEP 2: Does the patient solve basic routine problems half or more of the time? Yes. PROBLEM SOLVING - STEP 3: How often does the patient need help to solve basic routine problems? 10%-24% of the time PROBLEM SOLVING - SCORE: 4-MIN MEMORY: MEMORY - STEP 1: Does the patient need help from a person or device, or need extra time to remember frequently encount ered people, daily routines, and executing requests? No. MEMORY - STEP 2: Does the patient have slight difficulty recognizing frequently encountered people, daily routines, or executing requests without the need for repetition or using self-initiated or environmental cues to remember? Yes. MEMORY - SCORE: 6-OTILIO SIGNATURE PANEL: The following modified sections: Eating - Score, Grooming - Score, Dressing - Upper Body - Score, Prashant ssing - Lower Body - Score, Toileting - Score, Bladder Management - Score, Bowel Management - Score, Transfers: Bed, Chair, Wheelchair - Score, Transfers: Toilet - Score, Transfers: Shower - Score, Simeon sfers: Tub - Score, Locomotion: Walk - Score, Locomotion: Wheelchair - Score, Comprehension - Score, Expression - Score, Social Interaction - Score, Problem Solving - Score, Memory - Score were [electro nically] signed by Gina Preston CNA on SatJul 22 2018 00:44:46 GMT-0600 (Central Standard Time)
--- NOTE | 2018-07-22 07:59 | FAST ---
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 Trino Pineda M.D. ADMISSION DIAGNOSIS: - Orthopaedic Disorders 08 - Unilateral Hip Fracture (08.11) RIGHT FEMORAL NECK FRACTURE. EATING: Activity did not occur on this shift EATING - SCORE: 0-UNK GROOMING: Wash, rinse, and dry face Wash, rinse, and dry hands GROOMING - STEP 1: Does the patient require the assistance of a person or device, or need extra time when grooming? Yes. GROOMING - STEP 2: Does the patient require the assistance of a helper? Yes. GROOMING - STEP 3: How much assistance does the patient require from the helper? Cuing, coaxing, instructions, or encour agement for completion of grooming GROOMING - SCORE: 5-SUP BATHING: Abdomen Buttocks Chest Left arm Left lower leg and foot Left upper leg Perineal area Right arm Right lower leg and foot Right upper leg BATHING - STEP 1: Does the patient require the assistance of a person or device, or need extra time when bathing? Yes. BATHING - STEP 2: Does the patient require the assistance of a helper? Yes. BATHING - STEP 3: How much assistance does the patient require from the helper? Only supervision, cuing, coaxing, instr uctions, encouragement BATHING - SCORE: 5-SUP DRESSING - UPPER BODY: Sweater (four steps) T-shirt/pullover shirt (four steps) ARTICLES SCORE Total number of steps: 8 DRESSING - UPPER BODY - STEP 1: Does the patient require help from a person or device, or need extra time when dressing above the [address]? Yes. DRESSING - UPPER BODY - STEP 2: Does the patient require the assistance of a helper? Yes. DRESSING - UPPER BODY - STEP 3: Does the helper touch the patient while dressing? No. DRESSING - UPPER BODY - SCORE: 5-SUP DRESSING - LOWER BODY: Elastic waist pants (three steps) Slip-on shoe - Left foot (one step) Slip-on shoe - Right foot (one step) Sock - Left foot (one step) Sock - Right foot (one step) Underwear (three steps) ARTICLES SCORE Total number of steps: 10 DRESSING - LOWER BODY - STEP 1: Does the patient require help from a person or device, or need extra time when dressing below the [address]? Yes. DRESSING - LOWER BODY - STEP 2: Does the patient require the assistance of a helper? Yes. DRESSING - LOWER BODY - STEP 3: Does the helper touch the patient while dressing? Yes. DRESSING - LOWER BODY - STEP 4: How many of the total steps does the patient complete on his/her own? 8 DRESSING - LOWER BODY - SCORE: 4-MIN TOILETING: Activity did not occur on this shift TOILETING - SCORE: 0-UNK BLADDER MANAGEMENT: Activity did not occur on this shift BLADDER MANAGEMENT - SCORE: 7-IND BOWEL MANAGEMENT: Activity did not occur on this shift BOWEL MANAGEMENT - SCORE: 7-IND TRANSFERS: BED, CHAIR, WHEELCHAIR: Activity did not occur on this shift TRANSFERS: BED, CHAIR, WHEELCHAIR - SCORE: 0-UNK TRANSFERS: TOILET: TRANSFERS: TOILET - STEP 1: Does the patient require the assistance of a person or device, or need extra time with toilet transfe rs? Yes. TRANSFERS: TOILET - STEP 2: Does the patient require the assistance of a helper? Yes. TRANSFERS: TOILET - STEP 3: How much assistance does the patient require from the helper? Only supervision, cuing, coaxing, OR he lp to set out transfer equipment or to lock brakes and/or lift foot rests TRANSFERS: TOILET - SCORE: 5-SUP TRANSFERS: SHOWER: Activity did not occur on this shift TRANSFERS: SHOWER - SCORE: 0-UNK TRANSFERS: TUB: TRANSFERS: TUB - STEP 1: Does the patient require the assistance of a person or device, or need extra time with tub transfers? Yes. TRANSFERS: TUB - STEP 2: Does the patient require the assistance of a helper? Yes. TRANSFERS: TUB - STEP 3: How much assistance does the patient require from the helper? Only supervision, cuing, coaxing, or he lp to set out transfer equipment or to lock brakes and/or lift foot rests TRANSFERS: TUB - SCORE: 5-SUP LOCOMOTION: WALK: Activity did not occur on this shift LOCOMOTION: WALK - SCORE: 0-UNK LOCOMOTION: WHEELCHAIR: Activity did not occur on this shift LOCOMOTION: WHEELCHAIR - SCORE: 0-UNK LOCOMOTION: STAIRS: Activity did not occur on this shift LOCOMOTION: STAIRS - SCORE: 0-UNK COMPREHENSION: COMPREHENSION - SCORE: 0-UNK EXPRESSION EXPRESSION - SCORE: 0-UNK SOCIAL INTERACTION: SOCIAL INTERACTION - SCORE: 0-UNK PROBLEM SOLVING: PROBLEM SOLVING - SCORE: 0-UNK MEMORY: MEMORY - SCORE: 0-UNK SIGNATURE PANEL: The following modified sections: Eating - Score, Grooming - Score, Bathing - Score, Dressing - Upper Body - Score, Dressing - Lower Body - Score, Toileting - Score, Transfers: Bed, Chair, Wheelchair - S core, Transfers: Toilet - Score, Transfers: Shower - Score, Transfers: Tub - Score, Comprehension - S core, Expression - Score, Social Interaction - Score, Problem Solving - Score, Memory - Score were [e lectronically] signed by JUDI Smith on SatJul 22 2018 07:58:42 T-0600 ([place] Time)
[2018-07-22] MEDS: MINOXIDIL 2.5 MG TAB PO SCH (08:00)
[2018-07-22] MEDS: HYDRALAZINE HCL 25 MG TABLET PO SCH (08:00)
[2018-07-22] MEDS: MAGNESIUM OXIDE 400 MG TAB PO SCH (08:31)
[2018-07-22] MEDS: TAMSULOSIN 0.4 MG SR CAP PO SCH (08:31)
[2018-07-22] MEDS: CARVEDILOL 6.25 MG TAB PO SCH (08:31)
[2018-07-22] MEDS: FE SULF/FA/VIT B COMP & C TAB PO SCH (08:32)
[2018-07-22] MEDS: AMLODIPINE 5 MG TAB PO SCH (08:32)
[2018-07-22] MEDS: FERROUS SULFATE 325 MG TAB PO SCH (08:32)
[2018-07-22] MEDS: FOLIC ACID 1 MG TABLET PO SCH (08:33)
[2018-07-22] MEDS: CODEINE 30MG/APAP 300MG TAB PO PRN (08:33)
[2018-07-22] MEDS: PROMOD 30 ML DOSE PO SCH (08:34)
[2018-07-22] MEDS: ENOXAPARIN 30 MG/0.3 ML SQ SCH (08:34)
[2018-07-22] MEDS: METAMUCIL PO SCH (08:35)
[2018-07-22] MEDS: LIDOCAINE 5% PATCH TOP SCH (08:35)
[2018-07-22] MEDS: cloNIDine HCl 0.1 MG TAB PO SCH ×2 (09:45→13:51)
[2018-07-22 13:52] VITALS: BP 145/67
--- NOTE | 2018-07-23 06:19 | DS ---
Date of Discharge: 07/22/2018 Disposition: Discharged to go home. Physical Examination: HEENT: Unremarkable. Lungs: Clear to auscultation. Heart: Sounds normal. Abdomen: Soft. Bowel sounds normal. No guarding, rigidity, tenderness, or distention. Extremities: No leg edema. Discharge Medications And Instructions: 1.Continue all prior home medications. 2.Take Tylenol 500 mg p.o. 4 times a day as needed for pain, and if the pain is intense and needs a stronger pain medication, then to take Tylenol with Codeine No.3 one tablet by mouth 4 times a day as needed for pain. Prescription written for 30 tablets with 1 refill. Hospital Course: This is an 82-year-old male patient who fell down and had right hip fracture, was a dmitted to the hospital. After he was admitted, he had surgery done, and postoperatively, he was bro ught in to rehab floor. The patient had some problem with urinary retention due to benign prostatic hypertrophy on the medical floor, but after he came to rehab floor, that problem resolved and did not require any catheterization of bladder. He did have fever and nausea, vomiting. This was determine d due to urinary tract infection and empiric antibiotics started. Urine culture was done, and we had to change antibiotic as his urine culture came back growing Pseudomonas and culture specific antibio tic ceftazidime was started. The patient responded very well to antibiotics. His highest white coun t during the stay on the rehab floor was 19,000, and after appropriate antibiotic, his white count ca me down to normal. His lowest hemoglobin was 7.3, and he did require blood transfusion for that. He received physical therapy under guidance of Dr. Pineda. Renal function remained stable. Antihype rtensive medications were continued. His last blood work from 07/17/2018; white count was at 6.3, he moglobin 9.5, platelets 315. Last chemistry yesterday; sodium 135, potassium 5.3, chloride 102, bica rb 28, BUN 59, creatinine 2.95, glucose 93. His last procalcitonin on 07/16/2018 was 0.99. Highest procalcitonin on 07/09/2018 was 22.49. The patient's IV antibiotics were completed this past weekend . He received 10 days of IV ceftazidime for this Pseudomonas . He had some constipation p lupe that was treated with a laxative and stool softener on the rehab floor as well. Overall, his condition has remained stable. Medically, he is stable for discharge and was discharged to go home i n stable condition with above-mentioned medication. Instructions: The patient to follow up at my office in 2 weeks and follow up with orthopedic surgeon next week. Final Diagnoses: 1.Right hip subcapital fracture. 2.Urinary tract infection, organism Pseudomonas. 3.Hypertension. 4.Anemia due to chronic kidney disease. 5.Anemia due to acute blood loss. 6.Chronic kidney disease stage 4. 7.Hypertension and hyperlipidemia. 8.Benign prostatic hypertrophy with urinary retention. 9.Allergic rhinitis. 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 11.Constipation. BRADY/MODL Voice ID: [id number] Report ID: [id number]
--- NOTE | 2018-07-25 15:56 | FAST ---
ENCOUNTER DATE AND TIME: 07/22/2018 08:00 ([employer]) NAME MARIIA SADLER DATE OF : 1935 DATE OF ADMISSION: 07/07/2018 17:08 ([employer]) PHONE: AGE: 82 SSN# [id number] GENDER: Male ENCOUNTER PHYSICIAN: Dr. Trino Pineda M.D. ADMISSION DIAGNOSIS: - Orthopaedic Disorders 08 - Unilateral Hip Fracture (08.11) RIGHT FEMORAL NECK FRACTURE. EATING: Activity did not occur on this shift EATING - SCORE: 0-UNK GROOMING: Activity did not occur on this shift GROOMING - SCORE: 0-UNK BATHING: Activity did not occur on this shift BATHING - SCORE: 0-UNK DRESSING - UPPER BODY: Activity did not occur on this shift Patient is not dressing in public clothing ARTICLES SCORE Total number of steps: 0 DRESSING - UPPER BODY - SCORE: 0-UNK DRESSING - LOWER BODY: Activity did not occur on this shift Patient is not dressing in public clothing ARTICLES SCORE Total number of steps: 0 DRESSING - LOWER BODY - SCORE: 0-UNK TOILETING: Activity did not occur on this shift TOILETING - SCORE: 0-UNK BLADDER MANAGEMENT: Activity did not occur on this shift BLADDER MANAGEMENT - SCORE: 7-IND BOWEL MANAGEMENT: Activity did not occur on this shift BOWEL MANAGEMENT - SCORE: 7-IND TRANSFERS: BED, CHAIR, WHEELCHAIR: TRANSFERS: BED, CHAIR, WHEELCHAIR - STEP 1: Does the patient require assistance of a person or device, or need extra time with bed, chair, or whe elchair transfers? Yes. TRANSFERS: BED, CHAIR, WHEELCHAIR - STEP 2: Does the patient require the assistance of a helper? No. Patient only requires an assistive device fo r bed, chair, wheelchair transfers such as a sliding board, grab bar, or brace, OR s/he takes more th an reasonable time, OR there is a safety concern when s/he performs the transfers TRANSFERS: BED, CHAIR, WHEELCHAIR - SCORE: 6-OTILIO TRANSFERS: TOILET: Activity did not occur on this shift TRANSFERS: TOILET - SCORE: 0-UNK TRANSFERS: SHOWER: Activity did not occur on this shift TRANSFERS: SHOWER - SCORE: 0-UNK TRANSFERS: TUB: Activity did not occur on this shift TRANSFERS: TUB - SCORE: 0-UNK LOCOMOTION: WALK: LOCOMOTION: WALK - STEP 1: Does the patient need help from a person or device, or need extra time to walk 150 feet? No. LOCOMOTION: WALK - STEP 2: Does the patient need an assistive device (such as an orthosis, prosthesis, crutches, or walker) to g o 150 feet, OR does s/he take more than reasonable time, OR is there a concern for safety? Yes, the p atient needs an assistive device LOCOMOTION: WALK - SCORE: 6-OTILIO LOCOMOTION: WHEELCHAIR: Activity did not occur on this shift LOCOMOTION: WHEELCHAIR - SCORE: 0-UNK LOCOMOTION: STAIRS: LOCOMOTION: STAIRS - STEP 1: Does the patient need help to go up and down 12 to 14 stairs? Yes. LOCOMOTION: STAIRS - STEP 2: How much assistance does the patient need from the helper to go a minimum of 12 to 14 stairs? Only brock pervision, cuing, or coaxing LOCOMOTION: STAIRS - SCORE: 5-SUP COMPREHENSION: COMPREHENSION - SCORE: 0-UNK EXPRESSION EXPRESSION - SCORE: 0-UNK SOCIAL INTERACTION: SOCIAL INTERACTION - SCORE: 0-UNK PROBLEM SOLVING: PROBLEM SOLVING - SCORE: 0-UNK MEMORY: MEMORY - SCORE: 0-UNK SIGNATURE PANEL: The following modified sections: Transfers: Bed, Chair, Wheelchair - Score, Transfers: Toilet - Score , Locomotion: Walk - Score, Locomotion: Wheelchair - Score, Locomotion: Stairs - Score were [electron ically] signed by Ezra Hurley PTA on SatJul 25 2018 15:55:19 GMT-0600 (Central Standard Time)
--- NOTE | 2018-08-02 23:23 | PN ---
Date of Progress Note: 07/12/2018 Subjective: The patient was seen for followup. No new complaints or problems reported. Objective: Vital Signs: Reviewed. HEENT: Unremarkable. Lungs: Clear to auscultation. No rhonchi. No rales. Heart: Sounds normal. Abdomen: Soft. Bowel sounds normal. No guarding, rigidity, tenderness, or distention. Extremities: No leg edema. Labs: Yesterday's lab results reviewed. Impression: 1.Urinary tract infection, organism Pseudomonas. 2.Hypertension. 3.Anemia due to chronic kidney disease. 4.Anemia due to acute blood loss. 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 6.Osteoarthritis, multiple sites. 7.Hip fracture. Plan: We will go ahead and continue current medication. Continue current antibiotic for urinary tra ct infection. Continue current antihypertensive medication and physical therapy will be provided und er guidance of Dr. Pineda. I will see him tomorrow for followup. BRADY/MODL Voice ID: [id number] Report ID: [id number]
== END 2018-07-22 14:20 | disposition home health service (06) | DRG 560 ==
LOC: 5TH 17:08 → UNDOADMIN 17:08 → 5TH 07-10 12:35
PROVIDERS: ADMIT Internal Medicine; ATTEND Internal Medicine
DX: S72.011D Unspecified intracapsular fracture of right femur, subsequent encounter for closed fracture with routine healing (principal); N18.4 Chronic kidney disease, stage 4 (severe); D62 Acute posthemorrhagic anemia; N39.0 Urinary tract infection, site not specified; I12.9 Hypertensive chronic kidney disease with stage 1 through stage 4 chronic kidney disease, or unspecified chronic kidney disease; E87.5 Hyperkalemia; D63.1 Anemia in chronic kidney disease; B96.5 Pseudomonas (aeruginosa) (mallei) (pseudomallei) as the cause of diseases classified elsewhere; M15.9 Polyosteoarthritis, unspecified; N40.1 Benign prostatic hyperplasia with lower urinary tract symptoms; R33.8 Other retention of urine; E78.5 Hyperlipidemia, unspecified; J30.9 Allergic rhinitis, unspecified; K86.9 Disease of pancreas, unspecified; K59.00 Constipation, unspecified; Z99.2 Dependence on renal dialysis
CPT/HCPCS: 36415; 71045; 80048; 80053; 81001; 82040; 82274; 83605; 83615; 83735; 84134; 84145; 84550; 85014; 85018; 85025; 86850; 86900; 86901; 87040; 87077; 87086; 87088; 87186; 92507; 92523; 97110; 97116; 97150; 97162; 97167; 97530; 97542; G0008; J0696; J0713; J1650; J7030; P9016

== ENCOUNTER 2022-11-13 11:15 | Inpatient (IN) | payer OTHER ==
--- NOTE | 2022-11-13 12:33 | RAD REPORT ---
EXAM DESCRIPTION: Vernat Single View11/13/2022 12:25 pm CLINICAL HISTORY: MALAISE COMPARISON: Chest Single View dated 07/09/2018; Chest Single View dated 02/07/2016; CHEST SINGLE VIEW dated 02/06/2015; CHEST PA AND LAT 2 VIEW dated 06/08/2012 TECHNIQUE: Portable AP view of the chest. FINDINGS: The lungs are clear. Stable calcified peripheral left lung nodules. No pneumothorax or eff usion. The cardiomediastinal contours are unremarkable. IMPRESSION: No acute cardiopulmonary process.
[2022-11-13] MEDS ORDERED: NA CHLORIDE 0.9% 500 ML ONE (12:56)
--- OUTSIDE RECORDS SUMMARY | 2022-11-13 13:25 | XMS REPORT | Continuity of Care Document ---
:1935 Author Organization [facility] t Address [address] [place] [address] [place] [address] Care Team Providers Name Role Phone CAMACHO KYLE Primary Care Physician Unavailable NATACHA POE Attending Clinician Unavailable OMAYRA DAHL Attending Clinician Unavailable Payers Payer Name Policy Type Policy Number Effective Date Expiration Date S nery MEDICARE PART A [id number] 2000 AND B 00:00:00 Problems Condition Condition Condition Status Onset Resolution Last Treating Co mments Source Name Details Category Date Date Treatment Clinician Date Encounter Encounter Problem Active Com mon for other for other [facility] orthopedic orthopedic - 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 Pain of Pain of Diagnosis Active Commo n right hip right hip Spir it joint joint - [facility] Closed Closed Problem Active Common displaced displaced [facility] fracture fracture - [facility] of right of right femoral femoral [facility] with neck with [facility] routine routine [facility] healing healing Allergies, Adverse Reactions, Alerts This patient has no known allergies or adverse reactions. Medications Ordered Filled Start Stop Current Ordering Indication Dosage Frequency Signature Comments Components Source Medication Medication Date Date Medication? Clinician (SIG) Name Name Tamsulosin Tamsulosin Yes Greg not C ommon HCl HCl Hannon defined [facility] Aspirin 81 Aspirin 81 Yes Greg not C ommon Hannon defined [facility] Metamucil Metamucil Yes Greg not Com mon Hannon defined [facility] Amlodipine Amlodipine Yes Greg not C ommon Besylate Besylate [facility] defined [facility] Carvedilol Carvedilol Yes Greg not C ommon Parvez defined [facility] HydrALAZINE HydrALAZINE Yes Greg not Common HCl HCl Hannon defined [facility] Simvastatin Simvastatin Yes Greg not Common Hannon defined [facility] iron iron Yes Greg not Common Hannon defined [facility] Folic Acid Folic Acid Yes Greg not C ommon Hannon defined [facility] Acetaminoph Acetaminoph Yes Greg not Common en-Codeine en-Codeine Hannon defined Spirit #3 #3 - [facility] Minoxidil Minoxidil Yes Greg not Com mon Hannon defined [facility] Clonidine Clonidine Yes Greg not Com mon HCl HCl Hannon defined [facility] Procedures This patient has no known procedures. Encounters Start End Encounter Admission Attending Care Care Encounter Source Date/Time Date/Time Type Type Clinicians Facility Department ID 2022-10-18 Outpatient [facility] [id number] [place] 15:20:20 [id number] [facility] 2022-04-20 Outpatient [facility] [id number] [place] 09:19:02 [id number] [facility] 2022-02-02 Outpatient [facility] [id number] [place] 07:52:30 [id number] [facility] 2021-12-25 Outpatient [facility] [id number] [place] 09:33:33 [id number] [facility] 2021-12-06 Outpatient [facility] [id number] [place] 16:09:46 [id number] [facility] 2021-12-01 Outpatient RAGNATHAN [facility] [id number] [place] 10:58:19 , NATACHA [id number] [facility] 2021-11-08 Outpatient [facility] [id number] [place] 08:26:58 [id number] [facility] 2023-02-01 2023-02-01 Outpatient HESHAM, [facility] [id number] [place] 09:00:00 09:00:00 OMAYRA Jin 2022-10-19 2022-10-19 Outpatient HESHAM, [facility] [id number] [place] 09:00:00 09:00:00 OMAYRA Jin 2022-04-20 2022-04-20 Outpatient HESHAM, [facility] [id number] [place] 09:00:00 10:38:05 OMAYRA zepeda 2018-09-23 2018-09-23 Outpatient Stephen Mitchellt [id number] [place] 10:30:00 10:30:00 [facility] 2018-08-06 2018-08-06 Outpatient Stephen Montelongo [id number] [place] 09:30:00 09:30:00 [facility] Results This patient has no known results.
[2022-11-13 14:20] LABS: Absolute Lymphocytes (CBC) 0.3 K/uL (0.7-4.9); Hematocrit 33.9 % (39.6-49.0); Lymphocytes % 2.3 % (15.3-44.8); MCV 81.4 fL (80-100); MPV 7.6 fL (7.6-11.3); RBC Red Blood Cell Count 4.17 M/uL (4.33-5.43)
[2022-11-13 14:38] LABS: Protime INR 1.19
[2022-11-13 14:45] LABS: Troponin High Sensitivity 100.1 pg/mL (<58.9)
[2022-11-13 14:47] LABS: Albumin 3.3 g/dL (3.4-5.0); Bilirubin Total 0.8 mg/dL (0.2-1.0); Protein, Total 8.2 g/dL (6.4-8.2)
[2022-11-13] MEDS ORDERED: D50W 25 GM/50 ML SYRINGE IV ONE (15:05)
[2022-11-13] MEDS ORDERED: SOD POLYSTYREN SUL 15 GM/60 ML UCUP ONE (15:10)
[2022-11-13] MEDS ORDERED: INSULIN -REGULAR HUMAN 50 UNIT/0.5 ML ML ONE (15:10)
[2022-11-13] MEDS ORDERED: CALCIUM GLUCONATE 1 GM IVPB 1 GM/50 ML BAG IV ONE (15:10)
[2022-11-13] MEDS ORDERED: D5 0.9 NS 1,000 ML IV ONE (15:11)
--- NOTE | 2022-11-13 15:11 | RAD REPORT ---
EXAM DESCRIPTION: CT - Head Brain Wo Cont - 11/13/2022 3:05 pm CLINICAL HISTORY: DECLINING STATE Headache, drowsiness, COMPARISON: Head Brain Wo Cont dated 02/07/2016; CT-STROKE BRAIN W/O CONTRAST dated 02/06/2015 TECHNIQUE: All CT scans are performed using dose optimization technique as appropriate and may inclu de automated exposure control or mA/KV adjustment according to patient size. FINDINGS: Significant generalized brain atrophy noted.Advanced chronic microvascular ischemic change s seen periventricular and deep white matter.Area of gliosis is seen posterior left frontal region. The paranasal sinuses and mastoids are clear. The calvarium is intact. IMPRESSION: No acute intracranial abnormality.
--- NOTE | 2022-11-13 15:51 | RAD REPORT ---
EXAM DESCRIPTION: CT - Abdomen Pelvis Wo Contrast - 11/13/2022 3:05 pm CLINICAL HISTORY: Abdominal pain. Constipation;Nausea / vomiting COMPARISON: Abdomen Pelvis Wo Contrast dated 11/08/2017; Head Brain Wo Cont dated 11/13/2022 TECHNIQUE: CT imaging of the abdomen and pelvis was performed without contrast. Solid organ, bowel a nd vascular assessment is limited due to lack of IV and oral contrast. All CT scans are performed using dose optimization technique as appropriate and may include automated exposure control or mA/KV adjustment according to patient size. FINDINGS: The lower lung banks are clear. Motion degraded study is submitted. Multiple cysts are present in the liver. Spleen is normal size. T he pancreas demonstrates 4 cm low-density lesion in the region of the pancreatic head. This is a cad detailer vladislav finding.It is unclear if this lesion has been further investigated. Pancreatic parenchyma otherwise unremarkable. Both adrenal glands within normal limits. Atrophy the l eft kidney is noted. There is moderate right-sided hydronephrosis. Urinary bladder is quite distended . No bowel obstruction, free air, free fluid or abscess. Lumbosacral degenerative changes.Right total hip arthroplasty. IMPRESSION: Significant distention of the urinary bladder is seen with mild hydronephrosis also pres ent. Bladder outlet obstruction is a possibility. A limited non-contrast examination was performed as detailed.
[2022-11-13] MEDS ORDERED: NA CHLORIDE 0.9% 50 ML ONE (16:23)
[2022-11-13] MEDS ORDERED: NA CHLORIDE 0.9% 0 ML ONE (16:23)
[2022-11-13] MEDS ORDERED: CEFTRIAXONE 1000 MG/VIAL ONE (16:23)
[2022-11-13] MEDS ORDERED: VANCOMYCIN 1 GM/VIAL ONE (16:23)
[2022-11-13 17:12] LABS: Urine Bacteria 20-50 /HPF (<20); Urine Bilirubin NEGATIVE (Negative); Urine Blood 2+ (Negative); Urine Clarity Extremely Turbid (Clear); Urine Color Light-Yellow (Yellow); Urine Glucose NEGATIVE (Negative); Urine Protein 3+ (Negative); Urine Urobilinogen Normal (Normal)
--- NOTE | 2022-11-13 17:29 | EDPHYS ---
Physician Documentation [facility] Name: Donal Ramirez Age: 87 yrs Sex: Male : 1935 Arrival Date: 11/13/2022 Time: 11:15 Bed 26 Private MD: Monalisa Cyr C ED Physician Hernan Razo HPI: 11/13 11:38 This 87 yrs old Black Male presents to ER via Wheelchair with complaints of Altered jh7 Mental Status, Urinary Problem, Leg Pain - cramping, Decreased Appetite. 11:38 The patient presents with decreased responsiveness. Onset: The symptoms/episode jh7 began/occurred 2 day(s) ago. Possible causes: sepsis, uti, dehydration. Associated signs and symptoms: Pertinent positives: confusion, vomiting, weakness, Urinary frequency, Pertinent negatives: fever. 87-year-old male presents for decreased responsiveness/AMS, urinary frequency, weakness, decreased appetite, bilateral leg cramping, constipation, and vomiting. The patient's caregiver reports that he was constipated for the past few days and only had a bowel movement last night after Ex-Lax. Reports initial urinary frequency and now reports decreased urination. Reports that he is normally oriented but that he is less responsive now. History of multiple strokes with the last TIA occurring 1 month ago. The patient has a history of hypertension. He is a patient of Dr. Cyr.. Historical: - Allergies: 11:38 No Known Allergies; aa5 - PMHx: 11:38 CVA; Hypertension; aa5 - Immunization history:: Adult Immunizations unknown. - Social history:: Smoking status: Patient denies any tobacco usage or history of. ROS: 11:38 Eyes: Negative for injury, pain, redness, and discharge, ENT: Negative for injury, jh7 pain, and discharge, Neck: Negative for injury, pain, and swelling, Cardiovascular: Negative for chest pain, palpitations, and edema, Respiratory: Negative for shortness of breath, cough, wheezing, and pleuritic chest pain, Back: Negative for injury and pain, MS/Extremity: Negative for injury and deformity, Skin: Negative for injury, rash, and discoloration. 11:38 Constitutional: Positive for fatigue, poor PO intake. 11:38 Abdomen/GI: Positive for nausea, vomiting, constipation. 11:38 Neuro: Positive for altered mental status, weakness. 11:38 All other systems are negative. Exam: 11:38 Head/Face: Normocephalic, atraumatic. Eyes: Pupils equal round and reactive to light, jh7 extra-ocular motions intact. Lids and lashes normal. Conjunctiva and sclera are non-icteric and not injected. Cornea within normal limits. Periorbital areas with no swelling, redness, or edema. Neck: Trachea midline, no thyromegaly or masses palpated, and no cervical lymphadenopathy. Supple, full range of motion without nuchal rigidity, or vertebral point tenderness. No Meningismus. Cardiovascular: Regular rate and rhythm with a normal S1 and S2. No gallops, murmurs, or rubs. Normal PMI, no JVD. No pulse deficits. Respiratory: Lungs have equal breath sounds bilaterally, clear to auscultation and percussion. No rales, rhonchi or wheezes noted. No increased work of breathing, no retractions or nasal flaring. Back: No spinal tenderness. No costovertebral tenderness. Full range of motion. Skin: Warm, dry with normal turgor. Normal color with no rashes, no lesions, and no evidence of cellulitis. 11:38 Constitutional: The patient appears awake, lethargic. 11:38 Abdomen/GI: Inspection: abdomen appears normal, Bowel sounds: normal, Palpation: abdomen is soft and non-tender. 11:38 Skin: Appearance: Color: pale. 11:38 Neuro: Orientation: Not oriented to person, place, time, situation, Mentation: non-verbal, not following commands, Motor: NIH score strongly affected by the pt being altered. Vital Signs: 11:38 BP 94 / 46; Pulse 88; Resp 20 S; Temp 97.9(O); Pulse Ox 98% on R/A; aa5 12:30 BP 128 / 84; Pulse 85; Resp 30; Pulse Ox 100% on R/A; db 13:30 BP 142 / 87; Pulse 87; Resp 24; Pulse Ox 100% on R/A; db 14:30 BP 155 / 90; Pulse 88; Resp 24; Pulse Ox 100% on R/A; db 15:41 BP 117 / 59; Pulse 90; Resp 30; Pulse Ox 100% ; db 16:00 BP 123 / 72; Pulse 104; Resp 29; Temp 98.6(O); Pulse Ox 98% ; db 16:23 Weight 61.23 kg; db 17:00 BP 160 / 88; Pulse 87; Resp 18; Pulse Ox 100% on R/A; db 18:00 BP 137 / 89; Pulse 102; Resp 22; Pulse Ox 99% ; db 18:30 BP 141 / 81; Pulse 98; Resp 20; Pulse Ox 99% on R/A; db NIH Stroke Scale Scores: 11:38 NIHSS Score: 27 [facility] Brenda Coma Score: 11:38 Eye Response: spontaneous(4). Motor Response: localizes pain(5). Verbal Response: [facility] none(1). Total: 10. MDM: 11:[address] [facility] 14:43 Post IV fluid administration reassessment for Sepsis: Client not prescribed the 30 jh7 mL/kg IVF due to: concern related to renal failure. Amount of IVF prescribed: 1500 BP normalized after initial 500mL bolus. ED course: Lactate 2.7. No antibiotics started yet due to no confirmed source.. 16:10 Management of patient was discussed with the following: Preconstruction Manager: Dr. Chambers, [facility] nephrology. Discussed all labs and imaging with nephrology who advised that after the D5 NS bolus, to start 1 L of D5 1/2 NS with 75 meq of bicarb at 1 mL/kg for the rate.. 16:32 Management of patient was discussed with the following: Primary Care Provider: Dr. yong Cyr. Inform Dr. Cyr of all labs and imaging. He requested to wait until the urine results before starting antibiotics. He also requested for me to discuss CODE STATUS with the patient's family. Spoke to the patient's daughter, Altaf, who is the power of patent prosecution attorney and stated that her father is full CODE STATUS.. 17:10 ED course: Reviewed UA results. Will start antibiotics per sepsis protocol.. [facility] 17:20 Differential Diagnosis: CVA, electrolyte abnormality, hypoglycemia, pneumonia, sepsis, [facility] TIA, UTI, volume depletion, Bowel obstruction. Data reviewed: vital signs, nurses notes, lab test result(s), EKG, radiologic studies, CT scan, plain films. Consideration of Admission/Observation Patient was admitted/placed on observation. I considered the following discharge prescriptions or medication management in the emergency department Medications were administered in the Emergency Department. See MAR. Independent interpretation of the following test(s) in the Emergency Department EKG: See my EKG interpretation above. Historians other than the Patient: Daughter/Son: Daughter and caregiver. Care significantly affected by the following chronic conditions: Hypertension, CVA. Counseling: I had a detailed discussion with the patient and/or guardian regarding: the historical points, exam findings, and any diagnostic results supporting the discharge/admit diagnosis, the need for further work-up and treatment in the hospital. Response to treatment: the patient's symptoms have mildly improved after treatment. 11/13 11:29 Order name: Blood Culture Adult (2) [facility] 11/13 11:29 Order name: CBC with Diff; Complete Time: 14:45 [facility] 11/13 11:29 Order name: CMP; Complete Time: 14:48 [facility] 11/13 11:29 Order name: Lactate w/ 2H reflex if indic.; Complete Time: 14:45 [facility] 11/13 11:29 Order name: Protime (+inr); Complete Time: 14:45 [facility] 11/13 11:29 Order name: Ptt, Activated; Complete Time: 14:45 [facility] 11/13 11:29 Order name: Urinalysis w/ reflexes; Complete Time: 17:15 [facility] 11/13 11:31 Order name: Troponin High Sensitivity; Complete Time: 14:46 [facility] 11/13 11:31 Order name: CK; Complete Time: 14:46 [facility] 11/13 14:06 Order name: Glucose, Ancillary Testing; Complete Time: 14:45 [facility] 11/13 17:15 Order name: Urine Culture [facility] 11/13 17:28 Order name: Glucose, Ancillary Testing; Complete Time: 17:29 [facility] 11/13 17:40 Order name: Lactate w/ 2H reflex if indic. [facility]DE 11/13 17:40 Order name: Urinalysis w/ reflexes [facility] 11/13 17:40 Order name: CBC with Automated Diff [facility] 11/13 17:40 Order name: CBC with Automated Diff [facility] 11/13 17:40 Order name: Comprehensive Metabolic Panel [facility] 11/13 17:40 Order name: Comprehensive Metabolic Panel [facility] 11/13 17:40 Order name: Troponin High Sensitivity [facility]DE 11/13 19:03 Order name: Lactate Sepsis 2 HR Follow-up [facility] 11/13 11:29 Order name: Chest Single View XRAY; Complete Time: 12:47 [facility] 11/13 11:29 Order name: CT Head Brain wo Cont; Complete Time: 15:19 [facility] 11/13 15:05 Order name: Abdomen ; Complete Time: 15:52 [facility] 11/13 11:29 Order name: EKG; Complete Time: 11:30 [facility] 11/13 17:40 Order name: Renal EDMS 11/13 11:29 Order name: Accucheck [facility] 11/13 11:29 Order name: Cardiac monitoring; Complete Time: 13:40 [facility] 11/13 11:29 Order name: EKG - Nurse/Tech; Complete Time: 13:40 [facility] 11/13 11:29 Order name: IV Saline Lock - Large Bore [facility] 11/13 11:29 Order name: Labs collected and sent [facility] 11/13 11:29 Order name: O2 Per Protocol; Complete Time: 13:40 [facility] 11/13 11:29 Order name: O2 Sat Monitoring; Complete Time: 13:40 [facility] 11/13 11:29 Order name: Vital Signs; Complete Time: 13:40 [facility] 11/13 15:51 Order name: Recheck Vital Signs; Complete Time: 16:58 [facility] 11/13 15:54 Order name: [place]; Complete Time: 16:58 [facility] 11/13 18:31 Order name: Bladder Scanner [facility] EC:54 Rate is 87 beats/min. Rhythm is regular. QRS Lapel is Normal. VT interval is prolonged [facility] at 212 msec. QRS interval is normal at 76 msec. QT interval is normal at 374 msec. No Q waves. T waves are Normal. No ST changes noted. Clinical impression: 1st degree heart block. Administered Medications: 14:31 Drug: NS 0.9% IV 500 ml Route: IV; Rate: bolus; Site: right forearm; db 14:47 Not Given (Physician Discretion): NS 0.9% IV 1000 ml IV at 1 bolus Per protocol; 1000 jh7 mL bolus 15:40 Drug: Kayexalate PO 30 grams Route: PO; db 15:42 Drug: D5-NS IV 1000 ml Route: IV; Rate: 1 bolus; Site: left antecubital; db 15:43 Drug: D50W IVP 50 ml Route: IVP; Site: left antecubital; db 15:49 Drug: Sodium Bicarbonate IVP 1 amp Route: IVP; Site: right antecubital; db 15:55 Drug: Insulin Regular Human IVP 10 units {Co-Signature: kb3 (Maribell Sawyer RN).} db Route: IVP; Site: left antecubital; 15:57 Drug: Calcium Gluconate IVPB 1 grams Route: IVPB; Infused Over: 60 mins; Site: left db antecubital; 16:30 CANCELLED (Physician Discretion): vancoMYCIN IVPB 1 grams IVPB once over [address] [facility] 16:31 CANCELLED (per dr. cyr): Rocephin IV 1 grams IV at 1 calculated rate once; Given slow [facility] IV push per pharmacy instructions 18:30 Drug: Rocephin IV 1 grams Route: IV; Rate: 1 calculated rate; Site: right forearm; db 18:45 Follow up: IV Status: Completed infusion; IV Intake: 50ml 18:46 Drug: D5-1/2 NS IV 1000 ml Route: IV; Rate: 75 ml/hr; Site: right forearm; db Disposition: 11/14 07:20 Co-signature as Attending Physician, Hernan Razo MD. rn 07:20 I reviewed the patient's care provided by the Advanced Practice Provider and agree with rn the diagnosis and treatment plan. Disposition Summary: 11/13/22 17:29 Hospitalization Ordered Hospitalization Status: Inpatient Admission [facility] Provider: Monalisa Cyr Location: Telemetry/MedSurg (Inpatient) [facility] Condition: Fair [facility] Problem: new [facility] Symptoms: are unchanged [facility] Bed/Room Type: Standard [facility] Room Assignment: 430(11/13/22 19:35) Diagnosis - Severe sepsis without septic shock [facility] - UTI/ Urinary tract infection, site not specified [facility] - CHERI [facility] Forms: - Medication Reconciliation Form [facility] - SBAR form [facility] NIH Stroke Scale - NIH Stroke Score Date: 11/13/2022 Time: 11:38 Total Score = 27 10. Dysarthria (speech clarity - read or repeat words) - 2(Severe) 11. Extinction and Inattention (visual/tactile/auditory/spatial/personal) - 1(Present) 1a. Level of Consciousness (LOC) - 1(Not Alert) 1b. Level of Consciousness (LOC) (Month \T\ Age) - 2(Neither) 1c. LOC Commands (Open \T\ Closes Eyes/Mobile Architect) - 2(Neither) 2. Best Gaze (Lateral Gaze Paresis) - 0(Normal) 3. Visual Field Loss - 0(No visual loss) 4. Facial Palsy - 0(Normal) 5a. Left Arm: Motor (10-second hold) - 4(No movement) 5b. Right Arm: Motor (10-second hold) - 4(No movement) 6a. Left Leg: Motor (5-second hold - always test supine) - 4(No movement) 6b. Right Leg: Motor (5-second hold - always test supine) - 4(No movement) 7. Limb Ataxia (finger/nose \T\ heel/chan - test with eyes open) - 0(Absent) 8. Sensory Loss (pinprick arms/legs/face) - 0(Normal) 9. Best Language: Aphasia (description/naming/reading) - 3(Mute, global aphasia) Initials: [facility] Signatures: Dispatcher [employer] EDMS Lucretia Davis Martha, RN RN mw Hernan Razo MD MD rn Calderon, Audri, RN RN aa5 Cara La, SURFACE WATER TECHNICIAN [place] [id number] Lenora Prieto RN RN db Maribell Sawyer RN kb3 Corrections: (The following items were deleted from the chart) 06 14:44 14:27 Labs - recollect needed ordered. bp 15:05 11:30 Abdomen Pelvis W Con+CT.RAD.BRZ ordered. EDDE EDMS 16:30 15:55 vancoMYCIN IVPB 1 grams IVPB once over 2 hrs [place] [id number] 16:31 15:55 Rocephin IV 1 grams IV at 1 calculated rate once; Given slow IV push per [facility] pharmacy instructions ordered. [facility] 19:35 17:29 [facility] mw
--- NOTE | 2022-11-13 17:29 | ER ---
Nurse's Notes [facility] Name: Donal Ramirez Age: 87 yrs Sex: Male : 1935 Arrival Date: 11/13/2022 Time: 11:15 Bed 26 Private MD: Monalisa Cyr C Diagnosis: Severe sepsis without septic shock;UTI/ Urinary tract infection, site not specified;CHERI Presentation: 11/13 11:38 Acuity: ERICH 2 aa5 11:38 Chief complaint: Pt's daughter reports generalized weakness, decreased appetite, AMS, aa5 and possible UTI. 11:38 Method Of Arrival: Wheelchair aa5 11:38 Coronavirus screen: At this time, the client does not indicate any symptoms associated aa5 with coronavirus-19. Ebola Screen: Patient denies travel to an Ebola-affected area in the 21 days before illness onset. Initial Sepsis Screen: Does the patient meet any 2 criteria? No. Patient's initial sepsis screen is negative. Does the patient have a suspected source of infection? No. Patient's initial sepsis screen is negative. Risk Assessment: Do you want to hurt yourself or someone else? Patient reports no desire to harm self or others. Onset of symptoms was 2022. Triage Assessment: 18:54 General: Appears emaciated, Behavior is inappropriate for age. db Historical: - Allergies: 11:38 No Known Allergies; aa5 - PMHx: 11:38 CVA; Hypertension; aa5 - Immunization history:: Adult Immunizations unknown. - Social history:: Smoking status: Patient denies any tobacco usage or history of. Screenin:58 [facility] ED Fall Risk Assessment (Adult) History of falling in the last 3 months, db including since admission Yes- single mechanical fall (1 pt) Confusion or Disorientation Yes (5 pts) Intoxicated or Sedated No (0 pts) Impaired Gait Yes (1 pt) Mobility Assist Device Used No (0 pt) Altered Elimination Yes (1 pt) Score/Fall Risk Level 3 or more points = High Risk Oriented to surroundings, Maintained a safe environment. Abuse screen: Denies threats or abuse. Denies injuries from another. Nutritional screening: No deficits noted. Tuberculosis screening: No symptoms or risk factors identified. Assessment: 12:00 Reassessment: Patient appears in no apparent distress at this time. Patient and/or db family updated on plan of care and expected duration. Pain level reassessed. General: Appears comfortable, slender, Behavior is calm. Pain: Denies pain. Neuro: Level of Consciousness is awake, not answering questions. Oriented to none. 13:00 Reassessment: Patient appears in no apparent distress at this time. Patient and/or db family updated on plan of care and expected duration. Pain level reassessed. 15:00 Reassessment: Patient appears in no apparent distress at this time. Patient and/or db family updated on plan of care and expected duration. Pain level reassessed. 16:00 Reassessment: Patient appears in no apparent distress at this time. Patient and/or db family updated on plan of care and expected duration. Pain level reassessed. family updated. 18:14 Reassessment: Patient appears in no apparent distress at this time. Patient and/or db family updated on plan of care and expected duration. Pain level reassessed. Patient is alert, oriented x 3, equal unlabored respirations, skin warm/dry/pink. General: Appears in no apparent distress. comfortable, Behavior is calm, cooperative. 18:14 Reassessment: patient iV infiltrated. Bilateral IVs removed due to infiltration. Nurse db at bedside for IV. 18:55 Reassessment: Patient appears in no apparent distress at this time. Patient and/or db family updated on plan of care and expected duration. Pain level reassessed. Vital Signs: 11:38 BP 94 / 46; Pulse 88; Resp 20 S; Temp 97.9(O); Pulse Ox 98% on R/A; aa5 12:30 BP 128 / 84; Pulse 85; Resp 30; Pulse Ox 100% on R/A; db 13:30 BP 142 / 87; Pulse 87; Resp 24; Pulse Ox 100% on R/A; db 14:30 BP 155 / 90; Pulse 88; Resp 24; Pulse Ox 100% on R/A; db 15:41 BP 117 / 59; Pulse 90; Resp 30; Pulse Ox 100% ; db 16:00 BP 123 / 72; Pulse 104; Resp 29; Temp 98.6(O); Pulse Ox 98% ; db 16:23 Weight 61.23 kg; db 17:00 BP 160 / 88; Pulse 87; Resp 18; Pulse Ox 100% on R/A; db 18:00 BP 137 / 89; Pulse 102; Resp 22; Pulse Ox 99% ; db 18:30 BP 141 / 81; Pulse 98; Resp 20; Pulse Ox 99% on R/A; db Vitals: 18:30 Cardiac Rhythm Assessment Regular. db [place] Coma Score: 11:38 Eye Response: spontaneous(4). Motor Response: localizes pain(5). Verbal Response: [facility] none(1). Total: 10. NIH Stroke Scale Scores: 11:38 NIHSS Score: 27 [facility] ED Course: 11:17 Patient arrived in ED. am2 11:17 Monalisa Cyr MD is Private Physician. am2 11:22 [facility] jh7 11:22 Hernan Razo MD is Attending Physician. 7 11:38 Arm band placed on. aa5 11:40 Triage completed. aa5 12:01 Lenora Prieto, RN is Primary Nurse. db 12:26 Chest Single View XRAY In Process Unspecified. EDMS 13:00 Missed attempt(s): 22 gauge in right forearm. Bleeding controlled, band aid applied, db catheter tip intact. 13:07 Missed attempt(s): 22 gauge in right antecubital area. Bleeding controlled, band aid db applied, catheter tip intact. 13:33 Missed attempt(s): 22 gauge in left by another nurse. db 13:47 Radiology exam delayed due to lab results not completed at this time. (BUN/Creatinine) jg10 IV insertion attempt and/or patient not having appropriate IV at this time. 14:00 Inserted saline lock: 20 gauge in left antecubital area, using aseptic technique. jl7 14:20 Initial lab(s) drawn, by me, sent to lab. Inserted saline lock: 22 gauge in right jl7 antecubital area, using aseptic technique. Blood collected. 15:05 Abdomen In Process Unspecified. EDMS 15:07 CT Head Brain wo Cont In Process Unspecified. EDMS 16:31 Patient has correct armband on for positive identification. Bed in low position. Call db light in reach. Side rails up X2. 16:53 [place] cath inserted, using sterile technique, 16 Fr., by me, balloon inflated, to db gravity drainage, urine specimen collected. 17:00 Client placed on continuous cardiac and pulse oximetry monitoring. NIBP monitoring db applied. Warm blanket given. 17:25 Monalisa Cyr MD is Hospitalizing Provider. 7 18:27 Repeat lab(s) drawn. by nd, sent to lab. Inserted saline lock: 22 gauge in right jl7 forearm, using aseptic technique. Blood collected. Administered Medications: 14:31 Drug: NS 0.9% IV 500 ml Route: IV; Rate: bolus; Site: right forearm; db 14:47 Not Given (Physician Discretion): NS 0.9% IV 1000 ml IV at 1 bolus Per protocol; 1000 jh7 mL bolus 15:40 Drug: Kayexalate PO 30 grams Route: PO; db 15:42 Drug: D5-NS IV 1000 ml Route: IV; Rate: 1 bolus; Site: left antecubital; db 15:43 Drug: D50W IVP 50 ml Route: IVP; Site: left antecubital; db 15:49 Drug: Sodium Bicarbonate IVP 1 amp Route: IVP; Site: right antecubital; db 15:55 Drug: Insulin Regular Human IVP 10 units {Co-Signature: kb3 (Maribell Sawyer RN).} db Route: IVP; Site: left antecubital; 15:57 Drug: Calcium Gluconate IVPB 1 grams Route: IVPB; Infused Over: 60 mins; Site: left db antecubital; 16:30 CANCELLED (Physician Discretion): vancoMYCIN IVPB 1 grams IVPB once over 2 hrs [facility] 16:31 CANCELLED (per dr. cyr): Rocephin IV 1 grams IV at 1 calculated rate once; Given slow jh7 IV push per pharmacy instructions 18:30 Drug: Rocephin IV 1 grams Route: IV; Rate: 1 calculated rate; Site: right forearm; db 18:45 Follow up: IV Status: Completed infusion; IV Intake: 50ml db 18:46 Drug: D5-1/2 NS IV 1000 ml Route: IV; Rate: 75 ml/hr; Site: right forearm; db Medication: 18:42 VIS not applicable for this client. db Intake: 18:45 IV: 50ml; Total: 50ml. db Output: 16:53 Urine: 900ml ([place]); Total: 900ml. db 19:18 Urine: 300ml ([place]); Total: 1200ml. db Outcome: 17:29 Decision to Hospitalize by Provider. 7 20:38 Patient left the ED. NIH Stroke Scale - NIH Stroke Score Date: 11/13/2022 Time: 11:38 Total Score = 27 10. Dysarthria (speech clarity - read or repeat words) - 2(Severe) 11. Extinction and Inattention (visual/tactile/auditory/spatial/personal) - 1(Present) 1a. Level of Consciousness (LOC) - 1(Not Alert) 1b. Level of Consciousness (LOC) (Month \T\ Age) - 2(Neither) 1c. LOC Commands (Open \T\ Closes Eyes/Supervisor Press Room) - 2(Neither) 2. Best Gaze (Lateral Gaze Paresis) - 0(Normal) 3. Visual Field Loss - 0(No visual loss) 4. Facial Palsy - 0(Normal) 5a. Left Arm: Motor (10-second hold) - 4(No movement) 5b. Right Arm: Motor (10-second hold) - 4(No movement) 6a. Left Leg: Motor (5-second hold - always test supine) - 4(No movement) 6b. Right Leg: Motor (5-second hold - always test supine) - 4(No movement) 7. Limb Ataxia (finger/nose \T\ heel/chan - test with eyes open) - 0(Absent) 8. Sensory Loss (pinprick arms/legs/face) - 0(Normal) 9. Best Language: Aphasia (description/naming/reading) - 3(Mute, global aphasia) Initials: jh7 Signatures: Dispatcher [employer] EDMS Priscila Aburto RN RN kl Calderon, Audri RN RN aa5 Parvez Guy RN RN jl7 Romelia Hung amCara Lopez FNP TELEVISION PRODUCER 7 Lenora Prieto RN RN Lucy [id number] Maribell Sawyer RN kb3 Corrections: (The following items were deleted from the chart) 11:51 11:38 Chief complaint: Pt's daughter reports decreased appetite, AMS, and aa5 possible UTI. aa5 13:33 12:09 NS 0.9% IV 500 ml IV at bolus in right hand db db 16:30 15:41 BP 142 / 87; Pulse 87bpm; Resp 24bpm; Pulse Ox 100% RA; db db
[2022-11-13] MEDS ORDERED: D5 0.45 NS 1,000 ML with NA BICARB 8.4% 75 MEQ IV ONE ×2 (18:00)
[2022-11-13] MEDS ORDERED: D5 0.45 NS 1,000 ML with NA BICARB 8.4% 75 MEQ IV SCH ×2 (18:00)
--- NOTE | 2022-11-13 21:36 | P.PN ---
Date of Service: 11/13/22 Brief Renal note (full consult note to follow, chart review only) Acute or sub-acute Stage III renal failure on underlying CKD IV (pt is a clinic pt of Dr. Diallo, last seen in Jul) in the setting of possible bladder outlet obstruction with imaging revealing bladder distention, hydro in addition to abnormal findings in urine c/w likely UTI and other. Hyperkalemia medically treated earlier by ER staff, f/u on level, cont IVF hydration, monitor UOP closely. Papa Chambers MD, FASN
--- NOTE | 2022-11-14 00:47 | HP ---
Date of Admission: 11/13/2022 Chief Complaint: Constipation, not urinating, and not eating. History Of Present Illness: This is an 87-year-old male patient who lives at home with family, was brought into emergency room with 2 to 3 days' history of constipation, not eating or drinking enough, and not urinating. The patient also appeared very weak and tired as noted by family member. After he arrived to the emergency room, he was evaluated and admitted to hospital with acute kidney failure, hyperkalemia, urinary tract infection, and possibility of sepsis. The patient's workup done in the emergency room reviewed and the patient was admitted to the hospital. Nephrology consultation has been requested as well for acute kidney failure and hyperkalemia problem. I saw the patient in the emergency room. His son was with him and also communicated on the phone with the patient's daughter. Allergies: NO KNOWN ALLERGIES. ADVANCED DIRECTIVES PER MY DISCUSSION WITH THE PATIENT'S DAUGHTER ON THE PHONE, WHO HAS MEDICAL POWER OF WELDING SPECIALIST. THE PATIENT IS FULL CODE AT THIS TIME AND DAUGHTER IS GOING TO COMMUNICATE WITH THE REST OF THE FAMILY AND IF THE DECISION IS ANY DIFFERENT THAN FULL CODE, THEN SHE WILL COMMUNICATE WITH ME. Review of Systems: Constitutional: As mentioned above. GI: As mentioned above. Genitourinary: As mentioned above. All other systems reviewed and negative. Medications: Amlodipine 5 mg 2 times a day; aspirin 81 mg daily; carvedilol 25 mg 2 times a day; clonidine 0.3 mg 3 times a day; ferrous sulfate 325 mg daily; folic acid 1 mg daily; hydralazine 50 mg, takes 1 tablet 3 times a day; Claritin 10 mg daily; minoxidil 2.5 mg, takes 2 tablets 2 times a day; simvastatin 40 mg daily; and tamsulosin 0.4 mg daily. Past Medical History: Significant for hypertension, hyperlipidemia, stroke, allergic rhinitis, coronary artery disease, chronic kidney disease stage 4, pancreatic mass, osteoarthritis at multiple sites, and anemia due to chronic kidney disease. Past Surgical History: Significant for hip surgery due to hip fracture on July 03, 2018. Family History: Mother had myocardial infarction. Sister had hypertension. Social History: Negative for smoking and alcohol use. Physical Examination: Vital Signs: Weight 134 pounds, height 6 feet, temperature 97.9, pulse 88, respiratory rate 20, blood pressure 94/46, oxygen saturation 98%. General: Awake, alert, oriented, not in distress. HEENT: Head atraumatic, normocephalic. Conjunctivae nonerythematous. Sclerae white. Mouth, no thrush or edema noted. Ears/Nose, no mass, lesion, discharge noted. Neck: Supple. No JVD, lymph nodes, bruit, thyromegaly noted. Lungs: Bilateral good equal air entry. Clear to auscultation. No rhonchi. No rales. Heart: Normal heart sounds, no murmur or gallop. Abdomen: Soft, bowel sounds normal. No guarding, rigidity, tenderness, mass, hepatosplenomegaly, distention, or bruit noted. Extremities: No leg edema. No calf tenderness. Skin: No rash, ulcer, cellulitis. Lymphatics: No lymph node enlargement in neck, supraclavicular, infraclavicular region. Neuro: No focal neurological deficit. Chest: Unremarkable. External Genitalia: Deferred. Rectal: Deferred. Laboratory Data: Chest x-ray; no acute cardiopulmonary changes. CAT scan of the head, no acute intracranial changes. CAT scan of the abdomen and pelvis shows a distended bladder with enlarged prostate. No other acute findings. WBC count 15.3, hemoglobin 10.8, platelets 138. Sodium 133, potassium 6, chloride 103, bicarb 20, BUN 83, creatinine 6.04, glucose 69, lactic acid 2.7, AST 59, ALT 68, total bilirubin 0.8. Troponin first set 100, second set 81.8. Urinalysis; this was a catheter specimen after Mayfield catheter was placed. Leukocyte esterase 500, more than 50 wbc's, and 20 to 50 bacteria. Urine appears slightly hemorrhagic looking. Impression: 1. Sepsis. 2. Urinary tract infection. 3. Acute kidney failure. 4. Chronic kidney disease, stage 4. 5. Hyperkalemia. 6. Anemia due to chronic kidney disease. 7. Hypertension. 8. Hyperlipidemia. 9. Coronary artery disease. 10. Allergic rhinitis. Plan: Admit patient to hospital for further evaluation and management of this problem. The patient is appropriate for inpatient and is expected to spend 2 midnights in hospital. We will go ahead and consult mission assessment specialist and emergency room provider did communicate with mission assessment specialist and mission assessment specialist has provided appropriate orders for hyperkalemia as well as kidney failure problem. We will monitor electrolyte, renal function. Antibiotic ceftriaxone was ordered. We will follow up on blood culture and urine culture. Blood pressure will be monitored and give antihypertensive medication per order. We will go ahead and continue tamsulosin per order. Urinary retention. Continue this and will continue to remove Mayfield catheter at appropriate time. We will increase the dose of tamsulosin from once a day to 2 times a day and also add finasteride. DVT prophylaxis will be given per order. Details of treatment discussed with family. I will see him tomorrow morning for followup. BRADY/MODL Voice ID: [id number]
[2022-11-14 02:07] VITALS: BMI 18.2
[2022-11-14 06:54] LABS: Absolute Lymphocytes (CBC) 0.7 K/uL (0.7-4.9); Hematocrit 31.6 % (39.6-49.0); Lymphocytes % 7.2 % (15.3-44.8); MCV 80.2 fL (80-100); MPV 8.1 fL (7.6-11.3); RBC Red Blood Cell Count 3.94 M/uL (4.33-5.43)
--- NOTE | 2022-11-14 07:17 | EKG ---
Test Date: 2022-11-13 Test Time: 12:54:10 Frame Feeder: ERICK MEASUREMENT RESULTS: Intervals: Rate: 87 FL: 212 QRSD: 76 QT: 374 QTc: 450 [place]: P: 76 FL: 212 QRS: -12 T: 72 INTERPRETIVE STATEMENTS: Sinus rhythm with 1st degree AV block Anterior infarct, age undetermined Abnormal ECG Compared to ECG 07/02/2018 15:25:52 Myocardial infarct finding now present Sinus arrhythmia no longer present Left ventricular hypertrophy no longer present Electronically Signed On 11-14-22 07:14:08 CDT by Mendel Noble
[2022-11-14 07:20] LABS: Albumin 2.8 g/dL (3.4-5.0); Bilirubin Total 0.6 mg/dL (0.2-1.0)
[2022-11-14] MEDS ORDERED: PNEUMOCOCCAL VACCINE 0.5 ML IMVAC ONE (08:00)
[2022-11-14] MEDS: carvediloL 3.125 MG TAB PO SCH ×2 (09:30→21:11)
[2022-11-14] MEDS: FINASTERIDE 5 MG TAB PO SCH (09:30)
[2022-11-14] MEDS: TAMSULOSIN 0.4 MG SR CAP PO SCH ×2 (09:31→21:11)
[2022-11-14] MEDS: CEFTRIAXONE 1,000 MG in NA CHLORIDE 0.9% 50 ML IVPB SCH (09:31)
[2022-11-14] MEDS: HEPARIN 5000 UNIT/ML 1 ML VIAL SQ SCH ×2 (09:31→21:11)
[2022-11-14] MEDS: Ringers Lactate 1,000 ML IV SCH (13:52)
--- NOTE | 2022-11-14 14:01 | P.CNS ---
Date of Consult: 11/14/22 Reason for Consult: ARF, CKD Requesting Physician: Ian Razo Chief Complaint: Weakness History of Present Illness: Pt is an elderly AAM who is a poor historian so HPI mostly obtained through chart review but was brought into emergency room with anorexia, reduced urine output and increased weakness. In the ER, he was evaluated and found to have acute kidney failure, hyperkalemia, urinary retention, pyuria and other. Thompson was inserted in the ER. Hyperkalemia medically treated. Seen sitting in chair next to bed earlier this AM, pt denies any acute symptoms such as abdominal pain, N/V. Allergies No Known Drug Allergies Allergy (Verified 11/13/22 20:53) Unknown Home Medications: Amlodipine [Norvasc*] 5 mg PO BID 11/14/22 Aspirin Chewable [Aspirin Chewable*] 81 mg PO DAILY 11/14/22 Folic Acid 1 mg PO DAILY 11/14/22 Hydralazine [Apresoline*] 50 mg PO TID 11/14/22 Simvastatin 40 mg PO BEDTIME 11/14/22 Tamsulosin [Flomax*] 0.4 mg PO DAILY 11/14/22 carvediloL [Coreg*] 25 mg PO BID 11/14/22 cloNIDine HCL [Catapres*] 0.3 mg PO TID 11/14/22 minoxidiL [Loniten*] 5 mg PO BID 11/14/22 - Past Medical/Surgical History Diabetic: No -: HTN -: CVA - Social History Smoking Status: Never smoker Alcohol use: No CD- Drugs: No Caffeine use: Yes Place of Residence: Home Review of Systems is unable to be obtained (Pt is a poor historian, pertinent positives listed) Physical Examination Temp Pulse Resp BP Pulse Ox 98.4 F 78 20 145/92 H 99 11/14/22 12:00 11/14/22 12:00 11/14/22 12:00 11/14/22 12:00 11/14/22 12:00 General: In no apparent distress, Cooperative HEENT: Atraumatic, Normocephalic Neck: Supple Respiratory: Clear to auscultation bilaterally, Normal air movement Cardiovascular: No edema, Regular rate/rhythm Gastrointestinal: Soft and benign, Non-distended Musculoskeletal: No contractures Integumentary: No tenderness/swelling Neurological: Normal speech, Normal tone, Sensation intact Laboratory Data (last 24 hrs) 11/13/22 14:06: PT 13.1 H, INR 1.19, APTT 33.5 11/13/22 14:06: WBC 15.30 H, Hgb 10.8 L, Hct 33.9 L, Plt Count 138 L 11/13/22 14:00: Sodium 133 L, Potassium 6.0 H, BUN 83 H, Creatinine 6.04 H, Glucose 69 L, Total Bilirubin 0.8, AST 59 H, ALT 68 H, Alkaline Phosphatase 49 Conclusions/Impression: A/P) 1. Acute or sub-acute Stage III renal failure on underlying CKD IV (pt is a clinic pt of Dr. Diallo, last seen in Jul) in the setting of possible bladder outlet obstruction with imaging revealing bladder distention, hydro in addition to abnormal findings in urine c/w likely UTI, relative hypotension and other 2. Pt is non oliguric, Cr level a bit lower from admission levels but no dramatic improvement yet post bladder decompression. Cont IVF hydration and monitor closely. No emergent indication for WIRE STRANDER 3. Hyperkalemia medically treated earlier by ER staff yesterday and since resolved 4. Will place on LR IVF, will monitor for any post obstructive diuresis 5. Will f/u final urine and blood cultures. Cont empiric Abx coverage. 6. Pt appears to have been on a number of anti hypertensives at home, will have to review clinic records, but recommend holding most agents currently and trend ing BP 7. Maintain thompson for now, sub-acute retention may have been multifactorial, may attempt voiding trial later in admission but would like to see his renal function recover to baseline first. Papa Chambers MD, APPLE
--- NOTE | 2022-11-14 21:08 | PN ---
Date of Progress Note: 11/14/2022 Subjective: The patient was seen this morning for followup. No new complaints or problems reported by patient, but at the same time, he was noted to be confused this morning. No new problems reported overnight by the nursing staff. Objective: Vital Signs: Reviewed. HEENT: Examination unremarkable. Lungs: Clear to auscultation. Heart: Sounds normal. Abdomen: Soft. Bowel sounds normal. No guarding, rigidity, tenderness, distention. Extremities: No leg edema. Laboratory Data: His WBC count this morning 9.7 with hemoglobin 10.3, platelets 101. Sodium 135, po tassium 4, chloride 104, bicarb 25, BUN 84, creatinine 5.29, glucose 96. Impression: 1.Acute kidney failure. 2.Urinary tract infection. 3.Encephalopathy, toxic. 4.Benign prostatic hypertrophy with lower urinary tract symptoms. 5.Hypertension. Plan: We will go ahead and continue current medication. The patient's urine in the Mayfield catheter b ag is clear yellow this morning, so overall that has shown improvement. We will continue IV antibiot ics per order which is ceftriaxone. Follow up on culture results and once culture result is availabl e, we will make adjustment on antibiotics if it is necessary. Consult Physical therapy. Consult maggy rologist for patient's altered mental status, and we will go ahead and continue antihypertensive medi cation per order. I will see him tomorrow for followup. We will repeat blood work tomorrow and continue IV fluid per order. BRADY/MODL Voice ID: [id number] Report ID: [id number]
--- NOTE | 2022-11-14 21:21 | CON ---
Reason For Consultation: Consultation called by Dr. Byrne because of altered mental status. History Of Present Illness: Mr. Ramirez is an 87-year-old patient who lives at home with family and was brought to [facility] with 3 days worth of failure to thrive where he was not eating or dri nking well, had constipation and was reeking of urine. At [facility] evaluation revealed ac rick renal insufficiency, hyperkalemia, urinary tract infection, and blood work consistent with sepsis . He was treated with fluid hydration, antibiotics, and electrolyte replacement. His head CT scan i dentified chronic left frontal gliosis in the posterior left frontal region from prior stroke and adv anced small vessel ischemic disease. No acute findings were identified. His urine showed significan t infection with esterase 500, bacteria 20 to 50, white blood cells greater than 50, and was extremel y turbid with 3+ protein. In terms of his cognitive functioning, baseline cognitive functioning not available, but the patient had difficulty naming objects, repeating sentence, and orienting to date, place, and situation and eventually would follow instructions when shown what to do by gestures. For instance, he was shown how to move his arms, he eventually did and how to move his legs and he event ually did. The patient had no obvious seizure-like activity and no obvious change in terms of deficits such as f ocal weakness of the face, arm, or leg that is the different from baseline at least per report. Past Medical History: Dyslipidemia, prior stroke, coronary artery disease, stage 4 kidney disease, p ancreatic mass, and anemia of chronic disease. Allergies: NO KNOWN DRUG ALLERGIES. Medications: Coreg 3.125 mg twice daily, Rocephin 1 g daily, clonidine 0.1 mg 3 times daily as neede d for elevated systolic blood pressure, Proscar 5 mg daily, heparin 5000 units subcutaneously twice d aily, Ringer's Lactate at 1 L received, and Flomax 0.4 mg daily. Review of Systems: Not reliable as the patient is not able to give consistent answers. Family History: Noncontributory. Physical Examination: Vital Signs: Blood pressure 134/58, pulse is 78 to 93, respiratory rate 16 to 20, temperature 98.4, and oxygen saturation 99% on room air. Weight 134 pounds, height 6 feet, BMI 18.3. General: Mr. Ramirez is resting comfortably in bed. HEENT: He appears normocephalic. He has very poor dentition. Neurologic: In terms of cranial nerves, he was able to show a smile with many missing teeth. Face a ppears to be fairly symmetric, although there is potentially a subtle decrease in the right nasolabia l fold. In terms of motor strength, unable to fully assess strength, but movements of the arms were equal in terms of range and accuracy and speed of movement. Similarly so in the lower extremities. It is difficult to assess if he has sensory deficits and tone appears increased in the upper and lowe r extremities. In terms of his ability to ambulate, attempts were made by the physical therapist to have him ambulate, but apparently began to yell each time they tried to remove the blanket and did no t cooperate to be able to get out of bed. Laboratory Studies: White blood cell count on arrival to the hospital was 15.3 with 90.4% neutrophil s, hemoglobin 10.8, and platelets 138. INR 1.19. His lactic acid was 2.3. Troponin I elevated to 8 1.8. Calcium low at 8.0. Liver function studies normal. Creatinine was 5.29. Urinalysis: Extreme ly turbid, 2+ blood, 500 esterase, 11 to 20 red blood cells, white blood cells greater than 50, bacte tj 20 to 50, 3+ protein. Assessment: Mr. Donal Ramirez is an 87-year-old patient with multifactorial encephalopathy, likely h e has vascular dementia given his advanced small vessel ischemic disease. In addition, his left fron jim stroke is likely a cause for an expressive aphasia. He does have sepsis, which caused toxic ence phalopathy as well. In addition, the electrolyte abnormalities will contribute to metabolic encephal opathy. His baseline is not established at this point and he potentially can return towards baseline where he can go back to family. It is unclear what his ability to transfer and ambulate at baseline is. Plan: Continue of course with antibiotics and hydration for his renal insufficiency. Continue if po ssible with therapy, which should include physical, speech, and occupational therapy. However, it is not likely he will be able to participate for 3.5 hours, 5 of 7 days in acute inpatient rehab, but s killed nursing may be more appropriate. CHRISTINE/PETEY Voice ID: [id number] Report ID: [id number]
[2022-11-15] MEDS: Ringers Lactate 1,000 ML IV SCH (04:03)
[2022-11-15] MEDS: TAMSULOSIN 0.4 MG SR CAP PO SCH ×2 (08:37→21:52)
[2022-11-15] MEDS: HEPARIN 5000 UNIT/ML 1 ML VIAL SQ SCH ×3 (08:37→22:23)
[2022-11-15] MEDS: FINASTERIDE 5 MG TAB PO SCH (08:38)
[2022-11-15] MEDS: ASPIRIN EC 81 MG TAB PO SCH (08:38)
[2022-11-15] MEDS: carvediloL 12.5 MG TAB PO SCH ×2 (08:38→21:52)
[2022-11-15] MEDS: CEFTRIAXONE 1,000 MG in NA CHLORIDE 0.9% 50 ML IVPB SCH (08:39)
[2022-11-15] MEDS ORDERED: AMLODIPINE 5 MG TAB PO SCH (09:00)
[2022-11-15 10:12] LABS: Absolute Lymphocytes (CBC) 0.6 K/uL (0.7-4.9); Hematocrit 31.5 % (39.6-49.0); Lymphocytes % 10.8 % (15.3-44.8); MCV 79.6 fL (80-100); MPV 8.4 fL (7.6-11.3); RBC Red Blood Cell Count 3.96 M/uL (4.33-5.43)
[2022-11-15 10:33] LABS: Magnesium 1.8 mg/dL (1.6-2.4); Potassium 3.5 mEq/L (3.5-5.1)
[2022-11-15 13:53] LABS: White Blood Cell Scan OK (OK)
[2022-11-15 13:54] LABS: Anisocytosis SLIGHT; Blood Morphology Comment NOTED (NOT SEEN); Platelet Estimate DECR
[2022-11-15] MEDS: NA CHLORIDE 0.9% 1,000 ML IV SCH (14:45)
--- NOTE | 2022-11-15 15:38 | P.PN ---
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 Acute or sub-acute Stage III renal failure on underlying CKD IV (pt is a clinic pt of Dr. Diallo, last seen in Jul) in the setting of possible bladder outlet obstruction with imaging revealing bladder distention, hydro in addition to abnormal findings in urine c/w likely UTI, relative hypotension and other 2. Pt is non oliguric, Cr levels slowly downward trending. No emergent indication for OVEN UNLOADER 3. Hyperkalemia resolved 4. No post obstructive diuresis, will cont gentle IVF 5. UCx with GNR and one of the BCx bottle g/s with the same, cont gram negative coverage, f/u final cultures 6. Pt appears to have been on a number of anti hypertensives at home, Coreg and CCB have been resumed, would hold the rest and avoid relative hypotension 7. Maintain thompson for now, sub-acute retention may have been multifactorial, may attempt voiding trial later in admission but would like to see his renal function recover to baseline first. Papa Chambers MD, APPLE
--- NOTE | 2022-11-15 20:47 | PN ---
Date of Progress Note: 11/15/2022 Subjective: Patient was seen this morning for followup. He was better than yesterday morning. He r ecognized me started smiling at me and communicating with me and he was asking for water, which I did help him to drink some water this morning and did not have any trouble swallowing. Objective: Vital Signs: Reviewed. HEENT: Unremarkable. Lungs: Clear to auscultation. Heart: Sounds normal. Abdomen: Soft. Bowel sounds normal. No guarding, rigidity, tenderness, distention. Extremities: No leg edema. Laboratory Data: White count 5.7, hemoglobin 10.1, platelets 88. Sodium 132, potassium 3.5, chlorid e 100, bicarb 23, BUN 86, creatinine 4.25, glucose 101. Magnesium 1.8. Urine culture and blood cult ure growing gram-negative rods. Impression: 1.Sepsis. 2.Urinary tract infection. 3.Acute kidney injury. 4.Benign prostatic hypertrophy with lower urinary tract symptoms. 5.Hypertension. 6.Acute kidney failure. 7.Thrombocytopenia. 8.Anemia due to chronic kidney disease. Plan: We will go ahead and have Physical Therapy continue to work with the patient. We will continu e current antibiotics. Follow up on culture results and depending on final results on the culture, w e will decide about any antibiotic change if necessary or not. Meanwhile, we will continue antibioti c therapy. Blood readings reviewed and blood pressure medication dose adjusted. I will see him tomorrow for followup. BRADY/MODL Voice ID: [id number] Report ID: [id number]
[2022-11-15] MEDS: AMLODIPINE 5 MG TAB PO SCH (21:52)
[2022-11-15] MEDS: ENSURE ENLIVE 237 ML CAN PO SCH (21:53)
[2022-11-16] MEDS: NA CHLORIDE 0.9% 1,000 ML IV SCH ×3 (02:52→16:54)
[2022-11-16 05:12] LABS: Albumin 2.5 g/dL (3.4-5.0); Phosphorus 3.5 mg/dL (2.5-4.9); Potassium 3.1 mEq/L (3.5-5.1)
[2022-11-16] MEDS: cloNIDine HCL 0.1 MG TAB PO PRN (06:30)
[2022-11-16 07:48] LABS: Absolute Lymphocytes (CBC) 0.8 K/uL (0.7-4.9); Hematocrit 29.3 % (39.6-49.0); Lymphocytes % 16.1 % (15.3-44.8); MCV 79.9 fL (80-100); MPV 8.9 fL (7.6-11.3); RBC Red Blood Cell Count 3.66 M/uL (4.33-5.43)
[2022-11-16] MEDS: AMLODIPINE 5 MG TAB PO SCH ×2 (08:51→21:47)
[2022-11-16] MEDS: carvediloL 12.5 MG TAB PO SCH ×2 (08:51→21:46)
[2022-11-16] MEDS: TAMSULOSIN 0.4 MG SR CAP PO SCH ×2 (08:51→21:47)
[2022-11-16] MEDS: FINASTERIDE 5 MG TAB PO SCH (08:51)
[2022-11-16] MEDS: CEFTRIAXONE 1,000 MG in NA CHLORIDE 0.9% 50 ML IVPB SCH (08:51)
[2022-11-16] MEDS: HEPARIN 5000 UNIT/ML 1 ML VIAL SQ SCH ×2 (08:51→21:48)
[2022-11-16] MEDS: ASPIRIN EC 81 MG TAB PO SCH (08:54)
[2022-11-16] MEDS ORDERED: Levofloxacin500mg IV 500 MG/100 ML BAG IV ONE (09:00)
[2022-11-16] MEDS: ENSURE ENLIVE 237 ML CAN PO SCH ×2 (09:03→21:47)
[2022-11-16 10:25] LABS: Platelet Estimate DECR; White Blood Cell Scan OK (OK)
[2022-11-16 10:26] LABS: Blood Morphology Comment NOTED (NOT SEEN); Burr Cells FEW
--- NOTE | 2022-11-16 19:29 | PN ---
Date of Progress Note: 11/16/2022 Subjective: The patient was lying in bed, not in distress. Denies any new complaints. No abdominal pain, nausea, vomiting. Objective: Vital Signs: Reviewed. HEENT: Unremarkable. Lungs: Clear to auscultation. Heart: Sounds normal. Abdomen: Soft. Bowel sounds normal. No guarding, rigidity, tenderness, distention. Extremities: No leg edema. Laboratory Data: Sodium 131, potassium 3.1, chloride 99, bicarb 23, BUN 89, creatinine 3.63, glucose 88. Urine culture growing gram-negative rods. Blood culture growing pseudomonas. Impression: 1.Sepsis. 2.Urinary tract infection. 3.Benign prostatic hypertrophy with lower urinary tract symptoms. 4.Hypertension. 5.Anemia due to chronic kidney disease. 6.Acute kidney failure. Plan: We will go ahead and continue IV fluid. We will start the patient on Levaquin according to cu lture and sensitivity results. Physical therapy to continue to work with the patient. I will see hi m tomorrow for followup. Possible discharge to go home over the weekend depending on his condition. BRADY/MODL Voice ID: [id number] Report ID: [id number]
--- NOTE | 2022-11-16 20:42 | P.PN ---
(S) Delayed entry note, pt seen earlier in the day, thompson has been removed but when discussed with RN, pt had not voided in several hours so ordered bladder scans. IVF rate increased. Bladder scan earlier this evening revealed 600 cc plus so ordered thompson re-insertion (O) Vitals reviewed in the EMR General: In no apparent distress, Cooperative HEENT: Atraumatic, Normocephalic Neck: Supple Respiratory: Clear to auscultation bilaterally, Normal air movement Cardiovascular: No edema, Regular rate/rhythm Gastrointestinal: Soft and benign, Non-distended. thompson has been removed at the time seen Musculoskeletal: No contractures Integumentary: No tenderness/swelling Neurological: Normal speech, Normal tone, Sensation intact Laboratory Data (last 24 hrs) Conclusions/Impression: A/P) 1. Acute or sub-acute Stage III renal failure on underlying CKD IV (pt is a clinic pt of Dr. Diallo, last seen in Jul) in the setting of possible bladder outlet obstruction with imaging revealing bladder distention, hydro in addition to abnormal findings in urine c/w likely UTI, relative hypotension and other 2. Pt is non oliguric, Cr levels slowly downward trending. 3. Hyperkalemia resolved 4. No post obstructive diuresis, have continued gentle IVF as unclear if pt maintaining adeq PO intake 5. UCx with GNR and one of the BCx bottle g/s with the Pseudomonas, cont gram negative coverage but agree with switching Abx to one with pseudomonal coverage, f/u final cultures 6. Pt appears to have been on a number of anti hypertensives at home, Coreg and CCB have been resumed, would hold the rest and avoid relative hypotension 7. Sub-acute retention may have been multifactorial, pt has failed voiding trial ordered by the primary team, re-insert thompson Papa Chambers MD, APPLE
[2022-11-17] MEDS: NA CHLORIDE 0.9% 1,000 ML IV SCH ×4 (03:00→21:30)
[2022-11-17] MEDS: cloNIDine HCL 0.1 MG TAB PO PRN (05:35)
[2022-11-17] MEDS: ENSURE ENLIVE 237 ML CAN PO SCH ×2 (09:00→21:00)
[2022-11-17] MEDS: ASPIRIN EC 81 MG TAB PO SCH (09:06)
[2022-11-17] MEDS: carvediloL 12.5 MG TAB PO SCH ×2 (09:06→21:26)
[2022-11-17] MEDS: TAMSULOSIN 0.4 MG SR CAP PO SCH ×2 (09:06→21:27)
[2022-11-17] MEDS: AMLODIPINE 5 MG TAB PO SCH ×2 (09:06→21:26)
[2022-11-17] MEDS: FINASTERIDE 5 MG TAB PO SCH (09:06)
[2022-11-17] MEDS: CEFTRIAXONE 1,000 MG in NA CHLORIDE 0.9% 50 ML IVPB SCH (09:06)
[2022-11-17] MEDS: HEPARIN 5000 UNIT/ML 1 ML VIAL SQ SCH ×2 (09:06→21:27)
[2022-11-17] MEDS: Levofloxacin 250mg IV 250 MG/50 ML BAG IV SCH (09:06)
--- NOTE | 2022-11-17 13:11 | PN ---
Date of Progress Note: 11/17/2022 Subjective: The patient was seen this morning for followup. No new complaints or problems reported by the patient. He was sleeping, easily arousable, not in any distress. Denies any new complaints. Objective: Vital Signs: Reviewed. HEENT: Unremarkable. Lungs: Clear to auscultation. Heart: Sounds normal. Abdomen: Soft. Bowel sounds normal. No guarding, rigidity, tenderness, distention. Extremities: No leg edema. Laboratory Data: From today pending. Impression: 1.Acute kidney failure. 2.Hypertension. 3.Benign prostatic hypertrophy with lower urinary tract symptoms. 4.Urinary retention. 5.Sepsis. Plan: We will go ahead and continue current antibiotic for sepsis and urinary tract infection. We w ill continue current antihypertensive medications, monitor blood pressure, adjust blood pressure medi cation as it becomes necessary. His blood pressure this morning was 175/85 and we will start his hyd ralazine that he takes at home per order, continue other antihypertensive medication. Yesterday morn ing, we removed his Mayfield catheter and after removing Mayfield catheter, all day the patient was not abl e to void at all, so by evening time, bladder scan showed approximately 600 cc of urine and nurse lauren tacted me and order was given to place Mayfield catheter again and after Mayfield catheter was placed, we w ere able to obtain approximately 1000 cc of urine. Currently, the patient has a catheter with clear yellow urine in the bag. The patient will need a Urology consultation and we do not have any urologi st on-call until Saturday, so we will consider that at appropriate time. If that is not possible, the n the patient will need to have outpatient Urology consultation, but Mayfield catheter will need to stay in place right now. I will see him tomorrow for followup. BRADY/MODL Voice ID: [id number] Report ID: [id number]
[2022-11-17 13:31] LABS: Absolute Lymphocytes (CBC) 0.9 K/uL (0.7-4.9); Hematocrit 32.1 % (39.6-49.0); Lymphocytes % 22.9 % (15.3-44.8); MCV 80.3 fL (80-100); MPV 8.1 fL (7.6-11.3)
[2022-11-17 13:54] LABS: Magnesium 1.5 mg/dL (1.6-2.4); Potassium 3.6 mEq/L (3.5-5.1)
[2022-11-17] MEDS: HYDRALAZINE HCL 25 MG TABLET PO SCH ×2 (13:55→21:27)
--- NOTE | 2022-11-17 15:52 | P.PN ---
(S) Pt with post obstructive diuresis after thompson re-insertion yesterday, no acute complaints otherwise (O) Vitals reviewed in the EMR General: In no apparent distress, Cooperative HEENT: Atraumatic, Normocephalic Neck: Supple Respiratory: Clear to auscultation bilaterally, Normal air movement Cardiovascular: No edema, Regular rate/rhythm Gastrointestinal: Soft and benign, Non-distended. thompson has been removed at the time seen Musculoskeletal: No contractures Integumentary: No tenderness/swelling Neurological: Normal speech, Normal tone, Sensation intact Laboratory Data (last 24 hrs) Conclusions/Impression: A/P) 1. Acute or sub-acute Stage III renal failure on underlying CKD IV (pt is a clinic pt of Dr. Diallo, last seen in Jul) in the setting of possible bladder outlet obstruction with imaging revealing bladder distention, hydro in addition to abnormal findings in urine c/w likely UTI, relative hypotension and other 2. Pt is non oliguric, Cr levels slowly downward trending. 3. Hyperkalemia resolved early on. Mg level low today, so received Mg sulfate 4. Now with post obstructive diuresis, therefore will cont IVF 5. UCx with GNR and one of the BCx bottle g/s with the Pseudomonas, cont gram negative coverage but agreed with switching Abx to one with pseudomonal coverage, f/u final cultures 6. Pt appears to have been on a number of anti hypertensives at home, Coreg and CCB have been resumed, would hold the rest and avoid relative hypotension. Use holding parameters 7. Sub-acute retention may have been multifactorial, pt has failed voiding trial, thompson re-inserted Papa Chambers MD, APPLE
[2022-11-17] MEDS ORDERED: Magnesium Sulfate 2gm IVPB 2 G/50 ML BAG IV ONE (16:00)
[2022-11-18 07:43] LABS: Magnesium 1.9 mg/dL (1.6-2.4); Potassium 3.7 mEq/L (3.5-5.1)
[2022-11-18] MEDS: Levofloxacin 250mg IV 250 MG/50 ML BAG IV SCH (08:42)
[2022-11-18] MEDS: carvediloL 12.5 MG TAB PO SCH (08:43)
[2022-11-18] MEDS: TAMSULOSIN 0.4 MG SR CAP PO SCH ×2 (08:43→20:46)
[2022-11-18] MEDS: FINASTERIDE 5 MG TAB PO SCH (08:43)
[2022-11-18] MEDS: HEPARIN 5000 UNIT/ML 1 ML VIAL SQ SCH ×2 (08:43→20:46)
[2022-11-18] MEDS: CEFTRIAXONE 1,000 MG in NA CHLORIDE 0.9% 50 ML IVPB SCH (08:44)
[2022-11-18] MEDS: ASPIRIN EC 81 MG TAB PO SCH (08:44)
[2022-11-18] MEDS: AMLODIPINE 5 MG TAB PO SCH ×2 (08:44→20:46)
[2022-11-18] MEDS: HYDRALAZINE HCL 25 MG TABLET PO SCH ×3 (08:44→20:46)
[2022-11-18] MEDS: ENSURE ENLIVE 237 ML CAN PO SCH ×2 (08:45→20:46)
--- NOTE | 2022-11-18 12:53 | PN ---
Date of Progress Note: 11/18/2022 Subjective: Patient was lying in bed, not in distress, sleeping, but easily arousable. Recognized m e and communicated with me. Denied any new complaints. No abdominal pain, nausea, vomiting. Objective: Vital Signs: Reviewed. Intake output records reviewed. HEENT: Unremarkable. Lungs: Clear to auscultation. Heart: Sounds normal. Abdomen: Soft. Bowel sounds normal. No guarding, rigidity, tenderness, or distention. Extremities: No leg edema. Laboratory Data: Sodium 134, potassium 3.7, chloride 104, bicarb 24, BUN 66, creatinine 2.88 and thi s is back to his baseline on the creatinine with glucose 88. Magnesium 1.9. Impression: 1.Sepsis, organism pseudomonas. 2.Urinary tract infection, organism Pseudomonas. 3.Benign prostatic hypertrophy with lower urinary tract symptoms. 4.Acute kidney failure, improved. 5.Hypertension. 6.Chronic kidney disease, stage 4. Plan: We will go ahead and discontinue ceftriaxone and Levaquin was started. We will continue that as per culture and sensitivity results. We will go ahead and continue heparin for DVT prophylaxis. We will continue current antihypertensive medication, but increase dose of carvedilol to 25 mg twice a day the way he takes it at home. Currently, he is getting 12.5 mg 2 times a day. We will continue other current antihypertensive medication as he normally takes except change his clonidine from p.r. n. to schedule doses. So, we will need to start communicating with the family members regarding disc harge planning. Upon discharge, patient will not need IV antibiotics and he will need oral antibiotic, bashir ch is Levaquin. BRADY/MODL Voice ID: [id number] Report ID: [id number]
[2022-11-18] MEDS: cloNIDine HCL 0.1 MG TAB PO SCH ×2 (13:59→20:46)
[2022-11-18] MEDS: NA CHLORIDE 0.9% 1,000 ML IV SCH (14:00)
[2022-11-18] MEDS: carvediloL 25 MG TAB PO SCH (16:33)
[2022-11-19] MEDS: NA CHLORIDE 0.9% 1,000 ML IV SCH (04:36)
[2022-11-19 06:28] LABS: Absolute Lymphocytes (CBC) 1.1 K/uL (0.7-4.9); Hematocrit 28.7 % (39.6-49.0); Lymphocytes % 24.3 % (15.3-44.8); MCV 79.6 fL (80-100); MPV 7.6 fL (7.6-11.3)
[2022-11-19 06:40] LABS: Magnesium 1.6 mg/dL (1.6-2.4); Potassium 3.7 mEq/L (3.5-5.1)
[2022-11-19 08:28] LABS: Platelet Estimate ADEQ
[2022-11-19 08:29] LABS: Anisocytosis SLIGHT; Blood Morphology Comment NOTED (NOT SEEN)
[2022-11-19 08:30] LABS: Poikilocytosis SLIGHT
[2022-11-19] MEDS: Levofloxacin 250mg IV 250 MG/50 ML BAG IV SCH (08:37)
[2022-11-19] MEDS: ASPIRIN EC 81 MG TAB PO SCH (08:39)
[2022-11-19] MEDS: TAMSULOSIN 0.4 MG SR CAP PO SCH ×2 (08:39→21:21)
[2022-11-19] MEDS: HYDRALAZINE HCL 25 MG TABLET PO SCH ×3 (08:39→21:20)
[2022-11-19] MEDS: cloNIDine HCL 0.1 MG TAB PO SCH ×3 (08:39→21:21)
[2022-11-19] MEDS: ENSURE ENLIVE 237 ML CAN PO SCH ×2 (08:41→21:00)
[2022-11-19] MEDS: FINASTERIDE 5 MG TAB PO SCH (08:41)
[2022-11-19] MEDS: HEPARIN 5000 UNIT/ML 1 ML VIAL SQ SCH ×2 (08:41→21:00)
[2022-11-19] MEDS: carvediloL 25 MG TAB PO SCH ×2 (08:42→16:24)
[2022-11-19] MEDS: AMLODIPINE 5 MG TAB PO SCH ×2 (08:45→21:21)
--- NOTE | 2022-11-19 15:45 | P.PN ---
(S) Thompson continues to drain well, pt when seen earlier this AM had no acute complaints. (O) Vitals reviewed in the EMR General: In no apparent distress, Cooperative HEENT: Atraumatic, Normocephalic Neck: Supple Respiratory: Clear to auscultation bilaterally, Normal air movement Cardiovascular: No edema, Regular rate/rhythm Gastrointestinal: Soft and benign, Non-distended. thompson re-inserted Fri Musculoskeletal: No contractures Integumentary: No tenderness/swelling Neurological: Normal speech, Normal tone, Sensation intact Laboratory Data (last 24 hrs) Conclusions/Impression: A/P) 1. Acute or sub-acute Stage III renal failure on underlying CKD IV (pt is a clinic pt of Dr. Diallo, last seen in Jul) in the setting of possible bladder outlet obstruction with imaging revealing bladder distention, hydro in addition to abnormal findings in urine c/w likely UTI, relative hypotension and other. ARF resolving 2. Cr level downward trending to baseline levels. 3. Acceptable lytes 4. Post obstructive diuresis improving, IVF stopped. 5. Sepsis 2nd to urinary source on admission with Pseudomonas, complete course. 6. BP mod elevated at times, cont current regimen. If Clonidine is to be continued, recommend lower dose as ordered currently with holding parameters. Will keep off Minoxidil. 7. Sub-acute urine retention may have been multifactorial, pt had failed voiding trial, thompson re-inserted last Sat, maintain with OP Urology eval. Alpha luis dose can be lowered to once a day to avoid side effect profile of higher dose. Papa Chambers MD, APPLE
--- NOTE | 2022-11-19 21:53 | PN ---
Date of Progress Note: 11/19/2022 Subjective: The patient was seen this morning for followup. No new complaints or problems reported by the patient. He was sleeping, easily arousable. Denies any new complaints. Objective: Vital Signs: Reviewed. HEENT: Unremarkable. Lungs: Clear to auscultation. Heart: Sounds normal. Abdomen: Soft. Bowel sounds normal. No guarding, rigidity, tenderness, distention. Extremities: No leg edema. Laboratory Data: White count 4.5, hemoglobin 9.5, platelets 154. Sodium 136, potassium 3.7, chloride 107, bicarb 24, BUN 56, creatinine 2.53, glucose 91. Urine culture and blood culture growing Pseudomonas and it is sensitive to Levaquin. Impression: 1. Sepsis. 2. Urinary tract infection. 3. Benign prostatic hypertrophy with lower urinary tract symptoms. 4. Generalized weakness. 5. Debility. 6. Hypertension. 7. Chronic kidney disease, stage 4. 8. Anemia due to chronic kidney disease. Plan: We will go ahead and continue current antibiotic which is Levaquin. Continue current antihypertensive medication. Continue current DVT prophylaxis. The patient has not been ambulating here in the hospital and I did communicate with the patient's family member regarding discharge planning and nursing home facility placement might be necessary and family was encouraged to work with the social service agency director with possibility of discharge to go to nursing home facility tomorrow using facility of family's choice. BRADY/PETEY Voice ID: [id number] Report ID: [id number] SILVIA
[2022-11-20 05:53] VITALS: O2SAT 95
[2022-11-20 07:46] VITALS: BP 139/69; TEMP 99
[2022-11-20] MEDS: TAMSULOSIN 0.4 MG SR CAP PO SCH (08:12)
[2022-11-20] MEDS: HYDRALAZINE HCL 25 MG TABLET PO SCH (08:12)
[2022-11-20] MEDS: carvediloL 25 MG TAB PO SCH (08:12)
[2022-11-20] MEDS: HEPARIN 5000 UNIT/ML 1 ML VIAL SQ SCH (08:12)
[2022-11-20] MEDS: AMLODIPINE 5 MG TAB PO SCH (08:12)
[2022-11-20] MEDS: ASPIRIN EC 81 MG TAB PO SCH (08:13)
[2022-11-20] MEDS: FINASTERIDE 5 MG TAB PO SCH (08:13)
[2022-11-20] MEDS: Levofloxacin 250mg IV 250 MG/50 ML BAG IV SCH (08:13)
[2022-11-20] MEDS: cloNIDine HCL 0.1 MG TAB PO SCH (08:13)
[2022-11-20] MEDS: ENSURE ENLIVE 237 ML CAN PO SCH (08:13)
[2022-11-20 08:58] LABS: SARS-CoV-2 Antigen Rapid Res Negative (Negative)
--- NOTE | 2022-11-20 20:52 | DS ---
Date of Discharge: 11/20/2022 Disposition: Discharged to go to [facility]. Physical Examination: HEENT: Unremarkable. Lungs: Clear to auscultation. Heart: Sounds normal. Abdomen: Soft. Bowel sounds normal. No guarding, rigidity, tenderness, or distention. Extremities: No leg edema. Laboratory Data: On 11/13/2022 white count was 15.3, hemoglobin 10.8, and platelets 138. Lowest joan telet count was 72 on 11/17/2022. On last CBC from yesterday white count was 4.5, hemoglobin 9.5, an d platelets 154. Lowest hemoglobin during this hospital stay was 9.5. On last chemistry from yester day sodium was 136, potassium 3.7, chloride 107 bicarb 24, BUN 56, creatinine 2.53, glucose 91, and m agnesium 1.6. Discharge Medications And Instructions: 1.Amlodipine 5 mg 2 times a day. 2.Aspirin 81 mg daily. 3.Carvedilol 25 mg 2 times a day. 4.Clonidine 0.1 mg 3 times a day. 5.Ferrous sulfate 325 mg daily. 6.Folic acid 1 mg daily. 7.Hydralazine 50 mg 3 times a day. 8.Claritin 10 mg daily. 9.Simvastatin 40 mg daily. 10.Tamsulosin 0.4 mg 2 times a day. 11.Finasteride 5 mg daily. 12.Levaquin 250 mg daily for 10 days. 13.Follow up with urologist regarding benign prostatic hypertrophy with urinary retention problem. 14.Mayfield catheter care. 15.Consult Physical Therapy and Occupational Therapy. 16.Fall precautions. 17.2 g sodium diet. Hospital Course: This is an 87-year-old male patient who was admitted to the hospital when he came i [facility] emergency room with 2 to 3 days' history of constipation, not eating, not drinking enough, and no t urinating. After he arrived to emergency room, he was evaluated and admitted to the hospital. The patient was admitted with sepsis, urinary tract infection, and acute kidney failure. He also had hy perkalemia. His initial potassium level was 6, BUN 83, and creatinine 6.04. Urinalysis was abnormal . The patient had significant amount of urine in his bladder and Mayfield catheter was placed. After u rine and blood specimen was collected for culture, he was started on empiric antibiotic, which was ce ftriaxone. Blood culture and urine culture result came back as growing pseudomonas and this was resi stant to ceftriaxone, but sensitive to Levaquin, so the patient was started on Levaquin. He was seen by Nephrology Team for acute kidney injury and hyperkalemia, which was corrected. IV fluid was give n. The patient was started on diet. His antihypertensive medications were started and adjusted duri ng this hospitalization as it becomes necessary. The patient never required any vasopressor medicati ons. We did try to remove Mayfield catheter last week on or Saturday and after we removed cathet er in the morning, all day the patient was not able to urinate so by evening time we had to replace t he Mayfield catheter. We did not have any urologist boning room worker during this hospitalization, so we were not able to get any Urology consultation while in the hospital, but the patient will definitely need out patient Urology consultation for management of this urinary retention problem due to enlarged prostat e. Physical Therapy was consulted. Unfortunately the patient has not ambulated with Physical Therap y and I did communicate with the patient's family member regarding discharge planning and Social Serv ice was consulted and once arrangements were made, the patient was discharged to go to [facility]. Final Diagnoses: 1.Sepsis, organism pseudomonas. 2.Urinary tract infection, organism pseudomonas. 3.Acute kidney failure. 4.Benign prostatic hypertrophy with lower urinary tract symptoms. 5.Hyperkalemia. 6.Chronic kidney disease, stage 4. 7.Anemia due to chronic kidney disease. 8.Hypertension. 9.Hyperlipidemia. 10.Coronary artery disease. 11.Allergic rhinitis. BRADY/MODL Voice ID: [id number] Report ID: [id number]
== END 2022-11-20 11:43 | DRG 871 ==
LOC: ER 11:15 → ERHOLD 17:25 → 4TH 21:39
PROVIDERS: ADMIT Internal Medicine; ATTEND Internal Medicine
PROC: 0T9B70Z Drainage of Bladder with Drainage Device, Via Natural or Artificial Opening (ICD-10-PCS; principal; 2022-11-13)
DX: A41.52 Sepsis due to Pseudomonas (principal); G92.8 Other toxic encephalopathy; N17.9 Acute kidney failure, unspecified; N39.0 Urinary tract infection, site not specified; I67.89 Other cerebrovascular disease; N18.4 Chronic kidney disease, stage 4 (severe); E87.5 Hyperkalemia; E78.5 Hyperlipidemia, unspecified; I69.320 Aphasia following cerebral infarction; R53.81 Other malaise; N40.1 Benign prostatic hyperplasia with lower urinary tract symptoms; N32.0 Bladder-neck obstruction; R33.9 Retention of urine, unspecified; B96.5 Pseudomonas (aeruginosa) (mallei) (pseudomallei) as the cause of diseases classified elsewhere; J30.9 Allergic rhinitis, unspecified; I25.10 Atherosclerotic heart disease of native coronary artery without angina pectoris; I12.9 Hypertensive chronic kidney disease with stage 1 through stage 4 chronic kidney disease, or unspecified chronic kidney disease; M15.9 Polyosteoarthritis, unspecified; D63.1 Anemia in chronic kidney disease; F01.50 Vascular dementia, unspecified severity, without behavioral disturbance, psychotic disturbance, mood disturbance, and anxiety
CPT/HCPCS: 36415; 51702; 70450; 71045; 74176; 80048; 80053; 80069; 81001; 82550; 82947; 83605; 83735; 84132; 84484; 85025; 85610; 85730; 87040; 87077; 87086; 87088; 87186; 87205; 87811; 93005; 94760; 97116; 97161; 97530; 99285; J0610; J0696; J1644; J1815; J3475; J7030; J7040; J7042; J7050; J7120; J7799

== ENCOUNTER 2023-01-13 18:48 | Inpatient (IN) | payer OTHER ==
--- OUTSIDE RECORDS SUMMARY | 2023-01-13 18:57 | XMS REPORT | Continuity of Care Document ---
:1935 Author Organization [facility] t Address [address] [place] [address] Care Team Providers Name Role Phone CAMACHO KYLE Primary Care Physician Unavailable Camacho Kyle Attending Clinician Unavailable NATACHA POE Attending Clinician Unavailable OMAYRA DAHL Attending Clinician Unavailable Jo Attending Clinician Unavailable Jo Admitting Clinician Unavailable Payers Payer Name Policy Type Policy Number Effective Date Expiration Date S nery MEDICARE PART A [id number] 2000 AND B 00:00:00 [place]ICARE [place]: [id number] 2000 [id number] Group 00:00:00 Problems Condition Condition Condition Status Onset Resolution Last Treating Co mments Source Name Details Category Date Date Treatment Clinician Date Encounter Encounter Problem Active Com mon for other for other Spir it orthopedic orthopedic - [facility]care aftercare [facility] Presence Presence Problem Active 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 Medications Ordered Filled Start Stop Current Ordering Indication Dosage Frequency Signature Comments Components Source Medication Medication Date Date Medication? Clinician (SIG) Name Name Flomax 0.4 Flomax 0.4 No 2capsul Q1D Flomax 0.4 Martinez mg capsule mg capsule e(s) mg capsule [facility] Take 2 Take 2 Take 2 Urology capsules capsules capsules every day every day every day by oral by oral by oral route. route. route. folic acid folic acid No folic acid [place] 1 mg tablet 1 mg tablet 1 mg M etro TAKE 1 TAKE 1 tablet Urology TABLET BY TABLET BY TAKE 1 MOUTH DAILY MOUTH DAILY TABLET BY MOUTH DAILY hydralazine hydralazine No hydralazin [place] 25 mg 25 mg e 25 mg [facility] tablet tablet tablet Urology hydralazine hydralazine No hydralazin [place] 50 mg 50 mg e 50 mg [facility] tablet TAKE tablet TAKE tablet Urology 1 TABLET BY 1 TABLET BY TAKE 1 MOUTH THREE MOUTH THREE TABLET BY TIMES DAILY TIMES DAILY MOUTH THREE TIMES DAILY minoxidil minoxidil No minoxidil [place] 2.5 mg 2.5 mg 2.5 mg [facility] tablet GIVE tablet GIVE tablet Urology 2 TABLETS 2 TABLETS GIVE 2 BY MOUTH BY MOUTH TABLETS BY TWICE DAILY TWICE DAILY MOUTH TWICE DAILY simvastatin simvastatin No simvastati [place] 40 mg 40 mg n 40 mg [facility] tablet TAKE tablet TAKE tablet Urology 1 TABLET BY 1 TABLET BY TAKE 1 MOUTH DAILY MOUTH DAILY TABLET BY IN THE IN THE MOUTH EVENING EVENING DAILY IN THE EVENING amlodipine amlodipine No amlodipine [place] 5 mg tablet 5 mg tablet 5 mg M etro GIVE 1 GIVE 1 tablet Urology TABLET BY TABLET BY GIVE 1 MOUTH TWICE MOUTH TWICE TABLET BY DAILY DAILY MOUTH TWICE DAILY carvedilol carvedilol No carvedilol [place] 25 mg 25 mg 25 mg [facility] tablet TAKE tablet TAKE tablet Urology 1 TABLET BY 1 TABLET BY TAKE 1 MOUTH TWICE MOUTH TWICE TABLET BY DAILY DAILY MOUTH TWICE DAILY clonidine clonidine No clonidine [place] HCl 0.3 mg HCl 0.3 mg HCl 0.3 mg [facility] tablet TAKE tablet TAKE tablet Urology 1 TABLET BY 1 TABLET BY TAKE 1 MOUTH THREE MOUTH THREE TABLET BY TIMES DAILY TIMES DAILY MOUTH THREE TIMES DAILY Tamsulosin Tamsulosin Yes Greg Gregg ommon HCl HCl [facility] finasteride finasteride No finasterid [place] 5 mg tablet 5 mg tablet e 5 mg [facility] TAKE 1 TAKE 1 tablet Urology TABLET BY TABLET BY TAKE 1 MOUTH DAILY MOUTH DAILY TABLET BY MOUTH DAILY folic acid folic acid No folic acid [place] 1 mg tablet 1 mg tablet 1 mg M etro TAKE 1 TAKE 1 tablet Urology TABLET BY TABLET BY TAKE 1 MOUTH DAILY MOUTH DAILY TABLET BY MOUTH DAILY Aspirin 81 Aspirin 81 Yes Greg not C ommon [facility] hydralazine hydralazine No hydralazin [place] 25 mg 25 mg e 25 mg [facility] tablet tablet tablet Urology Metamucil Metamucil Yes Greg not Com mon Hannon defined [facility] hydralazine hydralazine No hydralazin [place] 50 mg 50 mg e 50 mg [facility] tablet TAKE tablet TAKE tablet Urology 1 TABLET BY 1 TABLET BY TAKE 1 MOUTH THREE MOUTH THREE TABLET BY TIMES DAILY TIMES DAILY MOUTH THREE TIMES DAILY Amlodipine Amlodipine Yes Greg not C ommon Besylate Besylate Hannon defined Sp reuben [facility] minoxidil minoxidil No minoxidil [place] 2.5 mg 2.5 mg 2.5 mg [facility] tablet GIVE tablet GIVE tablet Urology 2 TABLETS 2 TABLETS GIVE 2 BY MOUTH BY MOUTH TABLETS BY TWICE DAILY TWICE DAILY MOUTH TWICE DAILY Carvedilol Carvedilol Yes Greg not C ommon Hannon defined [facility] simvastatin simvastatin No simvastati [place] 40 mg 40 mg n 40 mg [facility] tablet TAKE tablet TAKE tablet Urology 1 TABLET BY 1 TABLET BY TAKE 1 MOUTH DAILY MOUTH DAILY TABLET BY IN THE IN THE MOUTH EVENING EVENING DAILY IN THE EVENING HydrALAZINE HydrALAZINE Yes Greg not Common HCl HCl Hannon defined [facility] tamsulosin tamsulosin No tamsulosin [place] 0.4 mg 0.4 mg 0.4 mg [facility] capsule capsule capsule Urolog y TAKE 2 TAKE 2 TAKE 2 CAPSULES BY CAPSULES BY CAPSULES MOUTH EVERY MOUTH EVERY BY MOUTH DAY DAY EVERY DAY Simvastatin Simvastatin Yes Greg not Common Hannon defined [facility] amlodipine amlodipine No amlodipine [place] 5 mg tablet 5 mg tablet 5 mg M etro GIVE 1 GIVE 1 tablet Urology TABLET BY TABLET BY GIVE 1 MOUTH TWICE MOUTH TWICE TABLET BY DAILY DAILY MOUTH TWICE DAILY iron iron Yes Greg not Common Hannon defined [facility] carvedilol carvedilol No carvedilol [place] 25 mg 25 mg 25 mg [facility] tablet TAKE tablet TAKE tablet Urology 1 TABLET BY 1 TABLET BY TAKE 1 MOUTH TWICE MOUTH TWICE TABLET BY DAILY DAILY MOUTH TWICE DAILY Folic Acid Folic Acid Yes Greg not C ommon Hannon defined [facility] clonidine clonidine No clonidine [place] HCl 0.3 mg HCl 0.3 mg HCl 0.3 mg [facility] tablet TAKE tablet TAKE tablet Urology 1 TABLET BY 1 TABLET BY TAKE 1 MOUTH THREE MOUTH THREE TABLET BY TIMES DAILY TIMES DAILY MOUTH THREE TIMES DAILY Acetaminoph Acetaminoph Yes Greg not Common en-Codeine en-Codeine Parvez defined [facility] #3 #3 - [facility] Minoxidil Minoxidil Yes Greg not Com mon Hannon defined [facility] Clonidine Clonidine Yes Greg not Com mon HCl HCl Hannon defined [facility] Vital Signs Vital Name Observation Time Observation Value Comments Source Height 2023-01-10 00:00:00 72 [in_i] [facility] Urology Body Weight 2023-01-10 00:00:00 110 [lb_av] [facility] Urology BMI (Body Mass 2023-01-10 00:00:00 14.9 kg/m2 [place] [facility] Height 2022-12-13 00:00:00 72 [in_i] [facility] Urology BMI (Body Mass 2022-12-13 00:00:00 14.9 kg/m2 [place] [facility] Body Weight 2022-12-13 00:00:00 110 [lb_av] [facility] Urology Procedures This patient has no known procedures. Plan of Care Planned Activity Planned Date Details Comments Source Future Appointment [facility]23-02-21 10:15[facility] [address]; , [place] [address] Encounters Start End Encounter Admission Attending Care Care Encounter Source Date/Time Date/Time Type Type Clinicians Facility Department ID 2022-12-26 Outpatient Kyle, [facility] [id number] Common 10:50:00 Camacho [id number] [facility] 2022-12-20 Outpatient Kyle, [facility] [id number] Common 09:22:00 Camacho [id number] [facility] 2022-10-18 Outpatient [facility] [id number] [place] 15:20:20 [id number] [facility] 2022-04-20 Outpatient [facility] [id number] [place] 09:19:02 [id number] [facility] 2022-02-02 Outpatient [facility] [id number] [place] 07:52:30 [id number] [facility] 2021-12-25 Outpatient [facility] [id number] [place] 09:33:33 [id number] [facility] 2021-12-06 Outpatient [facility] [id number] [place] 16:09:46 [id number] [facility] 2021-12-01 Outpatient LUI [facility] [id number] [place] 10:58:19 , NATACHA [id number] [facility] 2021-11-08 Outpatient [facility] [id number] [place] 08:26:58 [id number] [facility] 2023-02-01 2023-02-01 Outpatient HESHAM [facility] [id number] [place] 09:00:00 09:00:[address] [facility] 2023-01-10 2023-01-10 Kush [facility] [place] - [id number] [facility] 00:00:00 00:00:00 Linda Diallo y : [address], [place] [address] , Ph. 2023-01-09 2023-01-09 Outpatient Goldfarb_D U [facility] [id number] [place] 00:00:00 00:00:00 [id number] [facility] 2023-01-09 2023-01-09 Outpatient Goldfarb_D [facility] [id number] [place] 00:00:00 00:00:00 [id number] [facility] 2022-12-14 2022-12-14 Outpatient Goldfarb_D [facility] [id number] [place] 00:00:00 00:00:00 [id number] [facility] 2022-12-13 2022-12-13 Outpatient Goldfarb_D [facility] [id number] [place] 00:00:00 00:00:00 [id number] [facility] 2022-12-13 2022-12-13 Kush [facility] [place] - [id number] [facility] 00:00:00 00:00:00 Linda Diallo y : [address], [place] [address] , Ph. 2022-12-10 2022-12-10 Outpatient Goldfarb_D [facility] [id number] [place] 00:00:00 00:00:00 [id number] [facility] 2022-11-26 2022-11-26 Outpatient Goldfarb_D [facility] [id number] [place] 00:00:00 00:00:00 [id number] [facility] 2022-10-19 2022-10-19 [facility] [id number] [place] 09:00:00 09:00:[address] [facility] 2022-04-20 2022-04-20 [facility] [id number] [place] 09:00:00 10:38:05 OMAYRA Jin 2018-09-23 2018-09-23 Outpatient Stephen Mitchellt [id number] Common 10:30:00 10:30:00 [facility] 2018-08-06 2018-08-06 Outpatient [facility] [id number] Common 09:30:00 09:30:00 [facility] Results This patient has no known results.
--- NOTE | 2023-01-13 20:06 | RAD REPORT ---
EXAM DESCRIPTION: Olga Single View01/13/2023 7:48 pm CLINICAL HISTORY: Cough COMPARISON: none FINDINGS: Calcified lung granulomas. The lungs appear clear of acute infiltrate. The heart is normal size IMPRESSION: No acute abnormalities displayed
[2023-01-13 20:28] LABS: SARS-CoV-2 Antigen Rapid Res Negative (Negative)
[2023-01-13 21:53] LABS: Absolute Lymphocytes (CBC) 0.6 K/uL (0.7-4.9); Hematocrit 30.2 % (39.6-49.0); Lymphocytes % 6.9 % (15.3-44.8); MCV 79.6 fL (80-100); MPV 7.2 fL (7.6-11.3); Platelets 173 thou/uL (152-406); RBC Red Blood Cell Count 3.79 M/uL (4.33-5.43)
[2023-01-13 22:09] LABS: Protime INR 1.1
[2023-01-13 22:13] LABS: Albumin 3.2 g/dL (3.4-5.0); Bilirubin Total 0.5 mg/dL (0.2-1.0); Protein, Total 8.1 g/dL (6.4-8.2)
[2023-01-13 22:18] LABS: Urine Bacteria <20 /HPF (<20); Urine Bilirubin NEGATIVE (Negative); Urine Blood Trace (Negative); Urine Clarity Extremely Turbid (Clear); Urine Color Light-Yellow (Yellow); Urine Glucose NEGATIVE (Negative); Urine Protein TRACE (Negative); Urine RBC <5 /HPF (None Seen); Urine Urobilinogen Normal (Normal); Urine WBC Clump Rare /HPF (None Seen); Urine pH 5.5 (5.0-7.0)
--- NOTE | 2023-01-13 22:43 | EDPHYS ---
Physician Documentation [facility] Name: Donal Ramirez Age: 87 yrs Sex: Male : 1935 Arrival Date: 01/13/2023 Time: 18:48 Bed 6 Private MD: ED Physician Phil Tran HPI: 01/13 19:57 This 87 yrs old Black Male presents to ER via Ambulatory with complaints of Fever, sb4 Urinary Problem, Abd Tightness. 01/14 00:04 patient with history of hypertension, hyperlipidemia, stroke, coronary artery disease, sb4 chronic kidney disease stage 4, pancreatic mass, osteoarthritis at multiple sites, and anemia due to chronic kidney disease presents with daughter with concerns of UTI. She states that he has been very weak lately, not eating, has had a subjective fever, and his abdomen has felt tight. He recently had his indwelling Mayfield catheter removed on and she feels that he has not been urinating regularly since. Patient is only oriented x1 at this time and cannot give any subjective history. Historical: - Home Meds: 01/13 19:00 hydralazine 50 mg Oral tab 1 tab 3 times per day [Active]; folic acid 1 mg Oral tab 1 mb9 tab once daily [Active]; amlodipine 5 mg tablet 1 tab 2 times per day [Active]; aspirin 81 mg Oral TbEC 1 tab once daily [Active]; carvedilol 25 mg Oral tablet 1 tab 2 times per day [Active]; Claritin 10 mg Oral tablet 1 tab daily [Active]; clonidine HCl 0.3 mg Oral tablet 1 tabs 3 times per day [Active]; - PMHx: 19:00 BPH; Hypertension; kidney disease; Hypercholesterolemia; diabetes mellitus; CVA; mb9 coronary atherosclerosis; - PSHx: 19:00 None; mb9 - Immunization history:: Adult Immunizations up to date. - Social history:: Smoking status: Patient denies any tobacco usage or history of. ROS: 01/14 00:04 Unable to obtain ROS due to altered mental status, baseline dementia. sb4 00:08 Cardiovascular: Negative for chest pain, palpitations, and edema. sb4 Exam: 00:04 Cardiovascular: Regular rate and rhythm with a normal S1 and S2. Respiratory: Lungs sb4 have equal breath sounds bilaterally, clear to auscultation and percussion. No rales, rhonchi or wheezes noted. No increased work of breathing, no retractions or nasal flaring. Skin: Warm, dry with normal turgor. Normal color with no rashes, no lesions, and no evidence of cellulitis. MS/ Extremity: Pulses equal, no cyanosis. Neurovascular intact. Full, normal range of motion. 00:04 Constitutional: The patient appears frail, lethargic. 00:04 Abdomen/GI: Inspection: abdomen appears normal, Bowel sounds: normal, Palpation: Firm lower quadrant. Vital Signs: 01/13 18:59 BP 149 / 62; Pulse 65; Resp 18; Temp 99.6(O); Pulse Ox 97% ; Weight 58.97 kg; Height 6 mb9 ft. 0 in. ; 20:00 BP 124 / 71; Pulse 70; Resp 18; Pulse Ox 95% on R/A; eh3 21:00 BP 121 / 62; Pulse 66; Resp 20; Pulse Ox 99% on R/A; eh3 22:01 BP 94 / 55; Pulse 60; Resp 20; Pulse Ox 99% on R/A; kd3 01/14 01:07 BP 116 / 58; Pulse 65; Resp 19; Pulse Ox 99% on R/A; kd3 01/13 18:59 Body Mass Index 17.63 (58.97 kg, 182.88 cm) mb9 MDM: 01/13 18:52 Patient medically screened. sb4 01/14 00:04 Differential diagnosis: UTI, Sepsis, CVA, renal failure, worsening dementia, COVID, sb4 flu, pyelonephritis. Data reviewed: vital signs, nurses notes, old medical records, Prior admission note and labs lab test result(s), radiologic studies, and as a result, I will admit patient. Consideration of Admission/Observation Patient was admitted/placed on observation. Management of patient was discussed with the following: Primary Care Provider: Dr. Byrne. Historians other than the Patient: Daughter/Son: daughter. Care significantly affected by the following chronic conditions: Hypertension, Chronic Kidney Disease. Counseling: I had a detailed discussion with the patient and/or guardian regarding: the historical points, exam findings, and any diagnostic results supporting the discharge/admit diagnosis, lab results, radiology results, the need for further work-up and treatment in the hospital. Admission orders: after a detailed discussion of the patient's condition and case, the admit orders are written by me. 01/13 19:09 Order name: Blood Culture Adult (2) sb4 01/13 19:09 Order name: CBC with Diff; Complete Time: 21:58 sb4 01/13 19:09 Order name: CMP; Complete Time: 22:29 sb4 01/13 19:09 Order name: Lactate w/ 2H reflex if indic.; Complete Time: 22:15 sb4 01/13 19:09 Order name: Protime (+inr); Complete Time: 22:14 sb4 01/13 19:09 Order name: Ptt, Activated; Complete Time: 22:14 sb4 01/13 19:09 Order name: Urinalysis w/ reflexes; Complete Time: 22:29 sb4 01/13 19:09 Order name: SARS RAPID; Complete Time: 20:33 sb4 01/13 19:09 Order name: Flu; Complete Time: 20:36 sb4 01/13 22:27 Order name: Urine Culture EDPA 01/14 01:03 Order name: Glucose, Ancillary Testing; Complete Time: 01:04 EDMS 01/13 19:09 Order name: Chest Single View XRAY; Complete Time: 20:07 sb4 08 19:09 Order name: EKG; Complete Time: 19:09 sb4 01/13 19:09 Order name: Accucheck; Complete Time: 00:16 sb4 01/13 19:09 Order name: Cardiac monitoring; Complete Time: 20:33 sb4 08 19:09 Order name: EKG - Nurse/Tech; Complete Time: 20:33 sb4 01/13 19:09 Order name: IV Saline Lock - Large Bore; Complete Time: 22:01 sb4 01/13 19:09 Order name: Labs collected and sent; Complete Time: 22:01 sb4 01/13 19:09 Order name: O2 Per Protocol; Complete Time: 22:01 sb4 01/13 19:09 Order name: O2 Sat Monitoring; Complete Time: 22:01 sb4 08 19:09 Order name: Vital Signs; Complete Time: 22:01 sb4 EC/06 20:07 Rate is 69 beats/min. Rhythm is regular, Sinus arrythmia with 1st degree heart block. sb4 KS interval is prolonged at 310 msec. QRS interval is normal at 80 msec. QT interval is normal at 386 msec. No Q waves. T waves are Normal. No ST changes noted. Clinical impression: Normal ECG. Interpreted by me. Reviewed by me. Administered Medications: 01/14 00:54 Drug: Insulin Regular Human IVP 10 units {Co-Signature: [email or web address] (Shaila Espinla RN).} jb4 Route: IVP; Site: right forearm; 00:55 Drug: Calcium Gluconate IVPB 1 grams Route: IVPB; Infused Over: 60 mins; Site: right kd3 antecubital; 00:55 Drug: Kayexalate PO 30 grams Route: PO; kd3 00:55 Drug: D10 in Water IVP 250 ml Route: IVP; Site: right forearm; kd3 01:06 Drug: NS 0.9% IV 1000 ml Route: IV; Rate: 1 bolus; Site: right forearm; kd3 Disposition Summary: 01/13/23 22:42 Hospitalization Ordered Hospitalization Status: Inpatient Admission sb4 Provider: Monalisa Byrne Location: Telemetry/[facility] (Inpatient) sb4 Condition: Fair sb4 Problem: new sb4 Symptoms: are unchanged sb4 Bed/Room Type: Standard sb4 Room Assignment: 207(01/13/23 23:23) cg Diagnosis - Acute kidney failure, unspecified sb4 - Hyperkalemia sb4 - Weakness sb4 Forms: - Medication Reconciliation Form sb4 - SBAR form sb4 Addendum: 01/18/2023 07:01 Co-signature as Attending Physician, Phil Tran MD I reviewed the patient's care r t provided by the Advanced Practice Provider and agree with the diagnosis and treatment plan. Signatures: Dispatcher [employer] Parisa Giang, RN RN cg Celso Martinez RN RN jb4 Shaila Espinal RN RN kd3 Rosalee Mcgee PA-C PA-C sb4 Griselda Goldstein RN RN mb9 Phil Tran MD MD rt Shaila Espinal RN kd3 Corrections: (The following items were deleted from the chart) 01/13 23:23 22:42 sb4 cg
--- NOTE | 2023-01-13 22:43 | ER ---
Nurse's Notes [facility] Name: Donal Ramirez Age: 87 yrs Sex: Male : 1935 Arrival Date: 01/13/2023 Time: 18:48 Bed 6 Private MD: Diagnosis: Acute kidney failure, unspecified;Hyperkalemia;Weakness Presentation: 01/13 18:59 Chief complaint: Spouse and/or significant other states: "He's been throwing up since mb9 this morning, tremors, diarrhea for 3 days, seems like he has a fever, and hasn't been urinating like he's supposed to and his stomach feels real tight.". Coronavirus screen: Vaccine status:. Ebola Screen: No symptoms or risks identified at this time. Initial Sepsis Screen: Does the patient meet any 2 criteria? No. Patient's initial sepsis screen is negative. Does the patient have a suspected source of infection? No. Patient's initial sepsis screen is negative. Risk Assessment: Do you want to hurt yourself or someone else? Patient reports no desire to harm self or others. Onset of symptoms was January 13, 2023. 18:59 Method Of Arrival: Ambulatory mb9 18:59 Acuity: ERICH 3 mb9 Triage Assessment: 19:02 General: Appears uncomfortable, Behavior is calm, cooperative. Pain: Denies pain. mb9 Neuro: Longoria Agitation-Sedation Scale (RASS): 0 - Alert and Calm Level of Consciousness is awake, alert, obeys commands. Cardiovascular: Patient's skin is warm and dry. Respiratory: Airway is patent Respiratory effort is even, unlabored, Respiratory pattern is regular, symmetrical. GI: Abdomen is flat, non-distended, Parent/caregiver reports the patient having diarrhea. : Parent/caregiver report the patient having inability to void. Derm: Skin is pink, warm \\T\\ dry. Musculoskeletal: Range of motion: intact in all extremities. Historical: - Home Meds: 19:00 hydralazine 50 mg Oral tab 1 tab 3 times per day [Active]; folic acid 1 mg Oral tab 1 mb9 tab once daily [Active]; amlodipine 5 mg tablet 1 tab 2 times per day [Active]; aspirin 81 mg Oral TbEC 1 tab once daily [Active]; carvedilol 25 mg Oral tablet 1 tab 2 times per day [Active]; Claritin 10 mg Oral tablet 1 tab daily [Active]; clonidine HCl 0.3 mg Oral tablet 1 tabs 3 times per day [Active]; - PMHx: 19:00 BPH; Hypertension; kidney disease; Hypercholesterolemia; diabetes mellitus; CVA; mb9 coronary atherosclerosis; - PSHx: 19:00 None; mb9 - Immunization history:: Adult Immunizations up to date. - Social history:: Smoking status: Patient denies any tobacco usage or history of. Screenin:15 [facility] ED Fall Risk Assessment (Adult) Score/Fall Risk Level 0 - 2 = Low Risk. Abuse eh3 screen: Denies threats or abuse. Denies injuries from another. Nutritional screening: No deficits noted. Tuberculosis screening: No symptoms or risk factors identified. Assessment: 19:15 General: Appears in no apparent distress. uncomfortable, Behavior is calm, cooperative. eh3 Pain: Complains of pain in abdomen. Neuro: Level of Consciousness is awake, obeys commands, Oriented to person. Cardiovascular: Capillary refill < 3 seconds Patient's skin is warm and dry. Respiratory: Airway is patent Respiratory effort is even, unlabored, Respiratory pattern is regular, symmetrical. GI: Abdomen is round non-distended. Derm: Skin with poor turgor Skin is pink, warm \\T\\ dry. 20:00 Reassessment: Patient appears in no apparent distress at this time. Patient and/or 3 family updated on plan of care and expected duration. Pain level reassessed. Pt alert, oriented x 1, equal unlabored respirations, skin warm/dry/pink. 21:00 Reassessment: Patient appears in no apparent distress at this time. Patient and/or 3 family updated on plan of care and expected duration. Pain level reassessed. Pt alert, oriented x 1, equal unlabored respirations, skin warm/dry/pink. Vital Signs: 18:59 BP 149 / 62; Pulse 65; Resp 18; Temp 99.6(O); Pulse Ox 97% ; Weight 58.97 kg; Height 6 mb9 ft. 0 in. ; 20:00 BP 124 / 71; Pulse 70; Resp 18; Pulse Ox 95% on R/A; eh3 21:00 BP 121 / 62; Pulse 66; Resp 20; Pulse Ox 99% on R/A; eh3 22:01 BP 94 / 55; Pulse 60; Resp 20; Pulse Ox 99% on R/A; kd3 01/14 01:07 BP 116 / 58; Pulse 65; Resp 19; Pulse Ox 99% on R/A; kd3 01/13 18:59 Body Mass Index 17.63 (58.97 kg, 182.88 cm) mb9 ED Course: 01/13 18:51 Patient arrived in ED. mg5 18:52 Rosalee Mcgee PA-C is PHCP. sb4 18:52 Phil Tran MD is Attending Physician. sb4 19:00 Triage completed. mb9 19:00 Arm band placed on. mb9 19:15 Patient has correct armband on for positive identification. Placed in gown. Bed in low eh3 position. Call light in reach. Side rails up X2. Provided Education on: Use of call ramirez. Client placed on continuous cardiac and pulse oximetry monitoring. NIBP monitoring applied. Warm blanket given. 19:50 Marlene Steele, LASHONDA is Primary Nurse. eh3 19:50 Chest Single View XRAY In Process Unspecified. EDMS 20:33 Flu Sent. bc6 22:01 Urinalysis w/ reflexes Sent. kd3 22:01 Protime (+inr) Sent. kd3 22:01 Ptt, Activated Sent. kd3 22:01 Lactate w/ 2H reflex if indic. Sent. kd3 22:01 CMP Sent. kd3 22:01 Blood Culture Adult (2) Sent. kd3 22:02 Coud inserted, using sterile technique, 16 Fr. Returned clear yellow urine. To gravity kd3 drainage. Urine specimen collected. 22:42 Monalisa Byrne MD is Hospitalizing Provider. sb4 01/14 01:07 No provider procedures requiring assistance completed. kd3 02:04 Patient admitted, IV remains in place. kd3 Administered Medications: 00:54 Drug: Insulin Regular Human IVP 10 units {Co-Signature: taylor (Shaila Espinal RN).} jb4 Route: IVP; Site: right forearm; 00:55 Drug: Calcium Gluconate IVPB 1 grams Route: IVPB; Infused Over: 60 mins; Site: right kd3 antecubital; 00:55 Drug: Kayexalate PO 30 grams Route: PO; kd3 00:55 Drug: D10 in Water IVP 250 ml Route: IVP; Site: right forearm; kd3 01:06 Drug: NS 0.9% IV 1000 ml Route: IV; Rate: 1 bolus; Site: right forearm; kd3 Medication: 01/13 22:02 VIS not applicable for this client. kd3 Output: 22:08 Urine: 1200ml (Mayfield); Total: 1200ml. kd3 Outcome: 22:42 Decision to Hospitalize by Provider. sb4 01/14 01:07 Condition: stable kd3 02:04 Patient left the ED. kd3 02:04 Admitted to Med/surg kd3 02:04 Discharge instructions given to patient, Instructed on the need for admit, Demonstrated understanding of instructions, follow-up care. Signatures: Dispatcher [employer] EDMS Celso Martinez RN RN pepper4 Shaila Espinal, RN RN kd3 Marlene Steele RN RN eh3 Rosalee Mcgee, PA-C PAGabriel sb4 Griselda Goldstein RN RN mb9 Shante Licona [place] 5 Shaila Espinal RN kd3 Corrections: (The following items were deleted from the chart) 01/13 21:03 20:00 Reassessment: Patient appears in no apparent distress at this time. Patient eh3 and/or family updated on plan of care and expected duration. Pain level reassessed. Patient is alert, oriented x 3, equal unlabored respirations, skin warm/dry/pink. Pt alert, oriented x 1, equal unlabored respirations, skin warm/dry/pink [facility]
[2023-01-14] MEDS ORDERED: NA CHLORIDE 0.9% 1,000 ML ONE (00:33)
[2023-01-14] MEDS ORDERED: CALCIUM GLUCONATE 1 GM IVPB 1 GM/50 ML BAG IV ONE (00:33)
[2023-01-14] MEDS ORDERED: SOD POLYSTYREN SUL 15 GM/60 ML UCUP ONE (00:33)
[2023-01-14] MEDS ORDERED: INSULIN -REGULAR HUMAN 50 UNIT/0.5 ML ML ONE (00:33)
[2023-01-14] MEDS ORDERED: D10W 250 ML IV ONE (00:34)
[2023-01-14] MEDS: NA CHLORIDE 0.9% 1,000 ML IV SCH ×3 (04:54→20:19)
[2023-01-14] MEDS ORDERED: LORATADINE 10 MG TAB PO PRN (07:23)
[2023-01-14] MEDS: CLONIDINE HCL 0.3 MG TAB PO SCH ×3 (08:56→20:59)
[2023-01-14] MEDS: FINASTERIDE 5 MG TAB PO SCH (08:56)
[2023-01-14] MEDS: FOLIC ACID 1 MG TABLET PO SCH (08:56)
[2023-01-14] MEDS: TAMSULOSIN 0.4 MG SR CAP PO SCH (08:56)
[2023-01-14] MEDS: minoxidiL 2.5 MG TAB PO SCH ×2 (08:57→21:00)
[2023-01-14] MEDS: ASPIRIN EC 81 MG TAB PO SCH (08:57)
[2023-01-14] MEDS: AMLODIPINE 5 MG TAB PO SCH ×2 (08:57→21:00)
[2023-01-14] MEDS: FERROUS SULFATE 325 MG TAB PO SCH (08:57)
[2023-01-14] MEDS: HYDRALAZINE HCL 25 MG TABLET PO SCH ×3 (08:57→21:00)
[2023-01-14] MEDS ORDERED: CEFTRIAXONE 1,000 MG in NA CHLORIDE 0.9% 50 ML IVPB SCH (09:00)
--- NOTE | 2023-01-14 13:01 | EKG ---
Test Date: 2023-01-13 Test Time: 19:58:28 Geology Technician: RITU MEASUREMENT RESULTS: Intervals: Rate: 69 IA: 310 QRSD: 80 QT: 386 QTc: 413 [place]: P: 73 IA: 310 QRS: 53 T: 70 INTERPRETIVE STATEMENTS: Sinus rhythm with sinus arrhythmia with 1st degree AV block Otherwise normal ECG Compared to ECG 12/19/2022 15:23:56 ST (T wave) deviation no longer present Prolonged QT interval no longer present Electronically Signed On 01-14-23 12:59:10 CDT by Isak Ramirez
--- NOTE | 2023-01-14 14:45 | RAD REPORT ---
EXAM DESCRIPTION: US - Urinary Bladder - 01/14/2023 2:22 pm FINDINGS: A Mayfield catheter is present within the bladder. Pre drainage bladder volume 36 cc. No post drainage residual No ascites IMPRESSION: Pre drainage bladder volume 36 cc. No post drainage residual
--- NOTE | 2023-01-14 15:05 | RAD REPORT ---
EXAM DESCRIPTION: US - Renal Ultrasound-Complete - 01/14/2023 2:22 pm CLINICAL HISTORY: Acute renal injury COMPARISON: 2019 FINDINGS: The right kidney measures 10 cm with a mildly increased echotexture. 2.4 centimeter solid mass extends off midpole of right kidney equivocally mildly enlarged. It is vasc ular. The left kidney measures 8 cm with an increased echotexture. 2.3 centimeter hypoechoic mass extends off the lateral aspect of the left kidney. It has mildly enlar ged. Hydronephrosis is not seen. 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 This may represent additional neoplas m. Further evaluation could be obtained with a CT scan of the kidneys with and without IV contrast
[2023-01-14] MEDS: carvediloL 25 MG TAB PO SCH (17:52)
[2023-01-14] MEDS ORDERED: NA CHLORIDE 0.9% 500 ML IV ONE (20:00)
[2023-01-14] MEDS ORDERED: NA CHLORIDE 0.9% 250 ML IV ONE (20:45)
[2023-01-14] MEDS: ENSURE ENLIVE 237 ML CAN PO SCH (21:00)
[2023-01-14] MEDS: ATORVASTATIN 20 MG TAB PO SCH (21:18)
[2023-01-14] MEDS: Meropenem 500 MG in NA CHLORIDE 0.9% 100 ML IV SCH (21:18)
[2023-01-14] MEDS: HEPARIN 5000 UNIT/ML 1 ML VIAL SQ SCH (21:46)
[2023-01-15 04:04] LABS: Absolute Lymphocytes (CBC) 0.8 K/uL (0.7-4.9); Hematocrit 25.5 % (39.6-49.0); Lymphocytes % 10.7 % (15.3-44.8); MCV 78.7 fL (80-100); MPV 7.4 fL (7.6-11.3); Platelets 122 thou/uL (152-406); RBC Red Blood Cell Count 3.25 M/uL (4.33-5.43)
[2023-01-15 04:50] LABS: Magnesium 1.9 mg/dL (1.6-2.4); Potassium 3.7 mEq/L (3.5-5.1)
[2023-01-15] MEDS: NA CHLORIDE 0.9% 1,000 ML IV SCH ×2 (04:51→15:31)
[2023-01-15] MEDS: carvediloL 25 MG TAB PO SCH ×2 (05:03→18:00)
[2023-01-15 05:06] LABS: Blood Morphology Comment NOT SEEN (NOT SEEN); Platelet Estimate ADEQ
--- NOTE | 2023-01-15 06:03 | HP ---
Date of Admission: 01/14/2023 Chief Complaint: Urinary problems. History Of Present Illness: This is an 87-year-old male patient, who has an indwelling Mayfield catheter for over last 1 month ever since his last hospital admission in November of this year. The patient has been evaluated by urologist on outpatient basis. He did remove his Mayfield catheter at home and was brought into ER about 2 to 3 weeks ago and Mayfield catheter was replaced and he was sent home. The patient was brought in yesterday by family because he pulled his catheter out, which I am not clear on when, but from the ER record, it appears that he pulled out his catheter on . After that, he had trouble voiding and his abdomen had started to get distended and tight, so he was brought into ER yesterday and after he was evaluated, he was admitted to the hospital. Mayfield catheter was placed and I saw him this morning. He was lying in bed, not in any distress. There was no family member at bedside and all the information on him was obtained by reviewing current hospital records and prior hospital records. Allergies: NO KNOWN ALLERGIES. Review of Systems: Genitourinary: As mentioned above. All other systems reviewed and negative. Medications: Amlodipine 5 mg 2 times a day; aspirin 81 mg daily; carvedilol 25 mg 2 times a day; clonidine 0.3 mg 3 times a day; ferrous sulfate 325 mg daily; folic acid 1 mg daily; hydralazine 50 mg, takes 1 tablet 3 times a day; [id number] mg daily; minoxidil 2.5 mg, takes 2 tablets 2 times a day; simvastatin 40 mg daily; and tamsulosin 0.4 mg two times a day and Finasteride 5 mg daily. Past Medical History: Significant for hypertension, hyperlipidemia, stroke, allergic rhinitis, coronary artery disease, chronic kidney disease stage 4, pancreatic mass, osteoarthritis at multiple sites, and anemia due to chronic kidney disease. Past Surgical History: Significant for hip surgery due to hip fracture on July 03, 2018. Family History: Mother had myocardial infarction. Sister had hypertension. Social History: Negative for smoking and alcohol use. Physical Examination: Vital Signs: Temperature 98.5, pulse 72, respiratory rate 16, blood pressure 164/74, oxygen saturation 98% on room air. General: Awake, alert, oriented, not in distress. HEENT: Head atraumatic, normocephalic. Conjunctivae nonerythematous. Sclerae white. Mouth, no thrush or edema noted. Ears/Nose, no mass, lesion, discharge noted. Neck: Supple. No JVD, lymph nodes, bruit, thyromegaly noted. Lungs: Bilateral good equal air entry. Clear to auscultation. No rhonchi. No rales. Heart: Normal heart sounds, no murmur or gallop. Abdomen: Soft, bowel sounds normal. No guarding, rigidity, tenderness, mass, hepatosplenomegaly, distention, or bruit noted. Extremities: No leg edema. No calf tenderness. Skin: No rash, ulcer, cellulitis. Lymphatics: No lymph node enlargement in neck, supraclavicular, infraclavicular region. Neuro: No focal neurological deficit. Chest: Unremarkable. External Genitalia: Deferred. Rectal: Deferred. Laboratory Data: White count 9, hemoglobin 9.6, platelets 173. Yesterday; sodium 129, potassium 6, chloride 100, bicarb 21, BUN 77, creatinine 5.85, glucose 111. Lactic acid 1. Liver function tests unremarkable. Albumin 3.2. This morning; sodium 131, potassium 5, chloride 102, bicarb 19, BUN 77, creatinine 5.48, and glucose 86. Urinalysis; leukocyte esterase 500, WBC more than 50, bacteria less than 20. COVID-19 test negative. Impression: 1. Acute kidney injury. 2. Benign prostatic hypertrophy with lower urinary tract symptoms. 3. Urinary tract infection. 4. Sepsis. 5. Volume depletion. 6. Hyperkalemia. 7. Hyponatremia. 8. Anemia due to chronic kidney disease. 9. Hypertension. 10. Hyperlipidemia. 11. Coronary artery disease. 12. Allergic rhinitis. Plan: Admit the patient to the hospital for further evaluation and management of this problem. The patient is appropriate for inpatient and is expected to spend 2 midnights in hospital. The patient has a Mayfield catheter in place, draining clear yellow urine. There is no evidence of any hematuria. For urinary tract infection and sepsis, we will go ahead and give ceftriaxone per order, follow up on culture results and then make decision regarding adjustment of antibiotic as it becomes necessary. Hemodynamically, he is stable. The patient has received IV fluids so far and we will continue maintenance IV fluid. His hyperkalemia was treated yesterday in the emergency room and this morning potassium is normal. Renal function has slightly improved. We will continue IV fluid hydration and follow up on electrolytes and renal function tomorrow. No need for further intervention for hyponatremia or hyperkalemia at this time. For anemia, no need for further intervention except monitoring and no need for any blood transfusion at this time. For hypertension, we will start his blood pressure medications per order and hold amlodipine and carvedilol if systolic blood pressure less than 130 and hold hydralazine and minoxidil if systolic blood pressure less than 140. For hyperlipidemia, we will continue his statin therapy and for benign prostatic hypertrophy, we will continue his tamsulosin and finasteride. Fall precaution was ordered. We will consult Physical Therapy to help ambulate the patient. I will see him tomorrow morning for followup. The patient's advanced directive; I have discussed with the patient's family member during his recent office visit regarding advance directives and so far family has not made any decisions, so he remains full code. BRADY/MODL Voice ID: [id number] [id number]
[2023-01-15] MEDS: HEPARIN 5000 UNIT/ML 1 ML VIAL SQ SCH ×2 (08:21→20:53)
[2023-01-15] MEDS: ENSURE ENLIVE 237 ML CAN PO SCH ×3 (08:59→20:53)
[2023-01-15] MEDS: HYDRALAZINE HCL 25 MG TABLET PO SCH ×3 (09:00→21:00)
[2023-01-15] MEDS: FERROUS SULFATE 325 MG TAB PO SCH (09:00)
[2023-01-15] MEDS: AMLODIPINE 5 MG TAB PO SCH ×2 (09:00→20:52)
[2023-01-15] MEDS: CLONIDINE HCL 0.3 MG TAB PO SCH ×3 (09:00→21:00)
[2023-01-15] MEDS: FINASTERIDE 5 MG TAB PO SCH (09:00)
[2023-01-15] MEDS: minoxidiL 2.5 MG TAB PO SCH ×2 (09:00→21:00)
[2023-01-15] MEDS: ASPIRIN EC 81 MG TAB PO SCH (09:00)
[2023-01-15] MEDS: TAMSULOSIN 0.4 MG SR CAP PO SCH (09:00)
--- NOTE | 2023-01-15 19:15 | PN ---
Date of Progress Note: 01/15/2023 Subjective: The patient was seen this morning for followup. He was lying in bed, not in any distres s. Denies any chest pain, shortness of breath. No new complaints or problems reported overnight. Physical Examination: Vital Signs: This morning; temperature was 99.2, pulse 70, respiratory rate 18, blood pressure 110/4 7, oxygen saturation 96% on room air. His lowest blood pressure last night was 82/44. HEENT: Unremarkable. Lungs: Clear to auscultation. Heart: Sounds normal. Abdomen: Soft. Bowel sounds normal. No guarding, rigidity, tenderness, distention. Extremities: No leg edema. Laboratory Data: White count 7.2, hemoglobin 8.4, platelets 122. Sodium 131, potassium 3.7, chlorid e 101, bicarb 19, BUN 72, creatinine 5.06, glucose 101, magnesium 1.9. Impression: 1.Sepsis. 2.Urinary tract infection. 3.Benign prostatic hypertrophy with urinary retention. 4.Acute kidney injury. 5.Chronic kidney disease, stage 4. 6.Anemia due to chronic kidney disease. 7.Hypertension. Plan: We will go ahead and continue IV fluid. Last night when nurse contacted me with episode of lo w blood pressure, IV fluid bolus was given and subsequently maintenance IV fluid was continued and th at actually has helped to stabilize his blood pressure. The patient was on ceftriaxone yesterday, bu t when his blood pressure dropped low last night, we stopped ceftriaxone and started him on meropenem . Blood culture is positive, but definite identification and sensitivity result is pending. We will follow up on the results. Hopefully, it should be ready in next day or 2 days and then decide about culture specific antibiotics. Antihypertensive medications will be given with orders to hold meds o f blood pressure as per holding parameter. Physical Therapy to continue to work with the patient. U ltrasound of bladder was unremarkable. Kidney ultrasound has shown bilateral kidney masses. I have called the patient's daughter, Keiko Lawton at [phone] and she has the patient's medical power of deputy commonwealth's attorney and she was made aware of all the events and details about the test results including ul trasound of the kidney and blood work results. Plan of treatment also discussed with her. Depending on the patient's overall condition, decision will be made if the patient can return back home or he will need to go to intermediate facility and if he needs to go to intermediate facility, family does not want him to go back to the same facility as he did last time and they will communicate with the social media executive for different facility if that is required. Prior to this hospital admission, he was able to get in and out of bed into the wheelchair with assistance, but he was not able to ambulat e. I also communicated with her regarding advance directives and she has informed me that family has made decision about advance directives and in the event of cardiopulmonary arrest, they do not want the patient to undergo any CPR, defibrillation or ventilator support and do not resuscitate order haley l be placed in the chart as per family's decision and I have also advised her to have social media executive a ssist family without hospital DNR paperwork to be completed. I will see him tomorrow for followup. Continue heparin for DVT prophylaxis. BRADY/MODL Voice ID: [id number] Report ID: [id number]
[2023-01-15] MEDS: ATORVASTATIN 20 MG TAB PO SCH (20:51)
[2023-01-15] MEDS: Meropenem 500 MG in NA CHLORIDE 0.9% 100 ML IV SCH (20:52)
[2023-01-16] MEDS: NA CHLORIDE 0.9% 1,000 ML IV SCH ×2 (00:30→21:59)
[2023-01-16 04:08] LABS: Absolute Lymphocytes (CBC) 1.1 K/uL (0.7-4.9); Lymphocytes % 20.8 % (15.3-44.8); MCV 78.2 fL (80-100); MPV 7.4 fL (7.6-11.3); Platelets 124 thou/uL (152-406)
[2023-01-16 04:17] LABS: Magnesium 1.8 mg/dL (1.6-2.4); Potassium 4.1 mEq/L (3.5-5.1)
[2023-01-16] MEDS: carvediloL 25 MG TAB PO SCH ×2 (05:24→17:27)
[2023-01-16] MEDS ORDERED: MAGNESIUM SULFATE 1 gm IVPB 1 GM/100 ML BAG IV ONE (07:28)
[2023-01-16] MEDS: FINASTERIDE 5 MG TAB PO SCH (08:56)
[2023-01-16] MEDS: HYDRALAZINE HCL 25 MG TABLET PO SCH ×3 (08:59→21:21)
[2023-01-16] MEDS: minoxidiL 2.5 MG TAB PO SCH ×2 (08:59→21:22)
[2023-01-16] MEDS: HEPARIN 5000 UNIT/ML 1 ML VIAL SQ SCH ×2 (08:59→21:23)
[2023-01-16] MEDS: CLONIDINE HCL 0.3 MG TAB PO SCH ×3 (08:59→21:21)
[2023-01-16] MEDS: ASPIRIN EC 81 MG TAB PO SCH (08:59)
[2023-01-16] MEDS: FERROUS SULFATE 325 MG TAB PO SCH (09:00)
[2023-01-16] MEDS: AMLODIPINE 5 MG TAB PO SCH ×2 (09:00→21:20)
[2023-01-16] MEDS: TAMSULOSIN 0.4 MG SR CAP PO SCH (09:00)
[2023-01-16] MEDS: FOLIC ACID 1 MG TABLET PO SCH (09:00)
[2023-01-16] MEDS: ENSURE ENLIVE 237 ML CAN PO SCH ×3 (09:00→21:00)
[2023-01-16] MEDS: ATORVASTATIN 20 MG TAB PO SCH (21:22)
[2023-01-16] MEDS: Meropenem 500 MG in NA CHLORIDE 0.9% 100 ML IV SCH (21:23)
--- NOTE | 2023-01-16 22:26 | CON ---
Date of Consultation: 01/16/2023 Reason For Consultation: Second-degree AV block, type 1. History Of Present Illness: This is an 87-year-old male with a past medical history of hypertension that is very difficult to treat, on multiple antihypertensive agents; dyslipidemia; stroke; coronary artery disease; chronic kidney disease; anemia; and pancreatic mass. He basically came in with diffi culty urinating after he pulled his Mayfield catheter out. Apparently, he had a transient period with s econd-degree AV block, type 1, however on telemetry over the past 24 hours, he has been in sinus rhyt with some PACs. No history of syncope. Past Medical History: As outlined above in the HPI. Medications: Refer reconciliation sheet for detailed list. Allergies: NO KNOWN DRUG ALLERGIES. Family History: No premature coronary artery disease or cancer. Social History: Does not smoke or drink. Does not use any drugs. Review of Systems: All systems reviewed are negative except mentioned in HPI. Physical Examination: Vital signs: Reviewed. Head and Neck: Pupils are equal, reactive to light. Intact eye movements. No JVD. No cervical lym phadenopathy. Neck: Supple. Thyroid is not enlarged. Lungs: Clear to auscultation bilaterally. No rhonchi, wheezing, or crackles. No accessory muscle u se. Heart: Regular rate and rhythm. No extra sounds. Abdomen: Soft, nontender. Bowel sounds positive. No organomegaly. No masses or hernia. No rigidi ty or rebound. Extremities: No edema, clubbing, or cyanosis. Intact pulses. Skin: No rashes. Neurologic: Alert, awake. No acute focal deficits appreciated. Investigations: BUN 80, creatinine 4.6, sodium 133, and hemoglobin is 8. Assessment/recommendations: 1.Second-degree atrioventricular block, type 1. I am not able to locate the strips, however, I revi ewed the telemetry and there was no atrioventricular block. He only has first-degree atrioventricula r block with some premature atrial contractions. At this point, even if it was a second-degree atrio ventricular block, type 1, it is usually benign since there is no syncopal episodes or dizziness. I will continue to monitor and not change any of his medications as apparently he has very difficult bl ood pressure to treat and is requiring beta blockers. I will continue to monitor with you. If any c hanges happen to his heart rhythm, then will act upon it and no changes are recommended at this point . 2.Hypertension, difficult to control and apparently it is in a stable condition at this present time . Continue current management including beta luis. 3.Acute on chronic renal failure and probably has something to do with urinary retention and his cre atinine is improving slowly. 4.Dyslipidemia. Continue statin. I will sign off on the consult unless the patient develops heart block again at a higher degree. SR/MODL Voice ID: [id number] Report ID: [id number]
--- NOTE | 2023-01-17 07:09 | PN ---
Date of Progress Note: 01/16/2023 Subjective: The patient was seen this morning for followup. No new complaints or problems reported by patient. Lying in bed, not in any distress. Objective: Vital Signs: Reviewed. HEENT: Unremarkable. Lungs: Clear to auscultation. Heart: Sounds normal. Abdomen: Soft. Bowel sounds normal. No guarding, rigidity, tenderness, distention. Extremities: No leg edema. External genitalia: Shows presence of Mayfield catheter, but patient's urethral meatus has split open a pproximately by 2 cm or so from the urethral meatus, the ventral aspect, where it gives appearance of hypospadia type of appearance, but this is likely due to trauma from his indwelling Mayfield catheter a s the patient has pulled this catheter out before requiring re-insertion. The patient reports lot of pain every time we try to touch his external genitalia to try to examine. Laboratory Data: White count 5.1, hemoglobin 8, platelets 124. Sodium 133, potassium 4.1, chloride 104, bicarb 20, BUN 80, creatinine 4.6, glucose 98, magnesium 1.2. Impression: 1.Acute kidney injury. 2.Volume depletion. 3.Benign prostatic hypertrophy with lower urinary tract symptoms. 4.Urinary retention secondary to above. 5.Sepsis. 6.Anemia due to chronic kidney disease. 7.Hypertension. Plan: We will go ahead. Continue antihypertensive medications with instruction to hold blood pressu re medication depending on the patient's blood pressure readings. Continue current empiric antibioti cs. Culture results are still pending. Once we have final report available, we will make decision r egarding culture specific antibiotics. Urologist will be consulted today to help evaluate and manage this penile injury secondary to Mayfield catheter. Physical Therapy to continue to work with the patie nt. I will see him tomorrow for followup. BRADY/MODL Voice ID: [id number] Report ID: [id number]
[2023-01-17] MEDS: carvediloL 25 MG TAB PO SCH ×2 (07:42→16:59)
[2023-01-17] MEDS: HEPARIN 5000 UNIT/ML 1 ML VIAL SQ SCH ×2 (08:43→21:10)
[2023-01-17] MEDS: AMPICILLIN SODIUM 1 GM in NA CHLORIDE 0.9% 100 ML IVPB SCH ×2 (08:43→17:00)
[2023-01-17] MEDS: ASPIRIN EC 81 MG TAB PO SCH (08:44)
[2023-01-17] MEDS: FOLIC ACID 1 MG TABLET PO SCH (08:44)
[2023-01-17] MEDS: FERROUS SULFATE 325 MG TAB PO SCH (08:44)
[2023-01-17] MEDS: TAMSULOSIN 0.4 MG SR CAP PO SCH (08:44)
[2023-01-17] MEDS: ENSURE ENLIVE 237 ML CAN PO SCH ×3 (08:45→21:00)
[2023-01-17] MEDS: FINASTERIDE 5 MG TAB PO SCH (08:45)
[2023-01-17] MEDS: HYDRALAZINE HCL 25 MG TABLET PO SCH ×3 (08:47→21:09)
[2023-01-17] MEDS: CLONIDINE HCL 0.3 MG TAB PO SCH ×3 (08:47→21:09)
[2023-01-17] MEDS: AMLODIPINE 5 MG TAB PO SCH ×2 (08:48→21:09)
[2023-01-17] MEDS: minoxidiL 2.5 MG TAB PO SCH ×2 (08:48→21:08)
[2023-01-17 09:01] LABS: Absolute Lymphocytes (CBC) 0.9 K/uL (0.7-4.9); Hematocrit 32.5 % (39.6-49.0); Lymphocytes % 21.8 % (15.3-44.8); MCV 78.1 fL (80-100); MPV 7.3 fL (7.6-11.3); Platelets 167 thou/uL (152-406); RBC Red Blood Cell Count 4.16 M/uL (4.33-5.43)
[2023-01-17 09:18] LABS: Potassium 4.1 mEq/L (3.5-5.1)
[2023-01-17] MEDS: NA CHLORIDE 0.9% 1,000 ML IV SCH (15:36)
[2023-01-17] MEDS: ATORVASTATIN 20 MG TAB PO SCH (21:09)
[2023-01-18] MEDS: AMPICILLIN SODIUM 1 GM in NA CHLORIDE 0.9% 100 ML IVPB SCH ×3 (00:09→16:40)
[2023-01-18 03:37] VITALS: BMI 16.9
[2023-01-18] MEDS: carvediloL 25 MG TAB PO SCH ×2 (05:46→17:22)
[2023-01-18] MEDS: FERROUS SULFATE 325 MG TAB PO SCH (08:34)
[2023-01-18] MEDS: ASPIRIN EC 81 MG TAB PO SCH (08:34)
[2023-01-18] MEDS: FINASTERIDE 5 MG TAB PO SCH (08:34)
[2023-01-18] MEDS: TAMSULOSIN 0.4 MG SR CAP PO SCH (08:34)
[2023-01-18] MEDS: HYDRALAZINE HCL 25 MG TABLET PO SCH ×3 (08:35→20:22)
[2023-01-18] MEDS: FOLIC ACID 1 MG TABLET PO SCH (08:35)
[2023-01-18] MEDS: CLONIDINE HCL 0.3 MG TAB PO SCH ×3 (08:35→20:22)
[2023-01-18] MEDS: ENSURE ENLIVE 237 ML CAN PO SCH ×3 (08:35→21:00)
[2023-01-18] MEDS: HEPARIN 5000 UNIT/ML 1 ML VIAL SQ SCH ×2 (08:35→20:22)
[2023-01-18] MEDS: minoxidiL 2.5 MG TAB PO SCH ×2 (08:35→20:22)
[2023-01-18] MEDS: AMLODIPINE 5 MG TAB PO SCH ×2 (08:36→20:23)
[2023-01-18] MEDS: NA CHLORIDE 0.9% 1,000 ML IV SCH ×2 (09:28→20:23)
--- NOTE | 2023-01-18 16:18 | PN ---
Date of Progress Note: 01/18/2023 Subjective: The patient was seen this morning for followup. No new complaints or problems reported by the patient. He was lying in bed, not in any distress. Denies any new complaints. Objective: Vital Signs: Reviewed. HEENT: Unremarkable. Lungs: Clear to auscultation. No wheezing. No rales. Heart: Sounds normal. Abdomen: Soft. Bowel sounds normal. No guarding, rigidity, tenderness, distention. Extremities: No leg edema. Laboratory Data: Urine culture and blood culture are growing Enterococcus faecalis. Impression: 1.Sepsis. 2.Urinary tract infection. 3.Hypertension. 4.Acute kidney injury. 5.Volume depletion. 6.Anemia due to chronic kidney disease. Plan: We will go ahead and continue current antibiotic which is ampicillin as per culture and sensit ivity result. We will continue current maintenance IV fluid which is 50 cc/hour of normal saline. W e will repeat blood work tomorrow and I did talk to the patient's daughter today and informed her abo ut possibility of going home tomorrow, and the patient's family does not want him to go to snf facility and they will take him home tomorrow. I will see him in the morning for followup. BRADY/MODL Voice ID: [id number] Report ID: [id number]
--- NOTE | 2023-01-18 16:27 | PN ---
Date of Progress Note: 01/17/2023 Subjective: The patient was seen this morning for followup. No new complaints or problems reported by the patient. Lying in bed, not in any distress. Objective: Vital Signs: Reviewed. HEENT: Unremarkable. Lungs: Clear to auscultation. Heart: Sounds normal. Abdomen: Soft. Bowel sounds normal. No guarding, rigidity, tenderness, distention. Extremities: No leg edema. Laboratory Data: White count 4.2, hemoglobin 10.6, platelets 167. Sodium 135, potassium 4.1, chlori de 107, bicarb 19, BUN 68, creatinine 4.01, glucose 93. Impression: 1.Sepsis. 2.Urinary tract infection. 3.Benign prostatic hypertrophy, with urinary retention. 4.Hypertension. 5.Acute kidney injury. 6.Volume depletion. 7.Anemia due to chronic kidney disease. Plan: We will go ahead and continue current antihypertensive medication. We will continue ampicilli n as per culture results and meropenem was discontinued. Continue current IV fluid and I will see him tomorrow for followup. Physical Therapy to continue to work with him. BRADY/MODL Voice ID: [id number] Report ID: [id number]
[2023-01-18] MEDS: ATORVASTATIN 20 MG TAB PO SCH (20:23)
[2023-01-19] MEDS: NA CHLORIDE 0.9% 1,000 ML IV SCH ×2 (05:28→17:28)
[2023-01-19] MEDS: carvediloL 25 MG TAB PO SCH ×2 (06:00→17:19)
[2023-01-19] MEDS: AMPICILLIN SODIUM 1 GM in NA CHLORIDE 0.9% 100 ML IVPB SCH ×3 (06:07→17:28)
[2023-01-19 07:47] LABS: Absolute Lymphocytes (CBC) 1.2 K/uL (0.7-4.9); Hematocrit 23.7 % (39.6-49.0); Lymphocytes % 31.4 % (15.3-44.8); MCV 78.8 fL (80-100); Platelets 142 thou/uL (152-406); RBC Red Blood Cell Count 3.01 M/uL (4.33-5.43)
[2023-01-19 07:57] LABS: Potassium 4.4 mEq/L (3.5-5.1)
[2023-01-19] MEDS: CLONIDINE HCL 0.3 MG TAB PO SCH ×3 (08:55→20:49)
[2023-01-19] MEDS: AMLODIPINE 5 MG TAB PO SCH ×2 (08:56→20:48)
[2023-01-19] MEDS: minoxidiL 2.5 MG TAB PO SCH ×2 (08:56→20:52)
[2023-01-19] MEDS: HYDRALAZINE HCL 25 MG TABLET PO SCH ×3 (09:00→20:48)
[2023-01-19] MEDS: ENSURE ENLIVE 237 ML CAN PO SCH ×3 (09:00→20:52)
[2023-01-19] MEDS: FERROUS SULFATE 325 MG TAB PO SCH (09:01)
[2023-01-19] MEDS: ASPIRIN EC 81 MG TAB PO SCH (09:01)
[2023-01-19] MEDS: FOLIC ACID 1 MG TABLET PO SCH (09:01)
[2023-01-19] MEDS: FINASTERIDE 5 MG TAB PO SCH (09:01)
[2023-01-19] MEDS: TAMSULOSIN 0.4 MG SR CAP PO SCH (09:01)
[2023-01-19] MEDS: HEPARIN 5000 UNIT/ML 1 ML VIAL SQ SCH ×2 (09:09→20:48)
--- NOTE | 2023-01-19 12:53 | PN ---
Date of Progress Note: 01/19/2023 Subjective: Patient was seen this morning for followup. He was lying in bed not in distress. No ne w complaints or problems reported by him. Objective: Vital Signs: Reviewed. His systolic blood pressure is on the lower range around 102 mmH g. No nausea, vomiting. He remains afebrile. HEENT: Unremarkable. Lungs: Clear to auscultation. Heart: Sounds normal. Abdomen: Soft. Bowel sounds normal. No guarding, rigidity, tenderness, distention. Extremities: No leg edema. Mayfield catheter present draining yellowish colored urine. Laboratory Data: White count 3.8, hemoglobin 7.6, platelets 142. Sodium 135, potassium 4.4, chlorid e 107, bicarb 20, BUN 58, creatinine 3.39, glucose 89. Impression: 1.Sepsis. 2.Urinary tract infection. 3.Benign prostatic hypertrophy with lower urinary tract symptoms. 4.Urinary retention. 5.Anemia due to chronic kidney disease. 6.Hypertension. Plan: Patient's hemoglobin today has dropped down to 7.6. This is the lowest hemoglobin for this ad mission. Two days ago on January 17, hemoglobin was 10.6, and upon admission, hemoglobin was 9.6. Co nsidering drop in the hemoglobin as well as blood pressure running on the lower side, we will definit brennan not feel comfortable discharging him this morning, as we were originally planning and I will go a head and hold discharge until tomorrow. We will repeat another set of blood work tomorrow. His anti hypertensive medication has instruction to keep it on hold depending on the systolic blood pressure r eadings, so we will continue to do that. Continue current antibiotic, which is ampicillin for sepsis and urinary tract infection. Urology consultation was requested a few days ago for traumatic injury to urethra and we are waiting on Urology consultation for further recommendation to see whether this is something he would advise, suprapubic catheter placement or not. I have asked nursing staff to g o ahead and reach out to urologist today since I am still waiting for his consultation and recommenda tion. BRADY/MODL Voice ID: [id number] Report ID: [id number]
--- NOTE | 2023-01-19 15:38 | P.CNS ---
Date of Consult: 01/19/23 Reason for Consult: traumatic catheter dislodgement Requesting Physician: Monster Byrne Chief Complaint: altered/poorly communiative History of Present Illness: 87-year-old gentleman with hypertension, hyperlipidemia, history of CVA, CAD, CKD stage IV, osteoarthritis, anemia of chronic kidney disease, and known pancreatic mass presents with an indwelling urethral Mayfield catheter since November of this year. He had apparently been evaluated by urologist on an outpatient basis, but the patient traumatically dislodged his Mayfield catheter at home and was brought to the emergency department about 2 to 3 weeks ago. The Mayfield catheter was replaced and he was sent home. He was brought in on 01/13/2023 by the family because apparently he pulled the catheter out again. After that, he was unable to void and became progressively distended prompting the emergency department visit. He was then admitted to the hospital and the urethral catheter was replaced. The patient himself is poorly communicative and unable to provide significant history. Past medical history as above Past surgical history: Hip fracture and surgery 07/03/2018 Family history: Myocardial infarction in mother, hypertension in sister Smoking history: Negative No known drug allergies Examination: Patient lying in bed in no acute distress He is alert and awake, oriented at least to person No dyspnea or sign of respiratory distress Initially cooperative but combative with attempts to examine his genitalia, specifically around the urethral Mayfield catheter Urethral Mayfield catheter in place draining clear yellow urine, but phallus dependent between his legs lifted for examination, with assistance of nursing to hold his arms and legs, which he was actively trying to contract, ultimately revealing what appeared to be more chronic traumatic hypospadias down to the mid proximal penile urethra. No bleeding noted at this time, though nursing informs me it had been bleeding in the past. No significant purulence or crepitus noted, though edema of the prepuce noted. Examination performed with some difficulty due to patient's lack of cooperation. Expressed discomfort with manipulation to perform the exam. 01/13/2023 hemoglobin 9.6/hematocrit 30.2, platelets 173, INR 1.1, creatinine 5.48 01/19/2023 WBC 3.8, hemoglobin/hematocrit 7.6/23.7, platelets 142, creatinine 3.39 Blood cultures and urine cultures positive for Enterococcus faecalis, but I was not able to review the sensitivities because the computer software would not load either of the 3 reports for both the blood cultures and urine cultures noting "not responding" despite multiple attempts. 01/14/2023 renal ultrasound impression: 2.4 cm solid and vascular right renal mass noted. 2.3 cm left hypoechoic lesion noted. Bladder ultrasound showing Mayfield catheter in place with negligible residual Assessment and recommendation: 87-year-old gentleman with hypertension, hyperlipidemia, history of CVA, CAD, CKD stage IV with anemia of chronic disease, osteoarthritis, and a history of pancreatic mass known with indwelling urethral Mayfield catheter presumably placed because of chronic urinary retention post traumatic dislodgment and failed uncontrolled voiding trial with traumatic mid proximal penile hypospadias, prompting hospitalization with urosepsis secondary to Enterococcus UTI with unknown sensitivities due to failure of hospital computer software ability to load its own reports for review, and right 2.4 cm solid and vascular renal mass on ultrasound associated with hypoechoic 2.3 cm left renal lesion. -Unless this is VRE, best treatment for Enterococcus infection would be Unasyn to clear the Enterococcus infection -Catheter secured with phallus brought out of the dependent position for ease of care and maintenance -Nursing specifically instructed on proper catheter care in this specific incidence with a altered/demented patient to include the followin. Dilute H2O2 forward around the catheter where it inserts into the hypospadiac urethra twice daily and with needed diaper exchanges in order to keep from developing complicating skin and subcutaneous tissue infection. 2. Neosporin/bacitracin/triple antibiotic ointment applied after cleansing at the catheter insertion into the hypospadiac urethra. -Given the severity of the hypospadias, if patient an operative candidate with any longevity expected beyond the next 3 to 6 months, he may best be served with a suprapubic catheter being placed. This would be done with his outpatient urologist electively. -Given the size of the right renal mass and uncharacterized left renal lesion, and given the slow growth rate documented since imaging done several years ago, while this may indeed represent a renal cell carcinoma at least on the right, given the size and slow growth rate, the risk of metastasis is less than 5%, and given his age, no treatment/intervention would be recommended. Allergies No Known Drug Allergies Allergy (Verified 11/13/22 20:53) Unknown Home medications list reviewed: Yes Home Medications: Amlodipine [Norvasc*] 5 mg PO BID 11/14/22 Folic Acid 1 mg PO DAILY 11/14/22 Hydralazine [Apresoline*] 50 mg PO TID 11/14/22 Simvastatin 40 mg PO BEDTIME 11/14/22 Tamsulosin [Flomax*] 2 tab PO DAILY 11/14/22 carvediloL [Coreg*] 25 mg PO BID 11/14/22 cloNIDine HCL [Catapres*] 0.3 mg PO TID 11/14/22 minoxidiL [Loniten*] 5 mg PO BID 11/14/22 Finasteride 5 mg PO DAILY 12/20/22 Aspirin [Aspirin EC 81 MG] 81 mg PO DAILY 01/14/23 Iron 65 mg PO DAILY 01/14/23 Psyllium Husk [Metamucil] 0.4 gm PO DAILY 01/14/23 - Past Medical/Surgical History Diabetic: No -: HTN -: CVA -: hip sx - Social History Smoking Status: Unknown if ever smoked Alcohol use: No CD- Drugs: No Caffeine use: No Place of Residence: Home Physical Examination Temp Pulse Resp BP Pulse Ox 97.7 F 60 16 106/58 L 97 01/19/23 12:00 01/19/23 14:00 01/19/23 12:00 01/19/23 14:00 01/19/23 12:00 - Problems (1) Hypospadias, penile Current Visit: Yes Status: Acute (2) Enterococcal sepsis Current Visit: Yes Status: Acute (3) Right renal mass Current Visit: Yes Status: Acute (4) Renal lesion Current Visit: Yes Status: Acute (5) Acute on chronic urinary retention Current Visit: Yes Status: Acute Conclusions/Impression: see HPI A&P Critical Care: No Time Spent Managing Pts care (In Minutes): 40
[2023-01-19] MEDS: ATORVASTATIN 20 MG TAB PO SCH (20:48)
[2023-01-19 23:17] VITALS: O2SAT 98
[2023-01-20] MEDS: AMPICILLIN SODIUM 1 GM in NA CHLORIDE 0.9% 100 ML IVPB SCH ×2 (00:27→08:50)
[2023-01-20] MEDS: carvediloL 25 MG TAB PO SCH (05:13)
[2023-01-20 07:56] LABS: Absolute Lymphocytes (CBC) 1.4 K/uL (0.7-4.9); Hematocrit 25.8 % (39.6-49.0); Lymphocytes % 28.4 % (15.3-44.8); MCV 78.5 fL (80-100); MPV 6.9 fL (7.6-11.3); Platelets 177 thou/uL (152-406); RBC Red Blood Cell Count 3.29 M/uL (4.33-5.43)
[2023-01-20 08:08] LABS: Potassium 4.3 mEq/L (3.5-5.1)
[2023-01-20] MEDS: FINASTERIDE 5 MG TAB PO SCH (08:51)
[2023-01-20] MEDS: HYDRALAZINE HCL 25 MG TABLET PO SCH ×2 (08:51→13:58)
[2023-01-20] MEDS: minoxidiL 2.5 MG TAB PO SCH (08:51)
[2023-01-20] MEDS: CLONIDINE HCL 0.3 MG TAB PO SCH ×2 (08:51→13:58)
[2023-01-20] MEDS: FOLIC ACID 1 MG TABLET PO SCH (08:52)
[2023-01-20] MEDS: TAMSULOSIN 0.4 MG SR CAP PO SCH (08:52)
[2023-01-20] MEDS: AMLODIPINE 5 MG TAB PO SCH (08:52)
[2023-01-20] MEDS: ASPIRIN EC 81 MG TAB PO SCH (08:53)
[2023-01-20] MEDS: ENSURE ENLIVE 237 ML CAN PO SCH ×2 (08:53→13:59)
[2023-01-20] MEDS: FERROUS SULFATE 325 MG TAB PO SCH (08:53)
[2023-01-20] MEDS: HEPARIN 5000 UNIT/ML 1 ML VIAL SQ SCH (08:53)
[2023-01-20 12:25] VITALS: BP 143/62; TEMP 98.4
--- NOTE | 2023-01-21 07:24 | DS ---
Date of Discharge: 01/20/2023 Disposition: Discharged to go home. Physical Examination: HEENT: Unremarkable. Lungs: Clear to auscultation. Heart: Sounds normal. Abdomen: Soft. Bowel sounds normal. No guarding, rigidity, tenderness, distention. Extremities: No leg edema. Laboratory Data: On 01/13/2023; white count 9, hemoglobin 9.6, platelets 173. Lowest hemoglobin dur ing this hospitalization was yesterday on 01/19/2023 and it was 7.6. Today; white count 4.9, hemoglo bin 8.2, platelets 177. Chemistry today; sodium 138, potassium 4.3, chloride 109, bicarb 22, BUN 56, creatinine 3.28, glucose 88. Blood culture and urine culture have grown Enterococcus faecalis. Upo n admission; the patient's chemistry had shown sodium 129, potassium 6, chloride 100, bicarb 21, BUN 77, creatinine 5.85, glucose 111. Hospital Course: This is an 87-year-old male patient, who had an indwelling Mayfield catheter because o f benign prostatic hypertrophy causing urinary retention as of November of this year. He has been seeing a neurologist on outpatient basis Dr. Dumont and 2-3 days prior to this hospital admission, the michelet yates had seen Dr. Dumont at his office and his Mayfield catheter was removed after about a month and half time. After Mayfield catheter removal, he was not able to void and family brought him to emergency room with trouble voiding and after he was evaluated, he was admitted to the hospital. Mayfield cathet er was placed back in emergency room. During this hospitalization, we saw that the patient, has hypo spadia and this is likely due to trauma from the patient pulling on Mayfield catheter as he did come at least once to the emergency room for replacement of Mayfield catheter between this admission and prior a dmission in November. Urology consultation was requested from Dr. Jamil and he has provided appropriat e instruction for nursing staff to use diluted hydrogen peroxide to clean the Mayfield catheter as it en ters the penile urethra and also apply topical antibiotic on a daily basis. The patient lives at [facility] with caregiver and daughter does not want him to go back to [facility] facility. So, once his condition was stable, the patient was discharged to go home. I did try to reach out to the patient' s daughter today, but she was not available, so we will try again to provide recommendation from Dr. Jamil regarding the patient to follow up with his urologist, Dr. Dumont for consideration of supr apubic catheter placement. His CAT scan has shown evidence of bilateral renal masses, likely neoplas m and it was noted on the prior imaging, so it appears to be slow growing and very likely will not re quire any intervention. I have discussed this CAT scan finding with the patient's daughter once the CAT scan report was available during this hospital admission. The patient has remained bed-bound, so he will require total care at home and daughter was made aware of this and she does not still want h im to go to skilled facility, so today the patient was discharged to go home in stable condition. Discharge Medications And Instructions: 1.Continue all prior home medication. 2.Drink 60 ounces water daily. 3.Start ampicillin 500 mg, take 2 capsules by mouth 3 times a day for 10 days. 4.Mayfield catheter care as per instruction from Dr. Jamil. 5.Follow up with urologist, Dr. Dumont in 1-2 weeks. 6.Follow up at my office week after. 7.Home health agency to resume care. 8.Check blood pressure before giving following blood pressure medications and follow instruction as below. Hold amlodipine and carvedilol if systolic blood pressure less than 130. 9.Hold hydralazine, clonidine and minoxidil if your systolic blood pressure less than 140. Final Diagnoses: 1.Sepsis, organism Enterococcus faecalis. 2.Urinary tract infection, organism Enterococcus faecalis. 3.Acute kidney injury. 4.Volume depletion. 5.Benign prostatic hypertrophy with lower urinary tract symptoms. 6.Hyperkalemia. 7.Hyponatremia. 8.Hypertension. 9.Anemia due to chronic kidney disease. 10.Coronary artery disease. 11.Allergic rhinitis. 12.Chronic kidney disease, stage 4. BRADY/MODL Voice ID: [id number] Report ID: [id number]
== END 2023-01-20 14:44 | disposition home health service (06) | DRG 872 ==
LOC: ER 18:48 → ERHOLD 23:03 → 2ND 01-14 01:01
PROVIDERS: ADMIT Internal Medicine; ATTEND Internal Medicine
DX: A41.81 Sepsis due to Enterococcus (principal); E44.1 Mild protein-calorie malnutrition; Z68.1 Body mass index [BMI] 19.9 or less, adult; N18.4 Chronic kidney disease, stage 4 (severe); N17.9 Acute kidney failure, unspecified; N39.0 Urinary tract infection, site not specified; E87.1 Hypo-osmolality and hyponatremia; I12.9 Hypertensive chronic kidney disease with stage 1 through stage 4 chronic kidney disease, or unspecified chronic kidney disease; D63.1 Anemia in chronic kidney disease; M19.09 Primary osteoarthritis, other specified site; J30.9 Allergic rhinitis, unspecified; E87.5 Hyperkalemia; I44.1 Atrioventricular block, second degree; E86.9 Volume depletion, unspecified; N28.9 Disorder of kidney and ureter, unspecified; Q54.1 Hypospadias, penile; N40.1 Benign prostatic hyperplasia with lower urinary tract symptoms; R33.8 Other retention of urine; N28.89 Other specified disorders of kidney and ureter; E78.00 Pure hypercholesterolemia, unspecified; I25.10 Atherosclerotic heart disease of native coronary artery without angina pectoris; Z66 Do not resuscitate; Z74.01 Bed confinement status; Z79.02 Long term (current) use of antithrombotics/antiplatelets; Z79.82 Long term (current) use of aspirin; Z86.73 Personal history of transient ischemic attack (TIA), and cerebral infarction without residual deficits; Z79.899 Other long term (current) drug therapy; Z20.822 Contact with and (suspected) exposure to COVID-19
CPT/HCPCS: 36415; 71045; 76770; 76857; 80048; 80053; 81001; 82947; 83605; 83735; 85025; 85610; 85730; 87040; 87077; 87086; 87088; 87186; 87205; 87804; 87811; 93005; 97110; 97161; 97530; 99285; J0290; J0612; J0696; J1644; J1815; J3475; J7030

== ENCOUNTER 2023-03-20 18:47 | Inpatient (IN) | payer OTHER ==
--- OUTSIDE RECORDS SUMMARY | 2023-03-20 18:51 | XMS REPORT | Continuity of Care Document ---
:1935 Author Organization [facility] t Address [address] [facility] [address] [place] [id number] Care Team Providers Name Role Phone CAMACHO KYLE Primary Care Physician Unavailable Camacho Kyle Attending Clinician Unavailable NATACHA POE Attending Clinician Unavailable OMAYRA DAHL Attending Clinician Unavailable Jo Attending Clinician Unavailable Jo Admitting Clinician Unavailable Payers Payer Name Policy Type Policy Number Effective Date Expiration Date S nery MEDICARE PART A [id number] 2000 AND B 00:00:00 MEDICARE B-[place]: [id number] 2000 [employer] 00:00:00 Problems Condition Condition Condition Status Onset Resolution Last Treating Co mments Source Name Details Category Date Date Treatment Clinician Date Encounter Encounter Problem Active Com mon for other for other [facility] orthopedic orthopedic - [facility] aftercare aftercare [facility] Presence Presence Problem Active Commo n of right of right [facility] artificial artificial - [facility] hip joint hip joint [facility] Pain of Pain of Diagnosis Active Commo n right hip right hip [facility] joint joint - [facility] Closed Closed Problem Active Common displaced displaced [facility] fracture fracture - [facility] of right of right femoral femoral [facility] neck with neck with Medi immanuel routine routine Center healing healing Allergies, Adverse Reactions, Alerts This patient has no known allergies or adverse reactions. Medications Ordered Filled Start Stop Current Ordering Indication Dosage Frequency Signature Comments Components Source Medication Medication Date Date Medication? Clinician (SIG) Name Name Tamsulosin Tamsulosin Yes Greg not C ommon HCl HCl Parvez defined [facility] Aspirin 81 Aspirin 81 Yes Greg not C ommon Parvez defined [facility] Metamucil Metamucil Yes Greg not Com mon Hannon defined [facility] Amlodipine Amlodipine Yes Greg not C ommon Besylate Besylate Parvez defined Sp [facility] Carvedilol Carvedilol Yes Greg not C ommon Hannon defined [facility] HydrALAZINE HydrALAZINE Yes Greg not Common HCl HCl Hannon defined [facility] Simvastatin Simvastatin Yes Greg not Common Hannon defined [facility] iron iron Yes Greg not Common Hannon defined [facility] Folic Acid Folic Acid Yes Greg not C ommon Hannon defined [facility] Acetaminoph Acetaminoph Yes Greg not Common en-Codeine en-Codeine Parvez defined [facility]3 [facility] Minoxidil Minoxidil Yes Greg not Com mon Hannon defined [facility] Clonidine Clonidine Yes Greg not Com mon HCl HCl Hannon defined [facility] Flomax 0.4 Flomax 0.4 No 2capsul Q1D Flomax 0.4 [place] mg capsule mg capsule e(s) mg capsule [facility] Take 2 Take 2 Take 2 Urology capsules capsules capsules every day every day every day by oral by oral by oral route. route. route. folic acid folic acid No folic acid [place] 1 mg tablet 1 mg tablet 1 mg M etro TAKE 1 TAKE 1 tablet Urology TABLET BY TABLET BY TAKE 1 MOUTH DAILY MOUTH DAILY TABLET BY MOUTH DAILY hydralazine hydralazine No hydralazin [place] 25 mg 25 mg e 25 mg [facility] tablet tablet tablet Urology hydralazine hydralazine No hydralazin [place] 50 mg 50 mg e 50 mg [facility] tablet TAKE tablet TAKE tablet Urology 1 TABLET BY 1 TABLET BY TAKE 1 MOUTH THREE MOUTH THREE TABLET BY TIMES DAILY TIMES DAILY MOUTH THREE TIMES DAILY minoxidil minoxidil No minoxidil [place] 2.5 mg 2.5 mg 2.5 mg [facility] tablet GIVE tablet GIVE tablet Urology 2 TABLETS 2 TABLETS GIVE 2 BY MOUTH BY MOUTH TABLETS BY TWICE DAILY TWICE DAILY MOUTH TWICE DAILY simvastatin simvastatin No simvastati [place] 40 mg 40 mg n 40 mg [facility] tablet TAKE tablet TAKE tablet Urology 1 TABLET BY 1 TABLET BY TAKE 1 MOUTH DAILY MOUTH DAILY TABLET BY IN THE IN THE MOUTH EVENING EVENING DAILY IN THE EVENING amlodipine amlodipine No amlodipine [place] 5 mg tablet 5 mg tablet 5 mg M etro GIVE 1 GIVE 1 tablet Urology TABLET BY TABLET BY GIVE 1 MOUTH TWICE MOUTH TWICE TABLET BY DAILY DAILY MOUTH TWICE DAILY carvedilol carvedilol No carvedilol [place] 25 mg 25 mg 25 mg [facility] tablet TAKE tablet TAKE tablet Urology 1 TABLET BY 1 TABLET BY TAKE 1 MOUTH TWICE MOUTH TWICE TABLET BY DAILY DAILY MOUTH TWICE DAILY clonidine clonidine No clonidine [place] HCl 0.3 mg HCl 0.3 mg HCl 0.3 mg [facility] tablet TAKE tablet TAKE tablet Urology 1 TABLET BY 1 TABLET BY TAKE 1 MOUTH THREE MOUTH THREE TABLET BY TIMES DAILY TIMES DAILY MOUTH THREE TIMES DAILY finasteride finasteride No finasterid [place] 5 mg tablet 5 mg tablet e 5 mg [facility] TAKE 1 TAKE 1 tablet Urology TABLET BY TABLET BY TAKE 1 MOUTH DAILY MOUTH DAILY TABLET BY MOUTH DAILY folic acid folic acid No folic acid [place] 1 mg tablet 1 mg tablet 1 mg M etro TAKE 1 TAKE 1 tablet Urology TABLET BY TABLET BY TAKE 1 MOUTH DAILY MOUTH DAILY TABLET BY MOUTH DAILY hydralazine hydralazine No hydralazin [place] 25 mg 25 mg e 25 mg [facility] tablet tablet tablet Urology hydralazine hydralazine No hydralazin [place] 50 mg 50 mg e 50 mg [facility] tablet TAKE tablet TAKE tablet Urology 1 TABLET BY 1 TABLET BY TAKE 1 MOUTH THREE MOUTH THREE TABLET BY TIMES DAILY TIMES DAILY MOUTH THREE TIMES DAILY minoxidil minoxidil No minoxidil [place] 2.5 mg 2.5 mg 2.5 mg [facility] tablet GIVE tablet GIVE tablet Urology 2 TABLETS 2 TABLETS GIVE 2 BY MOUTH BY MOUTH TABLETS BY TWICE DAILY TWICE DAILY MOUTH TWICE DAILY simvastatin simvastatin No simvastati [place] 40 mg 40 mg n 40 mg [facility] tablet TAKE tablet TAKE tablet Urology 1 TABLET BY 1 TABLET BY TAKE 1 MOUTH DAILY MOUTH DAILY TABLET BY IN THE IN THE MOUTH EVENING EVENING DAILY IN THE EVENING tamsulosin tamsulosin No tamsulosin [place] 0.4 mg 0.4 mg 0.4 mg [facility] capsule capsule capsule Urolog y TAKE 2 TAKE 2 TAKE 2 CAPSULES BY CAPSULES BY CAPSULES MOUTH EVERY MOUTH EVERY BY MOUTH DAY DAY EVERY DAY amlodipine amlodipine No amlodipine [place] 5 mg tablet 5 mg tablet 5 mg M etro GIVE 1 GIVE 1 tablet Urology TABLET BY TABLET BY GIVE 1 MOUTH TWICE MOUTH TWICE TABLET BY DAILY DAILY MOUTH TWICE DAILY ampicillin ampicillin No ampicillin [place] 500 mg 500 mg 500 mg [facility] capsule capsule capsule Urolog y TAKE 2 TAKE 2 TAKE 2 CAPSULES BY CAPSULES BY CAPSULES MOUTH THREE MOUTH THREE BY MOUTH TIMES DAILY TIMES DAILY THREE TIMES DAILY carvedilol carvedilol No carvedilol [place] 25 mg 25 mg 25 mg [facility] tablet TAKE tablet TAKE tablet Urology 1 TABLET BY 1 TABLET BY TAKE 1 MOUTH TWICE MOUTH TWICE TABLET BY DAILY DAILY MOUTH TWICE DAILY clonidine clonidine No clonidine [place] HCl 0.3 mg HCl 0.3 mg HCl 0.3 mg [facility] tablet TAKE tablet TAKE tablet Urology 1 TABLET BY 1 TABLET BY TAKE 1 MOUTH THREE MOUTH THREE TABLET BY TIMES DAILY TIMES DAILY MOUTH THREE TIMES DAILY finasteride finasteride No finasterid [place] 5 mg tablet 5 mg tablet e 5 mg [facility] TAKE 1 TAKE 1 tablet Urology TABLET BY TABLET BY TAKE 1 MOUTH DAILY MOUTH DAILY TABLET BY MOUTH DAILY folic acid folic acid No folic acid [place] 1 mg tablet 1 mg tablet 1 mg M etro TAKE 1 TAKE 1 tablet Urology TABLET BY TABLET BY TAKE 1 MOUTH DAILY MOUTH DAILY TABLET BY MOUTH DAILY hydralazine hydralazine No hydralazin [place] 25 mg 25 mg e 25 mg [facility] tablet tablet tablet Urology hydralazine hydralazine No hydralazin [place] 50 mg 50 mg e 50 mg [facility] tablet TAKE tablet TAKE tablet Urology 1 TABLET BY 1 TABLET BY TAKE 1 MOUTH THREE MOUTH THREE TABLET BY TIMES DAILY TIMES DAILY MOUTH THREE TIMES DAILY minoxidil minoxidil No minoxidil [place] 2.5 mg 2.5 mg 2.5 mg [facility] tablet TAKE tablet TAKE tablet Urology 1 TABLET BY 1 TABLET BY TAKE 1 MOUTH TWICE MOUTH TWICE TABLET BY DAILY DAILY MOUTH TWICE DAILY simvastatin simvastatin No simvastati [place] 40 mg 40 mg n 40 mg [facility] tablet TAKE tablet TAKE tablet Urology 1 TABLET BY 1 TABLET BY TAKE 1 MOUTH DAILY MOUTH DAILY TABLET BY IN THE IN THE MOUTH EVENING EVENING DAILY IN THE EVENING tamsulosin tamsulosin No tamsulosin [place] 0.4 mg 0.4 mg 0.4 mg [facility] capsule capsule capsule Urolog y TAKE 2 TAKE 2 TAKE 2 CAPSULES BY CAPSULES BY CAPSULES MOUTH EVERY MOUTH EVERY BY MOUTH DAY DAY EVERY DAY amlodipine amlodipine No amlodipine [place] 5 mg tablet 5 mg tablet 5 mg M etro GIVE 1 GIVE 1 tablet Urology TABLET BY TABLET BY GIVE 1 MOUTH TWICE MOUTH TWICE TABLET BY DAILY DAILY MOUTH TWICE DAILY carvedilol carvedilol No carvedilol [place] 25 mg 25 mg 25 mg [facility] tablet TAKE tablet TAKE tablet Urology 1 TABLET BY 1 TABLET BY TAKE 1 MOUTH TWICE MOUTH TWICE TABLET BY DAILY DAILY MOUTH TWICE DAILY clonidine clonidine No clonidine [place] HCl 0.3 mg HCl 0.3 mg HCl 0.3 mg [facility] tablet TAKE tablet TAKE tablet Urology 1 TABLET BY 1 TABLET BY TAKE 1 MOUTH THREE MOUTH THREE TABLET BY TIMES DAILY TIMES DAILY MOUTH THREE TIMES DAILY Vital Signs Vital Name Observation Time Observation Value Comments Source BMI (Body Mass 2023-02-21 00:00:00 14.9 kg/m2 [place] [facility] Height 2023-02-21 00:00:00 72 [in_i] [facility] Body Weight 2023-02-21 00:00:00 110 [lb_av] [facility] BMI (Body Mass 2023-01-10 00:00:00 14.9 kg/m2 [place] [facility] [facility] Height 2023-01-10 00:00:00 72 [in_i] [facility] Body Weight 2023-01-10 00:00:00 110 [lb_av] [facility] Height 2022-12-13 00:00:00 72 [in_i] [facility] BMI (Body Mass 2022-12-13 00:00:00 14.9 kg/m2 [place] [facility] Body Weight 2022-12-13 00:00:00 110 [lb_av] [facility] Procedures This patient has no known procedures. Encounters Start End Encounter Admission Attending Care Care Encounter Source Date/Time Date/Time Type Type Clinicians Facility Department ID 2022-12-26 Outpatient LUIS Kyle [facility] [id number] Common 10:50:00 Camacho [id number] [facility] 2022-12-20 Outpatient [facility] [id number] Common 09:22:00 Camacho Chaudhry13 [facility] 2022-10-18 Outpatient [facility] [id number] [place] 15:20:20 [id number] [facility] 2022-04-20 Outpatient [facility] [id number] [place] 09:19:02 [id number] [facility] 2022-02-02 Outpatient [facility] [id number] [place] 07:52:30 [id number] [facility] 2021-12-25 Outpatient [facility] [id number] [place] 09:33:33 [id number] [facility] 2021-12-06 Outpatient [facility] [id number] [place] 16:09:46 [id number] [facility] 2021-12-01 Outpatient RAGHUNATHAN [facility] [id number] [place] 10:58:19 , NATACHA [id number] [facility] 2021-11-08 Outpatient [facility] [id number] [place] 08:26:58 [id number] [facility] 2023-08-09 2023-08-09 Outpatient HESHAM, [facility] [id number] [place] 09:00:00 09:00:00 OMAYRA Jin 2023-08-02 2023-08-02 Outpatient [facility] [id number] [place] 09:00:00 09:00:00 [facility] 2023-02-21 2023-02-21 Outpatient Goldfarb_D [facility] [id number] [place] 00:00:00 00:00:00 [id number] [facility] 2023-02-21 2023-02-21 Kush [facility] [place] [place] - [id number] [facility] 00:00:00 00:00:00 Linda Diallo Urolog y : 65[address] U[facility] HEIDI [facility] [address] [place] [phone] , Ph. 2023-02-02 2023-02-02 Outpatient Goldfarb_D [facility] [id number] [facility] [place] 00:00:00 00:00:00 [id number] [facility] 2023-02-01 2023-02-01 Outpatient HESHAM [facility] [id number] [place] 09:00:00 09:30:49 OMAYRA Jin h 2023-01-10 2023-01-10 Kush [facility] [place] [facility] [id number] 00:00:00 Linda Diallo y : [address] [facility] [address] [place] [address] , Ph. 2023-01-09 2023-01-09 Outpatient Goldfarb_D [id number] [place] 00:00:00 00:00:00 [id number] [facility] 2023-01-09 2023-01-09 Outpatient Goldfarb_D [id number] [place] 00:00:00 00:00:00 [id number] [facility] 2022-12-14 2022-12-14 Outpatient Goldfarb_D [id number] [place] 00:00:00 00:00:00 [id number] [facility] 2022-12-13 2022-12-13 Outpatient Goldfarb_D [id number] [place] 00:00:00 00:00:00 [id number] [facility] 2022-12-13 2022-12-13 [facility] [place] - [id number] [place] 00:00:00 00:00:00 Linda Diallo Urolog y : 65[address] U[address] [facility] [address], [place] [address] , Ph. 2022-12-10 2022-12-10 Outpatient Goldfarb_D [id number] [place] 00:00:00 00:00:00 [id number] [facility] 2022-11-26 2022-11-26 Outpatient Goldfarb_D [id number] [place] 00:00:00 00:00:00 [id number] [facility] 2022-10-19 2022-10-19 [facility] [id number] [place] 09:00:00 09:00:00 OMAYRA Jin 2022-04-20 2022-04-20 [facility] [id number] [place] 09:00:00 10:38:05 OMAYRA Lopezt h 2018-09-23 2018-09-23 [facility] [id number] Common 10:30:00 10:30:00 [facility] 2018-08-06 2018-08-06 Outpatient Stephen Montelongo [id number] Common 09:30:00 09:30:00 [facility] Results This patient has no known results.
--- NOTE | 2023-03-20 19:36 | RAD REPORT ---
EXAM DESCRIPTION: RAD - Chest Single View - 03/20/2023 7:27 pm CLINICAL HISTORY: SOB Chest pain. COMPARISON: Chest Single View dated 01/13/2023; Chest Single View dated 12/19/2022; Chest Single View d ated 11/13/2022; Chest Single View dated 07/09/2018 FINDINGS: Portable technique limits examination quality. The lungs are emphysematous but grossly clear. The heart is normal in size. No displaced fractures. IMPRESSION: No acute intrathoracic process suspected.
[2023-03-20 20:10] LABS: Specific Gravity 1.016 (1.005-1.030); Urine Bacteria 20-50 /HPF (<20); Urine Bilirubin NEGATIVE (Negative); Urine Blood 1+ (Negative); Urine Clarity Extremely Turbid (Clear); Urine Color Yellow (Yellow); Urine Glucose NEGATIVE (Negative); Urine Protein 2+ (Negative); Urine RBC 21-50 /HPF (None Seen); Urine Urobilinogen Normal (Normal); Urine WBC Clump Occasional /HPF (None Seen)
[2023-03-20 20:36] LABS: Absolute Lymphocytes (CBC) 1.1 K/uL (0.7-4.9); Hematocrit 31.7 % (39.6-49.0); MCV 80.9 fL (80-100); MPV 7.1 fL (7.6-11.3); Platelets 162 thou/uL (152-406); RBC Red Blood Cell Count 3.92 M/uL (4.33-5.43)
[2023-03-20 20:58] LABS: ALT/SGPT 12 U/L (16-61); Albumin 3.3 g/dL (3.4-5.0); Alkaline Phosphatase 60 U/L (45-117); BUN Blood Urea Nitrogen 54 mg/dL (7-18); Bicarbonate 25 mEq/L (21-32); Bilirubin Total 0.3 mg/dL (0.2-1.0); Glomerular Filtration Rate 19 ml/min (=/>90); Glucose Level 113 mg/dL (74-106); NT PRO-BNP 527 pg/mL (<450); Sodium Level 136 mEq/L (136-145)
[2023-03-20 20:59] LABS: AST/SGOT 9 U/L (15-37); Bilirubin Direct < 0.1 mg/dL (0-0.2); Bilirubin Indirect, Calculated ND mg/dL (0.2-0.8); Magnesium 2.4 mg/dL (1.6-2.4); Potassium 5.2 mEq/L (3.5-5.1)
[2023-03-20] MEDS ORDERED: NA CHLORIDE 0.9% 50 ML ONE (21:02)
[2023-03-20] MEDS ORDERED: CEFTRIAXONE 1000 MG/VIAL ONE (21:02)
--- NOTE | 2023-03-20 21:40 | EDPHYS ---
Physician Documentation [facility] Name: Donal Ramirez Age: 87 yrs Sex: Male : 1935 Arrival Date: 03/20/2023 Time: 18:47 Bed 3 Private MD: ED Physician Phil Tran HPI: 03/20 20:33 This 87 yrs old Black Male presents to ER via EMS with complaints of Altered mental kdr status. 20:33 Patient was reportedly sent to the ED by EMS after the patient found him to be more kdr confused than usual. The patient himself has no complaint. Patient is able to state his last name. Patient can shake his head yes or no to questions about pain in other concerns. EMS had also reported a low saturation and blood pressure but the patient's vital signs here appear to be normal aside from his bradycardia. Patient is otherwise nontoxic-appearing and nonacute on initial presentation. Onset: The symptoms/episode began/occurred at an unknown time. Severity of symptoms: At their worst the symptoms were mild in the emergency department the symptoms are unchanged. It is unknown whether or not the patient has had similar symptoms in the past. It is unknown whether or not the patient has recently seen a physician. Historical: - Allergies: 19:09 No Known Drug Allergies; me1 - PMHx: 19:00 BPH; kidney disease; coronary atherosclerosis; CVA; diabetes mellitus; me1 Hypercholesterolemia; Hypertension; - Immunization history:: Adult Immunizations up to date. - Social history:: Smoking status: Patient reports use of chewing tobacco. ROS: 20:33 Constitutional: Unable to obtain secondary to the patient's altered mental status and kdr poor historic information Exam: 20:33 Constitutional: This is a well developed, well nourished patient who is awake, kdr seemingly alert, and in no acute distress. Head/Face: Normocephalic, atraumatic. Eyes: Pupils equal round and reactive to light, extra-ocular motions intact. Lids and lashes normal. Conjunctiva and sclera are non-icteric and not injected. Cornea within normal limits. Periorbital areas with no swelling, redness, or edema. Neck: Trachea midline, no thyromegaly or masses palpated, and no cervical lymphadenopathy. Supple, full range of motion without nuchal rigidity, or vertebral point tenderness. No Meningismus. Chest/axilla: Normal chest wall appearance and motion. Nontender with no deformity. No lesions are appreciated. Cardiovascular: Regular rate and rhythm with a normal S1 and S2. No gallops, murmurs, or rubs. Normal PMI, no JVD. No pulse deficits. Respiratory: Lungs have equal breath sounds bilaterally, clear to auscultation and percussion. No rales, rhonchi or wheezes noted. No increased work of breathing, no retractions or nasal flaring. Abdomen/GI: Soft, non-tender, with normal bowel sounds. No distension or tympany. No guarding or rebound. No evidence of tenderness throughout. Back: No spinal tenderness. No costovertebral tenderness. Full range of motion. Skin: Warm, dry with normal turgor. Normal color with no rashes, no lesions, and no evidence of cellulitis. MS/ Extremity: Pulses equal, no cyanosis. Neurovascular intact. Full, normal range of motion. Vital Signs: 18:56 BP 111 / 65; Pulse 48; Resp 17; Temp 98.7(O); Pulse Ox 100% on R/A; Weight 56.7 kg; me1 Height 6 ft. 0 in. ; 20:00 BP 155 / 79; Pulse 52; Resp 16; Pulse Ox 99% ; jj7 20:58 BP 144 / 74; Pulse 53; Resp 16; Pulse Ox 100% on R/A; jj7 22:00 BP 127 / 63; Pulse 53; Resp 17; Pulse Ox 100% ; jj7 22:53 BP 141 / 71; Pulse 50; Resp 17; Pulse Ox 100% ; jj7 18:56 Body Mass Index 16.95 (56.70 kg, 182.88 cm) [facility] MDM: 20:49 Patient medically screened. rt 21:54 Differential Diagnosis electrolyte disturbance, dehydration, UTI. Data reviewed: vital rt signs, nurses notes, lab test result(s), EKG, radiologic studies. Consideration of Admission/Observation Patient was admitted/placed on observation. Management of patient was discussed with the following: Hospitalist: Agrees to admit. I considered the following discharge prescriptions or medication management in the emergency department Medications were administered in the Emergency Department. See AUG. 03/20 18:50 Order name: Basic Metabolic Panel; Complete Time: 21:28 kdr 03/20 18:50 Order name: CBC with Diff; Complete Time: 20:48 kdr 03/20 18:50 Order name: LFT's; Complete Time: 21:28 kdr 03/20 18:50 Order name: Magnesium; Complete Time: 21:28 kdr 03/20 18:50 Order name: NT PRO-BNP; Complete Time: 21:28 kdr 03/20 18:50 Order name: Troponin HS; Complete Time: 21:28 kdr 03/20 18:56 Order name: Urinalysis w/ reflexes; Complete Time: 20:27 kdr 03/20 18:56 Order name: Lactate w/ 2H reflex if indic.; Complete Time: 21:28 kdr 03/20 18:56 Order name: Blood Culture Adult (2) kdr 03/20 20:22 Order name: Urine Culture EDMD 03/20 18:50 Order name: XRAY Chest (1 view); Complete Time: 20:27 kdr 03/20 18:50 Order name: EKG; Complete Time: 18:51 kdr 03/20 18:50 Order name: Cardiac monitoring; Complete Time: 20:48 kdr 03/20 18:50 Order name: EKG - Nurse/Tech; Complete Time: 22:04 kdr 03/20 18:50 Order name: IV Saline Lock; Complete Time: 20:38 kdr 03/20 18:50 Order name: Labs collected and sent; Complete Time: 20:38 kdr 03/20 18:50 Order name: O2 Per Protocol; Complete Time: 20:48 kdr 03/20 18:50 Order name: O2 Sat Monitoring; Complete Time: 20:48 kdr Administered Medications: 20:54 Drug: Rocephin - Rocephin (cefTRIAXone) IVPB 1 grams IVPB once over 30 mins; (mix in 50 jj7 mL NS) Route: IVPB; Infused Over: 30 mins; Site: left antecubital; 21:20 Follow up: IV Status: Completed infusion jj7 Disposition Summary: 03/20/23 21:40 Hospitalization Ordered Notes: Hospitalization Status: Inpatient Admission rt Provider: Malik Cloud rt Location: Telemetry/MedSurg (Inpatient) rt Condition: Fair rt Problem: new rt Symptoms: have improved rt Bed/Room Type: Standard rt Room Assignment: 216(03/20/23 22:00) cg Diagnosis - Altered mental status rt - UTI rt Forms: - Medication Reconciliation Form rt - SBAR form rt - Leadership Thank You Letter rt Signatures: Dispatcher [employer] Julian Bartlett MD MD kdr Garcia, Cindy, RN RN cg Radha Manrique RN RN jj7 Phil Tran MD MD rt Bernie Gonzales RN RN me1 Corrections: (The following items were deleted from the chart) 21: 21:40 rt cg 22:00 21:52 205 cg cg
--- NOTE | 2023-03-20 21:40 | ER ---
Nurse's Notes [facility] Name[facility] Donal [facility] Age: 87 yrs Sex: Male : 1935 Arrival Date: 03/20/2023 Time: 18:47 Bed 3 Private MD: Diagnosis: Altered mental status;UTI Presentation: 03/20 18:56 Chief complaint: EMS states: toned out to house for altered mental status. Per family me1 patient wasn't "as responsive as he normally is." Found to be hypotensive with bp 74/53. Coronavirus screen: Vaccine status: Patient reports receiving the 1st dose of the Covid vaccine. Ebola Screen: No symptoms or risks identified at this time. Initial Sepsis Screen: Does the patient meet any 2 criteria? No. Patient's initial sepsis screen is negative. Does the patient have a suspected source of infection? No. Patient's initial sepsis screen is negative. Risk Assessment: Do you want to hurt yourself or someone else? Patient reports no desire to harm self or others. Onset of symptoms was March 20, 2023. 18:56 Method Of Arrival: EMS: [facility] [place] [id number] 18:56 Acuity: ERICH 3 me1 Triage Assessment: 19:00 General: Appears comfortable, slender, Behavior is calm, cooperative, appropriate for nh1 age, Reports after eating dinner, daughter was talking to patient and his head dropped forward and he wouldn't answer for a short period of time and when he started answering again daughter checked his bp and it was low. Pain: Denies pain. Neuro: Level of Consciousness is awake, alert, obeys commands, Oriented to person, situation. Cardiovascular: Capillary refill < 3 seconds Patient's skin is warm and dry. Respiratory: Airway is patent Respiratory effort is even, unlabored, Respiratory pattern is regular, symmetrical. Historical: - Allergies: 19:09 No Known Drug Allergies; me1 - PMHx: 19:00 BPH; kidney disease; coronary atherosclerosis; CVA; diabetes mellitus; me1 Hypercholesterolemia; Hypertension; - Immunization history:: Adult Immunizations up to date. - Social history:: Smoking status: Patient reports use of chewing tobacco. Screenin:15 Abuse screen: Denies threats or abuse. Nutritional screening: No deficits noted. jj7 Tuberculosis screening: No symptoms or risk factors identified. 19:15 [facility] ED Fall Risk Assessment (Adult) History of falling in the last 3 months, jj7 including since admission No falls in past 3 months (0 pts) Confusion or Disorientation No (0 pts) Intoxicated or Sedated No (0 pts) Impaired Gait No (0 pts) Mobility Assist Device Used No (0 pt) Altered Elimination No (0 pt) Score/Fall Risk Level 0 - 2 = Low Risk Oriented to surroundings, Maintained a safe environment. Assessment: 19:08 General: See triage assessment. . me1 Vital Signs: 18:56 BP 111 / 65; Pulse 48; Resp 17; Temp 98.7(O); Pulse Ox 100% on R/A; Weight 56.7 kg; me1 Height 6 ft. 0 in. ; 20:00 BP 155 / 79; Pulse 52; Resp 16; Pulse Ox 99% ; jj7 20:58 BP 144 / 74; Pulse 53; Resp 16; Pulse Ox 100% on R/A; jj7 22:00 BP 127 / 63; Pulse 53; Resp 17; Pulse Ox 100% ; jj7 22:53 BP 141 / 71; Pulse 50; Resp 17; Pulse Ox 100% ; jj7 18:56 Body Mass Index 16.95 (56.70 kg, 182.88 cm) nh1 ED Course: 18:48 Patient arrived in ED. ap3 18:49 Julian Linares MD is Attending Physician. kdr 18:55 Bernie Gonzales, LASHONDA is Primary Nurse. me1 19:00 Triage completed. me1 19:00 Arm band placed on Patient placed in an exam room. me1 19:15 Patient has correct armband on for positive identification. Placed in gown. Bed in low jj7 position. Call light in reach. Side rails up X2. Adult w/ patient. Warm blanket given. 19:15 Provided Education on: HOSPITAL ENVIRONMENT . jj7 19:29 XRAY Chest (1 view) In Process Unspecified. EDMS 19:49 Urinalysis w/ reflexes Sent. jj7 20:20 Inserted saline lock: 20 gauge in left antecubital area, using aseptic technique. nj1 ,using aseptic technique. Ultrasound guided. Catheter tip well visualized within vasculature during placement. 20:49 Attending Physician role handed off by Julian Linares MD rt 20:49 Phil Tran MD is Attending Physician. rt 21:39 Malik Cloud MD is Hospitalizing Provider. rt 22:12 No provider procedures requiring assistance completed. Patient admitted, IV remains in [facility] place. Administered Medications: 20:54 Drug: Rocephin - Rocephin (cefTRIAXone) IVPB 1 grams IVPB once over 30 mins; (mix in 50 jj7 mL NS) Route: IVPB; Infused Over: 30 mins; Site: left antecubital; 21:20 Follow up: IV Status: Completed infusion [facility] Medication: 19:15 VIS not applicable for this client. [facility] Outcome: 19:15 Admitted to Med/surg accompanied by tech, via stretcher, room 216, [facility] 21:40 Decision to Hospitalize by Provider. rt 22:53 Admitted to Med/surg Report called to PEMA GALLEGO j7 22:53 Condition: good 23:02 Patient left the ED. jb4 Signatures: Dispatcher [employer] EDMS Julian Linares MD MD [facility] Celso Martinez, RN RN jb4 Romelia Peralta RN RN ap3 Radha Manrique RN RN jj7 Phil Tran MD MD rt Wen Hoffman RN RN nj1 Bernie Gonzales, RN RN me1
--- NOTE | 2023-03-20 22:02 | P.HP ---
Certification for Inpatient Patient admitted to: Observation With expected LOS: <2 Midnights Patient will require the following post-hospital care: None Practitioner: I am a practitioner with admitting privileges, knowledge of patient current condition, hospital course, and medical plan of care. Services: Services provided to patient in accordance with Admission requirements found in Title 42 Section 412.3 of the Code of Federal Regulations Patient History Date of Service: 03/20/23 Reason for admission: UTI, hyperkalemia, hypotension History of Present Illness: 87-year-old male who examined his family with history of CKD 4, hypertension, anemia of chronic disease, hyperlipidemia, CAD, BPH, hypospadias with chronic indwelling Mayfield catheter, history of bacteremia from UTI presents emergency department chief complaint of decreased LOC, low blood pressures at home. Family reported that patient does have some confusion and troubles with speech from previous stroke but is less alert than normal today. EMS was called close blood pressure was found to be in the 70s to 80s systolic with a heart rate in the 50s. Upon arrival to the emergency department patient's blood pressure had improved currently his blood pressure is 144/74 and heart rate is 53, his labs were significant for white blood cell count 5 hemoglobin 10.3 hematocrit 31.7 potassium 5.2 creatinine 3.02 GFR 19 glucose 113 lactic acid 1.7 BNP 527 UA with 500 leukoesterase, greater than 50 white blood cell, 20-50 bacteria. Patient seems to be back at his baseline currently with stable vital signs, ED provider wishes to admit under observation for UTI, hypotensionresolved, mild hyperkalemia. Allergies No Known Drug Allergies Allergy (Verified 11/13/22 20:53) Unknown Home Medications: Amlodipine [Norvasc*] 5 mg PO BID 11/14/22 Folic Acid 1 mg PO DAILY 11/14/22 Hydralazine [Apresoline*] 50 mg PO TID 11/14/22 Simvastatin 40 mg PO BEDTIME 11/14/22 Tamsulosin [Flomax*] 2 tab PO DAILY 11/14/22 carvediloL [Coreg*] 25 mg PO BID 11/14/22 cloNIDine HCL [Catapres*] 0.3 mg PO TID 11/14/22 minoxidiL [Loniten*] 5 mg PO BID 11/14/22 Finasteride 5 mg PO DAILY 12/20/22 Aspirin [Aspirin EC 81 MG] 81 mg PO DAILY 01/14/23 Iron 65 mg PO DAILY 01/14/23 Psyllium Husk [Metamucil] 0.4 gm PO DAILY 01/14/23 - Past Medical/Surgical History Diabetic: No -: HTN -: CVA -: Diabetes mellitus type 2 -: Hyperlipidemia -: BPH, hypospadias -: hip sx Psychosocial/ Personal History: Lives at home with family, has chronic indwelling Mayfield catheter - Social History Alcohol use: No CD- Drugs: No Caffeine use: No Place of Residence: Home Review of Systems is unable to be obtained Physical Examination - Physical Exam General: Alert, In no apparent distress, Oriented x1, Confused HEENT: Atraumatic, PERRLA, Mucous membr. moist/pink, EOMI, Sclerae nonicteric Neck: Supple, 2+ carotid pulse no bruit, No LAD, Without JVD or thyroid abnormality Respiratory: Clear to auscultation bilaterally, Normal air movement Cardiovascular: Regular rate/rhythm, Normal S1 S2 Capillary refill: <2 Seconds Gastrointestinal: Normal bowel sounds, No tenderness Musculoskeletal: No tenderness Integumentary: No rashes Neurological: Normal tone, Normal affect, Abnormal speech Urinary: Mayfield catheter - Studies Laboratory Data (last 24 hrs) 03/20/23 03/20/23 20:20 20:20 WBC 5.00 Hgb 10.3 L Hct 31.7 L Plt Count 162 Sodium 136 Potassium 5.2 H BUN 54 H Creatinine 3.02 H Glucose 113 H Magnesium 2.4 Total Bilirubin 0.3 AST 9 L ALT 12 L Alkaline Phosphatase 60 Assessment and Plan - Plan Assessment: UTI complicated with chronic indwelling Mayfield catheter secondary to BPH/hypospadias-history of E. 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 coli bacteremia Urine and blood cultures obtained, no SIRS criteria present, lactate less than 2. Continue Rocephin, follow cultures. CKD 4 with mild hyperkalemia Nephrology consult, potassium 5.2 continue IV fluids overnight. Diabetes mellitus type 2 ACHS Accu-Chek, sliding scale insulin, A1c in the morning. Hypertension Hold beta-blockers given initial bradycardia, low blood pressure. Continue other home medications as appropriate. Hyperlipidemia Continue home meds. Previous CVA with resulting confusion/slurred speech at baseline DVT PPX: Heparin subcu Code status: Full Discharge Plan: Home Plan to discharge in: 24 Hours - Advance Directives Does patient have a Living Will: Yes Does patient have a Durable POA for Healthcare: Yes - Code Status/Comfort Care Code Status Assessed: Yes (Full code) Critical Care: No Time Spent Managing Pts Care (In Minutes): 55
[2023-03-20] MEDS ORDERED: ONDANSETRON 4 MG/2 ML VIAL IV PRN (23:13)
[2023-03-20] MEDS: NA CHLORIDE 0.9% 1,000 ML IV SCH (23:44)
[2023-03-21 00:40] VITALS: BMI 16.9
[2023-03-21 01:51] LABS: Absolute Lymphocytes (CBC) 1.2 K/uL (0.7-4.9); Hematocrit 31.7 % (39.6-49.0); Lymphocytes % 27.4 % (15.3-44.8); MPV 7.1 fL (7.6-11.3); Platelets 130 thou/uL (152-406); RBC Red Blood Cell Count 3.96 M/uL (4.33-5.43)
[2023-03-21 02:07] LABS: Potassium 4.9 mEq/L (3.5-5.1)
[2023-03-21] MEDS: INSULIN REGULAR (HUMAN) 100 UNIT/ML SQ SCH ×4 (07:30→21:00)
[2023-03-21] MEDS: HEPARIN 5000 UNIT/ML 1 ML VIAL SQ SCH ×2 (08:03→21:38)
--- NOTE | 2023-03-21 10:24 | P.CNS ---
Date of Consult: 03/21/23 Reason for Consult: CKD/ Hyperkalemia Requesting Physician: Malik Cloud Chief Complaint: UTI, hyperkalemia, hypotension History of Present Illness: 87-year-old male who examined his family with history of CKD 4, hypertension, anemia of chronic disease, hyperlipidemia, CAD, BPH, hypospadias with chronic indwelling Thompson catheter, history of bacteremia from UTI presents emergency department chief complaint of decreased LOC, low blood pressures at home. Family reported that patient does have some confusion and troubles with speech from previous stroke but is less alert than normal today. EMS was called close blood pressure was found to be in the 70s to 80s systolic with a heart rate in the 50s. Upon arrival to the emergency department patient's blood pressure had improved currently his blood pressure is 144/74 and heart rate is 53, his labs were significant for white blood cell count 5 hemoglobin 10.3 hematocrit 31.7 potassium 5.2 creatinine 3.02 GFR 19 glucose 113 lactic acid 1.7 BNP 527 UA with 500 leukoesterase, greater than 50 white blood cell, 20-50 bacteria. Patient seems to be back at his baseline currently with stable vital signs, ED provider wishes to admit under observation for UTI, hypotensionresolved, mild hyperkalemia. 20:33 This 87 yrs old Black Male presents to ER via EMS with complaints of Altered mental kdr status. 20:33 Patient was reportedly sent to the ED by EMS after the patient found him to be more kdr confused than usual. The patient himself has no complaint. Patient is able to state his last name. Patient can shake his head yes or no to questions about pain in other concerns. EMS had also reported a low saturation and blood pressure but the patient's vital signs here appear to be normal aside from his bradycardia. Patient is otherwise nontoxic-appearing and nonacute on initial presentation. Onset: The symptoms/episode began/occurred at an unknown time. Severity of symptoms: At their worst the symptoms were mild in the emergency department the symptoms are unchanged. It is unknown whether or not the patient has had similar symptoms in the past. It is unknown whether or not the patient has recently seen a physician. Allergies No Known Drug Allergies Allergy (Verified 11/13/22 20:53) Unknown Home medications list reviewed: Yes Home Medications: Amlodipine [Norvasc*] 5 mg PO BID 11/14/22 Folic Acid 1 mg PO DAILY 11/14/22 Simvastatin 40 mg PO BEDTIME 11/14/22 Tamsulosin [Flomax*] 2 tab PO DAILY 11/14/22 carvediloL [Coreg*] 25 mg PO BID 11/14/22 cloNIDine HCL [Catapres*] 0.3 mg PO TID 11/14/22 minoxidiL [Loniten*] 1 tab PO BID 11/14/22 Finasteride 5 mg PO DAILY 12/20/22 Aspirin [Aspirin EC 81 MG] 81 mg PO DAILY 01/14/23 Iron 65 mg PO DAILY 01/14/23 Psyllium Husk [Metamucil] 1 tab PO BID 01/14/23 - Past Medical/Surgical History Diabetic: No -: HTN -: CVA -: DM II -: HLD -: BPH, hypospadias -: hip sx Psychosocial/ Personal History: Lives at home with family, has chronic indwelling Thompson catheter - Social History Smoking Status: Unknown if ever smoked Alcohol use: No CD- Drugs: No Caffeine use: No Place of Residence: Home Review of Systems 10-point ROS is otherwise unremarkable General: Weakness Physical Examination Temp Pulse Resp BP Pulse Ox 97.3 F 61 16 149/66 H 98 03/21/23 08:00 03/21/23 08:00 03/21/23 08:00 03/21/23 08:00 03/21/23 08:00 General: In no apparent distress, Cooperative HEENT: Atraumatic Neck: Supple Respiratory: Clear to auscultation bilaterally Cardiovascular: No edema, Regular rate/rhythm Gastrointestinal: Soft and benign, Non-distended Musculoskeletal: No clubbing, No contractures Integumentary: No rashes, No cyanosis Neurological: Normal speech Laboratory Data (last 24 hrs) 03/20/23 03/20/23 20:20 20:20 WBC 5.00 Hgb 10.3 L Hct 31.7 L Plt Count 162 Sodium 136 Potassium 5.2 H BUN 54 H Creatinine 3.02 H Glucose 113 H Magnesium 2.4 Total Bilirubin 0.3 AST 9 L ALT 12 L Alkaline Phosphatase 60 Imagings Data: EXAM DESCRIPTION: RAD - Chest Single View - 03/20/2023 7:27 pm CLINICAL HISTORY: SOB Chest pain. COMPARISON: Chest Single View dated 01/13/2023; Chest Single View dated 12/19/2022; Chest Single View dated 11/13/2022; Chest Single View dated 07/09/2018 FINDINGS: Portable technique limits examination quality. The lungs are emphysematous but grossly clear. The heart is normal in size. No displaced fractures. IMPRESSION: No acute intrathoracic process suspected. EXAM DESCRIPTION: US - Renal Ultrasound-Complete - 01/14/2023 2:22 pm CLINICAL HISTORY: Acute renal injury COMPARISON: 2019 FINDINGS: The right kidney measures 10 cm with a mildly increased echotexture. 2.4 centimeter solid mass extends off midpole of right kidney equivocally mildly enlarged. It is vascular. The left kidney measures 8 cm with an increased echotexture. 2.3 centimeter hypoechoic mass extends off the lateral aspect of the left kidney. It has mildly enlarged. Hydronephrosis is not seen. 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 This may represent additional neoplasm. Further evaluation could be obtained with a CT scan of the kidneys with and without IV contrast EXAM DESCRIPTION: US - Urinary Bladder - 01/14/2023 2:22 pm FINDINGS: A Thompson catheter is present within the bladder. Pre drainage bladder volume 36 cc. No post drainage residual No ascites IMPRESSION: Pre drainage bladder volume 36 cc. No post drainage residual EXAM DESCRIPTION: CT - Head C Spine Cap Wo Con - 12/19/2022 2:29 pm CLINICAL HISTORY: Confused;Mental status change COMPARISON: Abdomen Pelvis Wo Contrast dated 11/13/2022 TECHNIQUE: CT head without contrast. CT cervical spine without contrast with coronal and sagittal reformatted images. CT chest, abdomen and pelvis with coronal and sagittal reformatted images of the spine. All CT scans are performed using dose optimization technique as appropriate and may include automated exposure control or mA/KV adjustment according to patient size. FINDINGS: CT HEAD WITHOUT CONTRAST: No intracranial hemorrhage, hydrocephalus or extra-axial fluid collection. A left MCA territory infarct. Cerebral atrophy. The paranasal sinuses and mastoids are clear. The calvarium is intact. CT CERVICAL SPINE WITHOUT CONTRAST: No fracture or subluxation. Reversal of normal cervical lordosis advanced multilevel cervical spondylosis. Bilateral neural foraminal narrowing in varying degrees. There is central spinal stenosis which to better assessed with MRI. The prevertebral soft tissues are normal in thickness. CT CHEST, ABDOMEN, PELVIS: Thorax: Chest Wall: No abnormal mass Lungs: Subpleural nodules, some which are calcified in the lingula have a benign morphology. Mild atelectasis. Pleura: Small bilateral pleural effusions. Rita/Mediastinum: No lymphadenopathy. Aorta/Pulmonary Arteries: The ascending thoracic aorta measures 4 cm. Aortic valve calcifications. Heart: Normal size. Coronary artery calcifications. Abdomen/Pelvis: Liver: Multiple low-density liver lesions are again identified. All incompletely characterized on this noncontrast CT, the overall imaging are benign . Biliary: No biliary ductal dilatation. Stomach: No significant focal abnormality. Duodenum: No significant focal abnormality. Pancreas: Fluid collection in the region of the pancreatic head measure approximately 4 cm again identified. The pancreas is not well assessed due to lack of IV contrast. Spleen: No significant abnormality. Adrenal: No suspicious lesions. Kidney/ureter: Atrophic kidneys bilaterally. No renal calculi. Retroperitoneum: No retroperitoneal adenopathy. Vascular: No aneurysm. Bowel: Moderate colonic stool. No bowel obstruction.. Peritoneum: No ascites or free air. Bladder: Thompson catheter within the bladder. Reproductive: No adnexal masses. Bones: No acute fracture. Right hip arthroplasty. Other: n/a IMPRESSION: 1. Head CT: No acute intracranial abnormality. Remote left MCA territory infarct. 2. Cervical spine CT: No fracture traumatic malalignment cervical spine. 3. Chest CT: Small bilateral pleural effusions but otherwise no acute process identified within the chest. 4. CT abdomen/pelvis: Limited without IV contrast. No new interval change compared with 11/13/2022. Low-density collection at the pancreatic head could represent a cystic mass or pseudocyst. Pancreatic protocol CT or MRI could further evaluate if clinically indicated. Conclusions/Impression: CKD IV with Proteinuria -No NSAIDs -Gentle IVF Hyperkalemia -Renal diet BL Renal Mass? -Repeat Renal US -Consider urology evaluation HTN with CKD -Restart Amlodipine Hypoalbuminemia, mild -Recommend protein supplementation Anemia in chronic illness Iron Deficiency -Monitor H&H BPH with LUTS Urinary Retention -Continue thompson Acute Cystitis with hematuria complicated by chronic thompson Hx MDR -Follow up culture -Continue abx Hospitalist and ER notes reviewed Case reviewed with Dr. Cloud Thank you kindly for the consultation
[2023-03-21] MEDS: NA CHLORIDE 0.9% 1,000 ML IV SCH (11:11)
[2023-03-21] MEDS: AMLODIPINE 5 MG TAB PO SCH ×2 (11:45→21:37)
--- NOTE | 2023-03-21 12:11 | P.PN ---
Subjective Date of Service: 03/21/23 Chief Complaint: UTI, hyperkalemia, hypotension No acute events since admission. His blood pressure has been stable. History difficult to obtain due to slurred speech. Per family, this is chronic due to prior CVA. He denies any fevers, chills, chest pain, or shortness of breath. Review of Systems is unable to be obtained Physical Examination - Vital Signs Temperature: 96.9 F Blood Pressure: 177/84 Pulse: 68 Respirations: 16 Pulse Ox (%): 100 - Physical Exam General: Alert, In no apparent distress, Oriented x1, Confused HEENT: Atraumatic, Mucous membr. moist/pink, Sclerae nonicteric Neck: JVD not distended Respiratory: Clear to auscultation bilaterally, Normal air movement Cardiovascular: No edema, Regular rate/rhythm, Normal S1 S2, No gallops, No rubs, No murmurs Gastrointestinal: Normal bowel sounds, Soft and benign, Non-distended, No tenderness, No rebound, No guarding Musculoskeletal: No clubbing Integumentary: No rashes Neurological: Normal speech, Normal affect - Studies Laboratory Data (last 24 hrs) 03/20/23 03/20/23 20:20 20:20 WBC 5.00 Hgb 10.3 L Hct 31.7 L Plt Count 162 Sodium 136 Potassium 5.2 H BUN 54 H Creatinine 3.02 H Glucose 113 H Magnesium 2.4 Total Bilirubin 0.3 AST 9 L ALT 12 L Alkaline Phosphatase 60 Assessment And Plan - Plan # Catheter-Associated Urinary Tract Infection - POA # History of Multi-Drug Resistant Bacteremia # Benign Prostatic Hyperplasia and Hypospadias with Chronic Indwelling Mayfield Catheter - Does not meet sepsis criteria - Blood pressure has been stable since admission - Started on ceftriaxone - Await blood culture results - Continue home tamsulosin, finasteride # Chronic Kidney Disease Stage IV - Consulted Nephrology and spoke with Dr. Diallo - Creatinine = 3.02 -> 2.89 (near baseline) - Urinalysis = 500 leukocyte esterase, 21-50 RBCs, >50 WBCs, 20-50 bacteria, 2+ protein - Monitor creatinine and urine output - If worsening, obtain renal ultrasound - Renally dose medications # Type II Diabetes Mellitus - Correction scale insulin # History of Cerebrovascular Accident # Hypertension # Hyperlipidemia - Hold home carvedilol given borderline bradycardia - Continue home aspirin, amlodipine, simvastatin Malik Ai, M.D.
--- NOTE | 2023-03-21 12:28 | EKG ---
Test Date: 2023-03-20 Test Time: 21:56:26 [employer]: HERNÁN MEASUREMENT RESULTS: Intervals: Rate: 54 [place]: 310 QRSD: 78 QT: 464 QTc: 440 [place]: P: 63 [place]: 310 QRS: -9 T: 59 INTERPRETIVE STATEMENTS: Sinus bradycardia with 1st degree AV block Voltage criteria for left ventricular hypertrophy Abnormal ECG Compared to ECG 01/13/2023 19:58:28 Left ventricular hypertrophy now present Sinus rhythm no longer present Sinus arrhythmia no longer present Electronically Signed On 03-21-23 12:26:53 CDT by Isak Ramirez
[2023-03-21] MEDS: CEFTRIAXONE 1,000 MG in NA CHLORIDE 0.9% 50 ML IVPB SCH (17:01)
[2023-03-21] MEDS ORDERED: IPRATROPIUM BROM 0.5MG/2.5ML NEB ONE ×2 (17:05→17:20)
[2023-03-21] MEDS ORDERED: ALBUTEROL 2.5 MG/3 ML NEB SOL NEB ONE (17:15)
[2023-03-21] MEDS ORDERED: AMLODIPINE 5 MG TAB PO SCH (21:00)
[2023-03-21] MEDS: ATORVASTATIN 20 MG TAB PO SCH (21:37)
[2023-03-21] MEDS: ENSURE ENLIVE 237 ML CAN PO SCH (21:38)
[2023-03-22] MEDS: NA CHLORIDE 0.9% 1,000 ML IV SCH (01:19)
[2023-03-22 02:06] LABS: Absolute Lymphocytes (CBC) 1.4 K/uL (0.7-4.9); Hematocrit 29.4 % (39.6-49.0); MCV 79.7 fL (80-100); Platelets 144 thou/uL (152-406); RBC Red Blood Cell Count 3.69 M/uL (4.33-5.43)
[2023-03-22 02:13] LABS: Potassium 4.3 mEq/L (3.5-5.1)
[2023-03-22] MEDS: INSULIN REGULAR (HUMAN) 100 UNIT/ML SQ SCH ×4 (07:30→21:00)
--- NOTE | 2023-03-22 07:32 | RAD REPORT ---
EXAM DESCRIPTION: US - Renal Ultrasound-Complete - 03/22/2023 12:35 am CLINICAL HISTORY: BL Renal Mass on US but not CT COMPARISON: Renal Ultrasound-Complete dated 01/14/2023; Abdomen Pelvis Wo Contrast dated 11/13/2022; U rinary Bladder dated 01/14/2023 FINDINGS: Both kidneys are normal in size, shape and echotexture. The right kidney measures 10.1 cm. Isoechoic, presumably solid right renal mass measuring 2.5 cm linda g the upper pole of the right kidney is similar in size. No hydronephrosis. The left kidney measures 9.3 cm. Anechoic lesion in the interpolar aspect the left kidney measuring 1 4 millimeters is consistent with a cyst. There is a hypoechoic mass measuring 1.9 cm which is similar to prior and may be solid. No hydronephrosis. Decompressed bladder. Prostatomegaly. The prostate measures 5.8 cm in transverse dimension. IMPRESSION: Solid appearing right renal lesion which may represent a neoplasm is similar to 01/15/20 23. Hypoechoic but possibly solid left renal mass is also similar to 01/14/2023 and could represent n eoplasm. No hydronephrosis. Prostatomegaly.
--- NOTE | 2023-03-22 08:45 | P.CNS ---
Date of Consult: 03/22/23 Reason for Consult: CAUTI, history of MDRO Chief Complaint: UTI, hyperkalemia, hypotension History of Present Illness: Patient is an 87 year old male with a past medical history of CKD, hypertension, CAD, BPH, CVA, hypospadias with chronic indwelling thompson catheter who presented to the ED with complaints of decreased alertness and hypotension. He is admitted under observation for catheter-associated urinary tract infection (POA). Infectious disease was consulted. Allergies No Known Drug Allergies Allergy (Verified 11/13/22 20:53) Unknown Home medications list reviewed: Yes Home Medications: Amlodipine [Norvasc*] 5 mg PO BID 11/14/22 Folic Acid 1 mg PO DAILY 11/14/22 Simvastatin 40 mg PO BEDTIME 11/14/22 Tamsulosin [Flomax*] 2 tab PO DAILY 11/14/22 carvediloL [Coreg*] 25 mg PO BID 11/14/22 cloNIDine HCL [Catapres*] 0.3 mg PO TID 11/14/22 minoxidiL [Loniten*] 1 tab PO BID 11/14/22 Finasteride 5 mg PO DAILY 12/20/22 Aspirin [Aspirin EC 81 MG] 81 mg PO DAILY 01/14/23 Iron 65 mg PO DAILY 01/14/23 Psyllium Husk [Metamucil] 1 tab PO BID 01/14/23 - Past Medical/Surgical History -: HTN -: CVA -: DM II -: HLD -: BPH, hypospadias -: hip sx Psychosocial/ Personal History: Lives at home with family, has chronic indwelling Thompson catheter - Social History Smoking Status: Unknown if ever smoked Alcohol use: No CD- Drugs: No Caffeine use: No Place of Residence: Home Review of Systems 10-point ROS is otherwise unremarkable Physical Examination Temp Pulse Resp BP Pulse Ox 97.0 F 77 18 166/84 H 96 03/22/23 04:00 03/22/23 04:00 03/22/23 04:00 03/22/23 04:00 03/22/23 04:00 General: In no apparent distress, Confused, Other (oriented x 1-2) HEENT: Atraumatic, Other (poor dentition) Respiratory: Normal air movement (on room air), Diminished Cardiovascular: No edema, Normal pulses, Regular rate/rhythm Gastrointestinal: Normal bowel sounds, Soft and benign, Distended Integumentary: No rashes Neurological: Abnormal speech Urinary: Thompson catheter (chronic. present on arrival) Laboratory data - reviewed Microbiology data - reviewed Imagings Data: - reviewed Conclusions/Impression: Problem List Catheter-Associated Urinary Tract Infection History of MDRO Indwelling urinary catheter Hypertension CVA BPH Hypospadias Hyperlipidemia CKD Anemia of chronic disease Catheter-Associated Urinary Tract Infection (POA) - chronic thompson catheter. - Urine culture 03/20: gram negative rods; colony count >100,000 CFU/mL - No leukocytosis - Afebrile - hypotension resolved - blood cultures 03/20: pending - currently on Rocephin (started 03/21) Recommendations - CAUTI: Continue antibiotic therapy for 10-14 days. Currently on Rocephin, continue for now. - follow up with final culture results and will adjust antibiotics as appropriate - renally dose medications - Nutritional supplementation Case discussed with Aaliyah Lipscomb
[2023-03-22] MEDS: ENSURE ENLIVE 237 ML CAN PO SCH ×2 (09:00→22:43)
[2023-03-22] MEDS: AMLODIPINE 5 MG TAB PO SCH ×2 (10:18→21:00)
[2023-03-22] MEDS: TAMSULOSIN 0.4 MG SR CAP PO SCH (10:18)
[2023-03-22] MEDS: HEPARIN 5000 UNIT/ML 1 ML VIAL SQ SCH ×2 (10:19→22:42)
[2023-03-22] MEDS: FINASTERIDE 5 MG TAB PO SCH (10:19)
[2023-03-22] MEDS: ASPIRIN EC 81 MG TAB PO SCH (10:19)
[2023-03-22] MEDS ORDERED: carvediloL 12.5 MG TAB PO SCH (11:00)
--- NOTE | 2023-03-22 11:42 | P.PN ---
(S) Pt denies any acute complaints, thompson draining mildly cloudy pale yellow urine, no dysuria or bladder spasms or N/V voiced. (O) Vitals reviewed in the EMR General: In no apparent distress, appears elderly/frail HEENT: Atraumatic, Normocephalic Neck: Supple Respiratory: b/l air entry, Normal air movement Cardiovascular: No edema, Regular rate/rhythm Gastrointestinal: Soft and benign, Non-distended. thompson in place Musculoskeletal: Muscle mass loss Integumentary: No tenderness/swelling Neurological: Awake, responds briefly, slowly, no tremors Laboratory Data (last 24 hrs) Conclusions/Impression: A/P) 1. Underlying late CKD IV (pt is a clinic pt of Dr. Diallo, last seen in Jul in the OP setting, prior ARF episodes earlier this year) in the setting of some chronic bladder outlet obstruction/other. 2. Cr level currently close to baseline levels. 3. Acceptable lytes 4. Will d/c IVF 5. Pyuria, UTI site unspecified POA in the setting of chronic indwelling catheter, f/u UCx, cont Abx 6. BP elevated, d/c IVF. Restart beta luis, cont CCB 7. Chronic retention of urine, multifactorial, pt has some element of BPH, a hx of hypospadias 8. Abnormal diagnostic imaging of the kidneys, acquired cysts of kidney -see detailed note by Urology/Dr. Coronado in this EMR back in Jan reviewing the imag ing findings and these small renal lesions < 3 cm and with slow growth/change Papa Chambers MD, [facility]
--- NOTE | 2023-03-22 16:49 | P.PN ---
Subjective Date of Service: 03/22/23 Chief Complaint: UTI, hyperkalemia, hypotension No new events. His blood pressure is now quite elevated, will resume home medications. Urine cultures revealed gram-negative rods - awaiting cultures and sensitivities. He denies any fevers, chills, chest pain, or shortness of breath. Review of Systems is unable to be obtained Physical Examination - Vital Signs Temperature: 98.2 F Blood Pressure: 192/92 Pulse: 73 Respirations: 18 Pulse Ox (%): 99 Assessment And Plan - Plan - Physical Exam General: Alert, In no apparent distress, Oriented x1, Confused HEENT: Atraumatic, Mucous membr. moist/pink, Sclerae nonicteric Neck: JVD not distended Respiratory: Clear to auscultation bilaterally, Normal air movement Cardiovascular: No edema, Regular rate/rhythm, No murmurs Gastrointestinal: Normal bowel sounds, Soft, Non-distended, No tenderness Integumentary: No rashes Neurological: Normal speech, Normal affect # Catheter-Associated Urinary Tract Infection - POA # History of Multi-Drug Resistant Bacteremia # Benign Prostatic Hyperplasia and Hypospadias with Chronic Indwelling Mayfield Catheter - Does not meet sepsis criteria - Consulted Infectious Diseases and spoke with LANDFILL GAS COLLECTION OPERATOR Valentin - Recommends continuing ceftriaxone for now pending speciation and sensitivities - Await blood culture results - Continue home tamsulosin, finasteride # KDIGO Stage I Acute Kidney Injury on Chronic Kidney Disease Stage IV - Consulted Nephrology - Creatinine = 3.02 -> 2.89 -> 2.51 - Urinalysis = 500 leukocyte esterase, 21-50 RBCs, >50 WBCs, 20-50 bacteria, 2+ protein - Monitor creatinine and urine output - If worsening, obtain renal ultrasound - Renally dose medications # Hypertensive Urgency - Continue home carvedilol, clonidine, minoxidil, amlodipine - As needed anti-hypertensives # Type II Diabetes Mellitus - Correction scale insulin # History of Cerebrovascular Accident # Hyperlipidemia - Continue home aspirin, amlodipine, simvastatin Malik Cloud M.D.
[2023-03-22] MEDS: CEFTRIAXONE 1,000 MG in NA CHLORIDE 0.9% 50 ML IVPB SCH (16:56)
[2023-03-22] MEDS: CLONIDINE HCL 0.3 MG TAB PO SCH ×2 (16:57→21:00)
[2023-03-22] MEDS: carvediloL 12.5 MG TAB PO SCH (16:58)
[2023-03-22] MEDS ORDERED: carvediloL 25 MG TAB PO SCH (17:00)
[2023-03-22] MEDS: ATORVASTATIN 20 MG TAB PO SCH (22:43)
[2023-03-23 03:24] VITALS: O2SAT 98
[2023-03-23] MEDS: INSULIN REGULAR (HUMAN) 100 UNIT/ML SQ SCH ×4 (07:30→20:52)
--- NOTE | 2023-03-23 08:54 | P.DS ---
Admission Date: 03/20/23 Discharge Date: 03/24/23 Discharge Condition: GOOD Reason for Admission: UTI, hyperkalemia, hypotension Consultations: 1. Nephrology 2. Infectious Diseases 3. Cardiology Hospital Course: DIAGNOSES: # Klebsiella Pneumoniae Catheter-Associated Urinary Tract Infection - POA # History of Multi-Drug Resistant Bacteremia # Benign Prostatic Hyperplasia and Hypospadias with Chronic Indwelling Mayfield Catheter # KDIGO Stage I Acute Kidney Injury on Chronic Kidney Disease Stage IV # Bilateral Renal Lesions - concerning for Neoplasm # Nonsustained Ventricular Tachycardia - resolved # Hypertensive Urgency # Type II Diabetes Mellitus # History of Cerebrovascular Accident # Hyperlipidemia HOSPITAL COURSE: Mr. Donal Ramirez is an 87 year male with a past medical history significant for prior cerebrovascular accident, type II diabetes mellitus, hyperlipidemia, hypertension, chronic kidney disease stage IV, and chronic indwelling Mayfield ca theter due to BPH and hypospadias who was admitted to the [facility] on 03/20/2023 for concerns of hypotension. He was admitted to the Medicine service. Upon further evaluation, he blood pressure was appropriate throughout his stay. He was found to have a catheter- associated urinary tract infection as well as an acute kidney injury. Infectious Diseases and Nephrology were consulted during his stay. He was started on IV antibiotics and IV fluids, with improvement of his creatinine. His urine culture would return positive for Klebsiella Pneumoniae. Infectious Diseases has cleared him for discharge with 10 days of levofloxacin based on the sensitivities. Dr. Osborn has also cleared him for discharge with from a nephrology standpoint. Yesterday, he had a brief episode of nonsustained ventricular tachycardia for about 10 beats, so Cardiology was consulted. He was monitored for an additional 24 hours, without any recurrent arrhythmia. Per Dr. Ramirez, he recommended continuing his current dose of carvedilol and outpatient follow-up for a possible nuclear stress test. Of note, his renal ultrasound revealed, "solid appearing right renal lesion which may represent a neoplasm is similar to 01/14/2023. Hypoechoic but possibly solid left renal mass is also similar to 01/14/2023 and could represent neoplasm. No hydronephrosis. Prostatomegaly." I informed his daughter, Ms. Aden, of these findings and my concern for renal cancer. She stated that she was already aware. She was advised to have him follow-up with his Urologist for further evalaution. She verbalized understanding and agreed to make this follow- up appointment On 03/24/2023, he was seen on morning rounds and deemed medically stable for discharge. He was discharged with instructions to schedule follow-up appointments with his PCP (Dr. Byrne), with Urology (Dr. Jamil), and with Cardiology (Dr. Ramirez). He was provided prescriptions for carvedilol and levofloxacin. He and his daughter were given the opportunity to ask questions and reported no further questions. Furthermore, all questions were answered to the best of my ability. A copy of this discharge summary will be sent to the above providers to facilitate continuity of care. Today, I personally spent 25 minutes on his case, of which greater than 50% of the time was spent in patient education, counseling, and coordination of care as described above. - Physical Exam General: Alert, In no apparent distress, Oriented x1, Confused HEENT: Atraumatic, Mucous membr. moist/pink, Sclerae nonicteric Neck: JVD not distended Respiratory: Clear to auscultation bilaterally, Normal air movement Cardiovascular: No edema, Regular rate/rhythm, No murmurs Gastrointestinal: Normal bowel sounds, Soft, Non-distended, No tenderness Integumentary: No rashes Neurological: Normal speech, Normal affect Vital Signs/Physical Exam: Temp Pulse Resp BP Pulse Ox 98.5 F 66 18 158/79 H 99 03/23/23 04:00 03/23/23 04:00 03/23/23 04:00 03/23/23 04:00 03/23/23 04:00 Laboratory Data at Discharge: WBC 4.70 thou/uL (4.3-10.9) 03/22/23 01:40 Hgb 9.9 g/dL (13.6-17.9) L 03/22/23 01:40 Hct 29.4 % (39.6-49.0) L 03/22/23 01:40 Plt Count 144 thou/uL (152-406) L 03/22/23 01:40 Sodium 139 mEq/L (136-145) 03/22/23 01:40 Potassium 4.3 mEq/L (3.5-5.1) 03/22/23 01:40 BUN 47 mg/dL (7-18) H 03/22/23 01:40 Creatinine 2.51 mg/dL (0.70-1.30) H 03/22/23 01:40 Glucose 88 mg/dL (74-106) 03/22/23 01:40 Magnesium 2.4 mg/dL (1.6-2.4) 03/20/23 20:20 Total Bilirubin 0.3 mg/dL (0.2-1.0) 03/20/23 20:20 AST 9 U/L (15-37) L 03/20/23 20:20 ALT 12 U/L (16-61) L 03/20/23 20:20 Alkaline Phosphatase 60 U/L (45-117) 03/20/23 20:20 Home Medications: Amlodipine [Norvasc*] 5 mg PO BID 11/14/22 Folic Acid 1 mg PO DAILY 11/14/22 Simvastatin 40 mg PO BEDTIME 11/14/22 Tamsulosin [Flomax*] 2 tab PO DAILY 11/14/22 cloNIDine HCL [Catapres*] 0.3 mg PO TID 11/14/22 minoxidiL [Loniten*] 1 tab PO BID 11/14/22 Finasteride 5 mg PO DAILY 12/20/22 Aspirin [Aspirin EC 81 MG] 81 mg PO DAILY 01/14/23 Iron 65 mg PO DAILY 01/14/23 Psyllium Husk [Metamucil] 1 tab PO BID 01/14/23 Ensure Enlive 237 ml PO BID can 03/23/23 carvediloL [Coreg*] 12.5 mg PO BIDWM #60 tab 03/23/23 levoFLOXacin [Levofloxacin] 250 mg PO DAILY 10 Days #10 tab 03/23/23 New Medications: carvediloL [Coreg*] 12.5 mg PO BIDWM #60 tab levoFLOXacin [Levofloxacin] 250 mg PO DAILY 10 Days #10 tab Physician Discharge Instructions: 1. Please call and schedule a follow-up appointment with your PCP (Dr. Byrne) in 3-5 days - Your blood work showed anemia. Please discuss with your PCP for further evaluation. 2. Please call and schedule a follow-up appointment with Cardiology (Dr. Ramirez) in 3-5 days 3. Please call and schedule a follow-up appointment with Urology (Dr. Jamil) in 3-5 days - Your urine sample contained blood in it. Please discuss with your PCP for further evaluation. - Your ultrasound showed spots on both of your kidneys. Both spots are concerning for cancer. Please discuss with your PCP for further evaluation. Medication changes: 1. Please take levofloxacin 250 mg once per day for 10 days 2. Your carvedilol dose has been reduced from 25 mg to 12.5 mg - Please follow-up with your PCP for medication refills/adjustments Diet: Renal Activity: Fall precautions Followup: Monster Byrne MD [Primary Care Provider] - (call for an apointment for 3-5 days) Isak Ramirez MD [ACTIVE - CAN ADMIT] - Cliff Jamil [ACTIVE - CAN ADMIT] - Time spent managing pt's care (in minutes): 25
[2023-03-23] MEDS: ENSURE ENLIVE 237 ML CAN PO SCH ×2 (09:00→20:51)
[2023-03-23] MEDS: carvediloL 12.5 MG TAB PO SCH ×2 (09:19→16:16)
[2023-03-23] MEDS: minoxidiL 2.5 MG TAB PO SCH ×2 (09:19→20:50)
[2023-03-23] MEDS: ASPIRIN EC 81 MG TAB PO SCH (09:19)
[2023-03-23] MEDS: AMLODIPINE 5 MG TAB PO SCH ×2 (09:19→20:51)
[2023-03-23] MEDS: CLONIDINE HCL 0.3 MG TAB PO SCH ×3 (09:19→20:51)
[2023-03-23] MEDS: FINASTERIDE 5 MG TAB PO SCH (09:20)
[2023-03-23] MEDS: TAMSULOSIN 0.4 MG SR CAP PO SCH (09:20)
[2023-03-23] MEDS: HEPARIN 5000 UNIT/ML 1 ML VIAL SQ SCH ×2 (09:20→20:51)
--- NOTE | 2023-03-23 12:02 | P.PN ---
Subjective Date of Service: 03/23/23 Chief Complaint: UTI, hyperkalemia, hypotension No new events. His blood pressure is still elevated, but better controlled. Urine culture positive for Klebsiella Pneumoniae. Per his daughter, Ms. Aden, he is at his baseline. Plan was for discharge; however, this morning he had an episode of non-sustained ventricular tachycardia (~ 10 beats) on telemetry. Will keep in the hospital for close monitoring. Review of Systems is unable to be obtained Physical Examination - Vital Signs Temperature: 98.7 F Blood Pressure: 158/87 Pulse: 70 Respirations: 21 Pulse Ox (%): 99 - Studies Microbiology Data (last 24 hrs): 03/21/23 09:40 Blood - Blood Anaerobic Blood Culture - Final Assessment And Plan - Plan - Physical Exam General: Alert, In no apparent distress, Oriented x1, Confused HEENT: Atraumatic, Mucous membr. moist/pink, Sclerae nonicteric Neck: JVD not distended Respiratory: Clear to auscultation bilaterally, Normal air movement Cardiovascular: No edema, Regular rate/rhythm, No murmurs Gastrointestinal: Normal bowel sounds, Soft, Non-distended, No tenderness Integumentary: No rashes Neurological: Normal speech, Normal affect # Klebsiella Pneumoniae Catheter-Associated Urinary Tract Infection - POA # History of Multi-Drug Resistant Bacteremia # Benign Prostatic Hyperplasia and Hypospadias with Chronic Indwelling Mayfield Catheter - Does not meet sepsis criteria - Consulted Infectious Diseases and spoke with NEWS EDITOR Valentin - Recommends levofloxacin for 10 additional days - Await blood culture results - Continue home tamsulosin, finasteride - Exchange Mayfield catheter # KDIGO Stage I Acute Kidney Injury on Chronic Kidney Disease Stage IV # Bilateral Renal Lesions - concerning for Neoplasm - Consulted Nephrology and spoke with Dr. Osborn - recommendations appreciated - Creatinine = 3.02 -> 2.89 -> 2.51 - Urinalysis = 500 leukocyte esterase, 21-50 RBCs, >50 WBCs, 20-50 bacteria, 2+ protein - Renal ultrasound = "Solid appearing right renal lesion which may represent a neoplasm is similar to 01/14/2023. Hypoechoic but possibly solid left renal mass is also similar to 01/14/2023 and could represent neoplasm. No hydronephrosis. Prostatomegaly." - I informed his daughter, Ms. Aden, of these findings and she stated that she was already aware. She was advised to have him follow-up with his Information Systems Project Manager for further evalaution. She verbalized understanding and agreed to make this follow-up appointment - Monitor creatinine and urine output - Renally dose medications # Nonsustained Ventricular Tachycardia - Noted on telemetry - Ordered BMP, Mg levels - Consult Cardiology recommendations appreciated # Hypertensive Urgency - Continue home carvedilol, clonidine, minoxidil, amlodipine - As needed anti-hypertensives # Type II Diabetes Mellitus - Correction scale insulin # History of Cerebrovascular Accident # Hyperlipidemia - Continue home aspirin, amlodipine, simvastatin Malik Cloud M.D.
[2023-03-23] MEDS: Levofloxacin 250mg IV 250 MG/50 ML BAG IV SCH (12:28)
--- NOTE | 2023-03-23 12:29 | PN ---
Date of Progress Note: 03/23/2023 Subjective: The patient was seen and examined at bedside. He is a poor historian, but denies any co mplaints of acute pain. No overnight events were noted. Objective: Vital Signs: Have been reviewed and are stable. General: He appears in no acute distress. Lungs: Clear to auscultation. Genitourinary: Chronic indwelling Mayfield noted. Extremities: Showed no evidence of edema. Laboratory Data: None obtained from today. Renal function has been stable to creatinine of 2.5 yest erday. Urine cultures are showing Klebsiella pneumoniae UTI. Impression: 1.Acute on chronic renal insufficiency with underlying stage IV chronic kidney disease, currently wi th stable renal function. 2.Urinary tract infection secondary to klebsiella, currently on antibiotics with chronic indwelling Mayfield. 3.Hypertension. Continue current medications and avoid hypotension. Plan: Overall, the patient is doing okay at this time. Monitor labs closely. Continue antibiotics with Rocephin and follow up on labs and follow up with Dr. Diallo in clinic. BOOKER/PETEY Voice ID: [id number] Report ID: [id number]
[2023-03-23 12:49] LABS: Potassium 4.8 mEq/L (3.5-5.1)
[2023-03-23] MEDS: ATORVASTATIN 20 MG TAB PO SCH (20:51)
[2023-03-24] MEDS: INSULIN REGULAR (HUMAN) 100 UNIT/ML SQ SCH ×3 (07:30→16:30)
[2023-03-24] MEDS: ENSURE ENLIVE 237 ML CAN PO SCH (09:00)
[2023-03-24] MEDS: FINASTERIDE 5 MG TAB PO SCH (09:00)
[2023-03-24] MEDS: carvediloL 12.5 MG TAB PO SCH ×2 (09:10→16:44)
[2023-03-24] MEDS: TAMSULOSIN 0.4 MG SR CAP PO SCH (09:10)
[2023-03-24] MEDS: ASPIRIN EC 81 MG TAB PO SCH (09:10)
[2023-03-24] MEDS: AMLODIPINE 5 MG TAB PO SCH (09:10)
[2023-03-24] MEDS: minoxidiL 2.5 MG TAB PO SCH (09:11)
[2023-03-24] MEDS: CLONIDINE HCL 0.3 MG TAB PO SCH ×2 (09:11→14:08)
[2023-03-24] MEDS: HEPARIN 5000 UNIT/ML 1 ML VIAL SQ SCH (09:12)
[2023-03-24 13:04] LABS: Hematocrit 30.1 % (39.6-49.0)
[2023-03-24] MEDS: Levofloxacin 250mg IV 250 MG/50 ML BAG IV SCH (14:07)
[2023-03-24 17:14] VITALS: BP 131/77; TEMP 98.7
--- NOTE | 2023-03-25 17:08 | EKG ---
Test Date: 2023-03-23 Test Time: 11:54:11 Cam Milling Machine Operator: HA MEASUREMENT RESULTS: Intervals: Rate: 60 RI: 268 QRSD: 80 QT: 430 QTc: 430 [place]: P: 59 RI: 268 QRS: 15 T: 58 INTERPRETIVE STATEMENTS: Sinus rhythm with 1st degree AV block Septal infarct, age undetermined Abnormal ECG Compared to ECG 03/20/2023 21:56:26 Myocardial infarct finding now present Sinus bradycardia no longer present Left ventricular hypertrophy no longer present Electronically Signed On 03-25-23 17:04:44 CDT by Isak Ramirez
== END 2023-03-24 19:30 | disposition home health service (06) | DRG 699 ==
LOC: ER 18:47 → ERHOLD 21:49 → UNDOADMOB 22:18 → 2ND 22:28 → OBSVTOIN 03-23 11:09
PROVIDERS: ADMIT Internal Medicine; ATTEND Internal Medicine
DX: T83.511A Infection and inflammatory reaction due to indwelling urethral catheter, initial encounter (principal); I47.20 Ventricular tachycardia, unspecified; N17.9 Acute kidney failure, unspecified; N18.4 Chronic kidney disease, stage 4 (severe); N30.01 Acute cystitis with hematuria; R78.81 Bacteremia; I12.9 Hypertensive chronic kidney disease with stage 1 through stage 4 chronic kidney disease, or unspecified chronic kidney disease; E11.22 Type 2 diabetes mellitus with diabetic chronic kidney disease; D63.1 Anemia in chronic kidney disease; D50.9 Iron deficiency anemia, unspecified; E87.5 Hyperkalemia; E88.09 Other disorders of plasma-protein metabolism, not elsewhere classified; N28.1 Cyst of kidney, acquired; I16.0 Hypertensive urgency; N28.9 Disorder of kidney and ureter, unspecified; E78.00 Pure hypercholesterolemia, unspecified; N40.1 Benign prostatic hyperplasia with lower urinary tract symptoms; R33.8 Other retention of urine; Q54.9 Hypospadias, unspecified; I69.328 Other speech and language deficits following cerebral infarction; I25.10 Atherosclerotic heart disease of native coronary artery without angina pectoris; B96.1 Klebsiella pneumoniae [K. pneumoniae] as the cause of diseases classified elsewhere; B96.20 Unspecified Escherichia coli [E. coli] as the cause of diseases classified elsewhere; Z79.82 Long term (current) use of aspirin; Z79.899 Other long term (current) drug therapy; Y84.6 Urinary catheterization as the cause of abnormal reaction of the patient, or of later complication, without mention of misadventure at the time of the procedure; Y92.89 Other specified places as the place of occurrence of the external cause
CPT/HCPCS: 36415; 71045; 76770; 80048; 80076; 81001; 82947; 83036; 83605; 83735; 83880; 84484; 85014; 85018; 85025; 87040; 87077; 87086; 87088; 87186; 93005; 94640; 96365; 99285; G0378; J0696; J1644; J7030; J7613; J7644

== ENCOUNTER 2023-07-24 09:52 | Inpatient (IN) | payer OTHER ==
[2023-07-24 10:56] LABS: Absolute Lymphocytes (CBC) 1.2 K/uL (0.7-4.9); Hematocrit 32.3 % (39.6-49.0); Lymphocytes % 23.5 % (15.3-44.8); MCV 78.3 fL (80-100); Platelets 207 thou/uL (152-406); RBC Red Blood Cell Count 4.12 M/uL (4.33-5.43)
[2023-07-24 11:20] LABS: AST/SGOT 12 U/L (15-37); Albumin 2.2 g/dL (3.4-5.0); Alkaline Phosphatase 55 U/L (45-117); BUN Blood Urea Nitrogen 25 mg/dL (7-18); Bicarbonate 23 mEq/L (21-32); Bilirubin Direct 0.2 mg/dL (0-0.2); Bilirubin Indirect, Calculated 0.2 mg/dL (0.2-0.8); Bilirubin Total 0.4 mg/dL (0.2-1.0); Glomerular Filtration Rate 26 ml/min (=/>90); Glucose Level 94 mg/dL (74-106); Magnesium 1.9 mg/dL (1.6-2.4); NT PRO-BNP 1547 pg/mL (<450); Potassium 3.8 mEq/L (3.5-5.1); Protein, Total 6.8 g/dL (6.4-8.2); Sodium Level 138 mEq/L (136-145); Troponin High Sensitivity 28.1 pg/mL (<58.9)
[2023-07-24 11:21] LABS: ALT/SGPT < 10 U/L (16-61)
--- NOTE | 2023-07-24 11:41 | RAD REPORT ---
EXAM DESCRIPTION: CT - Head Brain Wo Cont - 07/24/2023 10:50 am CLINICAL HISTORY: abscess, headache COMPARISON: Head Brain Wo Cont dated 11/13/2022; Head Brain Wo Cont dated 02/07/2016 TECHNIQUE: Noncontrast head CT images were obtained without IV contrast. Multiplanar reformats were generated and reviewed. All CT scans are performed using dose optimization technique as appropriate and may include automated exposure control or mA/KV adjustment according to patient size. FINDINGS: No intracranial hemorrhage, mass, or edema. Midline structures are unremarkable. Stable ventricular caliber with moderate diffuse parenchymal volume loss. Region of encephalomalacia centered on the left parietal region, with adjacent ex vacuo dilation of t he left ventricular trigone, stable. Basilio-white matter differentiation elsewhere is preserved, withou t evidence of acute infarct. No abnormal extra-axial fluid collections. Mastoid air cells show patchy opacification bilaterally. Visualized portions of the paranasal sinuses are clear. No acute bony findings. Enlarging subcutaneous occipital hypoechoic ovoid 2.9 cm structure, with overlying skin thickening, m ay represent an enlarging or complicated sebaceous cyst or abscess. IMPRESSION: Enlarging subcutaneous occipital hypoechoic 2.9 cm structure with overlying skin thicken ing, may represent an enlarging or complicated sebaceous cyst, or abscess. No underlying osseous or i ntracranial abnormality. Other stable findings including large region of encephalomalacia centered on the left parietal lobe, suggestive of sequelae of remote ischemia.
--- NOTE | 2023-07-24 12:09 | RAD REPORT ---
EXAM DESCRIPTION: CT - Chest Abd Pelvis Wo Con - 07/24/2023 10:50 am CLINICAL HISTORY: abd swelling, upper thigh swelling COMPARISON: Head C Spine Cap Wo Con dated 12/19/2022; Abdomen Pelvis Wo Contrast dated 11/13/2022 TECHNIQUE: Thin axial CT images of the chest, abdomen, and pelvis, performed without IV contrast. Mu ltiplanar reformats were generated and reviewed. All CT scans are performed using dose optimization technique as appropriate and may include automated exposure control or mA/KV adjustment according to patient size. FINDINGS: Up to moderate layering pleural effusions with underlying subsegmental dependent opacities , favoring atelectasis. No pneumothorax. Mild pericardial effusion. .No intrathoracic adenopathy. The liver demonstrates numerous fluid density rounded and ovoid lesions, largest measuring 4.5 cm, st able. Spleen and adrenal gland are within normal limits. Atrophic changes of the kidneys, more so on the left. Stable exophytic 17 mm ovoid lesion arising from the left upper renal pole. Stable ill-defi peña cystic lesion in the region of the head of the pancreas, possibly extending towards the liver hil um, measures 3.7 x 2.4 cm in greatest axial dimensions, without significant interval change allowing for motion and beam hardening artifact at that level. No bowel obstruction, free air, fluid collections, or abscess. Mild free fluid in the pelvis. Large s tool burden throughout the colon and rectal bulb. No pathologic lymphadenopathy in the abdomen or pe lvis. Bladder is decompressed with Mayfield catheter in place. No worrisome osseous finding. Moderate diffuse body wall edema. IMPRESSION: Layering pleural effusions, mild free pelvic fluid, mild pericardial effusion, and moder ate diffuse body wall edema, suggesting anasarca/fluid overload. Other stable findings including an ill-defined cystic lesion in the region of the pancreatic head up to 3.7 cm in size, again may relate to a fluid collection in the setting of prior pancreatitis or a c ystic neoplasm.
[2023-07-24] MEDS ORDERED: VANCOMYCIN 1 GM/VIAL ONE (12:56)
[2023-07-24] MEDS ORDERED: CEFTRIAXONE 1000 MG/VIAL ONE (12:56)
[2023-07-24] MEDS ORDERED: LIDOCAINE 1% MPF 5 ML VIAL ONE (12:56)
[2023-07-24] MEDS ORDERED: NA CHLORIDE 0.9% 250 ML ONE (12:57)
--- NOTE | 2023-07-24 13:19 | EDPHYS ---
Physician Documentation [facility] Name: Donal Ramirez Age: 88 yrs Sex: Male : 1935 Arrival Date: 07/24/2023 Time: 09:52 Bed 14 Private MD: Monalisa Byrne C ED Physician Phil Tran HPI: 07/24 10:24 This 88 yrs old Black Male presents to ER via Wheelchair with complaints of Fever, Feet rt Swelling. 10:24 Patient presents to the ED with multiple complaints. Patient reportedly has had rt swelling to his abdomen as well as to his right proximal thigh. Caregiver denies other areas of swelling. The caregiver reports the patient had area of swelling to the back of his head that has burst open. Distress prior to arrival. He was complaining of a headache as well. Just reports that the patient developed vomiting with dried blood as well as darker colored stools. Denies other acute complaints at this time, symptoms are moderate in severity, no other aggravating or alleviating factors.. Historical: - Allergies: 10:08 No Known Allergies; ld1 - PMHx: 10:08 BPH; coronary atherosclerosis; CVA; diabetes mellitus; Hypercholesterolemia; ld1 Hypertension; kidney disease; - Immunization history:: Adult Immunizations up to date. - Social history:: Smoking status: Patient denies any tobacco usage or history of. Patient/guardian denies using alcohol. ROS: 10:24 Unable to obtain ROS due to patient's speech is incomprehensible, rt Exam: 10:24 Constitutional: This is a well developed, well nourished patient who is awake, alert, rt and in no acute distress. Chest/axilla: Normal chest wall appearance and motion. Nontender with no deformity. No lesions are appreciated. Cardiovascular: Regular rate and rhythm with a normal S1 and S2. No gallops, murmurs, or rubs. Normal PMI, no JVD. No pulse deficits. Respiratory: Lungs have equal breath sounds bilaterally, clear to auscultation and percussion. No rales, rhonchi or wheezes noted. No increased work of breathing, no retractions or nasal flaring. Skin: Warm, dry with normal turgor. Normal color with no rashes, no lesions, and no evidence of cellulitis. Neuro: Awake and alert, GCS 15, oriented to person, place, time, and situation. Cranial nerves II-XII grossly intact. Motor strength 5/5 in all extremities. Sensory grossly intact. Cerebellar exam normal. Normal gait. 10:24 Head/face: 2 cm apparent abscess to the occiput, no other acute abnormalities noted. 10:24 Abdomen/GI: Mild abdominal distention, no tenderness, 10:24 Musculoskeletal/extremity: Minimal swelling noted to the right proximal thigh laterally, no other swelling.. 10:50 ECG was reviewed by the Attending Physician. rt Vital Signs: 10:06 BP 126 / 65; Pulse 79; Resp 18; Temp 97.9(TE); Pulse Ox 96% on R/A; Weight 65.77 kg; ld1 Height 6 ft. 0 in. ; 11:00 BP 150 / 79; Pulse 64; Resp 16 S; Pulse Ox 100% on R/A; kc6 11:44 BP 162 / 73; Pulse 66; Resp 16 S; Pulse Ox 100% on R/A; kc6 12:51 BP 134 / 70; Pulse 66; Resp 17 S; Pulse Ox 100% on R/A; kc6 14:19 BP 156 / 75; Pulse 74; Resp 17 S; Pulse Ox 100% on R/A; ll1 10:06 Body Mass Index 19.67 (65.77 kg, 182.88 cm) ld1 Procedures: 13:19 I \T\ D: Incision and drainage was performed for an abscess of the Occiput Prepped with rt alcohol, Anesthetized with 2 ml's 1% Lidocaine. Incised with #11 blade. Drained moderate amount purulent fluid. Dressing: sterile 4x4 gauze, the patient tolerated the procedure well. MDM: 10:12 Patient medically screened. rt 13:19 Differential diagnosis: Abscess, renal failure, CHF. Data reviewed: vital signs, nurses rt notes, lab test result(s), EKG, radiologic studies. Consideration of Admission/Observation Patient was admitted/placed on observation. Management of patient was discussed with the following: Primary Care Provider: Agrees to admit. I considered the following discharge prescriptions or medication management in the emergency department Medications were administered in the Emergency Department. See MAR. Independent interpretation of the following test(s) in the Emergency Department X-Ray: My interpretation is No intracranial hemorrhage seen on interpretation of CT scan images. Care significantly affected by the following chronic conditions: Diabetes. Counseling: I had a detailed discussion with the patient and/or guardian regarding the historical points, exam findings, and any diagnostic results supporting the discharge/admit diagnosis, lab results, radiology results, the need for further work-up and treatment in the hospital. Response to treatment: the patient's symptoms have markedly improved after treatment. 07/24 10:19 Order name: Basic Metabolic Panel; Complete Time: 11:56 rt 07/24 10:19 Order name: CBC with Diff; Complete Time: :56 rt 07/24 10:19 Order name: LFT's; Complete Time: 11:56 rt 07/24 10:19 Order name: Magnesium; Complete Time: :56 rt 07/24 10:19 Order name: NT PRO-BNP; Complete Time: :56 rt 07/24 10:19 Order name: Troponin HS; Complete Time: :56 rt 07/24 12:51 Order name: Wound Culture rt 07/24 10:20 Order name: CT Head Brain wo Cont; Complete Time: :56 rt 07/24 10:20 Order name: CT Chest Abdomen Pelvis W/O Contrast; Complete Time: 12:13 rt 07/24 10:19 Order name: EKG; Complete Time: 10: rt 07/24 10:19 Order name: Cardiac monitoring; Complete Time: 10:45 rt 07/24 10:19 Order name: EKG - Nurse/Tech; Complete Time: 10:45 rt 07/24 10:19 Order name: IV Saline Lock; Complete Time: 10:45 rt 07/24 10:19 Order name: Labs collected and sent; Complete Time: 10:45 rt 07/24 10:19 Order name: O2 Per Protocol; Complete Time: : rt 07/24 10:19 Order name: O2 Sat Monitoring; Complete Time: 10: rt EC:50 Rate is 65 beats/min. Rhythm is regular, 1st Degree Block with No ectopy. QRS [place] is rt Normal. [place] interval is normal. QRS interval is normal. QT interval is normal. No Q waves. T waves are Normal. No ST changes noted. Administered Medications: 13:13 Drug: Lidocaine Infiltration (1 %) 5 mg Infiltration once Route: Infiltration; kc6 14:52 Follow up: Response: No adverse reaction ll1 13:14 Drug: Rocephin IV 1 grams IV at calculated rate once; Given slow IV push per pharmacy kc6 instructions Route: IV; Rate: calculated rate; Site: right forearm; 14:52 Follow up: Response: No adverse reaction; IV Status: Completed infusion; IV Intake: [id number] 13:14 Drug: vancoMYCIN IVPB 1 grams IVPB once over 2 hrs Route: IVPB; Infused Over: 2 hrs; kc6 Site: right forearm; 14:52 Follow up: Response: No adverse reaction; IV Status: Completed infusion; IV Intake: ll1 250ml Disposition: 14:12 Chart complete. rt Disposition Summary: 07/24/23 13:19 Hospitalization Ordered Notes: Hospitalization Status: Inpatient Admission rt Provider: Monalisa Byrne rt Location: Telemetry/MedSur (Inpatient) rt Condition: Stable rt Problem: new rt Symptoms: have improved rt Bed/Room Type: Standard rt Room Assignment: 202(07/24/23 14:04) ja1 Diagnosis - Cutaneous abscess to occiput rt - Anasarca rt Forms: - Medication Reconciliation Form rt - SBAR form rt - Leadership Thank You Letter rt Signatures: Dispatcher [employer] EDIA Rudolph Cheney ds4 John Paul Bell RN RN ja1 Radha Corbin RN RN ld1 Helene Marti RN RN kc6 Phil Tran MD MD rt Nena Aburto RN ll1 Corrections: (The following items were deleted from the chart) 12:00 10:20 TYPE AND SCREEN+BB.LAB.BRZ ordered. EDIA EDIA 12:52 11:03 Labs - recollect needed ordered. ds4 kc6 14:04 13:19 rt ja1
--- NOTE | 2023-07-24 13:19 | ER ---
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 Coronavirus screen: At this time, the client does not indicate any symptoms associated with coronavirus-19. Ebola Screen: No symptoms or risks identified at this time. Initial Sepsis Screen: Does the patient meet any 2 criteria? No. Patient's initial sepsis screen is negative. Does the patient have a suspected source of infection? No. Patient's initial sepsis screen is negative. Risk Assessment: Do you want to hurt yourself or someone else? Patient reports no desire to harm self or others. Onset of symptoms was July 24, 2023 at 10:08. 10:06 Method Of Arrival: Wheelchair ld1 10:06 Acuity: ERICH 3 ld1 Triage Assessment: 10:08 General: Appears in no apparent distress. comfortable, Behavior is calm, cooperative, ld1 appropriate for age. Pain: Denies pain. EENT: No signs and/or symptoms were reported regarding the EENT system. Neuro: Level of Consciousness is awake, alert, obeys commands, Oriented to person, place, time, situation. Cardiovascular: Capillary refill < 3 seconds Patient's skin is warm and dry. Respiratory: Airway is patent Respiratory effort is even, unlabored. GI: Abdomen is flat, non-distended. : No signs and/or symptoms were reported regarding the genitourinary system. : Mayfield in place in place prior to arrival. Derm: No signs and/or symptoms reported regarding the dermatologic system. Musculoskeletal: No signs and/or symptoms reported regarding the musculoskeletal system. Historical: - Allergies: 10:08 No Known Allergies; ld1 - PMHx: 10:08 BPH; coronary atherosclerosis; CVA; diabetes mellitus; Hypercholesterolemia; ld1 Hypertension; kidney disease; - Immunization history:: Adult Immunizations up to date. - Social history:: Smoking status: Patient denies any tobacco usage or history of. Patient/guardian denies using alcohol. Screenin:[facility] ED Fall Risk Assessment (Adult) History of falling in the last 3 months, kc6 including since admission No falls in past 3 months (0 pts) Confusion or Disorientation Yes (5 pts) Intoxicated or Sedated No (0 pts) Impaired Gait Yes (1 pt) Mobility Assist Device Used Yes (1 pt) Altered Elimination Yes (1 pt) Score/Fall Risk Level 3 or more points = High Risk. Abuse screen: Denies threats or abuse. Denies injuries from another. Nutritional screening: No deficits noted. Tuberculosis screening: No symptoms or risk factors identified. Assessment: 10:58 General: Appears in no apparent distress. comfortable, well groomed, well developed, kc6 Behavior is calm, cooperative, appropriate for age. Pain: Unable to use pain scale. Patient is disoriented. Does not appear to understand pain scale. FLACC scale score is 0 out of 10. Neuro: Level of Consciousness is awake, alert, obeys commands, Oriented to person, place, Appropriate for age. Cardiovascular: Capillary refill < 3 seconds. Respiratory: Airway is patent Trachea midline Respiratory effort is even, unlabored, Respiratory pattern is regular, symmetrical. GI: No signs and/or symptoms were reported involving the gastrointestinal system. : No signs and/or symptoms were reported regarding the genitourinary system. Mayfield in place to gravity drainage clamped Urine is cloudy. EENT: No signs and/or symptoms were reported regarding the EENT system. Derm: Skin with poor turgor Skin is pink, warm \T\ dry. Musculoskeletal: No signs and/or symptoms reported regarding the musculoskeletal system. Circulation, motion, and sensation intact. Capillary refill < 3 seconds, Range of motion: intact in all extremities. Injury Description: knot to the right side of the posterior head. 11:44 Reassessment: Patient appears in no apparent distress at this time. No changes from kc6 previously documented assessment. Patient and/or family updated on plan of care and expected duration. Pain level reassessed. 12:51 Reassessment: Patient appears in no apparent distress at this time. No changes from kc6 previously documented assessment. Patient and/or family updated on plan of care and expected duration. Pain level reassessed. 14:19 Reassessment: Patient appears in no apparent distress at this time. No changes from ll1 previously documented assessment. Patient and/or family updated on plan of care and expected duration. Pain level reassessed. Vital Signs: 10:06 BP 126 / 65; Pulse 79; Resp 18; Temp 97.9(TE); Pulse Ox 96% on R/A; Weight 65.77 kg; ld1 Height 6 ft. 0 in. ; 11:00 BP 150 / 79; Pulse 64; Resp 16 S; Pulse Ox 100% on R/A; kc6 11:44 BP 162 / 73; Pulse 66; Resp 16 S; Pulse Ox 100% on R/A; kc6 12:51 BP 134 / 70; Pulse 66; Resp 17 S; Pulse Ox 100% on R/A; kc6 14:19 BP 156 / 75; Pulse 74; Resp 17 S; Pulse Ox 100% on R/A; ll1 10:06 Body Mass Index 19.67 (65.77 kg, 182.88 cm) ld1 ED Course: 09:54 Patient arrived in ED. mr 09:55 Monalisa Byrne MD is Private Physician. mr 09:58 Phil Tran MD is Attending Physician. rt 10:08 Triage completed. ld1 10:08 Arm band placed on right wrist. ld1 10:23 Helene Marti, LASHONDA is Primary Nurse. kc6 10:45 Inserted saline lock: 20 gauge in right forearm, using aseptic technique. Blood kc6 collected. Patient maintains SpO2 saturation greater than 95% on room air. 10:52 CT Head Brain wo Cont In Process Unspecified. EDMS 10:52 CT Chest Abdomen Pelvis W/O Contrast In Process Unspecified. EDMS 10:58 Patient has correct armband on for positive identification. Bed in low position. Call kc6 light in reach. Side rails up X2. Adult w/ patient. Client placed on continuous cardiac and pulse oximetry monitoring. NIBP monitoring applied. bus driver/monitor on. 13:18 Monalisa Byrne MD is Hospitalizing Provider. rt 14:48 IV discontinued, intact, bleeding controlled, No redness/swelling at site. Pressure ll1 dressing applied. Inserted saline lock: 20 gauge in left forearm, using aseptic technique. 15:08 No provider procedures requiring assistance completed. ll1 Administered Medications: 13:13 Drug: Lidocaine Infiltration (1 %) 5 mg Infiltration once Route: Infiltration; kc6 14:52 Follow up: Response: No adverse reaction ll1 13:14 Drug: Rocephin IV 1 grams IV at calculated rate once; Given slow IV push per pharmacy kc6 instructions Route: IV; Rate: calculated rate; Site: right forearm; 14:52 Follow up: Response: No adverse reaction; IV Status: Completed infusion; IV Intake: [id number] 13:14 Drug: vancoMYCIN IVPB 1 grams IVPB once over 2 hrs Route: IVPB; Infused Over: 2 hrs; kc6 Site: right forearm; 14:52 Follow up: Response: No adverse reaction; IV Status: Completed infusion; IV Intake: ll1 250ml Medication: 15:08 VIS not applicable for this client. ll1 Intake: 14:52 IV: 10ml; Total: 10ml. ll1 14:52 IV: 250ml; Total: 260ml. ll1 Outcome: 13:19 Decision to Hospitalize by Provider. rt 15:08 Admitted to Med/surg accompanied by tech, via stretcher, room 202, with chart, Report ll1 called to LASHONDA Montgomery 15:08 Condition: good 15:08 Instructed on the need for admit, 15:18 Patient left the ED. ll1 Signatures: Dispatcher [employer] EDMS Griselda Salazar, Reg Reg mr Nena Aburto RN RN ll1 Radha Corbin RN RN ld1 Helene Marti RN RN kc6 Phil Tran MD MD rt
[2023-07-24 15:41] VITALS: BMI 19.6
[2023-07-24 16:19] VITALS: O2SAT 100
[2023-07-24] MEDS: VANCOMYCIN 750 MG in NA CHLORIDE 0.9% 150 ML IVPB ONE (16:39)
[2023-07-24 17:18] LABS: Urine Bacteria <20 /HPF (<20); Urine Mucus Slight /HPF (None Seen); Urine RBC <5 /HPF (None Seen); Urine WBC Clump Rare /HPF (None Seen)
[2023-07-24 17:38] LABS: Urine Bilirubin NEGATIVE (Negative); Urine Blood Trace (Negative); Urine Clarity Turbid (Clear); Urine Color Light-Yellow (Yellow); Urine Glucose NEGATIVE (Negative); Urine Protein TRACE (Negative); Urine Urobilinogen Normal (Normal); Urine pH 6.5 (5.0-7.0)
[2023-07-24] MEDS: CEFTRIAXONE 1,000 MG in NA CHLORIDE 0.9% 50 ML IVPB SCH (21:06)
[2023-07-24] MEDS ORDERED: LORATADINE 10 MG TAB PO PRN (21:30)
[2023-07-25 03:52] LABS: Absolute Lymphocytes (CBC) 1.4 K/uL (0.7-4.9); Hematocrit 29.6 % (39.6-49.0); MCV 77.3 fL (80-100); MPV 7.5 fL (7.6-11.3); Platelets 211 thou/uL (152-406); RBC Red Blood Cell Count 3.83 M/uL (4.33-5.43)
[2023-07-25 03:53] LABS: AST/SGOT 11 U/L (15-37); Albumin 2.3 g/dL (3.4-5.0); Alkaline Phosphatase 51 U/L (45-117); BUN Blood Urea Nitrogen 24 mg/dL (7-18); Bicarbonate 23 mEq/L (21-32); Bilirubin Total 0.4 mg/dL (0.2-1.0); Glomerular Filtration Rate 30 ml/min (=/>90); Glucose Level 79 mg/dL (74-106); Potassium 3.4 mEq/L (3.5-5.1); Protein, Total 6.7 g/dL (6.4-8.2); Sodium Level 139 mEq/L (136-145)
[2023-07-25 03:58] LABS: ALT/SGPT < 10 U/L (16-61)
[2023-07-25 05:15] LABS: Blood Morphology Comment NOTED (NOT SEEN); Burr Cells 1+; Platelet Estimate ADEQ
--- NOTE | 2023-07-25 07:23 | HP ---
Date of Admission: 07/24/2023 Chief Complaint: Nausea, vomiting, and knot on back of the head. History Of Present Illness: This is an 88-year-old male patient, who lives at home with multiple chr onic comorbidities including indwelling May[place] catheter for benign prostatic hypertrophy with lower ur inary tract symptoms, who has been under care of urologist in [place], Dr. Dumont, recently was not ed to have a knot on the back of the head and today he was going to have appointment at office for ev aluation of this, but prior to that, he started to have nausea, vomiting, and family noted some drain age coming out of this swelling from the posterior scalp area and when he had vomiting episode, there was some dry blood that he vomited. With that in mind, he was asked to come to emergency room and a fter he was evaluated in ER, he was admitted to the hospital. In the ER, workup was done and the pat ient was found to have what it looks like infected sebaceous cyst on the posterior scalp area and inc ision and drainage was done by ER physician and wound culture was ordered and empiric antibiotics wer e started. The patient was admitted to the hospital and I saw him this evening. He was lying in bed , not in any distress. Allergies: NO KNOWN ALLERGIES. Medications: List reviewed. Review of Systems: Dermatology: As mentioned above. GI: As mentioned above. DIRECTOR [place]: Has impaired memory. All other systems reviewed and negative. Past Surgical History: Significant for hip surgery for fracture on the right hip in 2019. Family History: Mother had SD. Sister with hypertension. Social History: Negative for smoking and alcohol use. Past Medical History: Significant for hypertension, hyperlipidemia, coronary artery disease, benign prostatic hypertrophy with lower urinary tract symptoms and urinary retention with indwelling Mayfield c atheter, pancreatic mass versus cyst, osteoarthritis at multiple sites, debility, anemia of chronic k idney disease, allergic rhinitis, chronic kidney disease stage 4, coronary artery disease, history of TIA, and osteoarthritis at multiple sites. Physical Examination: Vital Signs: Temperature 97.9, pulse 79, respiratory rate 18, blood pressure 126/65, oxygen saturati on 96%. Height 6 feet, weight 144 pounds. General: Awake, alert, oriented, not in distress. HEENT: Head examination, posterior scalp has surgical dressing present and I tried to remove it to e xamine and the patient was not cooperative and he was getting very agitated and angry and did not all ow me to remove dressing for examination. Conjunctivae nonerythematous. Sclerae white. Mouth, no t hrush or edema noted. Ears/Nose, no mass, lesion, discharge noted. Neck: Supple. No JVD, lymph nodes, bruit, thyromegaly noted. Lungs: Bilateral good equal air entry. Clear to auscultation. No rhonchi. No rales. Heart: Normal heart sounds, no murmur or gallop. Abdomen: Soft, bowel sounds normal. No guarding, rigidity, tenderness, mass, hepatosplenomegaly, dis tention, or bruit noted. Extremities: No leg edema. No calf tenderness. Skin: No rash, ulcer, cellulitis. Lymphatics: No lymph node enlargement in neck, supraclavicular, infraclavicular region. Neuro: No focal neurological deficit. Chest: Unremarkable. External Genitalia: Deferred. Rectal: Deferred. Laboratory Data: White count 5.2, hemoglobin 10.4, platelets 207. Sodium 138, potassium 3.8, chlori de 111, bicarb 23, BUN 25, creatinine 2.35, glucose 94. Troponin 28.1. ProBNP 1547. Urinalysis, 50 0 leukocyte esterase, 20 to 50 wbc, trace blood, and trace protein. CAT scan of the head showed 2.9 cm subcutaneous mass. CAT scan of the chest, abdomen, and pelvis, shows small pleural effusion, smal l pericardial effusion, free fluid in the pelvis, and evidence of subcutaneous edema 3.7 cm pancreati c cyst, multiple hypodense liver lesions, left . Impression: 1.Infected sebaceous cyst, scalp. 2.Chronic kidney disease stage 4. 3.Anemia due to chronic kidney disease. 4.Hypertension. 5.Hyperlipidemia. 6.Coronary artery disease. 7.Pancreatic cyst. 8.Osteoarthritis, multiple sites. Plan: We will go ahead and admit the patient to hospital for further evaluation and management of th is problem. The patient is appropriate for inpatient and is [facility] We will start empiric antibiotics, ceftriaxone and vancomycin. Follow up on wound culture an d further decision about antibiotic will be made depending on the wound culture result. Home medicat ions will be continued per order. DVT prophylaxis will be given using heparin 5000 units subcutaneou s injection every 12 hours. Code status was discussed by ER physician with the family and DNR order was written in the chart. For hypertension, we will continue his antihypertensive medication. Monit or blood pressure, make adjustment on blood pressure medication as it becomes necessary. For hyperli pidemia, we will continue his statin therapy per order. Fall precaution was ordered. The patient is not ambulatory at home, so there is no need for any physical therapy consultation at this point. BRADY/PETEY Voice ID: [id number]
[2023-07-25] MEDS: carvediloL 12.5 MG TAB PO SCH (08:40)
[2023-07-25] MEDS: CLONIDINE HCL 0.3 MG TAB PO SCH (08:40)
[2023-07-25] MEDS: FERROUS SULFATE 325 MG TAB PO SCH (08:41)
[2023-07-25] MEDS: FINASTERIDE 5 MG TAB PO SCH (08:41)
[2023-07-25] MEDS: FOLIC ACID 1 MG TABLET PO SCH (08:41)
[2023-07-25] MEDS: AMLODIPINE 5 MG TAB PO SCH (08:41)
[2023-07-25] MEDS: minoxidiL 2.5 MG TAB PO SCH (08:41)
[2023-07-25] MEDS: ASPIRIN EC 81 MG TAB PO SCH (08:42)
[2023-07-25] MEDS: ENSURE ENLIVE 237 ML CAN PO SCH (08:42)
[2023-07-25] MEDS: HEPARIN 5000 UNIT/ML 1 ML VIAL SQ SCH (08:42)
--- NOTE | 2023-07-25 14:42 | EKG ---
Test Date: 2023-07-24 Test Time: 10:28:57 Grounds Maintenance Supervisor: HIREN MEASUREMENT RESULTS: Intervals: Rate: 0 AK: QRSD: 0 QT: 0 QTc: 0 [place]: P: AK: QRS: 0 T: 0 INTERPRETIVE STATEMENTS: No QRS complexes found, no ECG analysis possible Electronically Signed On 07-25-23 14:40:10 PAYROLL AUDITOR by Isak Ramirez
--- NOTE | 2023-07-25 19:52 | CON ---
Date of Consultation: 07/25/2023 Reason For Service: Infected sebaceous scalp cyst. History Of Present Illness: This is a case of an 88-year-old patient who comes with multiple medical problems, history of CVA, diabetes, hypertension. During the workup, patient was found to have what looks like a sebaceous cyst, infected on scalp and a surgical consult was obtained for evaluation. Most of the information is obtained from the chart. He cannot give much information. Allergies: NONE. Past Medical History: BPH, hypertension, kidney disease, hypercholesterolemia, CVA, diabetes. Social History: He does not smoke. He does not drink alcohol. Family History: Unknown. Review of Systems: Unable to be obtained. Physical Examination: General: The patient is awake, alert. He follows commands, but in limit. Eyes: Pupils are reactive. Chest: Clear. Abdomen: Soft and depressible. No guarding or rebound. Integumentary: Shows about 3 x 3 cm subcutaneous mass in the scalp, it is draining, has some evidenc e of cellulitis. No bleeding. Laboratory Data: WBC count of 5.2, hemoglobin of 9.8, platelets of 221. Potassium is 3.4, bicarb is 23, creatinine is 2.09. Assessment And Plan: This is an 88-year-old patient with infected scalp subcutaneous mass. Obviousl y, we have a way, if he can cooperate, then we can do bedside subcutaneous debridement, but he barely let me just remove the tape from his hair, so I do not see that is going to work that way and this i s before even starting debriding that area. If we find a way and we know opportunities during this s silvia to do a debridement and cleaning this area before he goes will be ideal. If that is not option, then we might use some Santyl and antibiotics and dry gauze on top. We will follow the patient with you. HARISH/PETEY Voice ID: [id number] Report ID: [id number]
--- NOTE | 2023-07-25 21:37 | PN ---
Date of Progress Note: 07/25/2023 Subjective: The patient was seen this morning for followup. He was lying in bed, not in distress. No new complaints or problems reported by the patient. Objective: General: Lying in bed, not in distress. Vital Signs: Reviewed. HEENT: Unremarkable except dressing present over posterior skull and the patient is still not allowi ng me to remove this dressing to examine it. Lungs: Clear to auscultation. Heart: Sounds normal. Abdomen: Soft. Bowel sounds normal. No guarding, rigidity, tenderness, distention. Extremities: No leg edema. Laboratory Data: White count 5.2, hemoglobin 9.8, platelets 211. Sodium 139, potassium 3.4, chlorid e 109, bicarb 23, BUN 24, creatinine 2.09, glucose 79. Liver function tests unremarkable. Wound cul ture pending. Impression: 1.Infected sebaceous cyst, scalp. 2.Chronic kidney disease stage 4. 3.Hypokalemia. 4.Anemia due to chronic kidney disease. 5.Hypertension. Plan: We will go ahead and continue current medication. Continue current empiric antibiotics. Severo ow up with general surgeon, Dr. Ramsey, who was consulted to help manage this infected sebaceous cy st to see if he needs any further incision and drainage or excision of this cyst or not. Continue current antihypertensive medication. I will see him tomorrow for severo reeves. BRADY/MODL Voice ID: [id number] Report ID: [id number]
[2023-07-25] MEDS: ATORVASTATIN 20 MG TAB PO SCH (22:11)
[2023-07-26] MEDS: VANCOMYCIN 1.25 GM in NA CHLORIDE 0.9% 250 ML IVPB SCH (12:52)
[2023-07-26 14:37] VITALS: BP 164/89; TEMP 98.8
--- NOTE | 2023-07-26 14:37 | PN ---
Date of Progress Note: 07/26/2023 Subjective: The patient was seen this morning for followup, lying in bed, not in distress. Denies a ny new complaints. Objective: Vital Signs: Reviewed. HEENT: Unremarkable except dressing present over the scalp and the patient is not allowing me to noel n touch that area. Heart: Sounds normal. Lungs: Clear to auscultation. Abdomen: Soft. Bowel sounds normal. No guarding, rigidity, tenderness, distention. Extremities: No leg edema. Laboratory Data: Wound culture is growing mixed skin gil. Urine culture is growing some bacteria, but understands that the patient has an indwelling [place] catheter, so it is always going to grow lucy e bacteria and that may not indicate necessarily to urinary tract infection problem. Impression: 1.Infected sebaceous cyst, scalp. 2.Hypokalemia. 3.Chronic kidney disease, stage 4. 4.Hypertension. Plan: We will go ahead and continue current medications, continue current antibiotic. I will commun icate with Dr. Ramsey to see what his plans are in terms of any bedside debridement or not. Otherw ise, plan is to discharge him to go home with dressing changes as per instruction from Dr. Braulio king s well as oral antibiotics and discharge can happen as early as today depending on what Dr. Ramsey suggests. BRADY/MODL Voice ID: [id number] Report ID: [id number]
--- NOTE | 2023-07-26 15:03 | EKG ---
Test Date: 2023-07-24 Test Time: 10:31:35 Oil Extractor: HIREN MEASUREMENT RESULTS: Intervals: Rate: 65 CO: 250 QRSD: 86 QT: 424 QTc: 440 [place]: P: 59 CO: 250 QRS: 74 T: 66 INTERPRETIVE STATEMENTS: Sinus rhythm with 1st degree AV block Otherwise normal ECG Compared to ECG 07/24/2023 10:28:57 First degree AV block now present Electronically Signed On 07-26-23 15:00:56 APPLIANCE ADJUSTER by Isak Ramirez
[2023-07-31] MEDS ORDERED: BISACODYL E.C. 5 MG TAB PO SCH (09:00)
== END 2023-07-26 15:40 | disposition home health service (06) | DRG 607 ==
LOC: ER 09:52 → ERHOLD 13:21 → 2ND 14:53
PROVIDERS: ADMIT Internal Medicine; ATTEND Internal Medicine
PROC: 0J900ZX Drainage of Scalp Subcutaneous Tissue and Fascia, Open Approach, Diagnostic (ICD-10-PCS; principal; 2023-07-24)
DX: L72.3 Sebaceous cyst (principal); L02.811 Cutaneous abscess of head [any part, except face]; L03.811 Cellulitis of head [any part, except face]; N18.4 Chronic kidney disease, stage 4 (severe); K86.2 Cyst of pancreas; I12.9 Hypertensive chronic kidney disease with stage 1 through stage 4 chronic kidney disease, or unspecified chronic kidney disease; E11.22 Type 2 diabetes mellitus with diabetic chronic kidney disease; D63.1 Anemia in chronic kidney disease; E87.6 Hypokalemia; I25.10 Atherosclerotic heart disease of native coronary artery without angina pectoris; N40.1 Benign prostatic hyperplasia with lower urinary tract symptoms; R33.9 Retention of urine, unspecified; M15.9 Polyosteoarthritis, unspecified; E78.5 Hyperlipidemia, unspecified; R60.1 Generalized edema; R53.81 Other malaise; E78.00 Pure hypercholesterolemia, unspecified; J30.9 Allergic rhinitis, unspecified; Z66 Do not resuscitate; Z86.73 Personal history of transient ischemic attack (TIA), and cerebral infarction without residual deficits; Z82.49 Family history of ischemic heart disease and other diseases of the circulatory system
CPT/HCPCS: 36415; 70450; 71250; 74176; 80048; 80053; 80076; 80202; 81003; 83735; 83880; 84484; 85025; 87070; 87077; 87086; 87088; 87186; 87205; 93005; 96365; 96366; 96368; 99285; J0696; J1644; J2001; J7050

== ENCOUNTER → 2023-08-02 | Emergency (ER) | payer OTHER ==
[2023-08-02 15:24] LABS: Absolute Lymphocytes (CBC) 1.1 K/uL (0.7-4.9); Hematocrit 34.2 % (39.6-49.0); Lymphocytes % 20.9 % (15.3-44.8); MCV 78.4 fL (80-100); MPV 6.8 fL (7.6-11.3); Platelets 228 thou/uL (152-406); RBC Red Blood Cell Count 4.36 M/uL (4.33-5.43)
[2023-08-02 15:51] LABS: Albumin 2.3 g/dL (3.4-5.0); Bilirubin Direct 0.2 mg/dL (0-0.2); Bilirubin Indirect, Calculated 0.4 mg/dL (0.2-0.8); Bilirubin Total 0.6 mg/dL (0.2-1.0); Potassium 3.8 mEq/L (3.5-5.1); Troponin High Sensitivity 35.6 pg/mL (<58.9)
--- NOTE | 2023-08-02 15:51 | RAD REPORT ---
EXAM DESCRIPTION: US - Extremity Venous Uni Ltd - 08/02/2023 3:29 pm CLINICAL HISTORY: Swelling COMPARISON: None. TECHNIQUE: Real-time sonographic evaluation of the right lower extremity deep venous system was perf ormed. FINDINGS: Normal compressibility, flow augmentation, phasic flow and spontaneous flow is identified in the right lower extremity deep venous system. No intraluminal filling defects seen. IMPRESSION: No DVT in the right lower extremity.
--- NOTE | 2023-08-02 15:58 | RAD REPORT ---
EXAM DESCRIPTION: RAD - Foot Right 3 View - 08/02/2023 3:02 pm CLINICAL HISTORY: SWELLING COMPARISON: No comparisons TECHNIQUE: Right foot, 3 views. FINDINGS: No fracture, dislocation or periosteal reaction. Degenerative changes at the midfoot with subchondral cystic changes. Pronounced soft tissue swelling most notably at the dorsal. Vascular calcifications. IMPRESSION: Pronounced soft tissue swelling as above, without evidence of acute osseous abnormality.
--- NOTE | 2023-08-02 16:35 | EDPHYS ---
[facility] Name: Donal Ramirez Age: 88 yrs Sex: Male : 1935 Arrival Date: 08/02/2023 Time: 14:17 Bed 17 Private MD: Monalisa Byrne C ED Physician Hernan Razo HPI: 08/02 14:38 This 88 yrs old Black Male presents to ER via Wheelchair with complaints of Rash, Foot rn Swelling. 15:12 The patient presents with swelling. The complaints affect the right foot. Onset: The rn symptoms/episode began/occurred at an unknown time. Modifying factors: The symptoms are alleviated by nothing, the symptoms are aggravated by nothing. Severity of symptoms: At their worst the symptoms were moderate, in the emergency department the symptoms are unchanged. The patient has experienced similar episodes in the past. Patient recently admitted to hospital under Dr. Byrne. Discharged home a few days ago. Family brings him back due to recurrence of right foot swelling. No chest pain or shortness of breath. No fever.. 15:13 Sent by PCP to rule out blood clot. rn Historical: - Allergies: 14:26 No Known Drug Allergies; ll1 - PMHx: 14:26 BPH; coronary atherosclerosis; CVA; diabetes mellitus; Hypercholesterolemia; ll1 Hypertension; kidney disease; - Immunization history:: Adult Immunizations up to date. - Social history:: Smoking status: Patient denies any tobacco usage or history of. - Family history:: not pertinent. - Hospitalizations: : No recent hospitalization is reported. ROS: 15:13 Constitutional: Negative for fever, chills, and weight loss, Cardiovascular: Negative rn for chest pain, palpitations Respiratory: Negative for shortness of breath, cough, wheezing, and pleuritic chest pain, Abdomen/GI: Negative for abdominal pain, nausea, vomiting, diarrhea, and constipation, MS/Extremity: Positive for swelling to right foot Skin: Negative for injury, rash, and discoloration, Neuro: Negative for headache, weakness, numbness, tingling, and seizure, Exam: 15:13 Constitutional: This is a well developed, well nourished patient who is awake, alert, rn and in no acute distress. Cardiovascular: Regular rate and rhythm. No pulse deficits. Respiratory: No increased work of breathing, no retractions or nasal flaring. MS/ Extremity: Pulses equal, no cyanosis. Pitting edema to bilateral feet, right worse than left. Shallow pressure ulcers to right heel. No evidence of infection. No warmth. Neuro: Awake and alert, GCS 15 16:43 ECG was reviewed by the Attending Physician. rn Vital Signs: 14:26 BP 155 / 87; Pulse 81; Resp 17; Temp 97.3; Pulse Ox 99% ; Weight 58.97 kg; Height 6 ft. ll1 0 in. ; Pain 0/10; 15:44 BP 127 / 87; Pulse 80; Resp 16; Pulse Ox 98% on R/A; mb9 14:26 Body Mass Index 17.63 (58.97 kg, 182.88 cm) ll1 14:26 Pain Scale: Adult ll1 MDM: 14:20 Patient medically screened. rn 16:32 Differential diagnosis: sprain, arthritis, gout, cellulitis. Differential diagnosis: rn DVT. Data reviewed: vital signs, nurses notes. Care significantly affected by the following chronic conditions: Diabetes, Hypertension, CVA. Counseling: I had a detailed discussion with the patient and/or guardian regarding the historical points, exam findings, and any diagnostic results supporting the discharge/admit diagnosis, lab results, radiology results, the need for outpatient follow up, to return to the emergency department if symptoms worsen or persist or if there are any questions or concerns that arise at home. Special discussion: I discussed with the patient/guardian in detail that at this point there is no indication for admission to the hospital. It is understood, however, that if the symptoms persist or worsen the patient needs to return immediately for re-evaluation. Based on the history and exam findings, there is no indication for further emergent testing or inpatient evaluation. I discussed with the patient/guardian the need to see the primary care provider for further evaluation of the symptoms. ED course: No acute findings or changes in workup compared to recent hospitalization. Ultrasound negative for DVT. Consulted with his PCP Dr. Byrne who believes patient is okay to be discharged home. Wants daughter to call on Saturday and he will set up for local wound care clinic. Will discharge home with return precautions.. 08/02 14:39 Order name: Basic Metabolic Panel; Complete Time: 15:53 rn 08/02 14:39 Order name: CBC with Diff; Complete Time: 15:53 rn 08/02 14:39 Order name: LFT's; Complete Time: 15:53 rn 08/02 14:39 Order name: NT PRO-BNP; Complete Time: 15:53 rn 08/02 14:39 Order name: Troponin HS; Complete Time: 15:53 rn 08/02 14:39 Order name: Extremity Venous Uni Ltd US; Complete Time: 15:53 rn 08/02 14:39 Order name: XRAY Foot RIGHT 3 View; Complete Time: 16:06 rn 08/02 14:39 Order name: EKG; Complete Time: 14:40 rn 08/02 14:39 Order name: Cardiac monitoring; Complete Time: 14:40 rn 08/02 14:39 Order name: EKG - Nurse/Tech; Complete Time: 14:55 rn 08/02 14:39 Order name: IV Saline Lock; Complete Time: 15:04 rn 08/02 14:39 Order name: Labs collected and sent; Complete Time: 15:04 rn 08/02 14:39 Order name: O2 Per Protocol; Complete Time: 14:40 rn 08/02 14:39 Order name: O2 Sat Monitoring; Complete Time: 14:40 rn EC:43 Rate is 73 beats/min. Rhythm is regular. QRS [place] is Normal. [place] interval is prolonged rn at 244 msec. QRS interval is normal. QT interval is normal. No Q waves. T waves are Normal. No ST changes noted. Clinical impression: 1st degree heart block. Interpreted by me. Reviewed by me. Administered Medications: No medications were administered Disposition Summary: 08/02/23 16:35 Discharge Ordered Notes: Location: Home rn Problem: an ongoing problem rn Symptoms: are unchanged rn Condition: Stable rn Diagnosis - Localized edema rn Followup: rn - With: Monalisa Byrne MD - When: 2 - 3 days - Reason: Recheck today's complaints, Continuance of care, Re-evaluation by your physician Discharge Instructions: - Discharge Summary Sheet rn - Edema rn Forms: - Medication Reconciliation Form rn - Thank You Letter rn - Antibiotic internal revenue agent - Prescription Opioid Use rn - Patient Portal Instructions rn - Leadership Thank You Letter rn Signatures: Dispatcher [employer] Hernan Herman MD MD rn Lewis, Lynsay, RN RN ll1
--- NOTE | 2023-08-02 16:35 | ER ---
Nurse's Notes [facility] Name[facility] Donal [facility] Age: 88 yrs Sex: Male : 1935 Arrival Date: 08/02/2023 Time: 14:17 Bed 17 Private MD: Monalisa Byrne C Diagnosis: Localized edema Presentation: 08/02 14:26 Chief complaint: Patient states: R foot swelling for [address] Byrne to r/o ll1 blood clot. Rash to abdominal area for 1 day. No fevers. Coronavirus screen: Vaccine status: Patient reports receiving the 1st dose of the Covid vaccine. Client denies travel out of the [place] in the last 14 days. At this time, the client does not indicate any symptoms associated with coronavirus-19. Ebola Screen: Patient denies travel to an Ebola-affected area in the 21 days before illness onset. Initial Sepsis Screen: Does the patient meet any 2 criteria? No. Patient's initial sepsis screen is negative. Does the patient have a suspected source of infection? No. Patient's initial sepsis screen is negative. Risk Assessment: Do you want to hurt yourself or someone else? Patient reports no desire to harm self or others. Onset of symptoms was August 01, 2023. 14:26 Method Of Arrival: Wheelchair ll1 14:26 Acuity: ERICH 3 ll1 Historical: - Allergies: 14:26 No Known Drug Allergies; ll1 - PMHx: 14:26 BPH; coronary atherosclerosis; CVA; diabetes mellitus; Hypercholesterolemia; ll1 Hypertension; kidney disease; - Immunization history:: Adult Immunizations up to date. - Social history:: Smoking status: Patient denies any tobacco usage or history of. - Family history:: not pertinent. - Hospitalizations: : No recent hospitalization is reported. Screenin:39 [facility] ED Fall Risk Assessment (Adult) History of falling in the last 3 months, mb9 including since admission No falls in past 3 months (0 pts) Confusion or Disorientation No (0 pts) Intoxicated or Sedated No (0 pts) Impaired Gait No (0 pts) Mobility Assist Device Used No (0 pt) Altered Elimination No (0 pt) Score/Fall Risk Level 0 - 2 = Low Risk Oriented to surroundings, Maintained a safe environment, Educated pt \T\ family on fall prevention, incl call for assistance when getting out of bed. Abuse screen: Denies threats or abuse. Nutritional screening: No deficits noted. Tuberculosis screening: No symptoms or risk factors identified. Assessment: 14:53 General: Appears in no apparent distress. Behavior is calm, cooperative. Pain: Denies mb9 pain. Neuro: [place] Agitation-Sedation Scale (RASS): 0 - Alert and Calm Level of Consciousness is awake, alert, obeys commands, Oriented to person, place, time, situation, Appropriate for age. Cardiovascular: Patient's skin is warm and dry. Respiratory: Airway is patent Respiratory effort is even, unlabored, Respiratory pattern is regular, symmetrical. GI: Abdomen is flat, non-distended. : [place] in place. EENT: No signs and/or symptoms were reported regarding the EENT system. Derm: Rash noted that is red, raised, on chest, abdomen, right arm, left arm, right leg and left leg. Musculoskeletal: Range of motion: intact in all extremities, Swelling present in right foot. 15:14 Reassessment: ultrasound at bedside. mb9 Vital Signs: 14:26 BP 155 / 87; Pulse 81; Resp 17; Temp 97.3; Pulse Ox 99% ; Weight 58.97 kg; Height 6 ft. ll1 0 in. ; Pain 0/10; 15:44 BP 127 / 87; Pulse 80; Resp 16; Pulse Ox 98% on R/A; mb9 14:26 Body Mass Index 17.63 (58.97 kg, 182.88 cm) ll1 14:26 Pain Scale: Adult ll1 ED Course: 14:18 Patient arrived in ED. rg4 14:18 Monalisa Byrne MD is Private Physician. rg4 14:20 Hernan Razo MD is Attending Physician. rn 14:28 Triage completed. ll1 14:28 Arm band placed on Patient placed in an exam room, on a stretcher. ll1 14:39 Griselda Goldstein, LASHONDA is Primary Nurse. mb9 14:39 Placed in gown. Bed in low position. Call light in reach. Side rails up X 1. Client mb9 placed on continuous cardiac and pulse oximetry monitoring. NIBP monitoring applied. 14:53 EKG done, by ED staff, reviewed by Hernan Razo MD. mb9 15:03 XRAY Foot RIGHT 3 View In Process Unspecified. EDMS 15:10 Inserted saline lock: 22 gauge in right antecubital area, using aseptic technique. as6 Blood collected. 15:31 Extremity Venous Uni Ltd US In Process Unspecified. EDMS 16:35 Monalisa Byrne MD is Referral Physician. rn 17:01 Provided Education on: followup. hb 17:01 No provider procedures requiring assistance completed. IV discontinued, intact, hb bleeding controlled, No redness/swelling at site. Pressure dressing applied. Administered Medications: No medications were administered Medication: 14:39 VIS not applicable for this client. mb9 Outcome: 16:35 Discharge ordered by . rn 17:01 Discharged to home via wheelchair, with family, hb 17:01 Condition: stable 17:01 Discharge instructions given to patient, family, Instructed on discharge instructions, follow up and referral plans. Demonstrated understanding of instructions, follow-up care, 17:05 Patient left the ED. mb9 Signatures: Dispatcher [employer] EDMS Hernan Razo MD MD rn Baxter, Heather, RN RN Leonor Olvera rg4 Nena Aburto RN RN ll1 Joshua Hightower RN RN as6 Griselda Goldstein RN RN mb9 Corrections: (The following items were deleted from the chart) 15:44 14:53 : No signs and/or symptoms were reported regarding the genitourinary system. [id number]
[2023-08-02 17:31] VITALS: BP 127/87; TEMP 97.3; O2SAT 98
--- NOTE | 2023-08-05 14:37 | EKG ---
Test Date: 2023-08-02 Test Time: 14:48:05 Penciller: MB MEASUREMENT RESULTS: Intervals: Rate: 73 WI: 274 QRSD: 66 QT: 404 QTc: 445 [place]: P: 71 WI: 274 QRS: 15 T: 68 INTERPRETIVE STATEMENTS: Sinus rhythm with 1st degree AV block Anterolateral infarct, age undetermined Abnormal ECG Compared to ECG 07/24/2023 10:31:35 Myocardial infarct finding now present Electronically Signed On 08-05-23 14:29:37 CONTROL PANEL OPERATOR by Isak Ramirez
== END ==
LOC: ER 14:17
DX: R60.0 Localized edema (principal); R21 Rash and other nonspecific skin eruption
CPT/HCPCS: 36415; 80048; 80076; 83880; 84484; 85025; 93005; 93971

== ENCOUNTER 2023-09-02 07:18 | Day surgery (SDC) | payer OTHER ==
[2023-09-02] MEDS ORDERED: CEFAZOLIN SODIUM 1 GM/VIAL ONE (07:59)
[2023-09-02] MEDS: Ringers Lactate 1,000 ML IV ONE (08:08)
[2023-09-02 08:32] VITALS: O2SAT 100
[2023-09-02 08:38] LABS: Absolute Eosinophils 0.1 K/uL (0-0.5); Absolute Lymphocytes (CBC) 1.1 K/uL (0.7-4.9); Absolute Monocytes 0.3 K/uL (0.1-1.3); Absolute Neutrophil 2.9 K/uL (1.8-8.0); Basophils % 0.8 % (0-1.3); Eosinophils % 1.6 % (0-4.4); Hematocrit 36.3 % (39.6-49.0); Hemoglobin 11.6 g/dL (13.6-17.9); Lymphocytes % 25.6 % (15.3-44.8); MCH 25.3 pg (27.0-35.0); MCHC 31.9 g/dL (32.0-36.0); MCV 79.3 fL (80-100); Monocytes % 6.5 % (3.3-12.3); Neutrophils % 65.5 % (41.7-73.7); Platelets 208 thou/uL (152-406); RBC Red Blood Cell Count 4.57 M/uL (4.33-5.43); Red Cell Distribution Width 20.2 % (12.1-15.2)
[2023-09-02] MEDS ORDERED: BUPIVACAINE 0.5% PF 10 ML VIAL ONE (08:38)
[2023-09-02 09:00] LABS: Albumin 2.2 g/dL (3.4-5.0); Albumin/Globulin Ratio 0.5 (1.1-1.8); Anion Gap 6.5 mEq/L (5.0-15.0); Bilirubin Total 0.5 mg/dL (0.2-1.0); Globulin 4.4 g/dL (2.3-3.5); Potassium 3.5 mEq/L (3.5-5.1); Prealbumin 6.8 mg/dL (20-40); Protein, Total 6.6 g/dL (6.4-8.2)
[2023-09-02] MEDS ORDERED: propofoL 200 MG/20 ML VIAL IV ONE (09:22)
[2023-09-02] MEDS ORDERED: LIDOCAINE 1% MPF 5 ML VIAL ONE (09:22)
[2023-09-02 09:36] LABS: Anisocytosis 1+; Blood Morphology Comment NOTED (NOT SEEN); Platelet Estimate ADEQ; Platelets Clumped FEW; White Blood Cell Scan OK (OK)
[2023-09-02] MEDS ORDERED: EPHEDRINE SULF 50 MG/ML VIAL ONE ×2 (09:40→10:20)
[2023-09-02] MEDS ORDERED: Phenylephrine HCl 10 MG/ML 1 ML VIAL ONE (09:47)
[2023-09-02] MEDS ORDERED: ONDANSETRON 4 MG/2 ML VIAL ONE (09:48)
[2023-09-02] MEDS ORDERED: FENTANYL CITR 100 MCG/2 ML ONE (09:49)
--- NOTE | 2023-09-02 09:53 | P.BOP ---
Preoperative diagnosis: bilateral necrotic hip pressure ulcers Postoperative diagnosis: same Primary procedure: 1. Excisional subQ debridment Left hip necrotic hip pressure ulcer [id number] Secondary procedure: 2. Excisional subQ debridment Right hip necrotic hip pressure ulcer 5x5cm Estimated blood loss: <10cc Findings: bilateral necrotic hip pressure ulcers Anesthesia: General Complications: None Transferred to: Recovery Room Condition: Good
[2023-09-02] MEDS ORDERED: NEOSTIGMINE 1 MG/ML -10 ML VIAL ONE ×2 (10:22)
[2023-09-02] MEDS ORDERED: NALOXONE HCL 2 MG/2 ML VIAL ONE (10:28)
--- NOTE | 2023-09-02 14:14 | EKG ---
Test Date: 2023-09-02 Test Time: 07:53:16 City Supervisor: DOMENICA MEASUREMENT RESULTS: Intervals: Rate: 80 NV: 220 QRSD: 76 QT: 402 QTc: 463 [place]: P: 65 NV: 220 QRS: -32 T: 63 INTERPRETIVE STATEMENTS: Sinus rhythm with 1st degree AV block Left axis deviation Low voltage QRS Cannot rule out Inferior infarct, age undetermined Cannot rule out Anteroseptal infarct, age undetermined Abnormal ECG Compared to ECG 08/02/2023 14:48:05 Left-axis deviation now present Low QRS voltage now present Myocardial infarct finding still present Electronically Signed On 09-02-23 14:13:13 CDT by Isak Ramirez
[2023-09-02 14:25] VITALS: BP 113/76; TEMP 96.9
--- NOTE | 2023-09-02 20:33 | DS ---
Date of Discharge: 09/02/2023 Diagnosis: Bilateral necrotic hip pressure ulcer. Procedure: Excisional subcutaneous debridement of bilateral hip ulcers. Condition: Stable. Disposition: Home. Activity: As tolerated. No heavy lifting. Plan: Follow up in my office in 1 week. Call for appointment at [phone], or even better, I believe , this patient should [facility] Saturday, if possible, on his regular clinic. HARISH/PETEY Voice ID: [id number] Report ID: [id number]
--- NOTE | 2023-09-02 20:33 | OP ---
Date of Procedure: 09/02/2023 Surgeon: Neeraj Ramsey MD Preoperative Diagnosis: Bilateral necrotic hip pressure ulcers. Postoperative Diagnosis: Bilateral necrotic hip pressure ulcers. Procedures: 1.Excisional subcutaneous debridement of left hip necrotic hip pressure ulcer 13 x 10 cm. 2.Excisional subcutaneous debridement of right hip necrotic hip pressure ulcer 5 x 5 cm. Findings: Bilateral necrotic hip pressure ulcer. Anesthesia: General plus local. Indications For Procedure: This is the case of an 88-year-old patient who came to us with large necr otic ulcers on bilateral hip region. The [facility] is [facility], but this is a large ulcer that person could not take it with just local anesthetic. He wants it to be under anesth esia. So the benefits, alternatives, and risks of excision fully explained of bilateral hip ulcers w hich include, but not limited to, infection, bleeding, damage to adjacent structures, anesthesia comp lication, recurrence, [place], and even . He also understands this may not relieve any symptoms. He might need more than one surgical intervention. He will require wound care and follow up in the [facility]. We also identified several opportunities with me and the family and the person to how to diminish the chance of this ulcers to form. We identified offloading, nutrition, control of medical issues, and frequent turning. Description Of The Operation: The patient was brought to the operating room, placed in supine positi on. Anesthesia was done without complications. Since we have bilateral hip, we have to do one side first and then the other side. So we started with a right side first which is the smallest of the tw o. We placed the patient in lateral decubitus position with proper protection. Right hip was preppe d and draped in sterile fashion. A time-out was called. Local anesthesia was applied followed by sh leonarda excision of this necrotic tissue all the way down to deep subcutaneous tissue and fat area. The patient tolerated the procedure well. No bone or tendon was exposed. Hemostasis was obtained with p ressure and the area was covered with wet-to-dry dressing. Sponge counts and instrument counts were correct. At that moment, we scrubbed everything out and re-scrubbed him again on the opposite side, after properly positioning the patient. Once the patient was prepped and draped in a sterile fashion , a time-out was called again. We proceeded to then use a knife to get this necrotic tissue present. Now, this is large, it is about 13 x [address] down to fascia of the muscle, does not have the bone exposed. The sponge counts and instrument counts were correct. Hemostasis was obtained and the area was covered with wet-to-dry dressing. Patient tolerated the procedure well. Patient sent to Recovery in stable condition. HARISH/PETEY Voice ID: [id number] Report ID: [id number]
== END 2023-09-02 12:00 | disposition home or self-care (01) ==
LOC: OR 07:18
PROVIDERS: ATTEND Surgery
PROC: 0JBL0ZZ Excision of Right Upper Leg Subcutaneous Tissue and Fascia, Open Approach (ICD-10-PCS; 2023-09-02)
PROC: 0JBM0ZZ Excision of Left Upper Leg Subcutaneous Tissue and Fascia, Open Approach (ICD-10-PCS; principal; 2023-09-02 09:45)
DX: L89.213 Pressure ulcer of right hip, stage 3 (principal); L89.223 Pressure ulcer of left hip, stage 3; I10 Essential (primary) hypertension; Z96.649 Presence of unspecified artificial hip joint
CPT/HCPCS: 93005; 85025; 36415; 88304; 84134; 80053; 11042; 11045 ×8; J2704; J2310; J2001; J2371; J3010; J2405; J7120; J0690; J2710

== ENCOUNTER 2023-09-24 09:52 | Inpatient (IN) | payer OTHER ==
[2023-09-24] MEDS ORDERED: NA CHLORIDE 0.9% 250 ML ONE (10:36)
[2023-09-24] MEDS ORDERED: VANCOMYCIN 1 GM/VIAL ONE (10:36)
[2023-09-24] MEDS ORDERED: NA CHLORIDE 0.9% 1,000 ML ONE ×3 (10:37→14:05)
[2023-09-24] MEDS ORDERED: NA CHLORIDE 0.9% 50 ML ONE (10:37)
[2023-09-24] MEDS ORDERED: PIPERACIL/TAZO 3.375 GM VIAL IV ONE (10:37)
[2023-09-24 10:43] LABS: Absolute Lymphocytes (CBC) 0.5 K/uL (0.7-4.9); Absolute Monocytes 0.2 K/uL (0.1-1.3); Absolute Neutrophil 2.2 K/uL (1.8-8.0); Basophils % 0.5 % (0-1.3); Eosinophils % 0.8 % (0-4.4); Hematocrit 28.7 % (39.6-49.0); Hemoglobin 8.9 g/dL (13.6-17.9); Lymphocytes % 18.3 % (15.3-44.8); MCH 24.8 pg (27.0-35.0); MCHC 31.1 g/dL (32.0-36.0); MCV 79.7 fL (80-100); MPV 7.8 fL (7.6-11.3); Monocytes % 5.9 % (3.3-12.3); Neutrophils % 74.5 % (41.7-73.7); Platelets 215 thou/uL (152-406)
[2023-09-24 10:56] LABS: PT Prothrombin Time 14.6 SECONDS (9.5-12.5); PTT, Activated Partial Thromb 32.2 SECONDS (24.3-36.9); Protime INR 1.34
[2023-09-24 11:07] LABS: Albumin 1.5 g/dL (3.4-5.0); Albumin/Globulin Ratio 0.3 (1.1-1.8); Anion Gap 5.5 mEq/L (5.0-15.0); Bilirubin Total 0.5 mg/dL (0.2-1.0); Globulin 4.5 g/dL (2.3-3.5); Potassium 4.5 mEq/L (3.5-5.1)
[2023-09-24] MEDS ORDERED: ONDANSETRON 4 MG/2 ML VIAL IV PRN (11:29)
[2023-09-24] MEDS ORDERED: ACETAMINOPHEN 500 MG TAB PO PRN (11:29)
--- NOTE | 2023-09-24 11:29 | ER ---
Nurse's Notes [facility] Name: Donal Ramirez Age: 88 yrs Sex: Male : 1935 Arrival Date: 09/24/2023 Time: 09:52 Bed 7 Private MD: Diagnosis: Hip Wound Presentation: 09/23 10:00 Initial Sepsis Screen: Does the patient meet any 2 criteria? No. Patient's initial kn sepsis screen is negative. Does the patient have a suspected source of infection?. Risk Assessment: Do you want to hurt yourself or someone else? Patient reports no desire to harm self or others. Onset of symptoms. 10:00 Acuity: ERICH 3 kn 10:00 Ebola Screen: Patient negative for fever greater than or equal to 101.5 degrees db Fahrenheit, and additional compatible Ebola Virus Disease symptoms Patient denies exposure to infectious person. Patient denies travel to an Ebola-affected area in the 21 days before illness onset. No symptoms or risks identified at this time. 10:04 Chief complaint: Patient's son or daughter states: pt arrived by EMS from wound care, kn MD at facility request pt to come to ED for further eval of wound to R hip/L hip and L leg. resp even and unlabored, pt is awake, at baseline. resp even and unlabored, pt placed on bp cuff and pulse, vss, new orders noted and implemented, will continue to monitor pt. family art bedside. Coronavirus screen: Vaccine status: Patient reports receiving the 1st dose of the Covid vaccine. J\T\J Client denies travel out of the [place] in the last 14 days. 10:04 Method Of Arrival: EMS: [facility] Triage Assessment: 10:15 General: Appears in no apparent distress. General: Behavior is calm, quiet. Pain: Noted kn to be moaning, resistant to movement. Historical: - Allergies: 10:12 No Known Allergies; kn - Home Meds: 10:12 amlodipine oral [Active]; kn 10:15 carvedilol oral [Active]; Clonidine Oral [Active]; Simvastatin Oral [Active]; kn tamsulosin oral [Active]; Hydralazine Oral [Active]; loratadine oral [Active]; finasteride oral [Active]; Iron CR Oral [Active]; Bisacodyl Oral [Active]; - PMHx: 10:12 BPH; CVA; coronary atherosclerosis; diabetes mellitus; Hypercholesterolemia; kidney kn disease; Hypertension; - Immunization history:: Client reports receiving the 1st dose of the Covid vaccine, Client reports receiving the Burton \T\ Burton single-dose vaccine. - Infectious Disease History:: Denies. - Social history:: Smoking status: Patient denies any tobacco usage or history of. Screenin:57 [facility] ED Fall Risk Assessment (Adult) History of falling in the last 3 months, nj1 including since admission No falls in past 3 months (0 pts) Confusion or Disorientation Yes (5 pts) Intoxicated or Sedated No (0 pts) Impaired Gait Yes (1 pt) Mobility Assist Device Used No (0 pt) Altered Elimination Yes (1 pt) Score/Fall Risk Level 3 or more points = High Risk Oriented to surroundings, Maintained a safe environment, Educated pt \T\ family on fall prevention, incl call for assistance when getting out of bed, Assessed \T\ reinforced patient's understanding of fall precautions, Remained w/in arm's length of patient and in sight while toileting, Utilized family, sitter, or virtual boardinghouse keeper as indicated. Abuse screen: Denies threats or abuse. Denies injuries from another. Nutritional screening: Cachectic. Tuberculosis screening: No symptoms or risk factors identified. Assessment: 10:00 General: Appears in no apparent distress. malnourished, cachectic, Behavior is calm, nj1 flat. Pain: Unable to use pain scale. Patient is disoriented. Does not appear to understand pain scale. 10:00 Neuro: Level of Consciousness is awake, alert, confused, Oriented to Unable to assess, nj1 cannot understand his speech.. Cardiovascular: Patient's skin is warm and dry. Respiratory: Airway is patent Respiratory effort is even, unlabored. Derm: Wound noted right chan Decubitus located on right left hip(s) is unstageable. 10:00 : Mayfield in place to gravity drainage. nj1 11:11 Reassessment: Patient appears in no apparent distress at this time. Patient and/or nj1 family updated on plan of care and expected duration. Pain level reassessed. 12:00 Reassessment: Patient appears in no apparent distress at this time. No changes from nj1 previously documented assessment. 13:00 Reassessment: Patient appears in no apparent distress at this time. nj1 Vital Signs: 10:00 BP 102 / 68; Pulse 73; Resp 18; Temp 97; Pulse Ox 100% ; kn 10:56 BP 112 / 76; Pulse 71; Resp 18; Pulse Ox 100% on R/A; nj1 11:59 BP 154 / 89; Pulse 74; Resp 18; Temp 97(TE); Pulse Ox 100% ; nj1 13:00 BP 131 / 82; Pulse 75; Resp 15; Pulse Ox 100% ; nj1 14:00 BP 110 / 72; Pulse 76; Resp 16; Temp 97.2(TE); Pulse Ox 100% ; nj1 ED Course: 09:55 Patient arrived in ED. ec2 09:55 Kurt Reid MD is Attending Physician. ec2 10:00 Patient has correct armband on for positive identification. Bed in low position. Call nj1 light in reach. Side rails up X 1. Adult w/ patient. Provided Education on: call light, fall precautions. 10:00 Client placed on continuous cardiac and pulse oximetry monitoring. NIBP monitoring nj1 applied. air sampling and monitoring on. 10:11 Triage completed. kn 10:15 Arm band placed on right wrist. kn 10:20 Inserted saline lock: 20 gauge in right upper arm, using aseptic technique. Blood nj1 collected. Ultrasound guided. Catheter tip well visualized within vasculature during placement. 10:36 Wen Hoffman, RN is Primary Nurse. nj1 11:[address] via stretcher. kn 11:28 Monalisa Byrne MD is Hospitalizing Provider. ec2 11:29 CT Pelvis w cont In Process Unspecified. EDMS 15:45 Wound care: to decubitus located on hip, left was dressed with Wet 4x4's, covered by nj1 dry 4X4's per Dr Bansal instructions.. 15:51 Repositioned patient. Brief changed. Gown changed. nj1 15:51 Warm blanket given. nj1 16:48 No provider procedures requiring assistance completed. Patient admitted, IV remains in db place. Administered Medications: 10:52 Drug: Piperacillin-Tazobactam IVPB 3.375 grams IVPB once over 60 mins; (mix in NS 100 kn mL) Route: IVPB; Infused Over: 60 mins; Site: right upper arm; Delivery: Primary tubing; 11:52 Follow up: IV Status: Completed infusion; IV Intake: 100ml nj1 10:53 Drug: NS 0.9% IV 1000 ml IV at 1 bolus Per protocol; 1000 mL bolus Route: IV; Rate: 1 kn bolus; Site: right upper arm; Delivery: Primary tubing; 11:59 Follow up: IV Status: Completed infusion; IV Intake: 1000ml nj1 11:50 Drug: NS 0.9% IV 1000 ml IV at 1 bolus Per protocol; 1000 mL bolus Route: IV; Rate: 1 nj1 bolus; Site: right upper arm; 14:00 Follow up: Response: No adverse reaction; IV Status: Completed infusion; IV Intake: nj1 1000ml 11:53 Drug: vancoMYCIN IVPB 1 grams IVPB once over 2 hrs Route: IVPB; Infused Over: 2 hrs; nj1 Site: right upper arm; 13:30 Follow up: Response: No adverse reaction; IV Status: Completed infusion; IV Intake: nj1 250ml Medication: 16:48 VIS not applicable for this client. db Intake: 11:52 IV: 100ml; Total: 100ml. nj1 11:59 IV: 1000ml; Total: 1100ml. nj1 13:30 IV: 250ml; Total: 1350ml. nj1 14:00 IV: 1000ml; Total: 2350ml. nj1 Outcome: 11:28 Decision to Hospitalize by Provider. ec2 16:48 Admitted to ER Hold. Please see [facility] for further documentation. db 16:48 Condition: stable 16:48 Instructed on the need for admit, 16:49 Patient left the ED. db Signatures: Dispatcher [employer] Lenora Lo RN RN db Jaco, Norma, RN RN nj1 Kurt Reid MD MD ec2 HOLLAND BERGER RN RN kn Corrections: (The following items were deleted from the chart) 11:58 10:00 : Mayfield in place to gravity drainage nj1 nj1 13:55 11:11 Reassessment: Patient appears in no apparent distress at this time. Patient nj1 and/or family updated on plan of care and expected duration. Pain level reassessed. Patient is alert, oriented x 3, equal unlabored respirations, skin warm/dry/pink. nj1 15:50 14:00 BP 110 / 72; Pulse 76bpm; Resp 16bpm; Pulse Ox 100%; nj1 nj1 16:03 15:51 Repositioned patient. Brief changed. nj1 nj1
--- NOTE | 2023-09-24 11:29 | EDPHYS ---
Physician Documentation [facility] Name: Donal Ramirez Age: 88 yrs Sex: Male : 1935 Arrival Date: 09/24/2023 Time: 09:52 Bed 7 Private MD: ED Physician Kurt Reid HPI: 09/23 10:00 This 88 yrs old Black Male presents to ER via Unassigned with complaints of hip wounds. ec2 10:00 Patient arrives today for evaluation of a wound to the left hip. Patient been having ec2 malodorous drainage, has been seen in wound clinic for this by Dr. Ramsey, Dr. Ramsey is recommended ED evaluation and admission for cleanout. Patient been having drainage, no fevers or chills, no nausea or vomiting. No systemic symptoms.. Historical: - Allergies: 10:12 No Known Allergies; kn - Home Meds: 10:12 amlodipine oral [Active]; kn 10:15 carvedilol oral [Active]; Clonidine Oral [Active]; Simvastatin Oral [Active]; kn tamsulosin oral [Active]; Hydralazine Oral [Active]; loratadine oral [Active]; finasteride oral [Active]; Iron CR Oral [Active]; Bisacodyl Oral [Active]; - PMHx: 10:12 BPH; CVA; coronary atherosclerosis; diabetes mellitus; Hypercholesterolemia; kidney kn disease; Hypertension; - Immunization history:: Client reports receiving the 1st dose of the Covid vaccine, Client reports receiving the Burton \T\ Burton single-dose vaccine. - Infectious Disease History:: Denies. - Social history:: Smoking status: Patient denies any tobacco usage or history of. ROS: 10:00 Constitutional: as per hpi ec2 Exam: 10:00 Constitutional: GEN: NAD Head: atraumatic Eyes: EOMI Ears: External ears are ec2 normal. CV: regular rate LUNGS: no respiratory distress ABD: non-distended SKIN: Left hip with drainage that is malodorous, no significant surrounding erythema appreciated. Right hip also with wound appreciated. MSK: no evidence of trauma NEURO: moves all extremities equally Vital Signs: 10:00 BP 102 / 68; Pulse 73; Resp 18; Temp 97; Pulse Ox 100% ; kn 10:56 BP 112 / 76; Pulse 71; Resp 18; Pulse Ox 100% on R/A; nj1 11:59 BP 154 / 89; Pulse 74; Resp 18; Temp 97(TE); Pulse Ox 100% ; nj1 13:00 BP 131 / 82; Pulse 75; Resp 15; Pulse Ox 100% ; nj1 14:00 BP 110 / 72; Pulse 76; Resp 16; Temp 97.2(TE); Pulse Ox 100% ; nj1 MDM: 09:55 Patient medically screened. ec2 10:00 Data reviewed: vital signs. ED course: Patient arrives today for evaluation of ec2 foul-smelling wounds. Emanation remarkable for skin findings above. Will obtain a septic workup, empirically treat with antibiotics, give crystalloid and further assess. Plan to admit. . 10:36 ED course: EKG independently reviewed and interpreted by me, significant artifact ec2 appreciated, no acute ST segment elevations, rate of 75.. 11:12 ED course: Metabolic profile shows appropriate electrolytes, GFR 40 with a diminished ec2 creatinine of 1.64. . 09/23 10:00 Order name: Blood Culture Adult (2) ec2 09/23 10:00 Order name: CBC with Diff; Complete Time: 11:00 ec2 09/23 10:00 Order name: CMP; Complete Time: 11:12 ec2 09/23 10:00 Order name: Lactate w/ 2H reflex if indic.; Complete Time: 11:22 ec2 09/23 10:00 Order name: Protime (+inr); Complete Time: 11:00 ec2 09/23 10:00 Order name: Ptt, Activated; Complete Time: 11:00 ec2 09/23 11:34 Order name: Urinalysis w/ reflexes EDMS 09/23 11:34 Order name: Basic Metabolic Panel EDMS 09/23 11:34 Order name: Basic Metabolic Panel EDMS 09/23 11:34 Order name: CBC with Automated Diff EDMS 09/23 11:34 Order name: CBC with Automated Diff EDMS 09/23 14:17 Order name: Lactate Sepsis 2 HR Follow-up; Complete Time: 14:18 EDMS 09/23 10:35 Order name: CT Pelvis w cont; Complete Time: 11:43 ec2 09/23 10:00 Order name: EKG; Complete Time: 10:00 ec2 09/23 10:00 Order name: Accucheck; Complete Time: 11:11 ec2 09/23 10:00 Order name: Cardiac monitoring; Complete Time: 10:36 ec2 09/23 10:00 Order name: EKG - Nurse/Tech; Complete Time: 10:36 ec2 09/23 10:00 Order name: IV Saline Lock - Large Bore; Complete Time: 10:36 ec2 09/23 10:00 Order name: Labs collected and sent; Complete Time: 10:36 ec2 09/23 10:00 Order name: O2 Per Protocol; Complete Time: 10:36 ec2 09/23 10:00 Order name: O2 Sat Monitoring; Complete Time: 10:36 ec2 09/23 10:00 Order name: Vital Signs; Complete Time: 10:36 ec2 Administered Medications: 10:52 Drug: Piperacillin-Tazobactam IVPB 3.375 grams IVPB once over 60 mins; (mix in NS 100 kn mL) Route: IVPB; Infused Over: 60 mins; Site: right upper arm; Delivery: Primary tubing; 11:52 Follow up: IV Status: Completed infusion; IV Intake: 100ml nj1 10:53 Drug: NS 0.9% IV 1000 ml IV at 1 bolus Per protocol; 1000 mL bolus Route: IV; Rate: 1 kn bolus; Site: right upper arm; Delivery: Primary tubing; 11:59 Follow up: IV Status: Completed infusion; IV Intake: 1000ml nj1 11:50 Drug: NS 0.9% IV 1000 ml IV at 1 bolus Per protocol; 1000 mL bolus Route: IV; Rate: 1 nj1 bolus; Site: right upper arm; 14:00 Follow up: Response: No adverse reaction; IV Status: Completed infusion; IV Intake: nj1 1000ml 11:53 Drug: vancoMYCIN IVPB 1 grams IVPB once over 2 hrs Route: IVPB; Infused Over: 2 hrs; nj1 Site: right upper arm; 13:30 Follow up: Response: No adverse reaction; IV Status: Completed infusion; IV Intake: nj1 250ml Disposition Summary: 09/24/23 11:28 Hospitalization Ordered Notes: Hospitalization Status: Inpatient Admission ec2 Provider: Monalisa Byrne Condition: Stable ec2 Problem: an acute exacerbation ec2 Symptoms: are unchanged ec2 Bed/Room Type: Standard ec2 Location: Telemetry/MedSurg (Inpatient)(09/24/23 15:37) ja1 Room Assignment: 417(09/24/23 15:37) ja Diagnosis - Hip Wound ec2 Forms: - Medication Reconciliation Form ec2 - SBAR form ec2 - Leadership Thank You Letter ec2 Signatures: Dispatcher [employer] EDMS Lucretia Davis bd John Paul Bell RN RN ja1 Lenora Prieto, RN RN db Wen Hoffman RN RN nj1 Kurt Reid MD MD ec2 HOLLAND BERGER RN RN kn Corrections: (The following items were deleted from the chart) 10:01 10:00 BLOOD CULTURE*+BA.LAB.BRZ ordered. EDMS EDMS 10:01 10:00 CBC+H.LAB.BRZ ordered. EDMS EDMS 10:01 10:00 COMPREHENSIVE METABOLIC PANEL+C.LAB.BRZ ordered. EDMS EDMS 10:01 10:00 LACTATE+C.LAB.BRZ ordered. EDMS EDMS 10:01 10:00 PROTIME (+INR)+COAG.LAB.BRZ ordered. EDMS EDMS 10:01 10:00 PTT, ACTIVATED+COAG.LAB.BRZ ordered. EDMS EDMS 13:21 11:28 Telemetry/MedSurg (Inpatient) ec2 bd 13:21 11:28 ec2 bd 15:37 13:21 BR ER HOLD bd ja1 15:37 13:21 ERHOLD- bd ja1
--- NOTE | 2023-09-24 11:42 | RAD REPORT ---
EXAM DESCRIPTION: CT - Pelvis W/Cont - 09/24/2023 11:27 am CLINICAL HISTORY: hip wounds Pain and swelling COMPARISON: No comparisons TECHNIQUE: All CT scans are performed using dose optimization technique as appropriate and may inclu de automated exposure control or mA/KV adjustment according to patient size. FINDINGS: Exam is very limited due to patient positioning clinical status. There is evidence of a si gnificant soft tissue wound lateral left hip region. There is a bony exposures is Marilu exposure o f the left greater trochanter in this region which would indicate osteomyelitis is present. A small a mount of soft tissue gas is seen adjacent to this region in the upper left leg. Right hip is not well evaluated due to streak artifact from total hip arthroplasty. No pelvic mass or hematoma seen moderate stool is retained throughout the colon. Symmetric sacroiliac joints are noted. Sacrum and coccygeal levels are preserved. IMPRESSION: Significant soft tissue ulceration adjacent to the lateral aspect of the left hip. The l eft greater trochanter is probably exposed through the skin were very nearly exposed through the skin which would be compatible with osteomyelitis. The right hip is poorly assessed related to significan t streak artifact from hardware in place.
[2023-09-24 13:12] VITALS: BMI 16.0
[2023-09-24] MEDS: NA CHLORIDE 0.9% 1,000 ML IV SCH ×2 (14:12→21:37)
[2023-09-24 14:36] LABS: Specific Gravity 1.021 (1.005-1.030); Sqamous Epithelial <5 /HPF (None Seen); Urine Bacteria Loaded /HPF (<20); Urine Bilirubin NEGATIVE (Negative); Urine Blood 2+ (Negative); Urine Clarity Extremely Turbid (Clear); Urine Color Light-Orange (Yellow); Urine Culture Reflex Order REFLEXED; Urine Glucose NEGATIVE (Negative); Urine Ketones NEGATIVE (Negative); Urine Microscopic Reflex YN ORDER UMIC; Urine Nitrite 2+ (Negative); Urine Protein 1+ (Negative); Urine Urobilinogen Normal (Normal); Urine WBC >50 /HPF (<5); Urine pH 5.5 (5.0-7.0)
[2023-09-24] MEDS: PIPER TAZO 3.375 GM in NA CHLORIDE 0.9% 100 ML IV SCH (20:04)
--- NOTE | 2023-09-24 22:43 | HP ---
Date of Admission: 09/24/2023 Chief Complaint: Decubitus ulcer. History Of Present Illness: This is an 88-year-old male patient who lives at home and [facility] for his decubitus ulcer on his hip area. Today, after duane hancock was evaluated by Dr. Ramsey [facility], he was referred to come to emergency [facility] because Dr. Ramsey was concerned about worsening of his left hip wound and after he was evaluated , he was admitted to the hospital. I was contacted by ER physician, details were discussed. The pat ient was started on Zosyn and vancomycin. I saw him this evening and the patient's daughter and son were present in the room. The patient is bed bound lately and family provides care at home. Has [facility] services in place with [facility]. His appetite is poor. He does not have any trouble swallowing, but he has very poor appetite and has lost a significant amount of weight la tely. Allergies: NO KNOWN ALLERGIES. Medications: Carvedilol 12.5 mg takes half a tablet 2 times a day, amlodipine 5 mg daily, aspirin 81 mg daily, clonidine 0.3 mg 3 times a day as needed for systolic blood pressure more than 140, ferrou s sulfate 325 mg daily, finasteride 5 mg daily, folic acid 1 mg daily, simvastatin 40 mg daily in the evening time, tamsulosin 0.4 mg daily 2 capsules daily. Review of Systems: Constitutional: Poor appetite and weight loss. Dermatology: As mentioned above. All other systems reviewed are negative. Past Medical History: Significant for stroke; allergic rhinitis; hypertension; hyperlipidemia; eli nary artery disease; chronic kidney disease, stage 3 to stage 4, benign prostatic hypertrophy with ur inary retention and indwelling Mayfield catheter; pancreatic mass; osteoarthritis at multiple sites; sandra ility; generalized weakness; anemia; hyperkalemia. Past Surgical History: Right hip fracture and surgery for that on July 03, 2018. Family History: Father had CT. Sister with hypertension. Social History: Negative for smoking and alcohol use. Physical Examination: Vital Signs: Temperature 97.2, pulse 88, respiratory rate 16, blood pressure 87/56, oxygen saturatio n 95% on room air. Height 6 feet, weight 118 pounds. General: The patient was sleeping in the right lateral position in the bed in position with co ntracture of his extremities. He did not answer any question, did not communicate, but was awake, no t in any distress. HEENT: Head atraumatic, normocephalic. Conjunctivae nonerythematous. Sclerae white. Mouth, no thr ush or edema noted. Ears/Nose, no mass, lesion, discharge noted. Neck: Supple. No JVD, lymph nodes, bruit, thyromegaly noted. Lungs: Bilateral good equal air entry. Clear to auscultation. No rhonchi. No rales. Heart: Normal heart sounds, no murmur or gallop. Abdomen: Soft, bowel sounds normal. No guarding, rigidity, tenderness, mass, hepatosplenomegaly, dis tention, or bruit noted. Extremities: No leg edema. No calf tenderness. Skin: Presence of large decubitus on the left lateral hip, approximately 10 cm x 10 cm in size and h as underlying bone exposed and has some foul smell, discharge at the base of the ulcer. Lymphatics: No lymph node enlargement in neck, supraclavicular, infraclavicular region. Neuro: No focal neurological deficit. Chest: Unremarkable. External Genitalia: Presence of Mayfield catheter. Rectal: Deferred. Laboratory Data: White count 3, hemoglobin 8.9, platelets 215. Sodium 135, potassium 4.5, chloride 103, bicarb 31, BUN 66, creatinine 1.64, glucose 129. Lactic acid 2.5. Liver function tests are unr emarkable. Serum albumin 1.5. Urinalysis: Leukocyte esterase 500, wbc's more than 50, bacteria evette ded, and keep in mind that the patient has an indwelling Mayfield catheter, so urinalysis will be little abnormal like this. CAT scan of the pelvis done in the emergency room shows significant soft tissue ulceration near the lateral aspect of the left hip, left greater trochanter is probably exposed thro ugh the skin and this would be compatible with osteomyelitis. Right hip is poorly assessed related t o significant streak artifact from hardware in place. Impression: 1.Septic shock. 2.Left hip stage IV decubitus ulcer. 3.Chronic kidney disease, stage 3B. 4.Coronary artery disease. 5.Stroke. 6.Hypertension. 7.Anemia. 8.Hyperlipidemia. 9.Benign prostatic hypertrophy with lower urinary tract symptoms. 10.Malnutrition, severe. Plan: We will go ahead and admit the patient to hospital for further evaluation and management of th is problem. The patient is appropriate for inpatient and [facility] Ramsey will be consulted from General Surgery to assist with management of this decubitus. For septic shock, which is due to underlying infection from this left lateral hip decubitus area, we will go ahead and continue Zosyn and vancomycin as per order. 500 cc of IV fluid wide open was orde red to be given and after that, we will continue maintenance fluid. I did talk to patient's daughter outside the room regarding very poor prognosis and we also discussed advance directives. As per my discussion with the patient's daughter, she informed me that in the event of cardiopulmonary arrest, the patient would not have wanted any CPR defibrillation or ventilator support and we will go ahead a nd write the DNR order in the chart. The patient has home health care services available lately. Th e patient's daughter is thinking about hospice care and I have given recommendation that at this poin t, it is very appropriate for patient to go home with the hospice care with severity of the problem t hat we have in our hand. Unfortunately, his prognosis is very poor and daughter understands and she agrees to go home with the hospice care. We will request Social Service to assist with this as well as to complete paperwork for out of hospital DNR. No need for any antihypertensive medication. No n eed for any cholesterol medication at this time. The patient has an indwelling Mayfield catheter for la st several months. The patient will need debridement by Dr. Ramsey, but that will need to be done when he is medically stable and that may or may not happen tomorrow. All these details were discussed with the patient's daughter. With underlying bone exposure, one has to keep in mind about possibility of osteomyelitis as well. The patient's oral intake of food is ve ry poor and that has resulted in severe malnutrition and with that in mind, also his overall prognosi s remains very poor and the very low chances of meaningful improvement for this condition. I will se e him tomorrow morning for followup. Total Time Spent: minutes. BRADY/MODL Voice ID: [id number]
[2023-09-25] MEDS: D5 0.9 NS 1,000 ML IV SCH (08:39)
[2023-09-25] MEDS: carvediloL 3.125 MG TAB PO SCH (08:41)
[2023-09-25 08:50] LABS: Absolute Lymphocytes (CBC) 0.8 K/uL (0.7-4.9); Absolute Monocytes 0.4 K/uL (0.1-1.3); Absolute Neutrophil 3.2 K/uL (1.8-8.0); Basophils % 0.4 % (0-1.3); Eosinophils % 0.7 % (0-4.4); Hematocrit 25.8 % (39.6-49.0); Hemoglobin 8.3 g/dL (13.6-17.9); Lymphocytes % 17.1 % (15.3-44.8); MCH 25.7 pg (27.0-35.0); MCV 80.3 fL (80-100); MPV 8.1 fL (7.6-11.3); Monocytes % 9.1 % (3.3-12.3); Neutrophils % 72.7 % (41.7-73.7); Nucleated Red Blood Cells % 0.1 % (0-0); Platelets 180 thou/uL (152-406); RBC Red Blood Cell Count 3.22 M/uL (4.33-5.43); Red Cell Distribution Width 18.8 % (12.1-15.2)
[2023-09-25] MEDS: Ringers Lactate 1,000 ML IV ONE (09:25)
[2023-09-25] MEDS ORDERED: LIDOCAINE 1% MPF 5 ML VIAL ONE (09:32)
[2023-09-25] MEDS ORDERED: propofoL 200 MG/20 ML VIAL IV ONE (09:32)
[2023-09-25] MEDS ORDERED: ONDANSETRON 4 MG/2 ML VIAL ONE (09:32)
[2023-09-25] MEDS ORDERED: FENTANYL CITR 100 MCG/2 ML ONE (09:32)
--- NOTE | 2023-09-25 10:07 | P.CNS ---
Date of Consult: 09/25/23 Reason for Consult: left hip osteomyelitis Requesting Physician: Neeraj Ramsey Primary Care Provider: Chavez Chief Complaint: worsening left hip wound History of Present Illness: Patient is an 88yo M with a PMH as listed below who was directed to the ED by Dr. Ramsey following his wound care appointment. Left hip ulcer worsening, necrotic tissue noted and concern for osteomyelitis. Infectious disease consulted. Patient in OR for I&D of pressure ulcers by . Allergies No Known Drug Allergies Allergy (Verified 09/02/23 08:37) Unknown Home medications list reviewed: Yes Home Medications: Amlodipine [Norvasc*] 5 mg PO BID 11/14/22 Folic Acid 1 mg PO DAILY 11/14/22 Simvastatin 40 mg PO BEDTIME 11/14/22 Finasteride 5 mg PO DAILY 12/20/22 Aspirin [Aspirin EC 81 MG] 81 mg PO DAILY 01/14/23 Ferrous Sulfate [Ferrous Sulfate*] 325 mg PO DAILY 07/24/23 Carvedilol [Coreg] 12.5 mg PO BID 09/02/23 Tamsulosin [Flomax] 2 cap PO BEDTIME 09/02/23 Bisacodyl [Dulcolax] 5 mg PO EVERY 7TH DAY 09/24/23 Loratadine [Claritin] 10 mg PO DAILY PRN 09/24/23 cloNIDine HCL [Catapres] 0.3 mg PO TID PRN 09/24/23 - Past Medical/Surgical History Diabetic: No -: HTN -: CVA -: DM II -: HLD -: BPH, hypospadias -: hip sx Psychosocial/ Personal History: Lives at home with family, has chronic indwelling Mayfield catheter - Social History Smoking Status: Unknown if ever smoked Alcohol use: No CD- Drugs: No Caffeine use: No Place of Residence: Home Physical Examination Temp Pulse Resp BP Pulse Ox 97.6 F 64 19 131/61 96 09/25/23 08:00 09/25/23 08:00 09/25/23 08:00 09/25/23 08:00 09/25/23 08:00 Laboratory Data - Reviewed Microbiology Data - Reviewed Imagings Data: - Reviewed Conclusions/Impression: Problem List Osteomyelitis Left Hip Severe protein-calorie malnutrition Chronic Kidney Disease Coronary Artery Disease Hypertension Hyperlipidemia BPH Indwelling Mayfield Catheter Pancreatic Mass Osteoarthritis Hx CVA Osteomyelitis Left Hip - Currently on Vancomycin and Zosyn - Blood culture 09/23: pending - Urine culture 09/23: pending - Scheduled for debridement today by Dr. Ramsey Recommendations - Continue current antibiotics for now - Scheduled for debridement today by Dr. Ramsey - Send tissue for wound culture, bone biopsy if possible for targeted antimicrobial therapy. - Wound care per Dr. ramsey - Monitor CBC, BMP and vanco troughs - Pressure offloading measures - Nutritional supplementation Case discussed with Aaliyah Lipscomb
[2023-09-25] MEDS ORDERED: NS 0.9% VIAL 10 ML ONE (10:13)
--- NOTE | 2023-09-25 10:30 | P.BOP ---
Preoperative diagnosis: bilteral necrotic infected hip ulcers with left hip osteomyelitis Postoperative diagnosis: same Primary procedure: 1. Excisional debridement down to bone left hip 17 x 22 x 2 cm Secondary procedure: 2. Excisional debridement subQ right hip 8 x 5 x 1 cm Estimated blood loss: <30cc Specimen: necrotic tissue and culture Findings: left hip deep ulcer with bone palpated/exposed, friable. Anesthesia: General Complications: None Drain(s): Other (wet to dry) Transferred to: Recovery Room Condition: Good
--- NOTE | 2023-09-25 14:07 | CON ---
Date of Consultation: 09/25/2023 Diagnosis: Bilateral lower extremity and hips necrotic ulcers. History Of Present Illness: This is a case of an 88-year-old patient with multiple contracture with necrotic ulcers to bilateral hip region. The patient has been receiving wound care at home. They ar e doing the best they can, but he wants to be in specific position. Also the family is trying to wor k on his diet, but he is not improving. Yes[facility], [facility] with fou l smelling wounds and we decided to admit the patient to the hospital for medical care, antibiotics, surgical debridement, and possible treatment of osteomyelitis since in the left hip area, I am alread y palpating the bone, so clinically he might have osteomyelitis. Most of the information is obtained from the patient's daughter, who is the one with him all the time. He is barely eating as per famil y, has very poor appetite, and he would like to be in specific position, even though the family is tr valeria to move him every 2 hours, I can see there is trouble since he wants to be whatever he likes to be. Allergies: NONE. Medications: Reviewed. Past Medical History: Includes hypertension, coronary artery disease, BPH. Past Surgical History: Include hip surgery. Family History: Hypertension. Social History: He does not smoke. He does not drink alcohol. Review of Systems: Limited. We obtained that from the patient and the daughter when we saw him yesterday. There are ul cers present. He like to be in certain position. No fever, shortness of breath, or chest pain. Physical Examination: General: The patient is awake, alert, contracted. He followed commands, although difficult to commu nicate. HEENT: Pupils equal and reactive. Heart: S1, S2. Abdomen: Soft and depressible. Extremities: Contractures present. Peripheral pulses still present, dorsalis pedis. Integumentary: Shows bilateral hip ulcers. There was also lower extremity ulcers that were checked [facility], but the hip regions are large. They are just massive, more th an 10 to 12 cm with necrotic tissue present. I believe I can even palpate the bone, foul smelling, t he left side is worse than the right. Laboratory Data: Blood work shows WBC count of 3, hemoglobin of 8.9. INR is 1.34. Potassium is 4.5 , creatinine is 1.64. Pelvic CT shows significant soft tissue ulceration of left hip, possible findi ngs of osteomyelitis on CAT scan. Assessment: This is an 88-year-old patient with necrotic infected pressure ulcers, mainly the hip, l eft side more than any other place. The patient was admitted to the hospital for IV antibiotics, Inf ectious Disease consult, offloading addressed, nutrition addressed, surgical intervention. The patie nt and family especially yesterday when I was talking to them too fully explained the need and the re ason for the admission. We also explained to them the benefits, alternatives, and risks of debrideme nt which include, but not limited to, infection, bleeding, damage to adjacent structures, anesthesia complication, nonhealing wound, ND, and even . They also understood this may not relieve any sy mptoms. He might need more than one surgical intervention. They understand that even cleaning this, if nutrition is not there or offloading or control of his medical issues, it is steep climb on tryin g to get this healed, so we asked the cooperation from the patient and the family and the medical doctors. HARISH/PETEY Voice ID: [id number] Report ID: [id number]
[2023-09-25] MEDS: JUVEN PACKET PO SCH (20:22)
[2023-09-25] MEDS: ENSURE ENLIVE 237 ML CAN PO SCH (20:22)
--- NOTE | 2023-09-25 20:22 | PN ---
Date of Progress Note: 09/25/2023 Subjective: The patient was seen this morning for followup. He was lying in bed, not in distress. Awake, alert. Denies any new complaints. Objective: Vital Signs: Reviewed. HEENT: Unremarkable. Lungs: Clear to auscultation. Heart: Sounds normal. Abdomen: Soft. Bowel sounds normal. No guarding, rigidity, tenderness, distention. Extremities: No leg edema. Laboratory Data: WBC , hemoglobin , platelets , sodium , pot assium , chloride , bicarb , BUN , creatinine , glu cose . Impression: 1.Septic shock. 2.Left hip stage IV decubitus ulcer. 3.Probable osteomyelitis, left femur. 4.Chronic kidney disease. 5.Hypertension. 6.Anemia due to chronic kidney disease. Plan: We will go ahead and continue to follow with general surgeon, Dr. Ramsey, who is planning to do debridement of decubitus ulcer. The patient will be kept n.p.o. and we will go ahead and change IV fluid to D5 normal saline 50 cc/hour. Continue current antibiotic which is Zosyn and vancomycin. This morning, blood pressure was 152/88, and we will go ahead and start him on carvedilol 3.125 mg 2 times a day, hold if systolic blood pressure less than 130. Social Service was consulted to help ma ke arrangements for hospice care upon discharge from the hospital as well as to get out of hospital. DNR paperwork ready for the patient. Overall, prognosis is poor. BRADY/MODL Voice ID: [id number] Report ID: [id number]
[2023-09-25] MEDS: VANCOMYCIN 0.75 GM in NA CHLORIDE 0.9% 150 ML IVPB SCH (21:40)
[2023-09-25 22:14] LABS: Anion Gap 9.4 mEq/L (5.0-15.0); Potassium 4.4 mEq/L (3.5-5.1)
--- NOTE | 2023-09-26 08:43 | P.PN ---
Infectious Disease Progress Note Chief Complaint: worsening left hip wound Subjective: s/p debridement of bilateral hip pressure ulcers yesterday by Dr. Ramsey. In no apparent distress. No new complaints at this time. Physical Examination Temp Pulse Resp BP Pulse Ox 96.9 F 80 18 145/82 H 92 09/26/23 08:00 09/26/23 08:00 09/26/23 08:00 09/26/23 08:00 09/26/23 04:00 Laboratory Data - Reviewed Microbiology Data - Reviewed Imagings Data: - Reviewed Assessment and Plan Problem List Osteomyelitis Left Hip Bilateral necrotic infected hip ulcers Gram-Negative Bacteremia Catheter-associated urinary tract infection (POA) Severe protein-calorie malnutrition Chronic Kidney Disease Coronary Artery Disease Hypertension Hyperlipidemia BPH Indwelling Mayfield Catheter Pancreatic Mass Osteoarthritis Hx CVA Osteomyelitis Left Hip Bilateral Necrotic Infected Hip Ulcers Gram-Negative Bacteremia CAUTI (POA) - Blood culture 09/23: gram negative rods in 2/4 bottles - Urine culture 09/23: Citrobacter freundii, multi-drug resistant - underwent debridement 09/[address] Ramsey: 1. Excisional debridement down to bone left hip 17 x 22 x 2 cm 2. Excisional debridement subQ right hip 8 x 5 x 1 cm - Deep tissue wound culture 09/24: pending - Zosyn switched to meropenem 09/25 following urine culture results. - On Meropenem (09/25-) and vancomycin (09/23-) Recommendations - Zosyn discontinued; started on meropenem. Continue Vancomycin. - osteomyelitis: recommend IV antibiotic therapy for 6 weeks duration - s/p debridement 09/24, follow up with culture for target antimicrobial therapy - Wound care per Dr. ramsey - Monitor CBC, BMP and vanco troughs - Pressure offloading measures - Nutritional supplementation Case discussed with Aaliyah Lipscomb
[2023-09-26] MEDS: Meropenem 1,000 MG in NA CHLORIDE 0.9% 100 ML IV SCH (09:05)
[2023-09-26] MEDS: FUROSEMIDE 40 MG/4 ML VIAL IV ONE (17:01)
[2023-09-26] MEDS: VANCOMYCIN 0.75 GM in NA CHLORIDE 0.9% 150 ML IVPB SCH (22:10)
--- NOTE | 2023-09-26 23:26 | PN ---
Date of Progress Note: 09/26/2023 Subjective: The patient was seen this morning for followup. He was sleeping, easily arousable, not in any distress. No new complaints or problems reported by patient. Objective: General: Lying in bed, not in any distress. Vital Signs: Reviewed. HEENT: Unremarkable. Lungs: Clear to auscultation. Heart: Sounds normal. Abdomen: Soft. Bowel sounds normal. No guarding, rigidity, tenderness, distention. Extremities: No leg edema. Laboratory Data: Blood culture is growing gram-negative rods. Urine culture has grown gram-negative rods, but it is important to keep in mind that the patient has an indwelling Mayfield catheter for last several months, so positive urine culture does not necessarily mean that he has urinary tract infect ion. Urine culture is Citrobacter. Wound culture is pending and final report on the blood culture i s pending. Impression: 1.Septic shock. 2.Infected left hip decubitus ulcer, stage IV. 3.Chronic kidney disease, stage 3B. 4.Hypertension. 5.Anemia due to chronic kidney disease. Plan: We will go ahead and continue current medication. Continue to follow with Dr. Ramsey. We w ill follow up on blood culture and wound culture results and then make decision regarding culture specific antibiotics. Social Service is assisting family with discharge planning. I will see him to [facility] for followup. BRADY/MODL Voice ID: [id number] Report ID: [id number]
--- NOTE | 2023-09-27 08:51 | P.PN ---
Infectious Disease Progress Note Subjective: In no apparent distress. Denies any new/worsening complaints. No acute events / major changes overnight. Physical Examination Temp Pulse Resp BP Pulse Ox 97.0 F 74 16 128/69 96 09/27/23 04:00 09/27/23 04:00 09/27/23 04:00 09/27/23 04:00 09/27/23 04:00 General: in no apparent distress. thin, frail HEENT: normocephalic, atraumatic Resp: Unlabored respirations on room air Cardio: regular rate. No edema Abdomen: flat. non-tender. normoactive bowel sounds Skin: bilateral hip pressure ulcers stage 4, dressing intact. Laboratory Data - Reviewed Microbiology Data - Reviewed Imagings Data: - Reviewed Medications List: Acetaminophen (Acetaminophen 500 Mg Tab) 500 mg PO Q6H PRN PRN Reason: Pain scale 2-4 (Mild) Carvedilol (Carvedilol 3.125 Mg Tab) 3.125 mg PO BIDWM [facility] Last Admin: 09/27/23 09:33 Dose: 3.125 mg Clonidine HCl (Clonidine Hcl 0.1 Mg Tab) 0.1 mg PO TID PRN PRN Reason: SBP>160 Meropenem 1,000 mg/ Sodium (Chloride) 100 mls @ 200 mls/hr IV Q12HR [facility] Last Admin: 09/27/23 09:33 Dose: 100 mls Vancomycin HCl 0.75 gm/ Sodium (Chloride) 150 mls @ 150 mls/hr IVPB Q24H [facility]; Protocol Last Admin: 09/26/23 22:10 Dose: 150 mls L-Arginine/L-Glutamine/HMB (Jens Packet) 1 pkt PO BID [facility] Last Admin: 09/27/23 09:33 Dose: 1 pkt Mupirocin (Mupirocin Nasal 2 Appl/1 Gm Tube) 1 appl SIXTO BID [facility] Stop: 10/01/23 21:01 Last Admin: 09/27/23 09:33 Dose: 1 appl Nutritional Formula (Ensure Enlive 237 Ml Can) 237 ml PO BID [facility] Last Admin: 09/27/23 09:33 Dose: 237 ml Ondansetron HCl (Ondansetron 4 Mg/2 Ml Vial) 4 mg IV Q4H PRN PRN Reason: NAUSEA / VOMITING Assessment and Plan Problem List Osteomyelitis Left Hip Bilateral necrotic infected hip ulcers Gram-Negative Bacteremia Catheter-associated urinary tract infection (POA) Severe protein-calorie malnutrition Chronic Kidney Disease Coronary Artery Disease Hypertension Hyperlipidemia BPH Indwelling Mayfield Catheter Pancreatic Mass Osteoarthritis Hx CVA Osteomyelitis Left Hip Bilateral Necrotic Infected Hip Ulcers Gram-Negative Bacteremia CAUTI (POA) - Blood culture 09/23: gram negative rods in 2/4 bottles - Urine culture 09/23: Citrobacter freundii, multi-drug resistant - underwent debridement 09/[address] Ramsey: 1. Excisional debridement down to bone left hip 17 x 22 x 2 cm 2. Excisional debridement subQ right hip 8 x 5 x 1 cm - Deep tissue wound culture 09/24: Escherichia coli and Citrobacter freundii - Zosyn switched to meropenem 09/25 following urine culture results. - On Meropenem (09/25-) and vancomycin (09/23-) Recommendations - osteomyelitis: recommend IV antibiotic therapy for 6 weeks duration - Continue vancomycin and meropenem. - Wound care per Dr. ramsey - final blood culture results still pending, follow up. - Monitor CBC, BMP and vanco troughs - Pressure offloading measures - Nutritional supplementation Case Management following, see notes for discharge disposition. Case discussed with Aaliyah Lipscomb
[2023-09-27] MEDS: Mupirocin NASAL 2 APPL/1 GM TUBE NAS SCH (09:33)
--- NOTE | 2023-09-27 13:05 | PN ---
Date of Progress Note: 09/27/2023 Subjective: The patient was seen this morning for followup. No new complaints or problems reported by the patient. He was lying in bed, not in distress. Denies any abdominal pain, nausea, vomiting. Objective: Vital Signs: Reviewed. HEENT: Unremarkable. Lungs: Clear to auscultation. Heart: Sounds normal. Abdomen: Soft. Bowel sounds normal. No guarding, rigidity, tenderness, distention. Extremities: No leg edema. Laboratory Data: Wound culture has grown E. coli as well as Citrobacter and it is sensitive to merop enem. Blood culture is growing some bacteria, final result pending. Impression: 1.Septic shock. 2.Infected left hip decubitus ulcer, stage IV. 3.Benign prostatic hypertrophy with indwelling Mayfield catheter. 4.Chronic kidney disease stage IIIB. 5.Hypertension. 6.Anemia due to chronic kidney disease. 7.Malnutrition. Plan: We will go ahead and continue current medication. Infectious Disease consultation is che patel. The patient is on IV meropenem and vancomycin as per Infectious Disease. The patient will need 6 weeks of IV antibiotic for infected left hip decubitus ulcer with underlying osteomyelitis of the left hip and will require PICC line which was ordered today. Plan is for the patient to go home with IV antibiotic therapy with Home Health Services and once that is completed, then the patient will transition to hospice care. I will see him tomorrow for followup. We will repeat blood work tomorrow. BRADY/MODL Voice ID: [id number] Report ID: [id number]
[2023-09-27] MEDS: COLLAGENASE 30 GM OINTMENT TOP SCH (13:53)
--- NOTE | 2023-09-27 16:08 | RAD REPORT ---
EXAM DESCRIPTION: RAD - Chest Single View - 09/27/2023 3:51 pm CLINICAL HISTORY: Device placement PICC line placement IMPRESSION: PICC line with its tip in the superior vena cava
--- NOTE | 2023-09-27 17:17 | PN ---
Date of Progress Note: 09/27/2023 Reason For Service: Bilateral hip and extremities pressure wounds with osteomyelitis. Subjective: The patient is doing well. No complaint. I had a discussion today with the family. Alcocer rgical areas were intact. Imaging discussed also with the family. Plan: From the surgical standpoint, we are going to continue with wound care. May need further debr idement in the future, but at this moment, we have to address the issue of osteomyelitis, offloading, nutrition, and correct medical issues. Infectious Disease has been consulted. We will have 6 weeks of antibiotics. Hopefully LTAC may be considered. HM/MODL Voice ID: [id number] Report ID: [id number]
[2023-09-28 11:12] LABS: Hematocrit 26.8 % (39.6-49.0); Hemoglobin 8.4 g/dL (13.6-17.9); MCH 24.8 pg (27.0-35.0); MCHC 31.2 g/dL (32.0-36.0); MCV 79.4 fL (80-100); MPV 7.5 fL (7.6-11.3); Platelets 244 thou/uL (152-406); RBC Red Blood Cell Count 3.37 M/uL (4.33-5.43); Red Cell Distribution Width 19.3 % (12.1-15.2)
[2023-09-28 11:13] LABS: Absolute Eosinophils 0.1 K/uL (0-0.5); Absolute Lymphocytes (CBC) 1.2 K/uL (0.7-4.9); Absolute Monocytes 0.4 K/uL (0.1-1.3); Absolute Neutrophil 5.3 K/uL (1.8-8.0); Basophils % 0.4 % (0-1.3); Lymphocytes % 16.8 % (15.3-44.8); Monocytes % 5.2 % (3.3-12.3); Neutrophils % 76.6 % (41.7-73.7)
[2023-09-28 11:22] LABS: Anion Gap 5.4 mEq/L (5.0-15.0); Magnesium 2.1 mg/dL (1.6-2.4); Potassium 4.4 mEq/L (3.5-5.1)
--- NOTE | 2023-09-28 11:59 | PN ---
Date of Progress Note: 09/28/2023 Subjective: The patient was seen this morning for followup. He was lying in bed, in right lateral f etal position. Denies any complaints. Not in any respiratory distress. Objective: Vital Signs: Reviewed. This morning, temperature 97.4, pulse 80, respiratory rate 15, b lood pressure 139/76. Oxygen saturation 99%. HEENT: Unremarkable. Lungs: Clear to auscultation. Heart: Sounds normal. Abdomen: Soft. Bowel sounds normal. No guarding, rigidity, tenderness, distention. Extremities: No leg edema. Impression: 1.Septic shock. 2.Osteomyelitis, left hip. 3.Stage IV decubitus ulcer, left hip. 4.Hypertension. 5.Chronic kidney disease, stage 3B. 6.Anemia due to chronic kidney disease. Plan: We will go ahead and continue current antibiotic. Continue to follow up with Infectious Disea se team. We will go ahead and repeat blood work tomorrow. Chest x-ray was ordered today, and I will see him tomorrow for followup. The patient will need 6 weeks of IV antibiotic therapy. BRADY/MODL Voice ID: [id number] Report ID: [id number]
[2023-09-28 12:08] LABS: Anisocytosis 1+; Blood Morphology Comment NOTED (NOT SEEN); Microcytosis 1+; Platelet Estimate ADEQ; Platelets Clumped FEW; White Blood Cell Scan OK (OK)
--- NOTE | 2023-09-28 12:28 | RAD REPORT ---
[facility] CLINICAL HISTORY: sepsis COMPARISON: Chest Single View dated 09/27/2023; Chest Single View dated 03/20/2023 TECHNIQUE: Portable AP view of the chest. FINDINGS: Layering left pleural effusion and fluffy central opacities more pronounced on the left ar e stable. Findings may relate to pulmonary edema although superimposed pneumonia should be considered . Obscured right base by superimposed soft tissues limits evaluation. Right arm PICC in place with ca theter tip near the superior cavoatrial junction. No pneumothorax. The cardiomediastinal contours ar e unremarkable. IMPRESSION: Essentially stable findings, as above.
--- NOTE | 2023-09-29 11:47 | PN ---
Date of Progress Note: 09/29/2023 Subjective: The patient was seen this morning for followup. He was lying in bed, not in distress. Objective: Vital Signs: Reviewed. HEENT: Unremarkable. Lungs: Clear to auscultation. Heart: Heart sounds normal. Abdomen: Soft, bowel sounds normal. No guarding, rigidity, tenderness or distention. Extremities: No leg edema. Impression: 1.Infected decubitus ulcer, left hip, stage IV. 2.Chronic kidney disease, stage 3B. 3.Anemia due to chronic kidney disease. 4.Malnutrition. Plan: We will go ahead and continue current antibiotic, continue to follow up with Infectious Diseas e specialist and the patient has a PICC line in place and my plan is to discharge him to go home with IV antibiotic this coming week. I have asked nurse to communicate with Infectious Disease specialis t to see whether he still wants to continue to use vancomycin or just send the patient home with kristina penem without vancomycin. I will see him tomorrow for followup. BRADY/MODL Voice ID: [id number] Report ID: [id number]
[2023-09-29 12:20] LABS: CDIFF INTERNAL NEG CONTROL White Background (WHITE BKGD); STOOL CONSISTENCY Liquid/Semi-Solid
[2023-09-29 12:21] LABS: C.diff Antigen/Toxin Ag pos : Tox neg (NEG : NEG)
[2023-09-30 05:37] LABS: Absolute Eosinophils 0.1 K/uL (0-0.5); Absolute Lymphocytes (CBC) 0.7 K/uL (0.7-4.9); Absolute Monocytes 0.4 K/uL (0.1-1.3); Basophils % 0.4 % (0-1.3); Eosinophils % 1.1 % (0-4.4); Hematocrit 23.9 % (39.6-49.0); Hemoglobin 7.6 g/dL (13.6-17.9); MCH 25.2 pg (27.0-35.0); MCHC 31.8 g/dL (32.0-36.0); MCV 79.2 fL (80-100); MPV 7.5 fL (7.6-11.3); Monocytes % 4.4 % (3.3-12.3); Nucleated Red Blood Cells % 0.2 % (0-0); Platelets 232 thou/uL (152-406); RBC Red Blood Cell Count 3.02 M/uL (4.33-5.43); Red Cell Distribution Width 18.5 % (12.1-15.2)
[2023-09-30 05:45] LABS: Neutrophils % 85.1 % (41.7-73.7)
[2023-09-30 05:54] LABS: Anion Gap 7.3 mEq/L (5.0-15.0); Magnesium 2.3 mg/dL (1.6-2.4); Potassium 4.3 mEq/L (3.5-5.1)
--- NOTE | 2023-09-30 09:04 | P.PN ---
Infectious Disease Progress Note Subjective: No acute events / major changes In no apparent distress. Denies any new/worsening complaints. Continue current plan of care. Physical Examination Temp Pulse Resp BP Pulse Ox 97.8 F 94 H 18 156/94 H 94 09/30/23 04:00 09/30/23 08:34 09/30/23 04:00 09/30/23 08:34 09/30/23 04:00 General: in no apparent distress. thin, frail HEENT: normocephalic, atraumatic Resp: Unlabored respirations on room air Cardio: regular rate. No edema Abdomen: flat. non-tender. normoactive bowel sounds Skin: bilateral hip pressure ulcers stage 4, dressing intact. Laboratory Data - Reviewed Microbiology Data - Reviewed Imagings Data: - Reviewed Medications List: Reviewed Assessment and Plan Problem List Osteomyelitis Left Hip Bilateral necrotic infected hip ulcers Gram-Negative Bacteremia Catheter-associated urinary tract infection (POA) Severe protein-calorie malnutrition Chronic Kidney Disease Coronary Artery Disease Hypertension Hyperlipidemia BPH Indwelling Mayfield Catheter Pancreatic Mass Osteoarthritis Hx CVA Osteomyelitis Left Hip Bilateral Necrotic Infected Hip Ulcers Gram-Negative Bacteremia CAUTI (POA) - Blood culture 09/23: gram negative rods in 2/4 bottles - Urine culture 09/23: Citrobacter freundii, multi-drug resistant - underwent debridement 09/[address] Ramsey: 1. Excisional debridement down to bone left hip 17 x 22 x 2 cm 2. Excisional debridement subQ right hip 8 x 5 x 1 cm - Deep tissue wound culture 09/24: Escherichia coli and Citrobacter freundii - Zosyn switched to meropenem 09/25 following urine culture results. - On Meropenem (09/25-) and vancomycin (09/23-) Given history of multiple infections with MDROs including recent E.faecalis bacteremia, recommend continuing with vancomycin as well. Recommendations - osteomyelitis: recommend IV antibiotic therapy for 6 weeks duration (09/25- 11/06) - Continue vancomycin and meropenem. - final blood cultures remain pending; gram negative rods in 2/4 bottles. - Wound care per Dr. ramsey - Monitor CBC, BMP and vanco troughs - Pressure offloading measures - Nutritional supplementation Patient would benefit from LTAC or SNF placement for continued wound care and 6 weeks IV antibiotics. Case discussed with Aaliyah Lipscomb
[2023-09-30] MEDS: cloNIDine HCL 0.1 MG TAB PO PRN (13:20)
--- NOTE | 2023-09-30 16:31 | PN ---
Diagnosis is DICTATION ENDS HERE. HM/MODL Voice ID: [id number] Report ID: [id number]
--- NOTE | 2023-09-30 16:37 | PN ---
Date of Progress Note: 09/30/2023 Subjective: Mr. Ramirez is an 88-year-old patient with multiple bilateral decubitus pressure ulcers. T he patient was taken to surgery about a week ago for debridement and found to have osteomyelitis, cli nical and radiological. Receiving IV antibiotics. The wound care has not changed much. We noticed it is not getting worse, but obviously nutrition and proper antibiotics and offloading may contribute to get this better. In the meantime if the patient will be going to an LTAC or SNF facility for IV antibiotics, he is going [facility] so we can see if there is any more debridement have to be done. If he is going to stay here all this time, then we will like to know to see if we might have to take him back to do further debridements as is routine for this case. We wi ll discuss that with the primary doctor. HARISH/PETEY Voice ID: [id number] Report ID: [id number]
--- NOTE | 2023-09-30 21:49 | PN ---
Date of Progress Note: 09/30/2023 Subjective: The patient was seen this morning for followup. No new complaints or problems reported by the patient. Lying in bed, not in distress, sleeping, wakes up when I communicated with him, but he did not answer any questions. Not in any respiratory distress. Objective: Vital Signs: Reviewed. HEENT: Unremarkable. Lungs: Clear to auscultation. Heart: Sounds normal. Abdomen: Soft. Bowel sounds normal. No guarding, rigidity, tenderness, distention. Extremities: No leg edema. Laboratory Data: Today, WBC 8.2, hemoglobin 7.6, platelets 232. Chemistry today, sodium 140, potass ium 4.3, chloride 109, bicarb 28, BUN 64, creatinine 1.29, glucose 90, magnesium 2.3. Impression: 1.Septic shock. 2.Infected left hip stage IV decubitus ulcer. 3.Malnutrition. 4.Hypertension. 5.Chronic kidney disease stage IIIB. 6.Anemia due to chronic kidney disease. Plan: We will go ahead and continue current medication. Continue current antibiotics. The patient is on IV antibiotic as per Infectious Disease specialist and will need it for 6 weeks. Social [facility] is trying to followup family for discharge planning and once arrangements gets completed, plan is to discharge the patient. Currently, the patient is on IV merop enem as well as IV vancomycin. BRADY/MODL Voice ID: [id number] Report ID: [id number]
[2023-10-01] MEDS: VANCOMYCIN 1 GM in NA CHLORIDE 0.9% 250 ML IVPB SCH (09:20)
--- NOTE | 2023-10-01 09:26 | P.PN ---
Infectious Disease Progress Note Subjective: No major changes. in no apparent distress. No new/worsening complaints. Pending outpatient IV antibiotic arrangements. Home health vs SNF. CM/SS following. Physical Examination Temp Pulse Resp BP Pulse Ox 97.1 F 85 16 141/93 H 94 10/01/23 04:00 10/01/23 08:08 10/01/23 04:00 10/01/23 08:08 10/01/23 04:00 General: in no apparent distress. thin, frail. Oriented x1 to self. HEENT: normocephalic, atraumatic Resp: Unlabored respirations on room air. diminished. Cardio: Regular rate. bilateral pedal edema 2+. Abdomen: Flat. Non-tender. Normoactive bowel sounds Skin: Bilateral hip pressure ulcers stage 4, dressing intact. : thompson catheter (chronic). Laboratory Data - Reviewed Microbiology Data - Reviewed Imagings Data: - Reviewed Medications List: Reviewed Assessment and Plan Problem List Osteomyelitis Left Hip Bilateral necrotic infected hip ulcers Gram-Negative Bacteremia Catheter-associated urinary tract infection (POA) Severe protein-calorie malnutrition Chronic Kidney Disease Coronary Artery Disease Hypertension Hyperlipidemia BPH Indwelling Thompson Catheter Pancreatic Mass Osteoarthritis Hx CVA Osteomyelitis Left Hip Bilateral Necrotic Infected Hip Ulcers Gram-Negative Bacteremia CAUTI (POA) - Blood culture 09/23: gram negative rods in 2/4 bottles - Urine culture 09/23: Citrobacter freundii, multi-drug resistant - underwent debridement 09/[address] Ramsey: 1. Excisional debridement down to bone left hip 17 x 22 x 2 cm 2. Excisional debridement subQ right hip 8 x 5 x 1 cm - Deep tissue wound culture 09/24: Escherichia coli and Citrobacter freundii - Zosyn switched to meropenem 09/25 following urine culture results. - On Meropenem (09/25-) and vancomycin (09/23-) Given history of multiple infections with MDROs including recent E.faecalis bacteremia, recommend continuing with vancomycin as well. Recommendations - osteomyelitis: recommend IV antibiotic therapy for 6 weeks duration (09/25- 11/06) - Continue vancomycin and meropenem given MDROs - final blood cultures remain pending; gram negative rods in 2/4 bottles. - Wound care per Dr. Ramsey - Monitor CBC, BMP and vanco troughs - Pressure offloading measures - Nutritional supplementation - aspiration precautions. Patient would benefit from SNF placement for continued IV antibiotics x 6 weeks with laboratory monitoring and wound care. Case discussed with Aaliyah Lipscomb
--- NOTE | 2023-10-01 23:10 | PN ---
Date of Progress Note: 10/01/2023 Subjective: The patient was seen this morning for followup. He was lying in bed, not in distress. Objective: Vital Signs: Reviewed. HEENT: Unremarkable. Lungs: Clear to auscultation. Heart: Sounds normal. Abdomen: Soft. Bowel sounds normal. No guarding, rigidity, tenderness, distention. Extremities: No leg edema. Skin: Dressing present over decubitus ulcer. Left hip decubitus ulcer dressing was removed and repl aced to examine this area as the patient was sleeping in his right lateral position and gauze was pre sent at the base. No discharge or bleeding. Surrounding skin appears normal in color. Impression: 1.Septic shock, improved. 2.Infected left hip stage IV decubitus ulcer. 3.Malnutrition. 4.Hypertension. 5.Chronic kidney disease, stage IIIB. 6.Anemia due to chronic kidney disease. 7.Osteomyelitis, left hip. Plan: The patient's wound culture results reviewed. Ideally, the patient is like this with infected decubitus ulcer on the left hip which is stage IV and visible bone at the base of this decubitus, on e has to think about osteomyelitis of the left hip and ideally the patient will need 6 weeks of IV an tibiotic therapy. Currently, he is on meropenem and vancomycin. Social Service has been working wit h the family, and family is not able to afford home IV antibiotic therapy out of pocket cost, so othe r option is to go to [facility] facility, which I understand as per note from Social Service litzy t only 3 weeks will be covered. Remaining 3 weeks family will have to come up with financial arrange ments for total 6 weeks of IV antibiotic therapy. I did talk to Dr. Ramsey earlier today because f amily plan is once the patient gets done with IV antibiotic therapy was to put him on hospice care. In that case, I did communicate with Dr. Ramsey today to see what his feelings are if the patient g oes home with oral antibiotic and hospice care, so he can be discharged from the hospital directly to go home with this option of oral antibiotic and hospice care and Dr. Ramsey is okay with that deci karen if family decides to do so. So, this evening I called the patient's daughter, Ms. Islas, who sa ys she has medical power of state's attorney for the patient and I presented all this options to her. The be st thing would be to do 6 weeks of IV antibiotic therapy for this infection, but at end of 6 weeks, t here is no guarantee that this infection will be resolved, but at the same time, his large left hip d ecubitus ulcer will not be healed in 6 weeks and another important aspect of this decubitus ulcer is malnutrition. His nutritional status is extremely poor. He does not eat or drink much and with that , it will be very difficult for this kind of decubitus to heal in a short period of time and in fact it may not heal. With that, there is always a risk of another infection and he is going to go on hos pice care even after 6 weeks of IV antibiotic therapy, so in that case, we did discuss other option o f going home directly from the hospital with oral antibiotic therapy and hospice care and in that brittnee e, we are not giving optimum and the best possible antibiotic therapy, but at the same time, focus is comfort care for whatever amount of time of life span he has, family wants him to stay comfortable a nd they are not looking into prolonging his life with compromise health and compromising comfort. So , I had a long discussion with the patient's daughter this evening and she has elected to take him ho me with hospice care with oral antibiotic and this can happen as early as tomorrow. The patient's da naziaer has medical power of state's attorney and I have also advised her that she should communicate with her other siblings to make sure that everybody is in agreement and she will do so tonight and I will com municate with her once again tomorrow morning to confirm family's decision and then we will contact S ocial Service to make arrangements according to family's decision. Overall, prognosis is poor. BRADY/MODL Voice ID: [id number] Report ID: [id number]
[2023-10-02 10:37] VITALS: O2SAT 94
[2023-10-02 18:46] VITALS: BP 158/90; TEMP 98.2
--- NOTE | 2023-10-03 12:26 | DS ---
Date of Discharge: 10/02/2023 Disposition: Discharged to go home with hospice care. Physical Examination: HEENT: Unremarkable. Lungs: Clear to auscultation. Heart: Sounds normal. Abdomen: Soft. Bowel sounds normal. No guarding, rigidity, tenderness, distention. Extremities: No leg edema. Laboratory Data: Upon admission on 09/24/2023, white count was 3, hemoglobin 8.[address], [address] CBC from 09/30/2023, white count 8.2, hemoglobin 7.6, platelets 232. For chemistry, last chemistr y on 09/30/2023, sodium 140, potassium 4.3, chloride 109, bicarb 28, BUN 64, creatinine 1.29, estimat ed GFR 53, magnesium 2.3. Upon admission on 09/24/2023, sodium 135, potassium 4.5, chloride 103, bic arb 31, BUN 66, creatinine 1.64, glucose 129. Liver function tests unremarkable. Wound culture is g rowing E. coli and Citrobacter and this is left hip stage IV decubitus ulcer on culture. Discharge Medications And Instructions: Continue home medications as below: 1.Carvedilol 12.5 mg take half a tablet 2 times a day, amlodipine 5 mg daily, aspirin 81 mg daily, c lonidine 0.3 mg 3 times a day as needed for systolic blood pressure more than 160. 2.Stop ferrous sulfate, finasteride, folic acid, tamsulosin, simvastatin. 3.Start Bactrim 1 tablet by mouth 2 times a day for 2 weeks. 4.The patient to be admitted to [facility] hospice upon discharge from the hospital. 5.Wound care management by hospice as per instruction from Dr. Ramsey. Hospital Course: An 88-year-old male patient, who was admitted to the hospital with a very large inf ected decubitus ulcer over the hip area. Please see dictated H and P for more information. The omari ent lives at home and his family provides care to him and lately the patient has been bedbound and villrareal s very poor oral intake that has resulted in malnutrition which is severe. The patient has been comi ng [facility] for this decubitus ulcer and he was sent to emergency room. [facility]23 and after he was evaluated in the ER, he was admitted to the hospital with this infected decubitus ulcer over hip area. When the patient first came into [facility] room, he was in septic shock with this infection. Dr. Ramsey was consulted. The patient wa s given IV fluid and empiric IV antibiotics were started. Wound culture and blood culture were obtai peña. The patient has a Mayfield catheter for last several months and as a result of that, he always has abnormal urinalysis, and his urine culture also grew Citrobacter, but we should not label that as a urinary tract infection because of his indwelling Mayfield catheter. Dr. Ramsey performed debridement of this decubitus ulcer. After initial IV fluid management and his IV antibiotics, the patient's vi jim signs got stabilized. Blood pressure got stabilized. The patient did not require any vasopresso r medication. Infectious disease consultation was obtained from Dr. Da Silva and he recommended 6 week s of IV antibiotic which was meropenem and vancomycin on basis of the wound culture and the concern a bout multi-drug resistant organism. His left femur greater trochanter was visible at the base of thi s large left hip decubitus, so until unless proven otherwise, this is considered osteomyelitis requir ing 6 weeks of IV antibiotic therapy. Initially, when I communicated with the patient's daughter, Ms Tom Islas, who has medical power of traffic law attorney for the patient informed that she does not want to send th e patient to retirement and upon discharge from hospital, her plan was to bring the patient back ho [place] on hospice care considering his overall prognosis is very poor. We also discussed advance directi ves and as per decision made by her, DNR order was written in the chart. Out of hospital DNR paperwo rk was signed for her. After this discussion, we started talking about this IV antibiotic therapy fo r 6 weeks and option for antibiotic therapy use for the [facility] where he can get 3 weeks benefits of IV antibiotic therapy. After that, he will have to return b k home for remaining 3 weeks for total 6 weeks to be completed for pay [facility] pocket at [facility] for last 3 weeks of therapy or to start with just go home with 6 weeks of IV antibiotic therapy, bu t regardless of that, there will be some cost involved on the patient's part and family. They had villarreal rd time due to financial reason. Their plan was at the end of 6 weeks of therapy to transition him t o hospice care anyway, so I discussed at great length with the patient's daughter, Mrs. Islas, and e was even at the end of 6 weeks of therapy, this large decubitus ulcer that he has on his left hip will not be healed and we have ongoing problem with very poor nutritional status, so with co rrecting his nutritional status, this decubitus ulcer either will take very long time or will not hea l and 6 weeks of IV antibiotic therapy, there is no guarantee will take care of this bone infection e ither considering the magnitude of the decubitus ulcer that we dealing with. The patient carries a v tram high risk of infection and sepsis related to this large decubitus and his bed-bound status as wel l as indwelling Mayfield catheter, so we did talk about option of coming home with oral antibiotics on h ospice care and she communicated with her siblings and they all were in agreement to bring him home w ith hospice care and oral antibiotic and let God and nature take its course and keep him comfortable. She informed me that family's main goal is to keep him comfortable instead of prolonging his life. Today, I called Mrs. Islas and informed her that according to culture results and the wound culture, only oral antibiotic that the patient can come home is Bactrim, which is a sulfa drug and obviously that is not going to be the treatment for his osteomyelitis, but only for wound infection and I would suggest to use that for 2 weeks, but once again, that will not take care of osteomyelitis concerns o n his left hip and she understood that and that is what she wants is to bring in home with this 2 wee ks of oral antibiotic therapy and comfort care with hospice. Details were discussed with social work er who also help make hospice care arrangements to be completed today and after that, the patient was discharged to go home. Overall, prognosis is very poor. Final Diagnoses: 1.Septic shock. 2.Left hip stage IV decubitus ulcer. 3.Osteomyelitis, left hip. 4.Severe malnutrition. 5.Chronic kidney disease, stage IIIB. 6.Coronary artery disease. 7.Stroke. 8.Hypertension. 9.Anemia due to chronic kidney disease. 10.Hyperlipidemia. 11.Benign prostatic hypertrophy with lower urinary tract symptoms. 12.Hyperlipidemia. BRADY/MODL Voice ID: [id number] Report ID: [id number]
--- NOTE | 2023-10-03 17:29 | EKG ---
Test Date: 2023-09-24 Test Time: 10:34:04 Equity Manager: OSMAN MEASUREMENT RESULTS: Intervals: Rate: 75 CT: 260 QRSD: 60 QT: 388 QTc: 433 [place]: P: 112 CT: 260 QRS: -71 T: 77 INTERPRETIVE STATEMENTS: Sinus rhythm with 1st degree AV block Left axis deviation Inferior infarct, age undetermined Anterior infarct, age undetermined Abnormal ECG Compared to ECG 09/02/2023 07:53:16 No significant changes Electronically Signed On 10-03-23 16:55:25 CDT by Isak Ramirez
== END 2023-10-02 18:00 | disposition hospice, home (50) | DRG 853 ==
LOC: ER 09:52 → ERHOLD 11:29 → 4TH 15:52
PROVIDERS: ADMIT Internal Medicine; ATTEND Internal Medicine
PROC: 0QB30ZZ Excision of Left Pelvic Bone, Open Approach (ICD-10-PCS; 2023-09-25)
PROC: 0JBC0ZZ Excision of Pelvic Region Subcutaneous Tissue and Fascia, Open Approach (ICD-10-PCS; principal; 2023-09-25 11:45)
PROC: 02HV33Z Insertion of Infusion Device into Superior Vena Cava, Percutaneous Approach (ICD-10-PCS; 2023-09-27)
DX: A41.51 Sepsis due to Escherichia coli [E. coli] (principal); E43 Unspecified severe protein-calorie malnutrition; L89.224 Pressure ulcer of left hip, stage 4; R65.21 Severe sepsis with septic shock; T83.511A Infection and inflammatory reaction due to indwelling urethral catheter, initial encounter; N39.0 Urinary tract infection, site not specified; Z68.1 Body mass index [BMI] 19.9 or less, adult; M86.8X8 Other osteomyelitis, other site; Z16.24 Resistance to multiple antibiotics; I12.9 Hypertensive chronic kidney disease with stage 1 through stage 4 chronic kidney disease, or unspecified chronic kidney disease; N18.32 Chronic kidney disease, stage 3b; E78.00 Pure hypercholesterolemia, unspecified; D64.9 Anemia, unspecified; M19.09 Primary osteoarthritis, other specified site; K86.9 Disease of pancreas, unspecified; N40.1 Benign prostatic hyperplasia with lower urinary tract symptoms; R33.8 Other retention of urine; I25.10 Atherosclerotic heart disease of native coronary artery without angina pectoris; B96.89 Other specified bacterial agents as the cause of diseases classified elsewhere; Z66 Do not resuscitate; Z51.5 Encounter for palliative care; Z74.01 Bed confinement status; Z79.82 Long term (current) use of aspirin; Z79.02 Long term (current) use of antithrombotics/antiplatelets; Z86.73 Personal history of transient ischemic attack (TIA), and cerebral infarction without residual deficits; Z28.311 Partially vaccinated for COVID-19; Z79.899 Other long term (current) drug therapy; Y84.8 Other medical procedures as the cause of abnormal reaction of the patient, or of later complication, without mention of misadventure at the time of the procedure
CPT/HCPCS: 36415; 71045; 72193; 80048; 80053; 80202; 81001; 82947; 83605; 83735; 85025; 85610; 85730; 87040; 87070; 87075; 87076; 87077; 87086; 87088; 87185; 87186; 87205; 87324; 88304; 92610; 93005; 96361; 96365; 96366; 96367; 99215; 99285; A4216; J1940; J2001; J2185; J2405; J2543; J2704; J3010; J3590; J7030; J7042; J7050; J7120; Q9967